=== PATIENT | female | born 1930 | race Caucasian/White ===

== ENCOUNTER 2017-03-11 11:30 | Emergency (ER) | payer MEDICARE ==
[2017-03-11] MEDS ORDERED: SODIUM CHLORIDE 0.9% 500 ML IV ONE (13:25)
--- NOTE | 2017-03-11 13:30 | ED ---
General Adult HPI - General Chief complaint: Fall Stated complaint: Fall Time Seen by Provider: 03/11/17 13:13 Source: patient, family, RN notes reviewed Mode of arrival: wheelchair Limitations: no limitations - History of Present Illness Initial comments: 86-year-old female presents with chief complaint of low back pain. Patient does have chronic low back pain, she fell on Saturday which was 2 days ago. She states she felt lightheaded, and sat down hard, she did have minor head trauma and is complaining of some minor paraspinal neck pain. No focal weakness. No headache. No chest pain or shortness of breath. Patient denies any preceding chest pain prior to the fall. She she has been ambulatory for the past 2 days after the fall, she is expressing worsening right-sided low back pain. No dysuria. No fever or chills. Patient believes she fell because she has not been eating secondary to an argument with her . - Related Data Home Medications Medication Instructions Recorded Confirmed Albuterol Nebulized [Ventolin 2.5 mg INHALATION RT-TID PRN 03/11/17 03/11/17 Nebulized] Albuterol Sulfate [Proair Hfa] 2 puff INHALATION RT-QID PRN 03/11/17 03/11/17 Aspirin EC [Ecotrin Low Dose] 81 mg PO DAILY 03/11/17 03/11/17 Atenolol [Tenormin] 50 mg PO DAILY 03/11/17 03/11/17 Famotidine [Pepcid] 20 mg PO BID 03/11/17 03/11/17 Fish Oil/Dha/Epa [Fish Oil 1,200 1 cap PO DAILY 03/11/17 03/11/17 mg Fish Oil] Gabapentin [Neurontin] 300 mg PO BID 03/11/17 03/11/17 Hydrochlorothiazide [Hydrodiuril] 25 mg PO DAILY 03/11/17 03/11/17 Ipratropium [place] [Atrovent Hfa] 2 puff INHALATION RT-QID PRN 03/11/17 Lovastatin [Mevacor] 40 mg PO DAILY 03/11/17 03/11/17 Montelukast [Singulair] 10 mg PO HS 03/11/17 03/11/17 Systane Balance 2 drops BOTH EYES DAILY PRN 03/11/17 03/11/17 Ubidecarenone [Co Q-10] 100 mg PO DAILY 03/11/17 03/11/17 Vitamin B Complex 1 cap PO DAILY 03/11/17 03/11/17 Zolpidem [Ambien] 10 mg PO HS 03/11/17 03/11/17 traZODone HCL 50 mg PO HS PRN 03/11/17 03/11/17 Previous Rx's Medication Instructions Recorded traMADol HCL [Ultram] 50 mg PO Q8HR PRN #20 tab 03/11/17 Allergies Allergy/AdvReac Type Severity Reaction Status Date / Time adhesive tape Allergy Rash/Hives Verified 03/11/17 14:05 ciprofloxacin [From Cipro] AdvReac Rapid Verified 03/11/17 14:05 Heart Rate Review of Systems ROS Statement: Those systems with pertinent positive or pertinent negative responses have been documented in the HPI. ROS Other: All systems not noted in ROS Statement are negative. Past Medical History Past Medical History: Hypertension Additional Past Medical History / Comment(s): back problems arrythemia History of Any Multi-Drug Resistant Organisms: None Reported Past Surgical History: No Surgical Hx Reported Past Psychological History: No Psychological Hx Reported Smoking Status: Former smoker Past Alcohol Use History: Rare Past Drug Use History: None Reported General Exam Limitations: no limitations General appearance: alert, in no apparent distress Head exam: Present: atraumatic, normocephalic Eye exam: Present: normal appearance, PERRL, EOMI ENT exam: Present: mucous membranes dry Neck exam: Present: normal inspection. Absent: tenderness, meningismus Respiratory exam: Present: normal lung sounds bilaterally. Absent: respiratory distress Cardiovascular Exam: Present: regular rate, normal rhythm GI/Abdominal exam: Present: soft. Absent: distended, tenderness Extremities exam: Present: normal inspection, normal capillary refill. Absent: pedal edema Back exam: Present: paraspinal tenderness (Right lumbar paraspinal tenderness) Neurological exam: Present: alert, oriented X3, CN II-XII intact, normal gait, reflexes normal. Absent: motor sensory deficit Psychiatric exam: Present: normal affect, normal mood Skin exam: Present: warm, dry, intact. Absent: cyanosis, diaphoretic Course Vital Signs 03/11/17 11:46 Temperature 97.9 F Pulse Rate 53 L Respiratory 18 Rate Blood Pressure 170/74 O2 Sat by Pulse 100 Oximetry EKG Findings - EKG Comments: EKG Findings:: EKG shows sinus rhythm with PAC, ventricular rate 61, ER 160, QRS duration 76, QTC 473 which is mildly prolonged. No ST segment elevation or depression, there is artifact in the lateral precordium, no ischemic changes. Medical Decision Making - Medical Decision Making 86-year-old female presenting status post fall which occurred 2 days prior to presentation. Chief complaint low back pain. She did have minor head injury. CT the head is obtained, negative for acute renal hemorrhage or mass effect. CT cervical spine negative for fracture subluxation. X-rays of the pelvis is negative for fracture or dislocation, x-ray of the lumbar spine negative for any acute bony abnormality. Laboratory studies are obtained as the patient states she has not been eating or drinking normally over the past several days this was secondary to an argument with her . White blood cell count normal 7.7, hemoglobin stable 15.4, creatinine 1.2 which is improved from previous baseline 1.4. Patient will be given a prescription for tramadol. She will follow-up with her primary care physician, she does have an appointment within the next week. - Lab Data Result diagrams: 03/11/17 13:55 03/11/17 13:55 Lab Results 03/11/17 03/11/17 Range/Units 13:55 13:55 WBC 7.7 (3.8-10.6) k/uL RBC 4.42 (3.80-5.40) m/uL Hgb 13.4 (11.4-16.0) gm/dL Hct 41.5 (34.0-46.0) % MCV 94.0 D (80.0-100.0) fL MCH 30.4 (25.0-35.0) pg MCHC 32.4 (31.0-37.0) g/dL RDW 15.4 (11.5-15.5) % Plt Count 140 L (150-450) k/uL Neutrophils % 75 % Lymphocytes % 15 % Monocytes % 6 % Eosinophils % 1 % Basophils % 0 % Neutrophils # 5.8 (1.3-7.7) k/uL Lymphocytes # 1.2 (1.0-4.8) k/uL Monocytes # 0.5 (0-1.0) k/uL Eosinophils # 0.1 (0-0.7) k/uL Basophils # 0.0 (0-0.2) k/uL Sodium 142 (137-145) mmol/L Potassium 3.9 (3.5-5.1) mmol/L Chloride 104 (98-107) mmol/L Carbon Dioxide 25 (22-30) mmol/L Anion Gap 13 mmol/L BUN 37 H (7-17) mg/dL Creatinine 1.22 H (0.52-1.04) mg/dL Est GFR (MDRD) Af Amer 51 (>60 ml/min/1.73 sqM) Est GFR (MDRD) Non-Af 42 (>60 ml/min/1.73 sqM) Glucose 86 (74-99) mg/dL Calcium 9.4 (8.4-10.2) mg/dL Total Bilirubin 0.5 (0.2-1.3) mg/dL AST 39 H (14-36) U/L ALT 35 (9-52) U/L Alkaline Phosphatase 62 (38-126) U/L Total Protein 7.7 (6.3-8.2) g/dL Albumin 4.2 (3.5-5.0) g/dL Disposition Clinical Impression: Lumbar contusion Disposition: HOME SELF-CARE Condition: Good Instructions: Contusion in Adults (ED) Prescriptions: traMADol HCL [Ultram] 50 mg PO Q8HR PRN #20 tab PRN Reason: Pain Referrals: Angel Natarajan DO [Primary Care Provider] - 1-2 days Time of Disposition: 15:08
[2017-03-11 14:18] LABS: Basophils % (A) 0 %; Eosinophils # (A) 0.1 k/uL (0-0.7); Eosinophils % (A) 1 %; HCT 41.5 % (34.0-46.0); HGB 13.4 gm/dL (11.4-16.0); Lymphocytes # (A) 1.2 k/uL (1.0-4.8); Lymphocytes % (A) 15 %; MCH 30.4 pg (25.0-35.0); MCHC 32.4 g/dL (31.0-37.0); Mean Platelet Volume 9.4; Monocytes # (A) 0.5 k/uL (0-1.0); Monocytes % (A) 6 %; Neutrophils # (A) 5.8 k/uL (1.3-7.7); Neutrophils % (A) 75 %; Platelet Count 140 k/uL (150-450); RBC 4.42 m/uL (3.80-5.40); RDW 15.4 % (11.5-15.5); WBC 7.7 k/uL (3.8-10.6)
[2017-03-11 14:27] LABS: Albumin 4.2 g/dL (3.5-5.0); Calcium 9.4 mg/dL (8.4-10.2); Potassium 3.9 mmol/L (3.5-5.1); Total Bilirubin 0.5 mg/dL (0.2-1.3); Total Protein 7.7 g/dL (6.3-8.2)
--- NOTE | 2017-03-11 14:40 | CT ---
EXAMINATION TYPE: CT brain oleg roman DATE OF EXAM: 03/11/2017 COMPARISON: NONE HISTORY: No prior in PACS. Patient fell Saturday, c/o dizziness, difficulty standing. CT DLP: 1517.8 mGycm Automated exposure control for dose reduction was used. TECHNIQUE: CT scan of the head and cervical spine are performed without contrast. FINDINGS: There is no acute intracranial hemorrhage, mass effect, or midline shift identified. The ventricles and sulci are within normal limits in size. The globes are intact and the visualized sin uses are clear. Cerebral vascular calcifications are present. Cervical spine is visualized in its entirety from C1 through upper thoracic levels and demonstrates s atisfactory alignment without evidence of acute fracture or dislocation. Prevertebral soft tissue ap pears within normal limits. There is multilevel spondylosis. Loss of disc height is greatest at C4-5, C5-6 and C6-7. The C1-C2 articulation is unremarkable. Apical pleural scarring is present, parasepta l emphysematous disease. There is multilevel foraminal encroachment. IMPRESSION: 1. There is no acute fracture or dislocation evident in the cervical spine. 2. No acute intracranial hemorrhage, mass effect, or midline shift is seen.
[2017-03-11] MEDS ORDERED: ACETAMINOPHEN TAB 500 MG TAB PO STA (14:50)
--- NOTE | 2017-03-11 14:53 | XR ---
EXAMINATION TYPE: XR lumbar spine 2 or 3V DATE OF EXAM: 03/11/2017 CLINICAL HISTORY: pain TECHNIQUE: Three views of the lumbar spine are submitted. COMPARISON: None. FINDINGS: There are 5 lumbar type vertebral bodies identified. The lumbar spine shows satisfactory alignment w ithout evidence of acute fracture or dislocation. Vertebral body heights are within normal limits. Moderate degenerative disc space narrowing and spondylosis. Facet joint arthropathy. The overlying s oft tissue appears unremarkable. IMPRESSION: No acute fracture or dislocation is seen in the lumbar spine. ICD 10 NO FRACTURE, INITIAL EVALUATION
--- NOTE | 2017-03-11 14:56 | XR ---
EXAMINATION TYPE: XR pelvis AP view DATE OF EXAM: 03/11/2017 CLINICAL HISTORY: pain TECHNIQUE: Single view the pelvis is submitted. FINDINGS: No evidence for fracture, dislocation or bony lesion. Joint spaces are well-preserved. S I joints appear symmetric. IMPRESSION: 1. No acute fracture or dislocation seen. ICD 10 NO FRACTURE, INITIAL EVALUATION
[2017-03-11 15:23] VITALS: BP 173/75; PULSE 52; RESP 20; TEMP 96.6
== END 2017-03-11 15:27 | disposition home or self-care (01) ==
LOC: EC 11:30
DX: S30.0XXA Contusion of lower back and pelvis, initial encounter (principal); R42 Dizziness and giddiness; M54.2 Cervicalgia; I10 Essential (primary) hypertension; Z87.891 Personal history of nicotine dependence; Z79.82 Long term (current) use of aspirin; Z79.899 Other long term (current) drug therapy; Z88.1 Allergy status to other antibiotic agents; Z91.048 Other nonmedicinal substance allergy status; W18.00XA Striking against unspecified object with subsequent fall, initial encounter
CPT/HCPCS: 36415; 70450; 72100; 72125; 72170; 80053; 85025; 93005; 99284

== ENCOUNTER 2019-01-20 14:16 | Inpatient (IN) | payer MEDICARE ==
[2019-01-20] MEDS ORDERED: SODIUM CHLORIDE 0.9% 500 ML 500 ML IV STA (14:46)
--- NOTE | 2019-01-20 14:46 | ED ---
Arrhythmia/Palpitations HPI - General Chief Complaint: Arrhythmia/Palpitations Stated Complaint: SOB, Dizzy, Weakness Time Seen by Provider: 01/20/19 14:20 Source: patient Mode of arrival: wheelchair Limitations: no limitations - History of Present Illness Initial Comments: The patient is an 88 year old female with past medical history of hypertension w tony presents to the emergency department with reported palpitations. She states that 2 weeks ago she had an episode of palpitations which lasted approximate 5 minutes and spontaneous resolved. She then had recurrence of the symptoms earlier today. She states that she was going up the stairs when she felt like her heart was racing and she was short of breath. She was brought into the emergency room and found to have a heart rate of 217. Denies a history of previous arrhythmias. No history of coronary artery disease. She does admit to recent cough and congestion. She did take an Z-Santino which was prescribed to her primary care doctor. States that she finished and she does feel somewhat i mproved however continues to have a cough. Admits to chills without fevers. Denies ripping or tearing sensation to her back. No abdominal pain. No changes in her bowel or bladder habits. No recent medication changes other than Z-Santino. No history of hemorrhagic strokes or contraindications to heparinization. There are no other alleviating, precipitating or modifying factors - Related Data Home Medications Medication Instructions Recorded Confirmed Albuterol Nebulized [Ventolin 2.5 mg INHALATION RT-TID PRN 03/11/17 01/20/19 Nebulized] Albuterol Sulfate [Proair Hfa] 2 puff INHALATION RT-QID PRN 03/11/17 01/20/19 Aspirin EC [Ecotrin Low Dose] 81 mg PO DAILY 03/11/17 01/20/19 Famotidine [Pepcid] 20 mg PO BID 03/11/17 01/20/19 Fish Oil/Dha/Epa [Fish Oil 1,200 1 cap PO DAILY 03/11/17 01/20/19 mg Fish Oil] Ipratropium [place] [Atrovent Hfa] 2 puff INHALATION RT-QID PRN 03/11/17 01/20/19 Lovastatin [Mevacor] 40 mg PO DAILY 03/11/17 01/20/19 Montelukast [Singulair] 10 mg PO HS 03/11/17 01/20/19 Systane Balance 2 drops BOTH EYES DAILY PRN 03/11/17 01/20/19 Vitamin B Complex 1 cap PO DAILY 03/11/17 01/20/19 Zolpidem [Ambien] 10 mg PO HS 03/11/17 01/20/19 traZODone HCL 50 mg PO HS PRN 03/11/17 01/20/19 Furosemide [Lasix] 20 mg PO DAILY 01/20/19 01/20/19 Previous Rx's Medication Instructions Recorded Apixaban [Eliquis] 5 mg PO BID 30 Days #60 tab 01/22/19 Gabapentin [Neurontin] 200 mg PO BID #12 cap 01/22/19 Metoprolol Tartrate [Lopressor] 75 mg PO BID 30 Days #180 tab 01/22/19 Allergies Allergy/AdvReac Type Severity Reaction Status Date / Time adhesive tape Allergy TEARS SKIN Verified 01/20/19 16:23 OFF ciprofloxacin [From Cipro] AdvReac Rapid Verified 01/20/19 16:23 Heart Rate Review of Systems ROS Statement: Those systems with pertinent positive or pertinent negative responses have been documented in the HPI. ROS Other: All systems not noted in ROS Statement are negative. Past Medical History Past Medical History: Hypertension Additional Past Medical History / Comment(s): back problems arrythemia History of Any Multi-Drug Resistant Organisms: None Reported Past Surgical History: No Surgical Hx Reported Past Psychological History: No Psychological Hx Reported Smoking Status: Former smoker Past Alcohol Use History: Rare Past Drug Use History: None Reported General Exam Limitations: no limitations General appearance: alert, in no apparent distress Head exam: Present: atraumatic, normocephalic, normal inspection Eye exam: Present: normal appearance, PERRL, EOMI. Absent: scleral icterus, conjunctival injection, periorbital swelling ENT exam: Present: normal exam, mucous membranes moist Neck exam: Present: normal inspection. Absent: tenderness, meningismus, lymphadenopathy Respiratory exam: Present: normal lung sounds bilaterally. Absent: respiratory distress, wheezes, rales, rhonchi, stridor Cardiovascular Exam: Present: tachycardia, irregular rhythm, normal heart sounds. Absent: systolic murmur, diastolic murmur, rubs, gallop, clicks GI/Abdominal exam: Present: soft, normal bowel sounds. Absent: distended, tenderness, guarding, rebound, rigid Extremities exam: Present: normal inspection, full ROM, normal capillary refill. Absent: tenderness, pedal edema, joint swelling, calf tenderness Back exam: Present: normal inspection Neurological exam: Present: alert, oriented X3, CN II-XII intact Psychiatric exam: Present: normal affect, normal mood Skin exam: Present: warm, dry, intact, normal color. Absent: rash Course Vital Signs 01/20/19 01/20/19 01/20/19 14:20 14:33 14:34 Temperature 97.9 F Pulse Rate 217 H 151 H 113 H Respiratory 30 H 16 Rate Blood Pressure 92/64 114/88 O2 Sat by Pulse 88 L 97 Oximetry 01/20/19 01/20/19 15:50 17:07 Temperature Pulse Rate 112 H 112 H Respiratory 16 16 Rate Blood Pressure 161/87 161/91 O2 Sat by Pulse 100 97 Oximetry EKG Findings - EKG Comments: EKG Findings:: EKG performed at 1430 demonstrates a flutter with a ventricular rate of 171. QRS 78. QTC of 452. There appears to be ST depression in leads V3 through V6 that is likely due to rate. No acute ST segment elevations. Repeat EKG is performed at 1433 without intervention for which demonstrates in a flutter with a 2 to one block. Rate of 114. QRS E4. QTC of 446. There is mild ST depression still in V3 through V6, 2, 3, aVF. Medical Decision Making - Medical Decision Making The patient is probably placed in trauma bay 1 and hooked up to continuous pulse ox and cardiac monitoring. Patient's heart rate is noted to be 217. We did perform a 12-lead EKG which demonstrates A. fib with a rapid ventricular rate of 170. A thorough history and physical exam is performed. Peripheral IV is established. During my exam the patient does convert to a flutter with a heart rate of 114. I did recommend completing laboratory studies and a chest x-ray. CBC is unremarkable. D-dimer is elevated at 1.65. Chemistries show a creatinine of 1.44. Glucose of 103. BNP elevated at 4590. Troponin 0.028. Urinalysis is negative. Chest x-ray does demonstrate chronic emphysematous and parenchymal fibrotic changes. Tiny bilateral pleural effusions. Difficult to exclude patchy bibasilar acute edema and/or infiltrate. The patient is placed on Cardizem drip and heparin drip. I we will cover her with antibiotics because of her clinical symptoms of pneumonia with infiltrate seen on chest x-ray. Patient does have an elevated d-dimer. Because of her chronic kidney disease I'm unable to send her for CT PE protocol. I did order a ventilation perfusion scan. A call discuss case with Dr. Tucker at that admission. I will consult cardiology. The patient remained in stable condition and is awaiting a bed on the floor - Lab Data Result diagrams: 01/22/19 06:45 01/22/19 06:45 Lab Results 01/20/19 01/20/19 01/20/19 Range/Units 14:33 14:33 14:33 WBC 8.4 (3.8-10.6) k/uL RBC 4.65 (3.80-5.40) m/uL Hgb 13.5 (11.4-16.0) gm/dL Hct 42.7 (34.0-46.0) % MCV 91.8 (80.0-100.0) fL MCH 29.0 (25.0-35.0) pg MCHC 31.5 (31.0-37.0) g/dL RDW 15.0 (11.5-15.5) % Plt Count 289 (150-450) k/uL Neutrophils % 81 % Lymphocytes % 9 % Monocytes % 6 % Eosinophils % 2 % Basophils % 1 % Neutrophils # 6.8 (1.3-7.7) k/uL Lymphocytes # 0.8 L (1.0-4.8) k/uL Monocytes # 0.5 (0-1.0) k/uL Eosinophils # 0.2 (0-0.7) k/uL Basophils # 0.1 (0-0.2) k/uL PT 10.4 (9.0-12.0) sec INR 1.0 (<1.2) APTT 23.0 (22.0-30.0) sec D-Dimer 1.65 H (<0.60) mg/L FEU Sodium 139 (137-145) mmol/L Potassium 4.1 (3.5-5.1) mmol/L Chloride 103 (98-107) mmol/L Carbon Dioxide 24 (22-30) mmol/L Anion Gap 12 mmol/L BUN 23 H (7-17) mg/dL Creatinine 1.44 H (0.52-1.04) mg/dL Est GFR (CKD-EPI)AfAm 38 (>60 ml/min/1.73 sqM) Est GFR (CKD-EPI)NonAf 33 (>60 ml/min/1.73 sqM) Glucose 103 H (74-99) mg/dL Calcium 9.0 (8.4-10.2) mg/dL Magnesium 1.8 (1.6-2.3) mg/dL Total Bilirubin 0.4 (0.2-1.3) mg/dL AST 35 (14-36) U/L ALT 26 (9-52) U/L Alkaline Phosphatase 88 (38-126) U/L Troponin I (0.000-0.034) ng/mL NT-Pro-B Natriuret Pep pg/mL Total Protein 7.7 (6.3-8.2) g/dL Albumin 3.7 (3.5-5.0) g/dL TSH 1.010 (0.465-4.680) mIU/L Urine Color Urine Appearance (Clear) Urine pH (5.0-8.0) Ur Specific Gladys (1.001-1.035) Urine Protein (Negative) Urine Glucose (UA) (Negative) Urine Ketones (Negative) Urine Blood (Negative) Urine Nitrite (Negative) Urine Bilirubin (Negative) Urine Urobilinogen (<2.0) mg/dL Ur Leukocyte Esterase (Negative) 01/20/19 01/20/19 01/20/19 Range/Units 14:33 14:33 14:45 WBC (3.8-10.6) k/uL RBC (3.80-5.40) m/uL Hgb (11.4-16.0) gm/dL Hct (34.0-46.0) % MCV (80.0-100.0) fL MCH (25.0-35.0) pg MCHC (31.0-37.0) g/dL RDW (11.5-15.5) % Plt Count (150-450) k/uL Neutrophils % % Lymphocytes % % Monocytes % % Eosinophils % % Basophils % % Neutrophils # (1.3-7.7) k/uL Lymphocytes # (1.0-4.8) k/uL Monocytes # (0-1.0) k/uL Eosinophils # (0-0.7) k/uL Basophils # (0-0.2) k/uL PT (9.0-12.0) sec INR (<1.2) APTT (22.0-30.0) sec D-Dimer (<0.60) mg/L FEU Sodium (137-145) mmol/L Potassium (3.5-5.1) mmol/L Chloride (98-107) mmol/L Carbon Dioxide (22-30) mmol/L Anion Gap mmol/L BUN (7-17) mg/dL Creatinine (0.52-1.04) mg/dL Est GFR (CKD-EPI)AfAm (>60 ml/min/1.73 sqM) Est GFR (CKD-EPI)NonAf (>60 ml/min/1.73 sqM) Glucose (74-99) mg/dL Calcium (8.4-10.2) mg/dL Magnesium (1.6-2.3) mg/dL Total Bilirubin (0.2-1.3) mg/dL AST (14-36) U/L ALT (9-52) U/L Alkaline Phosphatase (38-126) U/L Troponin I 0.028 (0.000-0.034) ng/mL NT-Pro-B Natriuret Pep 4590 pg/mL Total Protein (6.3-8.2) g/dL Albumin (3.5-5.0) g/dL TSH (0.465-4.680) mIU/L Urine Color Light Yellow Urine Appearance Clear (Clear) Urine pH 7.0 (5.0-8.0) Ur Specific Gladys 1.004 (1.001-1.035) Urine Protein Negative (Negative) Urine Glucose (UA) Negative (Negative) Urine Ketones Negative (Negative) Urine Blood Negative (Negative) Urine Nitrite Negative (Negative) Urine Bilirubin Negative (Negative) Urine Urobilinogen <2.0 (<2.0) mg/dL Ur Leukocyte Esterase Negative (Negative) Critical Care Time Critical Care Time: Yes Total Critical Care Time: 35 (mins) Disposition Clinical Impression: Atrial fibrillation, Pneumonia, Chronic kidney disease, Elevated d-dimer Disposition: ADMITTED IP TO THIS [facility] Condition: Stable Is patient prescribed a controlled substance at d/c from ED?: No Decision to Admit Reason: Admit from EC Decision Date: 01/20/19 Decision Time: 16:12
[2019-01-20 14:57] LABS: Basophils # (A) 0.1 k/uL (0-0.2); Basophils % (A) 1 %; Eosinophils # (A) 0.2 k/uL (0-0.7); Eosinophils % (A) 2 %; HCT 42.7 % (34.0-46.0); HGB 13.5 gm/dL (11.4-16.0); Lymphocytes # (A) 0.8 k/uL (1.0-4.8); Lymphocytes % (A) 9 %; MCHC 31.5 g/dL (31.0-37.0); MCV 91.8 fL (80.0-100.0); Monocytes # (A) 0.5 k/uL (0-1.0); Monocytes % (A) 6 %; Neutrophils # (A) 6.8 k/uL (1.3-7.7); Neutrophils % (A) 81 %; Platelet Count 289 k/uL (150-450); RBC 4.65 m/uL (3.80-5.40); WBC 8.4 k/uL (3.8-10.6)
[2019-01-20 14:58] LABS: Appearance,Urine Clear (Clear); Bilirubin,Urine Negative (Negative); Blood,Urine Negative (Negative); Color,Urine Light Yellow; Glucose,Urine (UA) Negative (Negative); Ketones,Urine Negative (Negative); Leukocyte Esterase,Urine Negative (Negative); Nitrite,Urine Negative (Negative); Protein,Urine Negative (Negative); Specific Gravity,Urine 1.004 (1.001-1.035); Urobilinogen,Urine <2.0 mg/dL (<2.0)
[2019-01-20 15:02] LABS: Albumin 3.7 g/dL (3.5-5.0); Magnesium 1.8 mg/dL (1.6-2.3); Potassium 4.1 mmol/L (3.5-5.1); Total Bilirubin 0.4 mg/dL (0.2-1.3); Total Protein 7.7 g/dL (6.3-8.2)
--- NOTE | 2019-01-20 15:13 | XR ---
EXAMINATION TYPE: XR chest 2V DATE OF EXAM: 01/20/2019 COMPARISON: Chest x-ray on June 03 2013 HISTORY: Dysrhythmia and shortness of breath. TECHNIQUE: Frontal and lateral views of the chest are obtained. FINDINGS: There is emphysematous and parenchymal fibrotic change with suspected tiny bilateral pleur al effusions as is blunting of posterior costophrenic angles. The cardiac silhouette size is upper l imits of normal with atherosclerotic aorta. Osseous structures are somewhat demineralized. IMPRESSION: Chronic emphysematous and parenchymal fibrotic changes felt advanced in the lung bases w ith progression from 2013. Tiny bilateral pleural effusions. Difficult to exclude patchy bibasilar ac [place] edema and/or infiltrate on background chronic parenchymal change.
[2019-01-20 15:14] LABS: Prothrombin Time 10.4 sec (9.0-12.0)
[2019-01-20 15:15] LABS: D-Dimer 1.65 mg/L FEU (<0.60)
[2019-01-20] MEDS ORDERED: HEPARIN SODIUM,PORCINE 5,000 UNIT/ML 1 ML VIAL IV PRN (15:54)
[2019-01-20] MEDS ORDERED: HEPARIN SODIUM,PORCINE 5,000 UNIT/ML 1 ML VIAL IV ONE (15:54)
[2019-01-20] MEDS ORDERED: HEPARIN SOD,PORK IN 0.45% NACL 25,000 UNIT in 0.45% NACL 1 250ML.BAG IV SCH (16:00)
[2019-01-20] MEDS ORDERED: AZITHROMYCIN 500 MG in SODIUM CHLORIDE 0.9% 250 ML IVPB STA (16:06)
[2019-01-20] MEDS ORDERED: cefTRIAXone IN SWFI 1,000 MG/10 ML SYRINGE IVP STA (16:06)
[2019-01-20] MEDS ORDERED: NALOXONE 0.4 MG/ML 1 ML VIAL IV PRN (16:12)
[2019-01-20] MEDS ORDERED: MAGNESIUM OXIDE 400 MG TAB PO STA (16:16)
[2019-01-20] MEDS ORDERED: ALBUTEROL NEBULIZED 2.5 MG/3 ML INHALATION PRN (16:44)
[2019-01-20] MEDS ORDERED: traZODone HCL 50 MG TAB PO PRN (16:44)
[2019-01-20] MEDS: DILTIAZEM 125 MG in SODIUM CHLORIDE 0.9% 100 ML IV SCH (16:55)
--- NOTE | 2019-01-20 18:53 | NM ---
EXAMINATION TYPE: NM pul vent and perfuse DATE OF EXAM: 01/20/2019 COMPARISON: NONE HISTORY: TECHNIQUE: Utilizing inhalation of 41.4 mCi Tc 99m DTPA aerosol and intravenous injection of 4.7 mCi of Tc 99m MAA, ventilation and perfusion images are acquired post injection in multiple projections. FINDINGS: There is patchy ventilation defects throughout both lungs. Perfusion images appear more normal than t he ventilation images. There is no ventilation/perfusion mismatch. There is pulmonary hyperinflation. IMPRESSION: There is evidence of diffuse airway disease. There is a low probability of pulmonary embolism.
[2019-01-20] MEDS: MONTELUKAST 10 MG TAB PO SCH (21:04)
[2019-01-20] MEDS: GABAPENTIN 100 MG CAP PO SCH (21:04)
[2019-01-20] MEDS: ZOLPIDEM 10 MG TAB PO PRN (21:04)
[2019-01-20] MEDS: FAMOTIDINE 20 MG TAB PO SCH (21:04)
[2019-01-21 07:02] LABS: Basophils % (A) 0 %; Eosinophils # (A) 0.2 k/uL (0-0.7); Eosinophils % (A) 3 %; HCT 34.1 % (34.0-46.0); HGB 11.3 gm/dL (11.4-16.0); Lymphocytes # (A) 0.6 k/uL (1.0-4.8); Lymphocytes % (A) 10 %; MCH 30.2 pg (25.0-35.0); MCHC 33.3 g/dL (31.0-37.0); MCV 90.8 fL (80.0-100.0); Mean Platelet Volume 6.1; Monocytes # (A) 0.4 k/uL (0-1.0); Monocytes % (A) 6 %; Neutrophils # (A) 4.9 k/uL (1.3-7.7); Neutrophils % (A) 78 %; Platelet Count 242 k/uL (150-450); RBC 3.75 m/uL (3.80-5.40); RDW 15.1 % (11.5-15.5); WBC 6.3 k/uL (3.8-10.6)
[2019-01-21 07:14] LABS: Calcium 8.3 mg/dL (8.4-10.2); Potassium 3.9 mmol/L (3.5-5.1)
[2019-01-21] MEDS: ATORVASTATIN 10 MG TAB PO SCH (08:13)
[2019-01-21] MEDS: FAMOTIDINE 20 MG TAB PO SCH ×2 (08:13→20:12)
[2019-01-21] MEDS: ASPIRIN 81 MG PO SCH (08:13)
[2019-01-21] MEDS: GABAPENTIN 100 MG CAP PO SCH ×2 (08:13→20:12)
[2019-01-21] MEDS ORDERED: METOPROLOL TARTRATE 25 MG TAB PO SCH (10:00)
--- NOTE | 2019-01-21 10:24 | P.CRDCN ---
History of Present Illness Consult date: 01/21/19 Requesting physician: Javed Tucker Consult reason: atrial fibrillation Chief complaint: Heart racing, dizziness and shortness of breath History of present illness: This is a pleasant 88-year-old female with known history of hypertension, hyperlipidemia, nondiabetic, quit smoking several years ago, follows regularly with Dr. Guthrie in the office. She presented to the hospital with symptoms of heart racing with associated dizziness and shortness of breath. According to the patient, she has noticed these rapid palpitations off and on for some time. She does get quite dizzy when they come on, but prior to this admission she was also short of breath. She does think that she has been told in the past that she may have had an episode of atrial fibrillation however she was not on anticoagulation. Her EKG on presentation here showed atrial flutter with a heart rate of 114. Subsequent EKG showed atrial flutter with a rapid ventricular response, heart rate in the 170 range. Chest x-ray showed chronic emphysema and parenchymal fibrotic changes which are felt to be advanced in the lung bases progressed from 2013. Tiny bilateral pleural effusions. A VQ scan was also performed which was low probability for pulmonary embolism. Blood pressure on arrival here 92/60, heart rate at that time was documented to be 217, 88% on room air. White blood cell count 8.4, hemoglobin 13.5 on admission, 11.3 this morning. Platelet count 242. D-dimer 1.6. Sodium 140, potassium 3.9, BUN 23 on admission with a creatinine of 1.4, 18 and 1.1 this morning. Magnesium level I.8. Troponin 0.028, 0.133, 0.051. BNP level 4590. TSH level I.0. At the time of my examination, patient is resting comfortably in bed, denies any shortness of breath or palpitations at present, no dizziness. Patient continues at this time to be in atrial flutter, heart rate 110. Past Medical History Past Medical History: Asthma, Cancer, COPD, Hypertension Additional Past Medical History / Comment(s): back problems, arrythemia hx of wearing heart monitor, skin CA with removal History of Any Multi-Drug Resistant Organisms: None Reported Past Surgical History: No Surgical Hx Reported Past Anesthesia/Blood Transfusion Reactions: No Reported Reaction Past Psychological History: No Psychological Hx Reported Smoking Status: Former smoker Past Alcohol Use History: Rare Past Drug Use History: None Reported Medications and Allergies Home Medications Medication Instructions Recorded Confirmed Type Albuterol Nebulized [Ventolin 2.5 mg INHALATION RT-TID PRN 03/11/17 01/20/19 History Nebulized] Albuterol Sulfate [Proair Hfa] 2 puff INHALATION RT-QID PRN 03/11/17 01/20/19 History Aspirin EC [Ecotrin Low Dose] 81 mg PO DAILY 03/11/17 01/20/19 History Atenolol [Tenormin] 50 mg PO DAILY 03/11/17 01/20/19 History Famotidine [Pepcid] 20 mg PO BID 03/11/17 01/20/19 History Fish Oil/Dha/Epa [Fish Oil 1,200 1 cap PO DAILY 03/11/17 01/20/19 History mg Fish Oil] Gabapentin [Neurontin] 300 mg PO BID 03/11/17 01/20/19 History Ipratropium [place] [Atrovent Hfa] 2 puff INHALATION RT-QID PRN 03/11/17 01/20/19 History Lovastatin [Mevacor] 40 mg PO DAILY 03/11/17 01/20/19 History Montelukast [Singulair] 10 mg PO HS 03/11/17 01/20/19 History Systane Balance 2 drops BOTH EYES DAILY PRN 03/11/17 01/20/19 History Vitamin B Complex 1 cap PO DAILY 03/11/17 01/20/19 History Zolpidem [Ambien] 10 mg PO HS 03/11/17 01/20/19 History traZODone HCL 50 mg PO HS PRN 03/11/17 01/20/19 History Furosemide [Lasix] 20 mg PO DAILY 01/20/19 01/20/19 History Allergies Allergy/AdvReac Type Severity Reaction Status Date / Time adhesive tape Allergy TEARS SKIN Verified 01/20/19 16:23 OFF ciprofloxacin [From Cipro] AdvReac Rapid Verified 01/20/19 16:23 Heart Rate Physical Exam Vitals: Vital Signs Temp Pulse Pulse Resp BP BP Pulse Ox 01/21/19 08:09 98.1 F 93 20 125/72 95 01/21/19 04:00 98.2 F 80 18 129/68 95 01/20/19 23:37 86 18 01/20/19 23:33 98.0 F 86 18 129/56 99 01/20/19 20:00 88 18 01/20/19 19:58 98.1 F 88 18 145/72 98 01/20/19 19:05 97.5 F L 107 H 18 154/89 95 01/20/19 17:07 112 H 16 161/91 97 01/20/19 15:50 112 H 16 161/87 100 01/20/19 14:34 113 H 01/20/19 14:33 151 H 16 114/88 97 01/20/19 14:20 97.9 F 217 H 30 H 92/64 88 L Intake and Output 01/20/19 01/21/19 01/21/19 22:59 06:59 14:59 Intake Total 59 120 Balance 59 120 Intake: Intake, IV Titration 59 Amount Diltiazem 125 mg In 29 Sodium Chloride 0.9% 100 ml @ 5 MG/HR 5 mls/hr IV .Q24H [facility] Rx#:[id number] Sodium Chloride 0.9% 500 30 ml 500 ml @ 999 mls/hr IV .Q31M [facility] Rx#:[id number] Oral 120 Other: Voiding Method Toilet Toilet # Voids 1 Weight 53.977 kg 48.2 kg Results 01/21/19 06:25 01/21/19 06:25 Cardiac Enzymes 01/20/19 01/20/19 01/20/19 Range/Units 14:33 14:33 21:30 AST 35 (14-36) U/L Troponin I 0.028 0.133 H* (0.000-0.034) ng/mL 01/21/19 Range/Units 06:25 AST (14-36) U/L Troponin I 0.051 H* (0.000-0.034) ng/mL Coagulation 01/20/19 01/20/19 01/21/19 Range/Units 14:33 21:30 06:25 PT 10.4 (9.0-12.0) sec APTT 23.0 64.4 H 45.4 H (22.0-30.0) sec CBC 01/20/19 01/21/19 Range/Units 14:33 06:25 WBC 8.4 6.3 (3.8-10.6) k/uL RBC 4.65 3.75 L (3.80-5.40) m/uL Hgb 13.5 11.3 L (11.4-16.0) gm/dL Hct 42.7 34.1 (34.0-46.0) % Plt Count 289 242 (150-450) k/uL Comprehensive Metabolic Panel 01/20/19 01/21/19 Range/Units 14:33 06:25 Sodium 139 140 (137-145) mmol/L Potassium 4.1 3.9 (3.5-5.1) mmol/L Chloride 103 109 H (98-107) mmol/L Carbon Dioxide 24 25 (22-30) mmol/L BUN 23 H 18 H (7-17) mg/dL Creatinine 1.44 H 1.19 H (0.52-1.04) mg/dL Glucose 103 H 81 (74-99) mg/dL Calcium 9.0 8.3 L (8.4-10.2) mg/dL AST 35 (14-36) U/L ALT 26 (9-52) U/L Alkaline Phosphatase 88 (38-126) U/L Total Protein 7.7 (6.3-8.2) g/dL Albumin 3.7 (3.5-5.0) g/dL Current Medications Generic Name Dose Route Start Last Admin Trade Name Freq PRN Reason Stop Dose Admin Albuterol Sulfate 2.5 mg 01/20/19 16:44 Ventolin Nebulized INHALATION RT-TID PRN Shortness Of Breath Aspirin 81 mg 01/21/19 09:00 01/21/19 08:13 Aspirin PO 81 mg DAILY [facility]I Administration Atorvastatin Calcium 10 mg 01/21/19 09:00 01/21/19 08:13 Lipitor PO 10 mg DAILY MACI Administration Famotidine 20 mg 01/20/19 21:00 01/21/19 08:13 Pepcid PO 20 mg BID MACI Administration Gabapentin 200 mg 01/20/19 21:00 01/21/19 08:13 Neurontin PO 200 mg BID MACI Administration Heparin Sodium (Porcine) 0 unit 01/20/19 15:54 Heparin IV PER PROTOCOL PRN Low PTT Protocol Heparin Sodium/Sodium Chloride 250 mls @ 6.477 mls/hr 01/20/19 16:00 01/20/19 16:34 25,000 unit/ Sodium Chloride IV 12 units/kg/hr .Q24H [facility] 6.477 mls/hr Administration Protocol 12 UNITS/KG/HR Diltiazem HCl 125 mg/ Sodium 125 mls @ 5 mls/hr 01/20/19 16:15 01/21/19 04:31 Chloride IV 0 mg/hr .Q24H [facility] 0 mls/hr Infusion 5 MG/HR Metoprolol Tartrate 25 mg 01/21/19 10:00 Lopressor PO BID [facility] Montelukast Sodium 10 mg 01/20/19 21:00 01/20/19 21:04 Singulair PO 10 mg HS [facility]I Administration Naloxone HCl 0.2 mg 01/20/19 16:12 Narcan IV Q2M PRN Opioid Reversal Trazodone HCl 50 mg 01/20/19 16:44 Desyrel PO HS PRN Insomnia Zolpidem Tartrate 10 mg 01/20/19 20:59 01/20/19 21:04 Ambien PO 5 mg HS PRN Administration Insomnia Intake and Output 01/20/19 01/21/19 01/21/19 22:59 06:59 14:59 Intake Total 59 120 Balance 59 120 Intake: Intake, IV Titration 59 Amount Diltiazem 125 mg In 29 Sodium Chloride 0.9% 100 ml @ 5 MG/HR 5 mls/hr IV .Q24H [facility] Rx#:[id number] Sodium Chloride 0.9% 500 30 ml 500 ml @ 999 mls/hr IV .Q31M [facility] Rx#:[id number] Oral 120 Other: Voiding Method Toilet Toilet # Voids 1 Weight 53.977 kg 48.2 kg 01/21/19 06:25 01/21/19 06:25
[2019-01-21] MEDS: FUROSEMIDE 10 MG/ML 4 ML VIAL IV SCH ×2 (11:02→20:12)
[2019-01-21] MEDS: METOPROLOL TARTRATE 50 MG TAB PO SCH ×2 (11:02→20:12)
[2019-01-21] MEDS: APIXABAN 5 MG TAB PO SCH ×2 (11:02→20:12)
--- NOTE | 2019-01-21 12:09 | P.HPIM ---
History of Present Illness patient is a very functional pleasant 88-year-old female came in with complaints of palpitations feeling dizzy short of breath with orthopnea and denied any proximal nocturnal dyspnea. Patient is found to be in atrial fibrillation p atient does have pulmonary edema on the x-ray with elevated BNP. Patient will heart rate was apparently very high and found to be in A. fib on admission patient was started on heparin. Echocardiogram is pending patient was started on metoprolol here patient does have elevated JVD does appear to have pulmonary edema probably related to atrial fibrillation but echocardiogram will be obtained to rule outcardiomyopathy. Patient did have elevated d-dimer because of which were ventilation perfusion scan was obtained which is low probability for pulmonary embolism and troponins are mildly elevated highest being 0.3 and troponin elevation can be from A. fib patient presently denied any chest pain EKG showing A. fib. Patient is presently rate controlled. Is being transitioned to Eliquis. Was in acute renal failure with creatinine of 1.4 her normal should be around 0.2-0.3 presently her creatinine is 1.19 Review of Systems REVIEW OF SYSTEMS: CONSTITUTIONAL: as mentioned in HPI HEENT: No recent visual problems or hearing problems. Denied any sore throat. CARDIOVASCULAR: as mentioned in HPI PULMONARY: no hemoptysis. GASTROINTESTINAL: No diarrhea, no nausea, no vomiting, no abdominal pain. NEUROLOGICAL: No headaches, no weakness, no numbness. HEMATOLOGICAL: Denies any bleeding or petechiae. GENITOURINARY: Denies any burning micturition, frequency, or urgency. MUSCULOSKELETAL/RHEUMATOLOGICAL: Denies any joint pain, swelling, or any muscle pain. ENDOCRINE: Denies any polyuria or polydipsia. The rest of the 14-point review of systems is negative. Past Medical History Past Medical History: Asthma, Cancer, COPD, Hypertension Additional Past Medical History / Comment(s): back problems, arrythemia hx of wearing heart monitor, skin CA with removal History of Any Multi-Drug Resistant Organisms: None Reported Past Surgical History: No Surgical Hx Reported Past Anesthesia/Blood Transfusion Reactions: No Reported Reaction Past Psychological History: No Psychological Hx Reported Smoking Status: Former smoker Past Alcohol Use History: Rare Past Drug Use History: None Reported Medications and Allergies Home Medications Medication Instructions Recorded Confirmed Type Albuterol Nebulized [Ventolin 2.5 mg INHALATION RT-TID PRN 03/11/17 01/20/19 History Nebulized] Albuterol Sulfate [Proair Hfa] 2 puff INHALATION RT-QID PRN 03/11/17 01/20/19 History Aspirin EC [Ecotrin Low Dose] 81 mg PO DAILY 03/11/17 01/20/19 History Atenolol [Tenormin] 50 mg PO DAILY 03/11/17 01/20/19 History Famotidine [Pepcid] 20 mg PO BID 03/11/17 01/20/19 History Fish Oil/Dha/Epa [Fish Oil 1,200 1 cap PO DAILY 03/11/17 01/20/19 History mg Fish Oil] Gabapentin [Neurontin] 300 mg PO BID 03/11/17 01/20/19 History Ipratropium [place] [Atrovent Hfa] 2 puff INHALATION RT-QID PRN 03/11/17 01/20/19 History Lovastatin [Mevacor] 40 mg PO DAILY 03/11/17 01/20/19 History Montelukast [Singulair] 10 mg PO HS 03/11/17 01/20/19 History Systane Balance 2 drops BOTH EYES DAILY PRN 03/11/17 01/20/19 History Vitamin B Complex 1 cap PO DAILY 03/11/17 01/20/19 History Zolpidem [Ambien] 10 mg PO HS 03/11/17 01/20/19 History traZODone HCL 50 mg PO HS PRN 03/11/17 01/20/19 History Furosemide [Lasix] 20 mg PO DAILY 01/20/19 01/20/19 History Allergies Allergy/AdvReac Type Severity Reaction Status Date / Time adhesive tape Allergy TEARS SKIN Verified 01/20/19 16:23 OFF ciprofloxacin [From Cipro] AdvReac Rapid Verified 01/20/19 16:23 Heart Rate Physical Exam Vitals: Vital Signs Temp Pulse Pulse Resp BP BP Pulse Ox 01/21/19 11:24 97.9 F 113 H 20 153/83 97 01/21/19 08:09 98.1 F 93 20 125/72 95 01/21/19 04:00 98.2 F 80 18 129/68 95 01/20/19 23:37 86 18 01/20/19 23:33 98.0 F 86 18 129/56 99 01/20/19 20:00 88 18 01/20/19 19:58 98.1 F 88 18 145/72 98 01/20/19 19:05 97.5 F L 107 H 18 154/89 95 01/20/19 17:07 112 H 16 161/91 97 01/20/19 15:50 112 H 16 161/87 100 01/20/19 14:34 113 H 01/20/19 14:33 151 H 16 114/88 97 01/20/19 14:20 97.9 F 217 H 30 H 92/64 88 L Intake and Output 01/20/19 01/21/19 01/21/19 22:59 06:59 14:59 Intake Total 59 120 Balance 59 120 Intake: Intake, IV Titration 59 Amount Diltiazem 125 mg In 29 Sodium Chloride 0.9% 100 ml @ 5 MG/HR 5 mls/hr IV .Q24H [facility] Rx#:[id number] Sodium Chloride 0.9% 500 30 ml 500 ml @ 999 mls/hr IV .Q31M [facility] Rx#:[id number] Oral 120 Other: Voiding Method Toilet Toilet # Voids 3 # Bowel Movements 1 Weight 53.977 kg 48.2 kg PHYSICAL EXAMINATION: GENERAL: The patient is alert and oriented x3, not in any acute distress. thin built elderly frail female HEENT: Pupils are round and equally reacting to light. EOMI. No scleral icterus. No conjunctival pallor. Normocephalic, atraumatic. No pharyngeal erythema. No thyromegaly. CARDIOVASCULAR: S1 and S2 present. No murmurs, rubs, or gallops.does have elevated JVD irregular rhythm PULMONARY: Chest is clear to auscultation, no wheezing or crackles. ABDOMEN: Soft, nontender, nondistended, normoactive bowel sounds. No palpable organomegaly. MUSCULOSKELETAL: No joint swelling or deformity. EXTREMITIES: No cyanosis, clubbing, or pedal edema. NEUROLOGICAL: Gross neurological examination did not reveal any focal deficits. SKIN: No rashes. Results CBC & Chem 7: 01/21/19 06:25 01/21/19 06:25 Labs: Abnormal Lab Results - Last 24 Hours (Table) 01/20/19 01/20/19 01/20/19 Range/Units 14:33 14:33 14:33 RBC (3.80-5.40) m/uL Hgb (11.4-16.0) gm/dL Lymphocytes # 0.8 L (1.0-4.8) k/uL APTT (22.0-30.0) sec D-Dimer 1.65 H (<0.60) mg/L FEU Chloride (98-107) mmol/L BUN 23 H (7-17) mg/dL Creatinine 1.44 H (0.52-1.04) mg/dL Glucose 103 H (74-99) mg/dL Calcium (8.4-10.2) mg/dL Troponin I (0.000-0.034) ng/mL 01/20/19 01/20/19 01/21/19 Range/Units 21:30 21:30 06:25 RBC 3.75 L (3.80-5.40) m/uL Hgb 11.3 L (11.4-16.0) gm/dL Lymphocytes # 0.6 L (1.0-4.8) k/uL APTT 64.4 H (22.0-30.0) sec D-Dimer (<0.60) mg/L FEU Chloride (98-107) mmol/L BUN (7-17) mg/dL Creatinine (0.52-1.04) mg/dL Glucose (74-99) mg/dL Calcium (8.4-10.2) mg/dL Troponin I 0.133 H* (0.000-0.034) ng/mL 01/21/19 01/21/19 01/21/19 Range/Units 06:25 06:25 06:25 RBC (3.80-5.40) m/uL Hgb (11.4-16.0) gm/dL Lymphocytes # (1.0-4.8) k/uL APTT 45.4 H (22.0-30.0) sec D-Dimer (<0.60) mg/L FEU Chloride 109 H (98-107) mmol/L BUN 18 H (7-17) mg/dL Creatinine 1.19 H (0.52-1.04) mg/dL Glucose (74-99) mg/dL Calcium 8.3 L (8.4-10.2) mg/dL Troponin I 0.051 H* (0.000-0.034) ng/mL Thrombosis Risk Factor Assmnt - Choose All That Apply Each Factor Represents 1 point: Abnormal pulmonary function (COPD) Other Risk Factors: Yes Each Risk Factor Represents 3 Points: Age 75 years or older Other congenital or acquired thrombophilia - If yes, enter type in comment: No Thrombosis Risk Factor Assessment Total Risk Factor Score: 4 Thrombosis Risk Factor Assessment Level: Moderate Risk Assessment and Plan Plan: -new onset atrial fibrillation: Patient will be continued on metoprolol will be switched Eliquis. Patient had flulike symptoms about a week ago on upper respiratory symptoms which may have precipitated her A. fib. -Elevated troponin secondary to atrial fibrillation cardiology evaluated the patient -Elevated d-dimer which is nonspecific test rule out PE with the ventilation/perfusion scan -Acute renal failure prerenal azotemia probably heart failure which is again related to atrial fibrillation -Pulmonary edema probably from heart failure secondary to atrial fibrillation and do not have any ejection fraction available cardiac exam is being obtained -asthma without any acute exacerbation -hypertension
--- NOTE | 2019-01-21 13:00 | ECHOF ---
Referral Reason:afib MEASUREMENTS -------- HEIGHT: 157.5 cm WEIGHT: 48.1 kg BP: RVIDd: 3.0 cm (< 3.3) IVSd: 0.8 cm (0.6 - 1.1) LVIDd: 3.2 cm (3.9 - 5.3) LVPWd: 1.1 cm (0.6 - 1.1) IVSs: 1.1 cm LVIDs: 2.6 cm LVPWs: 1.5 cm LA Diam: 2.8 cm (2.7 - 3.8) LAESV Index (A-L): 28.90 ml/m Ao Diam: 2.8 cm (2.0 - 3.7) AV Cusp: 2.0 cm (1.5 - 2.6) MV EXCURSION: 14.100 mm (> 18.000) MV EF SLOPE: 98 mm/s (70 - 150) EPSS: 0.4 cm AR PHT: 346 ms RAP: 5.00 mmHg RVSP: 46.81 mmHg FINDINGS -------- Atrial fibrillation. This was a technically adequate study. The left ventricular size is normal. Left ventricular wall thickness is normal. Overall left vent ricular systolic function is normal with, an EF between 60 - 65 %. The right ventricle is normal in size. LA is midly dilated 29-33ml/m2. The right atrium is normal in size. Interatrial and interventricular septum intact. There is mild aortic valve sclerosis. Mild mitral regurgitation is present. Moderate tricuspid regurgitation present. There is mild to moderate pulmonary hypertension. The r ight ventricular systolic pressure, as measured by Doppler, is 46.81mmHg. Cannot rule out vegetatio n. Trace/mild (physiologic) pulmonic regurgitation. The aortic root size is normal. Normal inferior vena cava with normal inspiratory collapse consistent with estimated right atrial pre ssure of 5 mmHg. There is a trivial pericardial effusion present. CONCLUSIONS -------- 1. Atrial fibrillation. 2. This was a technically adequate study. 3. The left ventricular size is normal. 4. Left ventricular wall thickness is normal. 5. Overall left ventricular systolic function is normal with, an EF between 60 - 65 %. 6. The right ventricle is normal in size. 7. LA is midly dilated 29-33ml/m2. 8. The right atrium is normal in size. 9. Interatrial and interventricular septum intact. 10. There is mild aortic valve sclerosis. 11. Mild mitral regurgitation is present. 12. Moderate tricuspid regurgitation present. 13. There is mild to moderate pulmonary hypertension. 14. The right ventricular systolic pressure, as measured by Doppler, is 46.81mmHg. 15. Cannot rule out vegetation. 16. Trace/mild (physiologic) pulmonic regurgitation. 17. The aortic root size is normal. 18. Normal inferior vena cava with normal inspiratory collapse consistent with estimated right atrial pressure of 5 mmHg. 19. There is a trivial pericardial effusion present. AFFILIATE MANAGER: Viola Augustine RDCS
[2019-01-21] MEDS ORDERED: METOPROLOL TARTRATE 50 MG TAB PO STA (15:29)
[2019-01-21] MEDS ORDERED: DILTIAZEM DRIP BOLUS FROM BAG 1 MG SOLN IV ONE (16:49)
[2019-01-21] MEDS ORDERED: DILTIAZEM 125 MG in SODIUM CHLORIDE 0.9% 100 ML IV SCH (17:00)
[2019-01-21] MEDS: DILTIAZEM 125 MG in SODIUM CHLORIDE 0.9% 100 ML IV SCH (17:27)
[2019-01-21] MEDS: MONTELUKAST 10 MG TAB PO SCH (20:12)
[2019-01-21 21:49] VITALS: RESP 18
[2019-01-21] MEDS: ZOLPIDEM 10 MG TAB PO PRN (22:13)
[2019-01-22 07:18] LABS: Basophils # (A) 0.1 k/uL (0-0.2); Basophils % (A) 1 %; Eosinophils # (A) 0.2 k/uL (0-0.7); Eosinophils % (A) 3 %; HCT 38.6 % (34.0-46.0); HGB 12.7 gm/dL (11.4-16.0); Lymphocytes # (A) 0.7 k/uL (1.0-4.8); Lymphocytes % (A) 8 %; MCH 29.7 pg (25.0-35.0); MCHC 32.9 g/dL (31.0-37.0); MCV 90.2 fL (80.0-100.0); Mean Platelet Volume 6.3; Monocytes # (A) 0.5 k/uL (0-1.0); Monocytes % (A) 6 %; Neutrophils # (A) 6.8 k/uL (1.3-7.7); Neutrophils % (A) 80 %; Platelet Count 290 k/uL (150-450); RBC 4.28 m/uL (3.80-5.40); RDW 15.1 % (11.5-15.5); WBC 8.5 k/uL (3.8-10.6)
[2019-01-22 07:29] LABS: Calcium 8.7 mg/dL (8.4-10.2); Potassium 3.7 mmol/L (3.5-5.1)
[2019-01-22] MEDS: FUROSEMIDE 10 MG/ML 4 ML VIAL IV SCH (09:08)
[2019-01-22] MEDS: APIXABAN 5 MG TAB PO SCH (09:09)
[2019-01-22] MEDS: GABAPENTIN 100 MG CAP PO SCH (09:09)
[2019-01-22] MEDS: METOPROLOL TARTRATE 50 MG TAB PO SCH (09:09)
[2019-01-22] MEDS: ASPIRIN 81 MG PO SCH (09:12)
[2019-01-22] MEDS: FAMOTIDINE 20 MG TAB PO SCH (09:12)
[2019-01-22] MEDS: ATORVASTATIN 10 MG TAB PO SCH (09:12)
[2019-01-22 12:23] VITALS: BP 117/58; PULSE 76; TEMP 98
--- NOTE | 2019-01-22 13:11 | P.PN ---
Subjective Progress Note Date: 01/22/19 History of present illness: This is a pleasant 88-year-old female with known history of hypertension, hyperlipidemia, nondiabetic, quit smoking several years ago, follows regularly with Dr. Guthrie in the office. She presented to the hospital with symptoms of heart racing with associated dizziness and shortness of breath. According to the patient, she has noticed these rapid palpitations off and on for some time. She does get quite dizzy when they come on, but prior to this admission she was also short of breath. She does think that she has been told in the past that she may have had an episode of atrial fibrillation however she was not on anticoagulation. Her EKG on presentation here showed atrial flutter with a heart rate of 114. Subsequent EKG showed atrial flutter with a rapid ventricular response, heart rate in the 170 range. Chest x-ray showed chronic emphysema and parenchymal fibrotic changes which are felt to be advanced in the lung bases progressed from 2013. Tiny bilateral pleural effusions. A VQ scan was also performed which was low probability for pulmonary embolism. Blood pressure on arrival here 92/60, heart rate at that time was documented to be 217, 88% on room air. White blood cell count 8.4, hemoglobin 13.5 on admission, 11.3 this morning. Platelet count 242. D-dimer 1.6. Sodium 140, potassium 3.9, BUN 23 on admission with a creatinine of 1.4, 18 and 1.1 this morning. Magnesium level I.8. Troponin 0.028, 0.133, 0.051. BNP level 4590. TSH level I.0. At the time of my examination, patient is resting comfortably in bed, denies any shortness of breath or palpitations at present, no dizziness. Patient continues at this time to be in atrial flutter, heart rate 110. 01/22/2019 The patient was seen and examined this morning, she continues to be in atrial flutter her heart rate is low 100s. Blood pressure 122/60 96% on room air. Overall she feels well, she states she did get up to the bathroom earlier and felt mildly weak returning from there, she felt that it was likely due to inactivity. Blood pressure 110/60 with a heart rate at present in the 70s, 97% on room air. White blood cell count 8.5, hemoglobin 12.7, platelet count 290. Sodium 140, potassium 3.7, BUN 22, creatinine 1.2. Echocardiogram with Doppler study was performed which revealed an ejection fraction of 60-65%, moderate tricuspid regurgitation. Objective - Vital Signs Vital signs: Vital Signs Temp 98 F 01/22/19 12:00 Pulse 76 01/22/19 12:00 Resp 18 01/22/19 12:00 BP 117/58 01/22/19 12:00 Pulse Ox 97 01/22/19 12:00 Intake & Output 01/21/19 01/22/19 01/22/19 18:59 06:59 18:59 Intake Total 360 240 Output Total 1 1100 500 Balance 359 -1100 -260 Weight 47 kg Intake: Intake, IV Titration 0 Amount Diltiazem 125 mg In 0 Sodium Chloride 0.9% 100 ml @ 5 MG/HR 5 mls/hr IV .Q24H [facility] Rx#:[id number] Oral 360 240 Output: Urine 1100 500 Stool 1 Other: Voiding Method Toilet # Voids 400 1 # Bowel Movements 1 - Exam PHYSICAL EXAMINATION: GENERAL: 68-year-old female in no acute distress at the time of my examination HEENT: Head is atraumatic, normocephalic. Pupils equal, round. Sclera a nicteric. Conjunctiva are clear. Mucous membranes of the mouth are moist. Neck is supple. There is no elevated jugular venous pressure. No carotid bruit is heard. HEART EXAMINATION: Heart S1 and S2 irregularly irregular CHEST EXAMINATION: Lungs are clear to auscultation and precussion. No chest wall tenderness is noted on palpation or with deep breathing. ABDOMEN: Soft, nontender. Bowel sounds are heard. No organomegaly noted. EXTREMITIES: 2+ peripheral pulses with no evidence of peripheral edema and no calf tenderness noted. NEUROLOGIC patient is awake, alert and oriented 3 . . - Labs CBC & Chem 7: 01/22/19 06:45 01/22/19 06:45 Labs: Abnormal Lab Results - Last 24 Hours (Table) 01/22/19 01/22/19 Range/Units 06:45 06:45 Lymphocytes # 0.7 L (1.0-4.8) k/uL BUN 22 H (7-17) mg/dL Creatinine 1.26 H (0.52-1.04) mg/dL Microbiology - Last 24 Hours (Table) 01/20/19 16:44 Blood Culture - Preliminary Blood No Growth after 24 hours Assessment and Plan Plan: Assessment and plan #1 atrial flutter with rapid ventricular response, typical #2 hypertension #3 hyperlipidemia #4 prior history of smoking #5 recent upper respiratory infection, treated with a Z-Santino as an outpatient #6 mild congestive heart failure, LV function unknown #7 abnormality in troponin, could be contrary to atrial flutter with a rapid ventricular response #8 abnormal renal function, improving #9 elevated d-dimer, VQ scan low probability for pulmonary embolism Plan We will have physical therapy to get the patient up ambulating, if she is asymptomatic at her heart rate remains under adequate control, from our perspective she may be able to be discharged home to follow-up with Dr. VC Guthrie in the office post discharge. Continue Eliquis 5 mg one tablet by mouth twice a day along with the increase in metoprolol to 75 mg by mouth twice a day DNP note has been reviewed, I agree with a documented findings and plan of care. Patient was seen and examined.
[2019-01-22 14:28] VITALS: BMI 18.9
--- NOTE | 2019-01-22 15:40 | P.DS ---
Providers Date of admission: 01/20/19 16:12 Expected date of discharge: 01/22/19 Attending physician: Javed Tucker Consults: 01/20/19 16:15 Consult Physician Urgent Consulting Provider: [facility] Consult Reason/Comments: new onset afib Do you want consulting provider notified?: Yes Primary care physician: [facility] Course: Final diagnosis -new onset atrial fibrillation -Elevated troponin secondary to atrial fibrillation -Elevated d-dimer -Acute renal failure prerenal azotemia probably heart failure which is again related to atrial fibrillation -Pulmonary edema probably from heart failure secondary to atrial fibrillation -asthma without any acute exacerbation -hypertension Discharge disposition Patient is being discharged in a stable condition with guarded prognosis to home and will follow-up with cardiology in the outpatient setting this week. Patient will also follow-up with her primary care provider upon discharge. Total time taken is 35 minutes. History of present illness patient is a very functional pleasant 88-year-old female came in with complaints of palpitations feeling dizzy short of breath with orthopnea and denied any proximal nocturnal dyspnea. Patient is found to be in atrial fibrillation patient does have pulmonary edema on the x-ray with elevated BNP. Patient will heart rate was apparently very high and found to be in A. fib on admission patient was started on heparin. Echocardiogram is pending patient was started on metoprolol here patient does have elevated JVD does appear to have pulmonary edema probably related to atrial fibrillation but echocardiogram will be obtained to rule outcardiomyopathy. Patient did have elevated d-dimer because of which were ventilation perfusion scan was obtained which is low probability for pulmonary embolism and troponins are mildly elevated highest being 0.3 and troponin elevation can be from A. fib patient presently denied any chest pain EKG showing A. fib. Patient is presently rate controlled. Is being transitioned to Eliquis. Was in acute renal failure with creatinine of 1.4 her normal should be around 0.2-0.3 presently her creatinine is 1.19 During hospitalization patient was on a Cardizem drip for a short period. Cardiology was following closely. Yesterday patient ambulated and became dizzy and went into A. fib with RVR and Cardizem was restarted. Patient has currently been off the Cardizem and metoprolol was increased to 75 mg twice daily and patient is on Eliquis will continue with this regimen in the outpatient setting. Patient will follow-up with cardiology in one week. She will need repeat labs in 2-3 days to monitor electrolytes as her creatinine was slightly elevated. Current creatinine today is 1.26. Currently patient denies any chest pain, shortness of breath, or palpitations. Patient has been afebrile. Patient denies any nausea or vomiting and is tolerating diet. Patient expressed wanting to go home multiple times today with family at the bedside. On exam vital signs are stable. Temp is 98F, pulse is 76, respirations are 18, blood pressure is 117/58, oxygen saturation is 97% on room air. Cardio S1, S2 present. Respiratory system shows clear to auscultation. Abdomen is soft, thin, nontender. Nervous system shows no focal deficits. Please refer to medication reconciliation sheet for a list of medications. Patient Condition at Discharge: Fair Plan - Discharge Summary Discharge Rx Participant: No New Discharge Prescriptions: New Apixaban [Eliquis] 5 mg PO BID 30 Days #60 tab Metoprolol Tartrate [Lopressor] 75 mg PO BID 30 Days #180 tab Gabapentin [Neurontin] 200 mg PO BID #12 cap Continue traZODone HCL 50 mg PO HS PRN PRN Reason: Insomnia Systane Balance 2 drops BOTH EYES DAILY PRN PRN Reason: Dry Eye(S) Ipratropium [place] [Atrovent Hfa] 2 puff INHALATION RT-QID PRN PRN Reason: Shortness Of Breath Fish Oil/Dha/Epa [Fish Oil 1,200 mg Fish Oil] 1 cap PO DAILY Albuterol Sulfate [Proair Hfa] 2 puff INHALATION RT-QID PRN PRN Reason: Shortness Of Breath Albuterol Nebulized [Ventolin Nebulized] 2.5 mg INHALATION RT-TID PRN PRN Reason: Shortness Of Breath Zolpidem [Ambien] 10 mg PO HS Vitamin B Complex 1 cap PO DAILY Montelukast [Singulair] 10 mg PO HS Atenolol [Tenormin] 50 mg PO DAILY Lovastatin [Mevacor] 40 mg PO DAILY Famotidine [Pepcid] 20 mg PO BID Aspirin EC [Ecotrin Low Dose] 81 mg PO DAILY Furosemide [Lasix] 20 mg PO DAILY Discontinued Gabapentin [Neurontin] 300 mg PO BID Discharge Medication List Albuterol Nebulized [Ventolin Nebulized] 2.5 mg INHALATION RT-TID PRN 03/11/17 [History] Albuterol Sulfate [Proair Hfa] 2 puff INHALATION RT-QID PRN 03/11/17 [History] Aspirin EC [Ecotrin Low Dose] 81 mg PO DAILY 03/11/17 [History] Atenolol [Tenormin] 50 mg PO DAILY 03/11/17 [History] Famotidine [Pepcid] 20 mg PO BID 03/11/17 [History] Fish Oil/Dha/Epa [Fish Oil 1,200 mg Fish Oil] 1 cap PO DAILY 03/11/17 [History] Ipratropium [place] [Atrovent Hfa] 2 puff INHALATION RT-QID PRN 03/11/17 [History] Lovastatin [Mevacor] 40 mg PO DAILY 03/11/17 [History] Montelukast [Singulair] 10 mg PO HS 03/11/17 [History] Systane Balance 2 drops BOTH EYES DAILY PRN 03/11/17 [History] Vitamin B Complex 1 cap PO DAILY 03/11/17 [History] Zolpidem [Ambien] 10 mg PO HS 03/11/17 [History] traZODone HCL 50 mg PO HS PRN 03/11/17 [History] Furosemide [Lasix] 20 mg PO DAILY 01/20/19 [History] Apixaban [Eliquis] 5 mg PO BID 30 Days #60 tab 01/22/19 [Rx] Gabapentin [Neurontin] 200 mg PO BID #12 cap 01/22/19 [Rx] Metoprolol Tartrate [Lopressor] 75 mg PO BID 30 Days #180 tab 01/22/19 [Rx] Follow up Appointment(s)/Referral(s): Angel Natarajan DO [Primary Care Provider] - 1-2 days Won Guthrie MD [STAFF PHYSICIAN] - 1 Week Ambulatory/Diagnostic Orders: Basic Metabolic Panel [LAB.AMB] Time Frame: 2 Days, Location: None Selected Patient Instructions/Handouts: A-fib (Atrial Fibrillation) (DC), Safe Use of Anticoagulants (DC) Activity/Diet/Wound Care/Special Instructions: Activity Limited until follow-up Follow up with primary care provider upon discharge Follow up with housekeeping room inspector in 1 week Repeat labs in 2-3 days Continue current diet pts has a 30 day script for Eliquis filled in [facility] Discharge Disposition: HOME SELF-CARE
[2019-01-22] MEDS ORDERED: METOPROLOL TARTRATE 25 MG TAB PO SCH (21:00)
--- NOTE | 2019-01-23 14:06 | CDI ---
Documentation Clarification Form Date: 01/22/2019 4:00:00 PM From: Amy Pool RN, CCDS Admit Date: 01/20/2019 4:12:00 PM Patient Name: Nellie Siu Visit Number: [id number] Discharge Date: 01/22/2019 5:35:00 PM ATTENTION: The Clinical Documentation Specialists (CDI) and [facility] Coding Staff appreciate your assistance in clarifying documentation. Please respond to the clarification below the line at the bottom and electronically sign. The CDI & [facility] Coding staff will review the response and follow-up if needed. Please note: Queries are made part of the Legal Health Record. If you have any questions, please contact the author of this message via ITS. Dr. Javed Tucker CHF is documented in the H&P and D/C Summary and requires further specificity. History/Risk Factors: Asthma, Cancer, COPD, HTN Clinical Indicators: VS/Pulse OX: Temp 97.9, hr 217, RR 30, B/P 92/64, spo2 88% ra improved to 97% on 2L nasal cannula BNP: 4590 01/21 Echocardiogram Results: EF: 60-65% Chest X Ray: tiny bilateral pleural effusions, difficult to exclude bibasilar acute edema and/or infiltrate on chronic parenchymal change Treatment: Lasix 40 mg IVP Q 12 hrs In your professional opinion, can you please clarify the acuity and type of CHF if known? Diastolic Heart Failure: Acute Chronic Acute on Chronic Systolic & Diastolic Heart Failure: Acute Chronic Acute on Chronic Heart Failure Unable to Determine Other, please specify (Last Revision: May 2017) Unknown in her situation, no systolic or diastolic dysfunction MTDD
== END 2019-01-22 17:35 | disposition home or self-care (01) | DRG 309 ==
LOC: EC 14:16 → 3SCARD 16:12
PROVIDERS: ADMIT Internal Medicine; ATTEND Internal Medicine
DX: I48.91 Unspecified atrial fibrillation (principal); N17.9 Acute kidney failure, unspecified; I13.0 Hypertensive heart and chronic kidney disease with heart failure and stage 1 through stage 4 chronic kidney disease, or unspecified chronic kidney disease; I48.92 Unspecified atrial flutter; I50.9 Heart failure, unspecified; J43.9 Emphysema, unspecified; N18.9 Chronic kidney disease, unspecified; E78.5 Hyperlipidemia, unspecified; I07.1 Rheumatic tricuspid insufficiency; Z79.82 Long term (current) use of aspirin; Z79.899 Other long term (current) drug therapy; Z87.891 Personal history of nicotine dependence; Z88.1 Allergy status to other antibiotic agents; R79.89 Other specified abnormal findings of blood chemistry; R79.1 Abnormal coagulation profile; J45.909 Unspecified asthma, uncomplicated
CPT/HCPCS: 36415; 71046; 78582; 80048; 80053; 81003; 83735; 83880; 84443; 84484; 85025; 85379; 85610; 85730; 87040; 93005; 93306; 96361; 96365; 96368; 96375; 96376; 99285

== ENCOUNTER 2019-02-25 11:05 | Inpatient (IN) | payer MEDICARE ==
[2019-02-25] MEDS ORDERED: METOPROLOL TARTRATE 25 MG TAB PO STA (11:20)
--- NOTE | 2019-02-25 11:24 | ED ---
General Adult HPI - General Chief complaint: Arrhythmia/Palpitations Stated complaint: Dizzy, high heart rate Time Seen by Provider: 02/25/19 11:10 Source: patient, RN notes reviewed, old records reviewed Mode of arrival: EMS Limitations: no limitations - History of Present Illness Initial comments: This is an 88-year-old female with past medical history significant for atrial fibrillation. Patient states at home she started having a fast heart rate felt her heart pounding very quickly and became very short of breath or touches a passout. Patient states his symptoms were quite severe and typical of her A. fib when she has a rapid rate. When EMS arrived her heart rate was over 200 beats a minute. Patient states it lasted for about 5 minutes and shortly after EMS arrived it started to slow down. Patient states she currently feels heart pounding hard but does not feel as though it is racing like it was earlier. Patient currently is not short of breath and she denies any lightheadedness. Patient denies any abdominal pain. Patient denies any recent nausea vomiting diarrhea. Patient denies any fever chills or cough. Patient denies any headache patient denies numbness or weakness. Patient is on eliquis. - Related Data Home Medications Medication Instructions Recorded Confirmed Albuterol Nebulized [Ventolin 2.5 mg INHALATION RT-TID PRN 03/11/17 02/25/19 Nebulized] Albuterol Sulfate [Proair Hfa] 2 puff INHALATION RT-QID PRN 03/11/17 02/25/19 Famotidine [Pepcid] 20 mg PO BID 03/11/17 02/25/19 Ipratropium [place] [Atrovent Hfa] 2 puff INHALATION RT-QID PRN 03/11/17 02/25/19 Lovastatin [Mevacor] 40 mg PO DAILY 03/11/17 02/25/19 Montelukast [Singulair] 10 mg PO HS 03/11/17 02/25/19 Systane Balance 2 drops BOTH EYES DAILY PRN 03/11/17 02/25/19 Vitamin B Complex 1 cap PO DAILY 03/11/17 02/25/19 Zolpidem [Ambien] 10 mg PO HS PRN 03/11/17 02/25/19 Furosemide [Lasix] 20 mg PO DAILY 01/20/19 02/25/19 Apixaban [Eliquis] 2.5 mg PO BID 02/25/19 02/25/19 Azithromycin [Zithromax Z-pack] See Taper PO DAILY 02/25/19 02/25/19 predniSONE See Taper PO DAILY 02/25/19 02/25/19 Previous Rx's Medication Instructions Recorded Gabapentin [Neurontin] 200 mg PO BID #12 cap 01/22/19 Metoprolol Tartrate [Lopressor] 75 mg PO BID 30 Days #180 tab 01/22/19 Allergies Allergy/AdvReac Type Severity Reaction Status Date / Time adhesive tape Allergy TEARS SKIN Verified 02/25/19 11:57 OFF ciprofloxacin [From Cipro] AdvReac Rapid Verified 02/25/19 11:57 Heart Rate Review of Systems ROS Statement: Those systems with pertinent positive or pertinent negative responses have been documented in the HPI. ROS Other: All systems not noted in ROS Statement are negative. Past Medical History Past Medical History: Asthma, Cancer, COPD, Hypertension Additional Past Medical History / Comment(s): back problems, arrythemia hx of wearing heart monitor, skin CA with removal History of Any Multi-Drug Resistant Organisms: None Reported Past Surgical History: No Surgical Hx Reported Past Anesthesia/Blood Transfusion Reactions: No Reported Reaction Past Psychological History: No Psychological Hx Reported Smoking Status: Former smoker Past Alcohol Use History: None Reported, Rare Past Drug Use History: None Reported General Exam - General Exam Comments Initial Comments: GENERAL: Patient is well-developed and well-nourished. Patient is nontoxic and well- hydrated and is in mild distress. ENT: Neck is soft and supple. No significant lymphadenopathy is noted. Oropharynx is clear. Moist mucous membranes. Neck has full range of motion without eliciting any pain. EYES: The sclera were anicteric and conjunctiva were pink and moist. Extraocular movements were intact and pupils were equal round and reactive to light. Eyelids were unremarkable. PULMONARY: Unlabored respirations. Good breath sounds bilaterally. No audible rales rhonchi or wheezing was noted. CARDIOVASCULAR: Patient has a regular rate and rhythm at about 110 beats a minute ABDOMEN: Soft and nontender with normal bowel sounds. No palpable organomegaly was noted. There is no palpable pulsatile mass. SKIN: Skin is clear with no lesions or rashes and otherwise unremarkable. NEUROLOGIC: Patient is alert and oriented x3. Cranial nerves II through XII are grossly intact. Motor and sensory are also intact. Normal speech, volume and content. Symmetrical smile. MUSCULOSKELETAL: Normal extremities with adequate strength and full range of motion. LYMPHATICS: No significant lymphadenopathy is noted PSYCHIATRIC: Normal psychiatric evaluation. Limitations: no limitations Course Vital Signs 02/25/19 02/25/19 02/25/19 11:12 11:25 12:18 Temperature 98.3 F Pulse Rate 113 H 116 H 89 Respiratory 18 18 Rate Blood Pressure 168/104 140/97 O2 Sat by Pulse 96 96 Oximetry Medical Decision Making - Medical Decision Making EKG shows atrial flutter with a 2-1 conduction 113/m QRS is 86 QT interval 360 QTC is 493. Patient's heart rate slows a repeat EKG was done and still showed atrial flutter with a variable AV block he was at 80 bpm QRS is 82 QT interval 36 QTC is 467. Patient had not yet received any metoprolol at this point. Chest x-ray shows some atelectasis. Patient's heart rate was in the 80s consistently shortly after her arrival. I spoke with because he agreed to admit the patient admitted the patient wrote admitting orders I consulted cardiology. - Lab Data Result diagrams: 02/25/19 11:22 02/25/19 11:22 Lab Results 02/25/19 02/25/19 02/25/19 Range/Units 11:22 11:22 11:22 WBC 13.6 H (3.8-10.6) k/uL RBC 4.29 (3.80-5.40) m/uL Hgb 12.8 (11.4-16.0) gm/dL Hct 39.8 (34.0-46.0) % MCV 92.8 (80.0-100.0) fL MCH 29.7 (25.0-35.0) pg MCHC 32.0 (31.0-37.0) g/dL RDW 15.7 H (11.5-15.5) % Plt Count 233 (150-450) k/uL Neutrophils % 87 % Lymphocytes % 6 % Monocytes % 6 % Eosinophils % 1 % Basophils % 1 % Neutrophils # 11.8 H (1.3-7.7) k/uL Lymphocytes # 0.8 L (1.0-4.8) k/uL Monocytes # 0.8 (0-1.0) k/uL Eosinophils # 0.1 (0-0.7) k/uL Basophils # 0.1 (0-0.2) k/uL PT 10.2 (9.0-12.0) sec INR 0.9 (<1.2) APTT 22.3 (22.0-30.0) sec Sodium 139 (137-145) mmol/L Potassium 3.9 (3.5-5.1) mmol/L Chloride 106 (98-107) mmol/L Carbon Dioxide 21 L (22-30) mmol/L Anion Gap 12 mmol/L BUN 24 H (7-17) mg/dL Creatinine 1.01 (0.52-1.04) mg/dL Est GFR (CKD-EPI)AfAm 58 (>60 ml/min/1.73 sqM) Est GFR (CKD-EPI)NonAf 51 (>60 ml/min/1.73 sqM) Glucose 102 H (74-99) mg/dL Calcium 8.8 (8.4-10.2) mg/dL Magnesium 1.8 (1.6-2.3) mg/dL Total Bilirubin 0.3 (0.2-1.3) mg/dL AST 36 (14-36) U/L ALT 19 (4-34) U/L Alkaline Phosphatase 78 (38-126) U/L Troponin I (0.000-0.034) ng/mL Total Protein 7.8 (6.3-8.2) g/dL Albumin 3.9 (3.5-5.0) g/dL 02/25/19 Range/Units 11:22 WBC (3.8-10.6) k/uL RBC (3.80-5.40) m/uL Hgb (11.4-16.0) gm/dL Hct (34.0-46.0) % MCV (80.0-100.0) fL MCH (25.0-35.0) pg MCHC (31.0-37.0) g/dL RDW (11.5-15.5) % Plt Count (150-450) k/uL Neutrophils % % Lymphocytes % % Monocytes % % Eosinophils % % Basophils % % Neutrophils # (1.3-7.7) k/uL Lymphocytes # (1.0-4.8) k/uL Monocytes # (0-1.0) k/uL Eosinophils # (0-0.7) k/uL Basophils # (0-0.2) k/uL PT (9.0-12.0) sec INR (<1.2) APTT (22.0-30.0) sec Sodium (137-145) mmol/L Potassium (3.5-5.1) mmol/L Chloride (98-107) mmol/L Carbon Dioxide (22-30) mmol/L Anion Gap mmol/L BUN (7-17) mg/dL Creatinine (0.52-1.04) mg/dL Est GFR (CKD-EPI)AfAm (>60 ml/min/1.73 sqM) Est GFR (CKD-EPI)NonAf (>60 ml/min/1.73 sqM) Glucose (74-99) mg/dL Calcium (8.4-10.2) mg/dL Magnesium (1.6-2.3) mg/dL Total Bilirubin (0.2-1.3) mg/dL AST (14-36) U/L ALT (4-34) U/L Alkaline Phosphatase (38-126) U/L Troponin I 0.022 (0.000-0.034) ng/mL Total Protein (6.3-8.2) g/dL Albumin (3.5-5.0) g/dL Disposition Clinical Impression: Near syncope, Atrial flutter with rapid ventricular response Disposition: ADMITTED IP TO THIS HOSP Referrals: Angel Natarajan DO [Primary Care Provider] - 1-2 days Time of Disposition: 13:34
[2019-02-25] MEDS ORDERED: METOPROLOL TARTRATE 5 MG/5 ML VIAL IVP ONE (11:30)
--- NOTE | 2019-02-25 12:40 | XR ---
EXAMINATION TYPE: XR chest 2V DATE OF EXAM: 02/25/2019 COMPARISON: 01/20/2019 INDICATION: Chest pain increased heart rate TECHNIQUE: Frontal and lateral views of the chest are obtained. FINDINGS: The heart size is mildly prominent. The pulmonary vasculature is upper limits of normal. There is diffuse increased lung markings at the bilateral lung bases. Bibasilar infiltrates from atel ectasis or pneumonia should be considered. IMPRESSION: 1. Bibasilar infiltrates. Correlate for atelectasis or pneumonia.
[2019-02-25 12:48] LABS: Basophils # (A) 0.1 k/uL (0-0.2); Basophils % (A) 1 %; Eosinophils # (A) 0.1 k/uL (0-0.7); Eosinophils % (A) 1 %; HCT 39.8 % (34.0-46.0); HGB 12.8 gm/dL (11.4-16.0); Lymphocytes # (A) 0.8 k/uL (1.0-4.8); Lymphocytes % (A) 6 %; MCH 29.7 pg (25.0-35.0); MCV 92.8 fL (80.0-100.0); Mean Platelet Volume 8.7; Monocytes # (A) 0.8 k/uL (0-1.0); Monocytes % (A) 6 %; Neutrophils # (A) 11.8 k/uL (1.3-7.7); Neutrophils % (A) 87 %; Platelet Count 233 k/uL (150-450); RBC 4.29 m/uL (3.80-5.40); RDW 15.7 % (11.5-15.5); WBC 13.6 k/uL (3.8-10.6)
[2019-02-25 12:55] LABS: INR 0.9 (<1.2); Partial Thromboplastin Time 22.3 sec (22.0-30.0); Prothrombin Time 10.2 sec (9.0-12.0)
[2019-02-25 12:56] LABS: Albumin 3.9 g/dL (3.5-5.0); Calcium 8.8 mg/dL (8.4-10.2); Magnesium 1.8 mg/dL (1.6-2.3); Potassium 3.9 mmol/L (3.5-5.1); Total Bilirubin 0.3 mg/dL (0.2-1.3); Total Protein 7.8 g/dL (6.3-8.2)
[2019-02-25] MEDS ORDERED: NITROGLYCERIN SL TABS 0.4 MG TAB SUBLINGUAL PRN (13:35)
[2019-02-25] MEDS ORDERED: IPRATROPIUM 0.5 MG/2.5 ML NEBU INHALATION PRN (16:25)
[2019-02-25] MEDS ORDERED: ALBUTEROL NEBULIZED 2.5 MG/3 ML INHALATION PRN ×2 (16:28→16:47)
[2019-02-25] MEDS ORDERED: NON FORMULARY DRUG (Ipratropium Bromide [Atrovent Hfa] 2 PUFF) INHALATION PRN (16:47)
[2019-02-25] MEDS ORDERED: ARTIFICIAL TEARS-HYPROMELLOSE DROPS 15 ML BTL BOTH EYES PRN (16:47)
[2019-02-25] MEDS ORDERED: ACETAMINOPHEN TAB 500 MG TAB PO PRN (16:49)
[2019-02-25] MEDS ORDERED: ALPRAZolam 0.25 MG TAB PO PRN (16:49)
[2019-02-25] MEDS: predniSONE 10 MG TAB PO SCH (18:12)
[2019-02-25] MEDS: METOPROLOL TARTRATE 25 MG TAB PO SCH (19:42)
[2019-02-25] MEDS: GABAPENTIN 100 MG CAP PO SCH (19:43)
[2019-02-25] MEDS: APIXABAN 2.5 MG TABLET PO SCH (19:43)
[2019-02-25] MEDS: FAMOTIDINE 20 MG TAB PO SCH (19:43)
[2019-02-25] MEDS: MONTELUKAST 10 MG TAB PO SCH (19:43)
--- NOTE | 2019-02-25 21:50 | HP ---
HISTORY AND PHYSICAL DATE OF SERVICE: 02/25/2019. CHIEF COMPLAINT: Palpitations and dizziness. HISTORY OF PRESENT ILLNESS: This 88-year-old woman with a past medical history of multiple medical problems including asthma, COPD, history of hypertension, history of back pain, DJD being followed Dr. Angel Natarajan in the outpatient setting was recently admitted to new onset atrial fibrillation and some elevated troponins. Patient treated medically. Patient improved significantly. Currently patient the patient is complaining of palpitations with fast heart rate, heart pounding and became very short of breath and almost passed out and patient dizzy also. Patient came to [facility] by EMS and admitted for further evaluation and treatment. The EMS saw the heart rate down to 100. Patient given Cardizem drip with improvement of symptoms. The patient is patient is found to have atrial flutter with rapid ventricular response, which is varying at this time. The initial EKG showed possible atrial flutter with 2:1 AV block. There is no history of fever, rigors or chills. No history of headache, loss of consciousness or seizures at this time. PAST MEDICAL HISTORY: History of asthma, COPD, history of hypertension and atrial ablation. MEDICATIONS: Prior to admission include home medications are: 1. Prednisone taper daily. 2. Zithromax daily. 3. Ambien 10 mg q.h.s. p.r.n. 4. Vitamin B1. 5. Systane balance. 6. Singulair 10 mg q.h.s. 7. Lopressor 75 mg p.o. b.i.d. 8. Mevacor 40 mg p.o. daily. 9. Atrovent 2 puffs q.i.d. p.r.n. 10.Neurontin 200 mg p.o. b.i.d. 11.Lasix 20 mg p.o. daily. 12.Pepcid 20 mg p.o. b.i.d. 13.Eliquis 2.5 mg b.i.d. 14.ProAir HFA 2 puffs q.i.d. p.r.n. 15.Ventolin 2.5 q.i.d. t.i.d. p.r.n. ALLERGIES: ADHESIVE TAPE AND CIPRO. FAMILY HISTORY: No history of heart disease or strokes in the family. SOCIAL HISTORY: Previous history of smoking. No history of alcohol intake. REVIEW OF SYSTEMS: ENT: No diminished vision. No diminished hearing. CARDIOVASCULAR as mentioned earlier. RESPIRATORY: As mentioned earlier. GI no nausea or vomiting. no dysuria. NERVOUS SYSTEM: No numbness or weakness. ALLERGIES/IMMUNOLOGY: No asthma or hayfever. MUSCULOSKELETAL as mentioned earlier. HEMATOLOGY/ONCOLOGY: No history of anemia. ENDOCRINE: No history of diabetes or hypothyroidism. CONSTITUTIONAL: As mentioned earlier. PSYCHIATRY as mentioned earlier. PHYSICAL EXAMINATION: The patient is alert and oriented times three, pulse 109, blood pressure 171/90, respiration 18, temperature 97.6, pulse ox 98% on room air. HEENT: Conjunctivae normal. Oral mucosa moist. NECK is no jugular venous distention. No carotid bruit. CARDIOVASCULAR: S1, S2. Tachycardic irregular. Ejection systolic murmur. Breath sounds diminished in the bases. Few rhonchi. No crackles. ABDOMEN: Soft, nontender. No mass palpable. LEGS: No edema. No swelling. NERVOUS SYSTEM: Higher functions as mentioned earlier. Moves all 4 limbs. No focal motor or sensory deficits. LYMPHATICS: No lymph nodes palpable in the neck, axillae or groin. SKIN: No ulcer, rashes or bleeding. JOINTS: No active deforming arthropathy. LABS: WBC 13.6, hemoglobin 12.2, sodium 139, potassium 3.9. Glucose 102. Troponin 0.046. ASSESSMENT: 1. Palpitation with atrial flutter with fast ventricular with varying block with 2:1 AV block. 2. Troponin 0.046 for evaluation. 3. Troponin 0.046 rule out acute tce-IM-[id number]-elevation myocardial infarction. 4. Increased WBC. 5. History of atrial fibrillation. 6. History of chronic obstructive pulmonary disease. 7. Asthma. 8. History of hypertension. 9. History of degenerative joint disease. 10.History of skin cancer removal. 11.Remote history of nicotine dependence. RECOMMENDATIONS AND DISCUSSION: In this 88-year-old woman who presented with multiple complex medical issues, we will monitor the patient closely, continue the current medications, management and symptomatic treatment. Continue with beta blockers. Continue with apixaban. Cardiology consultation. Resume the home medications. Guarded prognosis because of multiple complex medical issues. Further recommendations to follow. I would also recommend repeat checking of the TSH also. Continue to monitor. See orders for details. MMODL / IJN: [id number] /
[2019-02-26 06:56] LABS: Basophils % (A) 0 %; Eosinophils # (A) 0.1 k/uL (0-0.7); Eosinophils % (A) 1 %; HCT 36.7 % (34.0-46.0); HGB 12.1 gm/dL (11.4-16.0); Lymphocytes # (A) 0.9 k/uL (1.0-4.8); Lymphocytes % (A) 10 %; MCHC 32.9 g/dL (31.0-37.0); MCV 91.2 fL (80.0-100.0); Mean Platelet Volume 8.7; Monocytes # (A) 0.5 k/uL (0-1.0); Monocytes % (A) 5 %; Neutrophils # (A) 7.2 k/uL (1.3-7.7); Neutrophils % (A) 82 %; Platelet Count 232 k/uL (150-450); RBC 4.02 m/uL (3.80-5.40); RDW 15.5 % (11.5-15.5); WBC 8.9 k/uL (3.8-10.6)
[2019-02-26 07:19] LABS: Calcium 8.5 mg/dL (8.4-10.2)
[2019-02-26 07:52] LABS: Potassium 4.3 mmol/L (3.5-5.1)
[2019-02-26] MEDS ORDERED: NON FORMULARY DRUG (Lovastatin 40 MG) PO SCH (09:00)
[2019-02-26] MEDS ORDERED: NON FORMULARY DRUG (Vitamin B Complex [Vitamin B Complex] 1 CAP) PO SCH (09:00)
[2019-02-26] MEDS ORDERED: ASPIRIN 325 MG TAB PO SCH (09:00)
[2019-02-26] MEDS: GABAPENTIN 100 MG CAP PO SCH ×2 (10:23→19:53)
[2019-02-26] MEDS: APIXABAN 2.5 MG TABLET PO SCH (10:23)
[2019-02-26] MEDS: ATORVASTATIN 40 MG TAB PO SCH (10:23)
[2019-02-26] MEDS: METOPROLOL TARTRATE 25 MG TAB PO SCH ×2 (10:23→19:53)
[2019-02-26] MEDS: FAMOTIDINE 20 MG TAB PO SCH (10:23)
[2019-02-26] MEDS: predniSONE 10 MG TAB PO SCH (10:23)
[2019-02-26] MEDS: FUROSEMIDE 20 MG TAB PO SCH (10:23)
[2019-02-26] MEDS: IPRATROPIUM-ALBUTEROL 3 ML NEB INHALATION PRN (10:47)
--- NOTE | 2019-02-26 18:04 | P.HPCAR ---
History of Present Illness This is Roxie Hutchins PA-C dictating an electrophysiology consult on this patient The patient was interviewed and examined by me as well as by Dr. Schaefer Case discussed with Dr. Schaefer and he agrees with the plan of care IMPRESSION / ASSESSMENT: Symptomatic typical atrial flutter with RVR, currently in atrial flutter with variable AV block, anticoagulated with eliquis, failed medical treatment with metoprolol COPD Hypertension PLAN: Detailed discussion with the patient and her family regarding treatment options Would recommend proceeding with atrial flutter ablation Discussed the details of the procedure, success rate, risks and benefits, and complications including infection, stroke, NC, cardiac puncture, and heart block The patient and her family verbalized her understanding and agreed to proceed Continue anticoagulation with eliquis, would recommend the higher dose of eliquis, 5 mg BID, before the procedure and for one month after the procedure for stroke prevention, and then cut back down to 2.5 mg twice a day thereafter HPI Patient is a 88-year-old female with a past medical history significant for COPD, hypertension, and atrial flutter who presented with complaints of palpitations and dizziness. In early January she presented with complaints of palpitations and was found to be in atrial flutter. She was treated with metoprolol for rate control and started on eliquis and discharged home. She initially felt better. However, yesterday she was walking from her bathroom to the kitchen when she started to feel her heart racing again. She became dizzy and short of breath. She did not pass out. Denies any chest discomfort. Upon presentation to the emergency department her EKG showed typical atrial flutter with 2-1 AV block, ventricular rate 113. She was treated with IV metoprolol. She remains in atrial flutter with variable AV block. Patient seen and examined resting comfortably in bed. States she still feels her heart racing sometimes. She has been able to get up and use the bathroom without any dizziness. Denies any chest pain or shortness of breath. ROS: No fevers, chills or rigors, Positive cough no nausea, vomiting or diarrhea, no hematuria, dysuria, Positive for back pain, no strokes or seizures, no skin lesions. EXAMINATION: Patient is afebrile, pulse in the 100s, respirations 16, blood pressure 131/66, oxygen saturation 100% on room air Patient seen and examined resting comfortably in bed, in no acute distress Lungs clear to auscultation bilaterally Heart is irregular, no audible murmurs No elevated JVD No lower extremity edema Abdomen soft and nontender to palpation REVIEW OF LABS, ECG & MEDICAL DATA TSH 0.835 WBC 8.9, hemoglobin 12.1, platelets 232, potassium 4.3, BUN 25, creatinine 0.94 Previous echocardiogram showed EF 60-65% Physical Exam Vitals: Vital Signs Temp Pulse Pulse Resp BP Pulse Ox 02/26/19 12:00 86 131/66 100 02/26/19 10:55 110 H 16 02/26/19 10:47 113 H 16 02/26/19 08:00 70 117/57 98 02/26/19 04:00 97.8 F 76 18 125/75 98 02/25/19 23:27 98 F 79 18 127/78 97 02/25/19 20:50 96 Intake and Output 02/26/19 02/26/19 02/26/19 06:59 14:59 22:59 Intake Total 472 Balance 472 Intake: Oral 472 Other: Voiding Method Toilet # Voids 2 1 2 Weight 47.5 kg Past Medical History Past Medical History: Asthma, Cancer, COPD, Hypertension Additional Past Medical History / Comment(s): back problems, arrythemia hx of wearing heart monitor, skin CA with removal History of Any Multi-Drug Resistant Organisms: None Reported Past Surgical History: No Surgical Hx Reported Past Anesthesia/Blood Transfusion Reactions: No Reported Reaction Past Psychological History: No Psychological Hx Reported Smoking Status: Former smoker Past Alcohol Use History: None Reported, Rare Past Drug Use History: None Reported Physical Examination Vital Signs Temp Pulse Pulse Resp BP Pulse Ox 02/26/19 12:00 86 131/66 100 02/26/19 10:55 110 H 16 02/26/19 10:47 113 H 16 02/26/19 08:00 70 117/57 98 02/26/19 04:00 97.8 F 76 18 125/75 98 02/25/19 23:27 98 F 79 18 127/78 97 02/25/19 20:50 96 Intake and Output 02/26/19 02/26/19 02/26/19 06:59 14:59 22:59 Intake Total 472 Balance 472 Intake: Oral 472 Other: Voiding Method Toilet # Voids 2 1 2 Weight 47.5 kg Results 02/26/19 06:17 02/26/19 06:17 Cardiac Enzymes 02/25/19 Range/Units 22:22 Troponin I 0.030 (0.000-0.034) ng/mL Lipids 02/26/19 Range/Units 06:17 Triglycerides 100 (<150) mg/dL Cholesterol 186 (<200) mg/dL HDL Cholesterol 53 (40-60) mg/dL CBC 02/26/19 Range/Units 06:17 WBC 8.9 (3.8-10.6) k/uL RBC 4.02 (3.80-5.40) m/uL Hgb 12.1 (11.4-16.0) gm/dL Hct 36.7 (34.0-46.0) % Plt Count 232 (150-450) k/uL Comprehensive Metabolic Panel 02/26/19 Range/Units 06:17 Sodium 139 (137-145) mmol/L Potassium 4.3 (3.5-5.1) mmol/L Chloride 107 (98-107) mmol/L Carbon Dioxide 25 (22-30) mmol/L BUN 25 H (7-17) mg/dL Creatinine 0.94 (0.52-1.04) mg/dL Glucose 88 (74-99) mg/dL Calcium 8.5 (8.4-10.2) mg/dL Current Medications Generic Name Dose Route Start Last Admin Trade Name Freq PRN Reason Stop Dose Admin Acetaminophen 500 mg 02/25/19 16:49 Tylenol Tab PO Q6HR PRN Fever and/ or Pain Albuterol/Ipratropium 3 ml 02/25/19 16:47 02/26/19 10:47 Duoneb 0.5 Mg-3 Mg/3 Ml Soln INHALATION 3 ml RT-QID PRN Administration Shortness Of Breath Alprazolam 0.25 mg 02/25/19 16:49 Xanax PO TID PRN Anxiety Apixaban 5 mg 02/26/19 21:00 Eliquis PO 03/05/19 09:01 BID MACI Apixaban 2.5 mg 03/05/19 21:00 Eliquis PO BID MACI Artificial Tears 2 drops 02/25/19 16:47 Artificial Tear Drops BOTH EYES DAILY PRN Dry Eye(s) Atorvastatin Calcium 40 mg 02/26/19 09:00 02/26/19 10:23 Lipitor PO 40 mg DAILY MACI Administration Famotidine 20 mg 02/27/19 09:00 Pepcid PO DAILY MACI Furosemide 20 mg 02/26/19 09:00 02/26/19 10:23 Lasix PO 20 mg DAILY MACI Administration Gabapentin 200 mg 02/25/19 21:00 02/26/19 10:23 Neurontin PO 200 mg BID MACI Administration Sodium Chloride 1,000 mls @ 20 mls/hr 02/26/19 17:15 Saline 0.9% IV .Q24H MACI Metoprolol Tartrate 75 mg 02/25/19 21:00 02/26/19 10:23 Lopressor PO 75 mg BID MACI Administration Montelukast Sodium 10 mg 02/25/19 21:00 02/25/19 19:43 Singulair PO 10 mg HS MACI Administration Nitroglycerin 0.4 mg 02/25/19 13:35 Nitrostat SUBLINGUAL Q5M PRN Chest Pain Prednisone 10 mg 02/25/19 17:00 02/26/19 10:23 PO 10 mg DAILY MACI Administration Verapamil HCl 40 mg 02/26/19 21:00 Isoptin PO BID MACI Zolpidem Tartrate 10 mg 02/25/19 16:22 Ambien PO HS PRN Insomnia Intake and Output 02/26/19 02/26/19 02/26/19 06:59 14:59 22:59 Intake Total 472 Balance 472 Intake: Oral 472 Other: Voiding Method Toilet # Voids 2 1 2 Weight 47.5 kg 02/26/19 06:17 02/26/19 06:17
--- NOTE | 2019-02-26 18:35 | PN ---
PROGRESS NOTE DATE OF SERVICE: 02/26/2019 This 88-year-old woman was admitted with palpitations, dizziness; had palpitation with atrial flutter with 2:1 AV block. Cardiology evaluation in progress. No chest pain. No palpitations. No fever. PHYSICAL EXAMINATION: Alert and oriented x3. Pulse is 113, blood pressure is 170/56, temperature normal, pulse ox 98% on room air. HEENT: Conjunctivae normal. Oral mucosa moist. NECK: No jugular venous distention. No lymph node enlargement. CARDIOVASCULAR: S1, S2. RESPIRATORY: Diminished breath sounds at the bases. Scattered rhonchi and crackles. ABDOMEN: Soft, nontender. LEGS: No edema, no swelling. NERVOUS SYSTEM: No focal deficits. LABS: CBC within normal limits and INR 0.9, sodium 130, potassium 4.3 and BUN is 25. Troponin is noted. LDL is 113. ASSESSMENT: 1. Palpitation with atrial flutter with a fast ventricular rate with varying block 2:1 AV block. 2. Troponin 0.046, for evaluation. 3. High LDL with hypercholesteremia. 4. Rule out acute [id number]-elevation myocardial infarction. 5. Increased WBC. 6. History atrial fibrillation. 7. History of chronic obstructive pulmonary disease. 8. Asthma. 9. History of hypertension. 10.History of degenerative joint disease. 11.History of skin cancer. 12.Remote history of nicotine dependence. 13.Mild to moderate protein calorie malnutrition. RECOMMENDATIONS AND DISCUSSION: In this 88-year-old woman who presented with multiple complex medical issues, we will monitor the patient closely, continue the current medication, continue symptomatic treatment, continue with Eliquis, continue with beta blockers. The patient is on metoprolol 75 b.i.d. Otherwise, closely follow with Cardiology. Guarded prognosis because of multiple complex medical issues. Discussed with the patient and the family who understands. Further recommendations to follow. MMODL / IJN: [id number] /
[2019-02-26] MEDS: SODIUM CHLORIDE 0.9% 1,000 ML IV SCH (19:44)
[2019-02-26] MEDS: MONTELUKAST 10 MG TAB PO SCH (19:53)
[2019-02-26] MEDS: APIXABAN 5 MG TAB PO SCH (19:53)
[2019-02-26] MEDS: VERAPAMIL 40 MG TAB PO SCH (19:53)
[2019-02-27] MEDS: IPRATROPIUM-ALBUTEROL 3 ML NEB INHALATION PRN (07:35)
[2019-02-27 08:02] LABS: Basophils # (A) 0.1 k/uL (0-0.2); Basophils % (A) 1 %; Eosinophils # (A) 0.1 k/uL (0-0.7); Eosinophils % (A) 1 %; HCT 39.3 % (34.0-46.0); Lymphocytes # (A) 1.4 k/uL (1.0-4.8); Lymphocytes % (A) 16 %; MCH 30.3 pg (25.0-35.0); MCHC 33.2 g/dL (31.0-37.0); MCV 91.3 fL (80.0-100.0); Mean Platelet Volume 8.8; Monocytes # (A) 0.7 k/uL (0-1.0); Monocytes % (A) 8 %; Neutrophils # (A) 6.4 k/uL (1.3-7.7); Neutrophils % (A) 72 %; Platelet Count 231 k/uL (150-450); RBC 4.31 m/uL (3.80-5.40); RDW 15.3 % (11.5-15.5); WBC 8.9 k/uL (3.8-10.6)
[2019-02-27 08:10] LABS: Calcium 8.6 mg/dL (8.4-10.2); Potassium 4.2 mmol/L (3.5-5.1)
[2019-02-27] MEDS ORDERED: METOPROLOL TARTRATE 5 MG/5 ML VIAL IVP ONE ×2 (08:30→08:45)
[2019-02-27] MEDS: FAMOTIDINE 20 MG TAB PO SCH (08:44)
[2019-02-27] MEDS: ATORVASTATIN 40 MG TAB PO SCH (08:44)
[2019-02-27] MEDS: predniSONE 10 MG TAB PO SCH (08:44)
[2019-02-27] MEDS: METOPROLOL TARTRATE 25 MG TAB PO SCH ×2 (08:44→20:36)
[2019-02-27] MEDS: APIXABAN 5 MG TAB PO SCH ×2 (08:44→20:34)
[2019-02-27] MEDS: FUROSEMIDE 20 MG TAB PO SCH (08:44)
[2019-02-27] MEDS: VERAPAMIL 40 MG TAB PO SCH (08:44)
[2019-02-27] MEDS: GABAPENTIN 100 MG CAP PO SCH ×2 (08:44→20:36)
--- NOTE | 2019-02-27 11:48 | PN ---
PROGRESS NOTE Mrs. Siu has atrial flutter which is with a rapid rate which is very symptomatic. This morning she had a rate of about 220 per minute. I did a carotid sinus massage, gave her some 5 mg of Lopressor. Her rate came down and she feels better. However, I spoke to Dr. Schaefer who plans to do flutter ablation on Saturday. He wants her to be on a Cardizem drip and beta wilmar as opposed to verapamil. I will therefore discontinue verapamil, place her on a Cardizem drip and continue Lopressor. When following the episode of rapid tachycardia, she is doing well, has no symptoms. S1-S2 heard normally. Rate is better controlled. Short systolic murmur noted. Lungs revealed decent air entry. Abdomen and lower extremity exam is unchanged. MMODL / IJN: [id number] /
[2019-02-27] MEDS: DILTIAZEM 125 MG in SODIUM CHLORIDE 0.9% 100 ML IV SCH (15:30)
--- NOTE | 2019-02-27 17:23 | P.PN ---
Subjective Progress Note Date: 02/27/19 88-year-old female with a past medical history significant for COPD, hypertension, and atrial flutter who presented with complaints of palpitations and dizziness. In early January she presented with complaints of palpitations and was found to be in atrial flutter. She was treated with metoprolol for rate control and started on eliquis and discharged home. She initially felt better. However, yesterday she was walking from her bathroom to the kitchen when she started to feel her heart racing again. She became dizzy and short of breath. She did not pass out. Denies any chest discomfort. Upon presentation to the emergency department her EKG showed typical atrial flutter with 2-1 AV block, ventricular rate 113. She was treated with IV metoprolol. She remains in atrial flutter with variable AV block. Patient seen and examined resting comfortably in bed. States she still feels her heart racing sometimes. She has been able to get up and use the bathroom without any dizziness. 02/27/2019 Patient is seen and evaluated in room at bedside; patient did have an episode of atrial flutter with rapid rate of about to 20; patient underwent carotid sinus massage along with 5 mg of IV Lopressor which brought her heart rate down; cardiology is following and planning to do ablation on Saturday; patient remains on IV Cardizem infusion and beta wilmar therapy; verapamil is discontinued Objective - Vital Signs Vital signs: Vital Signs Temp 98.2 F 02/27/19 03:32 Pulse 92 02/27/19 07:45 Resp 18 02/27/19 03:32 BP 123/65 02/27/19 03:32 Pulse Ox 98 02/27/19 07:37 Intake & Output 02/26/19 02/27/19 02/27/19 18:59 06:59 18:59 Intake Total 708 240 Balance 708 240 Weight 46.9 kg Intake: Oral 708 240 Other: Voiding Method Toilet # Voids 2 1 - Exam PHYSICAL EXAMINATION: GENERAL: The patient is alert and oriented x3, not in any acute distress. Well developed, well nourished. HEENT: Pupils are round and equally reacting to light. EOMI. No scleral icterus. No conjunctival pallor. Normocephalic, atraumatic. No pharyngeal erythema. No thyromegaly. CARDIOVASCULAR: S1 and S2 present. No murmurs, rubs, or gallops. PULMONARY: Chest is clear to auscultation, no wheezing or crackles. ABDOMEN: Soft, nontender, nondistended, normoactive bowel sounds. No palpable organomegaly. MUSCULOSKELETAL: No joint swelling or deformity. EXTREMITIES: No cyanosis, clubbing, or pedal edema. NEUROLOGICAL: Gross neurological examination did not reveal any focal deficits. SKIN: No rashes. - Labs CBC & Chem 7: 02/27/19 06:12 02/27/19 06:12 Labs: Abnormal Lab Results - Last 24 Hours (Table) 02/27/19 Range/Units 06:12 BUN 31 H (7-17) mg/dL Glucose 68 L (74-99) mg/dL Assessment and Plan Assessment: 1. Symptomatic typical atrial flutter with RVR, currently in atrial flutter with variable AV block, anticoagulated with eliquis, failed medical treatment with metoprolol 2. COPD; not in exacerbation 3. Hypertension DVT prophylaxis; systemic anticoagulation CODE STATUS; full code PLAN: Cardiology is following and had detailed discussion with the patient and her family regarding treatment options; atrial flutter ablation as recommended and patient and family are agreeable The patient and her family verbalized her understanding and agreed to proceed Continue anticoagulation with eliquis, would recommend the higher dose of eliquis, 5 mg BID, before the procedure and for one month after the procedure for stroke prevention, and then cut back down to 2.5 mg twice a day thereafter
[2019-02-27] MEDS: SODIUM CHLORIDE 0.9% 1,000 ML IV SCH (17:41)
[2019-02-27] MEDS: MONTELUKAST 10 MG TAB PO SCH (20:34)
[2019-02-28] MEDS: ZOLPIDEM 10 MG TAB PO PRN (00:01)
[2019-02-28 06:21] LABS: Basophils # (A) 0.1 k/uL (0-0.2); Basophils % (A) 1 %; Eosinophils # (A) 0.1 k/uL (0-0.7); Eosinophils % (A) 1 %; HCT 38.7 % (34.0-46.0); HGB 12.2 gm/dL (11.4-16.0); Hypochromasia Slight; Lymphocytes # (A) 1.5 k/uL (1.0-4.8); Lymphocytes % (A) 14 %; MCH 29.8 pg (25.0-35.0); MCHC 31.5 g/dL (31.0-37.0); MCV 94.6 fL (80.0-100.0); Mean Platelet Volume 7.9; Monocytes # (A) 0.9 k/uL (0-1.0); Monocytes % (A) 9 %; Neutrophils # (A) 7.4 k/uL (1.3-7.7); Neutrophils % (A) 73 %; Platelet Count 200 k/uL (150-450); RBC 4.09 m/uL (3.80-5.40); RDW 15.3 % (11.5-15.5); WBC 10.2 k/uL (3.8-10.6)
[2019-02-28 06:45] LABS: Calcium 8.4 mg/dL (8.4-10.2)
[2019-02-28] MEDS: METOPROLOL TARTRATE 25 MG TAB PO SCH ×2 (08:46→21:40)
[2019-02-28] MEDS: FAMOTIDINE 20 MG TAB PO SCH (08:46)
[2019-02-28] MEDS: FUROSEMIDE 20 MG TAB PO SCH (08:46)
[2019-02-28] MEDS: ATORVASTATIN 40 MG TAB PO SCH (08:46)
[2019-02-28] MEDS: APIXABAN 5 MG TAB PO SCH ×2 (08:47→21:41)
[2019-02-28] MEDS: GABAPENTIN 100 MG CAP PO SCH ×2 (08:47→21:41)
[2019-02-28] MEDS: predniSONE 10 MG TAB PO SCH (08:47)
--- NOTE | 2019-02-28 13:06 | PN ---
PROGRESS NOTE Mrs. Siu is in sinus rhythm today with paroxysmal atrial flutter, maintaining sinus rhythm on a small dose of Cardizem IV. Vitals are stable. JVD 1 cm. S1, S2 heard normally. Short systolic murmur noted. Lungs are clearer. Abdomen and lower extremity exam unchanged. MMODL / IJN: [id number] /
[2019-02-28] MEDS: SODIUM CHLORIDE 0.9% 1,000 ML IV SCH (14:00)
[2019-02-28] MEDS: DILTIAZEM 125 MG in SODIUM CHLORIDE 0.9% 100 ML IV SCH (14:00)
--- NOTE | 2019-02-28 16:08 | P.PN ---
Subjective Progress Note Date: 02/28/19 Principal diagnosis: Paroxysmal atrial flutter 88-year-old female with a past medical history significant for COPD, hypertension, and atrial flutter who presented with complaints of palpitations and dizziness. In early January she presented with complaints of palpitations and was found to be in atrial flutter. She was treated with metoprolol for rate control and started on eliquis and discharged home. She initially felt better. However, yesterday she was walking from her bathroom to the kitchen when she started to feel her heart racing again. She became dizzy and short of breath. She did not pass out. Denies any chest discomfort. Upon presentation to the emergency department her EKG showed typical atrial flutter with 2-1 AV block, ventricular rate 113. She was treated with IV metoprolol. She remains in atrial flutter with variable AV block. Patient seen and examined resting comfortably in bed. States she still feels her heart racing sometimes. She has been able to get up and use the bathroom without any dizziness. 02/27/2019 Patient is seen and evaluated in room at bedside; patient did have an episode of atrial flutter with rapid rate of about to 20; patient underwent carotid sinus massage along with 5 mg of IV Lopressor which brought her heart rate down; cardiology is following and planning to do ablation on Saturday; patient remains on IV Cardizem infusion and beta wilmar therapy; verapamil is discontinued 02/28/2019 Patient is seen and evaluated in room at bedside; Mansi is no new complaints; patient is in sinus rhythm with paroxysmal atrial flutter; remains on small dose of IV Cardizem Vital signs remained stable; labs are reviewed and show a sodium of 133 and a creatinine which has worsened since yesterday from 1.0 after 1.31 this morning; we will start patient on IV fluid hydration with normal saline at a rate of 100 mL an hour; monitor strict MICHELLE's and daily weights; monitor renal function and electrolytes; consult nephrology if renal function continues to worsen Patient is scheduled for ablation on Saturday Objective - Vital Signs Vital signs: Vital Signs Temp 96.7 F L 02/28/19 08:00 Pulse 67 02/28/19 08:00 Resp 18 02/28/19 08:00 BP 111/86 02/28/19 08:00 Pulse Ox 93 L 02/28/19 08:00 Intake & Output 02/27/19 02/28/19 02/28/19 18:59 06:59 18:59 Intake Total 680 552 240 Balance 680 552 240 Weight 47.8 kg Intake: Intake, IV Titration 20 72 0 Amount Diltiazem 125 mg In 72 0 Sodium Chloride 0.9% 100 ml @ 5 MG/HR 5 mls/hr IV .Q24H MACI Rx#:[id number] Sodium Chloride 0.9% 1, 20 000 ml @ 20 mls/hr IV . Q24H MACI Rx#:[id number] Oral 660 480 240 Other: # Voids 1 2 1 - Exam PHYSICAL EXAMINATION: GENERAL: The patient is alert and oriented x3, not in any acute distress. Well developed, well nourished. HEENT: Pupils are round and equally reacting to light. EOMI. No scleral icterus. No conjunctival pallor. Normocephalic, atraumatic. No pharyngeal erythema. No thyromegaly. CARDIOVASCULAR: S1 and S2 present. No murmurs, rubs, or gallops. PULMONARY: Chest is clear to auscultation, no wheezing or crackles. ABDOMEN: Soft, nontender, nondistended, normoactive bowel sounds. No palpable organomegaly. MUSCULOSKELETAL: No joint swelling or deformity. EXTREMITIES: No cyanosis, clubbing, or pedal edema. NEUROLOGICAL: Gross neurological examination did not reveal any focal deficits. SKIN: No rashes. - Labs CBC & Chem 7: 02/28/19 05:39 02/28/19 05:39 Labs: Abnormal Lab Results - Last 24 Hours (Table) 02/28/19 Range/Units 05:39 Sodium 133 L (137-145) mmol/L Carbon Dioxide 21 L (22-30) mmol/L BUN 43 H (7-17) mg/dL Creatinine 1.31 H (0.52-1.04) mg/dL Assessment and Plan Assessment: 1. Symptomatic typical atrial flutter with RVR, currently in atrial flutter with variable AV block, anticoagulated with eliquis, failed medical treatment with metoprolol 2. COPD; not in exacerbation 3. Hypertension DVT prophylaxis; systemic anticoagulation CODE STATUS; full code PLAN: Cardiology is following and had detailed discussion with the patient and her family regarding treatment options; atrial flutter ablation as recommended and patient and family are agreeable The patient and her family verbalized her understanding and agreed to proceed Continue anticoagulation with eliquis, would recommend the higher dose of eliquis, 5 mg BID, before the procedure and for one month after the procedure for stroke prevention, and then cut back down to 2.5 mg twice a day thereafter
[2019-02-28] MEDS: MONTELUKAST 10 MG TAB PO SCH (21:41)
[2019-03-01] MEDS: SODIUM CHLORIDE 0.9% 1,000 ML IV SCH ×2 (00:03→10:28)
[2019-03-01] MEDS: ZOLPIDEM 10 MG TAB PO PRN ×2 (00:03→23:18)
[2019-03-01 06:21] LABS: Basophils % (A) 0 %; Eosinophils # (A) 0.1 k/uL (0-0.7); Eosinophils % (A) 2 %; HCT 37.4 % (34.0-46.0); HGB 11.5 gm/dL (11.4-16.0); Lymphocytes % (A) 12 %; MCH 28.4 pg (25.0-35.0); MCHC 30.9 g/dL (31.0-37.0); MCV 91.9 fL (80.0-100.0); Mean Platelet Volume 8.1; Monocytes # (A) 0.7 k/uL (0-1.0); Monocytes % (A) 8 %; Neutrophils # (A) 6.2 k/uL (1.3-7.7); Neutrophils % (A) 76 %; Platelet Count 194 k/uL (150-450); RBC 4.07 m/uL (3.80-5.40); RDW 15.4 % (11.5-15.5); WBC 8.1 k/uL (3.8-10.6)
[2019-03-01] MEDS: FAMOTIDINE 20 MG TAB PO SCH (08:02)
[2019-03-01] MEDS: FUROSEMIDE 20 MG TAB PO SCH (08:02)
[2019-03-01] MEDS: ATORVASTATIN 40 MG TAB PO SCH (08:02)
[2019-03-01] MEDS: predniSONE 10 MG TAB PO SCH (08:02)
[2019-03-01] MEDS: APIXABAN 5 MG TAB PO SCH ×2 (08:02→21:38)
[2019-03-01] MEDS: GABAPENTIN 100 MG CAP PO SCH ×2 (08:02→21:38)
[2019-03-01] MEDS: IPRATROPIUM-ALBUTEROL 3 ML NEB INHALATION PRN ×2 (08:02→11:39)
[2019-03-01] MEDS: METOPROLOL TARTRATE 25 MG TAB PO SCH ×2 (08:03→21:37)
[2019-03-01] MEDS ORDERED: DILTIAZEM DRIP BOLUS FROM BAG 1 MG SOLN IV ONE (12:19)
[2019-03-01] MEDS: DILTIAZEM 125 MG in SODIUM CHLORIDE 0.9% 100 ML IV SCH (12:23)
--- NOTE | 2019-03-01 14:51 | P.PN ---
Subjective Progress Note Date: 03/01/19 Principal diagnosis: Paroxysmal atrial flutter 88-year-old female with a past medical history significant for COPD, hypertension, and atrial flutter who presented with complaints of palpitations and dizziness. In early January she presented with complaints of palpitations and was found to be in atrial flutter. She was treated with metoprolol for rate control and started on eliquis and discharged home. She initially felt better. However, yesterday she was walking from her bathroom to the kitchen when she started to feel her heart racing again. She became dizzy and short of breath. She did not pass out. Denies any chest discomfort. Upon presentation to the emergency department her EKG showed typical atrial flutter with 2-1 AV block, ventricular rate 113. She was treated with IV metoprolol. She remains in atrial flutter with variable AV block. Patient seen and examined resting comfortably in bed. States she still feels her heart racing sometimes. She has been able to get up and use the bathroom without any dizziness. 02/27/2019 Patient is seen and evaluated in room at bedside; patient did have an episode of atrial flutter with rapid rate of about to 20; patient underwent carotid sinus massage along with 5 mg of IV Lopressor which brought her heart rate down; cardiology is following and planning to do ablation on Saturday; patient remains on IV Cardizem infusion and beta wilmar therapy; verapamil is discontinued 02/28/2019 Patient is seen and evaluated in room at bedside; Mansi is no new complaints; patient is in sinus rhythm with paroxysmal atrial flutter; remains on small dose of IV Cardizem Vital signs remained stable; labs are reviewed and show a sodium of 133 and a creatinine which has worsened since yesterday from 1.0 after 1.31 this morning; we will start patient on IV fluid hydration with normal saline at a rate of 100 mL an hour; monitor strict MICHELLE's and daily weights; monitor renal function and electrolytes; consult nephrology if renal function continues to worsen Patient is scheduled for ablation on Saturday03/01/2019 Patient is seen and evaluated in follow-up; denies any specific complaints; patient remains in sinus rhythm; currently and small dose of IV Cardizem; labs are reviewed which show improvement in sodium level up to 139 this morning; B UN/creatinine has improved from 43/1.31 yesterday down to 36/1.02; we will continue with current treatment of IV fluids and monitor electrolytes and renal functionclosely for any further adjustments; patient is being followed by cardiology and is scheduled for possible ablation on Saturday Objective - Vital Signs Vital signs: Vital Signs Temp 98.1 F 03/01/19 11:19 Pulse 98 03/01/19 11:19 Resp 18 03/01/19 11:19 BP 115/54 03/01/19 11:19 Pulse Ox 96 03/01/19 11:19 Intake & Output 02/28/19 03/01/19 03/01/19 18:59 06:59 18:59 Intake Total 9891 250 6166 Balance 1662 748 0344 Weight 49 kg Intake: Intake, IV Titration 200 700 Amount Diltiazem 125 mg In 0 Sodium Chloride 0.9% 100 ml @ 5 MG/HR 5 mls/hr IV .Q24H MACI Rx#:[id number] Sodium Chloride 0.9% 1, 200 700 000 ml @ 100 mls/hr IV . Q10H MACI Rx#:[id number] Oral 840 540 360 Other: # Voids 4 1 3 - Exam PHYSICAL EXAMINATION: GENERAL: The patient is alert and oriented x3, not in any acute distress. Well developed, well nourished. HEENT: Pupils are round and equally reacting to light. EOMI. No scleral icterus. No conjunctival pallor. Normocephalic, atraumatic. No pharyngeal erythema. No thyromegaly. CARDIOVASCULAR: S1 and S2 present. No murmurs, rubs, or gallops. PULMONARY: Chest is clear to auscultation, no wheezing or crackles. ABDOMEN: Soft, nontender, nondistended, normoactive bowel sounds. No palpable organomegaly. MUSCULOSKELETAL: No joint swelling or deformity. EXTREMITIES: No cyanosis, clubbing, or pedal edema. NEUROLOGICAL: Gross neurological examination did not reveal any focal deficits. SKIN: No rashes. - Labs CBC & Chem 7: 03/01/19 05:38 03/01/19 05:38 Labs: Abnormal Lab Results - Last 24 Hours (Table) 03/01/19 03/01/19 Range/Units 05:38 05:38 MCHC 30.9 L (31.0-37.0) g/dL Chloride 110 H (98-107) mmol/L BUN 36 H (7-17) mg/dL Glucose 72 L (74-99) mg/dL Calcium 8.0 L (8.4-10.2) mg/dL Assessment and Plan Assessment: 1. Symptomatic typical atrial flutter with RVR, currently in atrial flutter w ith variable AV block, anticoagulated with eliquis, failed medical treatment with metoprolol 2. COPD; not in exacerbation 3. Hypertension DVT prophylaxis; systemic anticoagulation CODE STATUS; full code PLAN: Cardiology is following and had detailed discussion with the patient and her family regarding treatment options; atrial flutter ablation as recommended and patient and family are agreeable The patient and her family verbalized her understanding and agreed to proceed Continue anticoagulation with eliquis, would recommend the higher dose of eliquis, 5 mg BID, before the procedure and for one month after the procedure for stroke prevention, and then cut back down to 2.5 mg twice a day thereafter
--- NOTE | 2019-03-01 15:10 | P.PN ---
Subjective Progress Note Date: 03/01/19 Principal diagnosis: Aflutter with RVR PROGRESS NOTE: Patient continues doing well with no current complaints of chest pain, chest pressure, shortness of breath or palpitations. BP 115/54, heart rate 98. Afebrile. 96% on room air. Patient continues atrial flutter and is planning for ablation on Saturday with Dr. Schaefer. IV fluids continue at 0.9 @ 100ml/hr. Pt able to ambulate in room and hallways with assistance without shortness of breath. PHYSICAL EXAMINATION: HEENT: Head is atraumatic, normocephalic. Pupils are equal, round. Sclerae anicteric. Conjunctivae are clear. Mucous membranes of the mouth are moist. Neck is supple. There is no jugular venous distention. No carotid bruit is heard. No thyromegaly. LUNGS: Clear to auscultation no wheezes, rales or rhonchi. No chest wall tenderness is noted on palpation or with deep breathing. HEART: Regular rate and irregular rhythm without murmurs, rubs or gallops. S1 and S2 heard. ABDOMEN: Abdominal exam revealed normal bowel sounds. The abdomen was soft, non- tender, and without masses, organomegaly, or appreciable enlargement of the abdominal aorta. EXTREMITIES: Examination of the extremities revealed easily palpable radial, femoral and pedal pulses. There was no cyanosis, clubbing or edema. No calf tenderness noted. VASCULAR: Radial and dorsalis pedis pulses palpated, no evidence of clubbing. NEUROLOGIC: Patient is awake, alert and oriented x3. There were no obvious focal neurologic abnormalities. LAB DATA: WNL. FINAL IMPRESSION: 1. Atrial Flutter at controlled rate 2. COPD 3. Hypertension 4. Hyperlipidemia 5. GERD PLAN: Continue same medical/medication regime. Heart healthy diet. Planning for Saturday aflutter ablation with Dr. Schaefer. Decrease IV fluids to 50 ml per hr. Cautious fluid and BP control. Objective - Vital Signs Vital signs: Vital Signs Temp 98.1 F 03/01/19 11:19 Pulse 82 03/01/19 11:49 Resp 18 03/01/19 11:19 BP 115/54 03/01/19 11:19 Pulse Ox 96 03/01/19 11:19 Intake & Output 01/11/20 01/12/20 01/12/20 18:59 06:59 18:59 Intake Total 9983 379 4145 Balance 9998 288 9485 Weight 49 kg Intake: Intake, IV Titration 200 700 Amount Diltiazem 125 mg In 0 0 Sodium Chloride 0.9% 100 ml @ 5 MG/HR 5 mls/hr IV .Q24H [facility] Rx#:[id number] Sodium Chloride 0.9% 1, 200 700 000 ml @ 100 mls/hr IV . Q10H [facility] Rx#:[id number] Oral 840 540 360 Other: # Voids 4 1 3 - Labs CBC & Chem 7: 03/01/19 05:38 03/01/19 05:38 Labs: Abnormal Lab Results - Last 24 Hours (Table) 03/01/19 03/01/19 Range/Units 05:38 05:38 MCHC 30.9 L (31.0-37.0) g/dL Chloride 110 H (98-107) mmol/L BUN 36 H (7-17) mg/dL Glucose 72 L (74-99) mg/dL Calcium 8.0 L (8.4-10.2) mg/dL
[2019-03-01] MEDS: MONTELUKAST 10 MG TAB PO SCH (21:38)
[2019-03-02 06:39] LABS: Basophils % (A) 0 %; Eosinophils # (A) 0.3 k/uL (0-0.7); Eosinophils % (A) 4 %; HCT 37.8 % (34.0-46.0); HGB 11.6 gm/dL (11.4-16.0); Hypochromasia Slight; Lymphocytes # (A) 0.9 k/uL (1.0-4.8); Lymphocytes % (A) 10 %; MCH 28.8 pg (25.0-35.0); MCHC 30.8 g/dL (31.0-37.0); MCV 93.7 fL (80.0-100.0); Monocytes # (A) 0.6 k/uL (0-1.0); Monocytes % (A) 7 %; Neutrophils # (A) 6.7 k/uL (1.3-7.7); Neutrophils % (A) 77 %; Platelet Count 197 k/uL (150-450); RBC 4.03 m/uL (3.80-5.40); RDW 15.5 % (11.5-15.5); WBC 8.8 k/uL (3.8-10.6)
[2019-03-02 06:58] LABS: Calcium 8.2 mg/dL (8.4-10.2); Potassium 3.9 mmol/L (3.5-5.1)
--- NOTE | 2019-03-02 08:24 | P.PN ---
Subjective This is a pleasant 88 years old female with past medical history of asthma, COPD, hypertension, history of cardiac arrhythmia on heart monitor. Presents with an episode of acute dyspnea that lasted for 5 minutes, mostly related to her cardiac arrhythmia. Patient found to have A. fib with RVR which mostly attributed to her presyncope. Invoice Control Clerk evaluated the patient and she is currently on Cardizem drip and Eliquis, she is also on metoprolol. Patient is planned to go to atrial flutter ablation on Saturday/tomorrow with cardiology team. Patient denies respiratory symptoms however and her chest x-ray shows bilateral infiltrates. Objective - Vital Signs Vital signs: Vital Signs Temp 98.5 F 03/02/19 04:00 Pulse 79 03/02/19 04:00 Resp 16 03/02/19 04:00 BP 113/67 03/02/19 04:00 Pulse Ox 97 03/02/19 04:00 Intake & Output 03/01/19 03/02/19 03/02/19 18:59 06:59 18:59 Intake Total 1843.667 Output Total 260 Balance 1843.667 -260 Weight 49.1 kg Intake: Intake, IV Titration 763.667 Amount Diltiazem 125 mg In 63.667 Sodium Chloride 0.9% 100 ml @ 10 MG/HR 10 mls/hr IV .[id number] [facility] Rx#: [id number] Sodium Chloride 0.9% 1, 700 000 ml @ 100 mls/hr IV . Q10H [facility] Rx#:[id number] Oral 1080 Output: Urine 260 Other: Voiding Method Toilet # Voids 5 2 - Exam GENERAL: The patient is alert and oriented x3, not in any acute distress. Well developed, well nourished. HEENT: Pupils are round and equally reacting to light. EOMI. No scleral icterus. No conjunctival pallor. Normocephalic, atraumatic. No pharyngeal erythema. No thyromegaly. CARDIOVASCULAR: S1 and S2 present. No murmurs, rubs, or gallops. PULMONARY: Chest is clear to auscultation, no wheezing or crackles. ABDOMEN: Soft, nontender, nondistended, normoactive bowel sounds. No palpable organomegaly. MUSCULOSKELETAL: No joint swelling or deformity. EXTREMITIES: No cyanosis, clubbing, or pedal edema. NEUROLOGICAL: Gross neurological examination did not reveal any focal deficits. SKIN: No rashes. no petechiae. - Labs CBC & Chem 7: 03/02/19 05:58 03/02/19 05:58 Labs: Abnormal Lab Results - Last 24 Hours (Table) 03/02/19 03/02/19 Range/Units 05:58 05:58 MCHC 30.8 L (31.0-37.0) g/dL Lymphocytes # 0.9 L (1.0-4.8) k/uL Chloride 108 H (98-107) mmol/L BUN 31 H (7-17) mg/dL Calcium 8.2 L (8.4-10.2) mg/dL Assessment and Plan Assessment: A. fib with RVR Presyncope related to above Bilateral bibasilar infiltrates Essential hypertension Asthma, not an active issue COPD, not an active issue Plan: This is a pleasant 88 years old female who presents with presyncope and A. fib. Patient is going for cardiac ablation procedure on Saturday. Cartilage team following the case closely. Continue with the Eliquis and beta blockers Labs and medication were reviewed.. Continue same treatment. Continue with symptomatic treatment. Resume home medication. Monitor lytes and vitals. DVT and GI prophylaxis. Further recommendations of the clinical course of the patient DVT prophylaxis: Eliquis GI Prophylaxis: Pepcid PT/OT: Pending Prognosis is guarded
[2019-03-02] MEDS: APIXABAN 5 MG TAB PO SCH ×2 (08:44→20:52)
[2019-03-02] MEDS: ATORVASTATIN 40 MG TAB PO SCH (08:44)
[2019-03-02] MEDS: FAMOTIDINE 20 MG TAB PO SCH (08:44)
[2019-03-02] MEDS: predniSONE 10 MG TAB PO SCH (08:44)
[2019-03-02] MEDS: GABAPENTIN 100 MG CAP PO SCH ×2 (08:44→20:52)
[2019-03-02] MEDS: FUROSEMIDE 20 MG TAB PO SCH (08:44)
[2019-03-02] MEDS: METOPROLOL TARTRATE 25 MG TAB PO SCH ×2 (08:44→20:52)
[2019-03-02] MEDS: IPRATROPIUM-ALBUTEROL 3 ML NEB INHALATION PRN (11:17)
--- NOTE | 2019-03-02 19:50 | PN ---
PROGRESS NOTE Mrs. Chan is in atrial flutter. Rate is better controlled. She is more stable. Denies chest pain. She has no further rapid heartbeats, but she is scheduled for ablation by Dr. Schaefer tomorrow. Vitals are stable. JVD 1 cm. No carotid bruit. Short systolic murmur is audible. Lungs reveal improved air entry. Abdomen and lower extremity exam unchanged. Plan is to continue current medications with atrial flutter ablation tomorrow. MMODL / IJN: [id number] /
[2019-03-02] MEDS: DILTIAZEM 125 MG in SODIUM CHLORIDE 0.9% 100 ML IV SCH (19:52)
[2019-03-02] MEDS: SODIUM CHLORIDE 0.9% 1,000 ML IV SCH (19:52)
[2019-03-02] MEDS: MONTELUKAST 10 MG TAB PO SCH (20:53)
[2019-03-02] MEDS: ZOLPIDEM 10 MG TAB PO PRN (23:42)
[2019-03-03] MEDS: SODIUM CHLORIDE 0.9% 1,000 ML IV SCH ×3 (01:46→23:23)
[2019-03-03] MEDS: METOPROLOL TARTRATE 25 MG TAB PO SCH (06:48)
[2019-03-03] MEDS: FAMOTIDINE 20 MG TAB PO SCH (06:49)
[2019-03-03] MEDS: predniSONE 10 MG TAB PO SCH (06:49)
[2019-03-03] MEDS: GABAPENTIN 100 MG CAP PO SCH ×2 (06:49→23:24)
[2019-03-03] MEDS: APIXABAN 5 MG TAB PO SCH ×2 (06:49→23:25)
[2019-03-03] MEDS: ATORVASTATIN 40 MG TAB PO SCH (06:49)
--- NOTE | 2019-03-03 08:42 | P.PN ---
Subjective This is a pleasant 88 years old female with past medical history of asthma, COPD, hypertension, history of cardiac arrhythmia on heart monitor. Presents with an episode of acute dyspnea that lasted for 5 minutes, mostly related to her cardiac arrhythmia. Patient found to have A. fib with RVR which mostly attributed to her presyncope. Chartered Accountant evaluated the patient and she is currently on Cardizem drip and Eliquis, she is also on metoprolol. Patient is planned to go to atrial flutter ablation on Saturday/tomorrow with cardiology team. Patient denies respiratory symptoms however and her chest x-ray shows bilateral infiltrates. 03/03/2019 Patient awake and oriented, no more attacks of shortness of breath. She is planned to go for A. fib ablation procedure by cardiology team today. Patient was feeling cold and she was concerned that might affect her Raynaud's phenomena however the color in both upper extremities are similar and she is pleasant both extremities equally. Vitals are stable. Objective - Vital Signs Vital signs: Vital Signs Temp 97.9 F 03/03/19 03:53 Pulse 78 03/03/19 03:53 Resp 18 03/03/19 03:53 BP 145/74 03/03/19 03:53 Pulse Ox 99 03/03/19 03:53 Intake & Output 03/02/19 03/03/19 03/03/19 18:59 06:59 18:59 Intake Total 471.333 180 Output Total 400 Balance 471.333 -220 Weight 48.2 kg Intake: Intake, IV Titration 61.333 Amount Diltiazem 125 mg In 61.333 Sodium Chloride 0.9% 100 ml @ 10 MG/HR 10 mls/hr IV .[id number] [facility] Rx#: [id number] Oral 410 180 Output: Urine 400 Other: Voiding Method Toilet # Voids 1 3 - Exam GENERAL: The patient is alert and oriented x3, not in any acute distress. Well developed, well nourished. HEENT: Pupils are round and equally reacting to light. EOMI. No scleral icterus. No conjunctival pallor. Normocephalic, atraumatic. No pharyngeal erythema. No thyromegaly. CARDIOVASCULAR: S1 and S2 present. No murmurs, rubs, or gallops. PULMONARY: Chest is clear to auscultation, no wheezing or crackles. ABDOMEN: Soft, nontender, nondistended, normoactive bowel sounds. No palpable organomegaly. MUSCULOSKELETAL: No joint swelling or deformity. EXTREMITIES: No cyanosis, clubbing, or pedal edema. NEUROLOGICAL: Gross neurological examination did not reveal any focal deficits. SKIN: No rashes. no petechiae. - Labs CBC & Chem 7: 03/02/19 05:58 03/02/19 05:58 Assessment and Plan Assessment: A. fib with RVR Presyncope related to above Bilateral bibasilar infiltrates Essential hypertension Asthma, not an active issue COPD, not an active issue Plan: This is a pleasant 88 years old female who presents with presyncope and A. fib. Patient is going for cardiac ablation procedure on Saturday. Cartilage team following the case closely. Continue with the Eliquis and beta blockers Labs and medication were reviewed.. Continue same treatment. Continue with symptomatic treatment. Resume home medication. Monitor lytes and vitals. DVT and GI prophylaxis. Further recommendations of the clinical course of the patient DVT prophylaxis: Eliquis GI Prophylaxis: Pepcid PT/OT: Pending Prognosis is guarded
[2019-03-03] MEDS ORDERED: HEPARIN SODIUM 1,000 UN/ML (10ML VL) ONE (11:45)
[2019-03-03] MEDS ORDERED: LIDOCAINE 1% INJ 10MG/ML (20 ML MDV) ONE ×2 (11:45→11:50)
[2019-03-03] MEDS ORDERED: fentaNYL (PF) 50 MCG/ML 2 ML AMP ONE (11:50)
[2019-03-03] MEDS ORDERED: ePHEDrine SULFATE/0.9% NACL/PF 50 MG/5 ML SYRINGE IV ONE (11:50)
[2019-03-03] MEDS ORDERED: PROPOFOL 10 MG/ML 20 ML VIAL IV ONE (11:50)
[2019-03-03] MEDS ORDERED: SUCCINYLCHOLINE CHLORIDE 100 MG/5 ML SYR IV ONE (11:50)
[2019-03-03] MEDS ORDERED: PHENYLEPHRINE-0.9% NACL SYG 1 MG/10 ML SYRINGE ONE (11:50)
[2019-03-03] MEDS ORDERED: ROCURONIUM BROMIDE 10 MG/ML 10 ML VIAL IV ONE (11:50)
[2019-03-03] MEDS ORDERED: MIDAZOLAM 2 MG/2 ML VIAL ONE (11:50)
[2019-03-03] MEDS ORDERED: SODIUM CHLORIDE 0.9% 1,000 ML IV ONE (12:10)
[2019-03-03] MEDS ORDERED: LIDOCAINE 1% INJ 10MG/ML (20 ML MDV) SQ ONE (12:46)
[2019-03-03] MEDS ORDERED: AMIODARONE 50 MG/ML 3 ML VIAL IV ONE ×2 (13:48→14:23)
[2019-03-03] MEDS ORDERED: ACETAMINOPHEN TAB 325 MG TAB PO PRN (14:29)
--- NOTE | 2019-03-03 14:30 | P.PN ---
Subjective Progress Note Date: 03/03/19 this is an 88-year-old female with past medical history significant for COPD, hypertension, atrial flutter, who presented to the hospital with symptoms of palpitations and dizziness and was found again to be in atrial flutter. She was seen in consultation by Dr. Schaefer and is scheduled today to undergo an atrial flutter ablation. Overall the patient feels well, slept well through the night last night. No complaints this morning. Objective - Vital Signs Vital signs: Vital Signs Temp 97.9 F 03/03/19 03:53 Pulse 90 03/03/19 08:00 Resp 16 03/03/19 08:00 BP 105/57 03/03/19 08:00 Pulse Ox 99 03/03/19 08:00 Intake & Output 03/02/19 03/03/19 03/03/19 18:59 06:59 18:59 Intake Total 471.333 180 20 Output Total 400 Balance 471.333 -220 20 Weight 48.2 kg Intake: Intake, IV Titration 61.333 20 Amount Diltiazem 125 mg In 61.333 Sodium Chloride 0.9% 100 ml @ 10 MG/HR 10 mls/hr IV .[id number] [facility] Rx#: [id number] Sodium Chloride 0.9% 1, 20 000 ml @ 20 mls/hr IV . Q24H [facility] Rx#:[id number] Oral 410 180 Output: Urine 400 Other: Voiding Method Toilet # Voids 1 3 3 - Exam PHYSICAL EXAMINATION: GENERAL:88 year old female in no acute distress at the time of my examination HEENT: Head is atraumatic, normocephalic. Pupils equal, round. Sclera anicteric. Conjunctiva are clear. Mucous membranes of the mouth are moist. Neck is supple. There is no elevated jugular venous pressure.no carotid bruit is heard. HEART EXAMINATION: [Heart S1, S2 normal. No murmur or gallop heard.] CHEST EXAMINATION:[ Lungs are clear to auscultation and precussion. No chest wall tenderness is noted on palpation or with deep breathing.] ABDOMEN: [ Soft, nontender. Bowel sounds are heard. No organomegaly noted]. EXTREMITIES:[ 2+ peripheral pulses with no evidence of peripheral edema and no calf tenderness noted]. NEUROLOGIC [patient is awake, alert and oriented 3.] . - Labs CBC & Chem 7: 03/02/19 05:58 03/02/19 05:58 Assessment and Plan Plan: assessment and plan #1 symptomatic typical atrial flutter with rapid ventricular response #2 COPD #3 hypertension Plan Patient is scheduled today to undergo an atrial flutter ablation, we will continue to follow. DNP note has been reviewed, I agree with a documented findings and plan of care. Patient was seen and examined.
[2019-03-03] MEDS ORDERED: SODIUM CHLORIDE 0.9% 500 ML 500 ML IV ONE (14:32)
[2019-03-03] MEDS ORDERED: HEPARIN SODIUM (1,000 UNIT/ML) 1,000 UNIT in SODIUM CHLORIDE 0.9% 1,000 ML IRRIGATION ONE (14:43)
--- NOTE | 2019-03-03 14:58 | P.PCN ---
Preoperative Diagnosis: Diagnosis: Typical atrial flutter with RVR, symptomatic, refractory to drug therapy with metoprolol and Cardizem Atrial fibrillation with RVR Appropriately anticoagulated on eliquis for over a month Procedure Patient was brought to the EP lab in a fasting state, written informed consent was obtained prior to the procedure. The patient was prepped and draped as per protocol. The procedure was performed under general anesthesia. The right femoral vein was accessed at 3 points, via appropriately sized introducer sheaths, a CS catheter, intracardiac echo, and ablation catheter were placed. The CS catheter was later moved to the high right atrium, His bundle area and RV. The patient was in atrial fibrillation at the start of the study. 3-D electro anatomic Of the right atrium was performed. The right atrial isthmus was mapped. The tricuspid annulus and the eustachian ridge were tagged. The isthmus was concave shaped. RF ablation was performed from the tricuspid annulus to the eustachian ridge. Complete anatomic line was made using radiofrequency ablation Following completion of the line electrical cardioversion was performed with a 360 J biphasic shock. she was successfully converted to sinus rhythm with PACs The RF line was interrogated with pacing maneuvers and bidirectional block was confirmed with differential pacing. Thereafter EP study was performed. Baseline measurements: Sinus cycle length was 1146, AL 153 ms, QRS 84 ms, QT interval 390 ms, AH 54 ms, HV 50 ms Sinus node recovery times at 600, 500 400 were 1014, 1689, 1933 ms respectively AVNWB at 440 ms VA Wenckebach block greater than 490 ms At baseline and after the procedure, intracardiac echo showed a very small pericardial effusion that was unchanged after the procedure Patient tolerated the procedure well without any acute applications Impression Successful radiofrequency ablation for atrial flutter since Successful electrical cardioversion from atrial fibrillation to sinus rhythm Plan 300 mg of IV amiodarone given post-ablation Stop metoprolol and Cardizem Continue eliquis 5 mg twice a day for one week and then reduce the dose to 2.5 mg twice a day thereafter If the patient is not significantly bradycardic would recommend low-dose amiodarone 200 mg by mouth daily after 24 hours
[2019-03-03] MEDS ORDERED: ACETAMINOPHEN IV (For NPO) 1,000 MG in EMPTY BAG 1 BAG IVPB ONE (15:00)
[2019-03-03] MEDS: DILTIAZEM 125 MG in SODIUM CHLORIDE 0.9% 100 ML IV SCH (19:41)
[2019-03-03] MEDS: MONTELUKAST 10 MG TAB PO SCH (23:24)
[2019-03-03] MEDS: ZOLPIDEM 10 MG TAB PO PRN (23:24)
[2019-03-04] MEDS: FUROSEMIDE 20 MG TAB PO SCH (01:45)
[2019-03-04] MEDS: FAMOTIDINE 20 MG TAB PO SCH (08:03)
[2019-03-04] MEDS: ATORVASTATIN 40 MG TAB PO SCH (08:03)
[2019-03-04] MEDS: predniSONE 10 MG TAB PO SCH (08:03)
[2019-03-04] MEDS: GABAPENTIN 100 MG CAP PO SCH (08:03)
[2019-03-04] MEDS: APIXABAN 5 MG TAB PO SCH (08:03)
[2019-03-04] MEDS: SODIUM CHLORIDE 0.9% 1,000 ML IV SCH (08:51)
[2019-03-04 09:05] VITALS: RESP 18
--- NOTE | 2019-03-04 11:25 | CDI ---
Documentation Clarification Form Date: 03/04/2019 11:16:48 AM From: Nellie VincentROE, CCDS Admit Date: 02/27/2019 09:56:00 AM Patient Name: Nellie Siu Visit Number: [id number] Discharge Date: ATTENTION: The Clinical Documentation Specialists (CDI) and [facility] Coding Staff appreciate your assistance in clarifying documentation. Please respond to the clarification below the line at the bottom and electronically sign. The CDI & [facility] Coding staff will review the response and follow-up if needed. Please note: Queries are made part of the Legal Health Record. If you have any questions, please contact the author of this message via ITS. Dr. Eitan Tony: Atrial Fibrillation is documented in the ED note, the History & Physical, subsequent progress notes and also in the procedure note on 03/03: " .....patient was in atrial fibrillation at the start of the study." History/Risk Factors: Atrial fibrillation, recently diagnosed. Asthma, COPD, Hypertension, Back pain, DJD, non smoker. Clinical Indicators: Presented to the ED with palpitations & dizziness, recent admit with new onset atrial fibrillation & elevated troponins, treated medically. Complained of being very SOB. EKG 02/25: R 113 Atrial flutter w/2:1 AV conduction. EKG 02/25: R 88 Atrial flutter with variable AV block. EK/9: R 79 Atrial flutter. Treatment: po Lopressor, INH Albuterol, po Eliquis, IV Cardizem drip, IV Cordarone. 03/03 EP Ablation for typical atrial flutter w/RVR, symptomatic, refractory to drug therapy (Metoprolol & Cardizem) and electrical cardioversion with conversion to sinus rhythm. In your professional opinion, can you please clarify the type of Atrial Fibrillation, if known? Chronic/Permanent Paroxysmal Persistent Other, please specify Unable to determine (Last Revision: May 2017) Paroxysmal CRISD
[2019-03-04 11:52] VITALS: BP 129/59; PULSE 84; TEMP 99
--- NOTE | 2019-03-04 15:01 | PN ---
PROGRESS NOTE Mrs Siu is in sinus rhythm with PACs doing well. She had ablation yesterday, doing well. Vitals are stable, no JVD. S1, S2 heard normally. Short systolic murmur noted. Lungs revealed decent air entry. Abdomen and lower extremity exam unchanged. Patient will be discharged on metoprolol tartrate 12.5 mg daily, amiodarone 200 mg daily, and she will see Dr. Micaela Guthrie in one week. MMODL / IJN: [id number] /
--- NOTE | 2019-03-04 21:58 | P.DS ---
Providers Date of admission: 02/27/19 09:56 Attending physician: Javed Tucker Consults: 02/25/19 13:35 Consult Physician Urgent Consulting Provider: [facility] Reason/Comments: Atrial flutter with rapid ventricular response Do you want consulting provider notified?: Yes 02/26/19 09:06 Consult Physician Routine Consulting Provider: Cyrus Schaefer Reason/Comments: atrial flutter Do you want consulting provider notified?: Already Contacted Primary care physician: [facility] Course: Diagnoses: refractory A. fib with RVR, status post atrial flutter ablation by supervisor lead burning on 03/03/2019 Presyncope related to above. Resolved Bilateral bibasilar infiltrates, no respiratory symptoms Essential hypertension Asthma, not an active issue COPD, not an active issue Hospital course: This is a pleasant 88 years old female with past medical history of asthma, COPD, hypertension, history of cardiac arrhythmia on heart monitor. Presents with an episode of acute dyspnea that lasted for 5 minutes, mostly related to her cardiac arrhythmia. Patient found to have A. fib with RVR which mostly attributed to her presyncope. Patient has been evaluated by supervisor lead burning and she underwent ablation procedure yesterday. Postprocedure she is doing well, no chest pain or dyspnea. No dizziness or presyncope. Syncope. The wound of the right groin site is healing and intact. No other complaints, no abdominal complaints or nausea vomiting. No change in urine or bowel habits. Gait is at baseline. Machine Feller recommended to stop the Cardizem and start amiodarone and follow-up as an outpatient and patient was been informed about this recommendation and she agrees. Patient was cleared by cardiology team for discharge and patient feels she can go home today Problems and management plan were discussed with the patient and he verbalized understanding and acceptance Patient was found stable and can be discharged home however he needs follow-up as an outpatient. Patient was instructed to follow up with PCP within one week and patient agrees. Also patient was instructed to follow up with her supervisor lead burning in 1-2 weeks and she agrees, pt and daughter at bed side agree with appointment with pcp and cardiology and state will follow up , amiodarone and B- wilmar scripts are provided by supervisor lead burning Gen: patient is a AAOx3, no distress CVS: S1-S2, RRR, no murmur Lungs: B/L CTA, no wheezing Abdomen: soft, no distention, no tenderness, positive bowel sounds Extremity: no leg edema or induration Time spent more than 35 minutes Plan - Discharge Summary New Discharge Prescriptions: New Apixaban [Eliquis] 5 mg PO BID #3 tab Apixaban [Eliquis] 2.5 mg PO BID #60 tablet Amiodarone [Cordarone] 200 mg PO DAILY #60 tab Metoprolol Tartrate [Lopressor] 12.5 mg PO BID #60 dose Continue Systane Balance 2 drops BOTH EYES DAILY PRN PRN Reason: Dry Eye(S) Ipratropium [place] [Atrovent Hfa] 2 puff INHALATION RT-QID PRN PRN Reason: Shortness Of Breath Albuterol Sulfate [Proair Hfa] 2 puff INHALATION RT-QID PRN PRN Reason: Shortness Of Breath Albuterol Nebulized [Ventolin Nebulized] 2.5 mg INHALATION RT-TID PRN PRN Reason: Shortness Of Breath Zolpidem [Ambien] 10 mg PO HS PRN PRN Reason: Insomnia Vitamin B Complex 1 cap PO DAILY Montelukast [Singulair] 10 mg PO HS Famotidine [Pepcid] 20 mg PO BID Furosemide [Lasix] 20 mg PO DAILY Gabapentin [Neurontin] 200 mg PO BID #12 cap Apixaban [Eliquis] 2.5 mg PO BID predniSONE See Taper PO DAILY Discontinued Lovastatin [Mevacor] 40 mg PO DAILY Metoprolol Tartrate [Lopressor] 75 mg PO BID 30 Days #180 tab Azithromycin [Zithromax Z-pack] See Taper PO DAILY Discharge Medication List Albuterol Nebulized [Ventolin Nebulized] 2.5 mg INHALATION RT-TID PRN 03/11/17 [History] Albuterol Sulfate [Proair Hfa] 2 puff INHALATION RT-QID PRN 03/11/17 [History] Famotidine [Pepcid] 20 mg PO BID 03/11/17 [History] Ipratropium [place] [Atrovent Hfa] 2 puff INHALATION RT-QID PRN 03/11/17 [History] Montelukast [Singulair] 10 mg PO HS 03/11/17 [History] Systane Balance 2 drops BOTH EYES DAILY PRN 03/11/17 [History] Vitamin B Complex 1 cap PO DAILY 03/11/17 [History] Zolpidem [Ambien] 10 mg PO HS PRN 03/11/17 [History] Furosemide [Lasix] 20 mg PO DAILY 01/20/19 [History] Gabapentin [Neurontin] 200 mg PO BID #12 cap 01/22/19 [Rx] Apixaban [Eliquis] 2.5 mg PO BID 02/25/19 [History] predniSONE See Taper PO DAILY 02/25/19 [History] Amiodarone [Cordarone] 200 mg PO DAILY #60 tab 03/04/19 [Rx] Apixaban [Eliquis] 2.5 mg PO BID #60 tablet 03/04/19 [Rx] Apixaban [Eliquis] 5 mg PO BID #3 tab 03/04/19 [Rx] Metoprolol Tartrate [Lopressor] 12.5 mg PO BID #60 dose 03/04/19 [Rx] Follow up Appointment(s)/Referral(s): [facility], [NON-STAFF] - 1-2 Days Angel Natarajan DO [Primary Care Provider] - 03/06/19 10:00 am (With Betsey ROSENBERG ) Won Guthrie MD [STAFF PHYSICIAN] - 03/16/19 10:00 am () Patient Instructions/Handouts: Atrial Flutter (DC), Heart Healthy Diet (DC), Cardiac Ablation (DC) Discharge Disposition: HOME SELF-CARE
[2019-03-05] MEDS ORDERED: APIXABAN 2.5 MG TABLET PO SCH (21:00)
--- NOTE | 2019-03-10 15:52 | P.CRDCN ---
History of Present Illness Consult date: 02/25/19 Consult reason: atrial flutter Chief complaint: Palpitations History of present illness: This is an 88-year-old female with past medical history significant for COPD, hypertension, nondiabetic, quit smoking several years ago, follows regularly with Dr. VC Guthrie in the office. atrial flutter, who presented to the hospital with symptoms of palpitations and dizziness area in January patient was found to be in atrial flutter, treated with metoprolol for rate control, initiated on Eliquis and discharged home. Apparently at that time she felt quite a bit better overall. On presentation here to the emergency room she was found to be in atrial flutter with rapid ventricular response, given IV metoprolol. At the time of my examination the patient continues to be in atrial flutter, she is otherwise comfortable. I pressure on arrival here 168/104, heart rate in the 1 teens to 120 range, 96% on room air. White blood cell count 13.6, hemoglobin 12.8, platelet count 233. Sodium 139, potassium 3.9, BUN 24, creatinine 1.0. Troponin 0.0-2, 0.046, 0.030, TSH 0.83. Chest x-ray showed bibasilar infiltrates. Past Medical History Past Medical History: Asthma, Cancer, COPD, Hypertension Additional Past Medical History / Comment(s): back problems, arrythemia hx of wearing heart monitor, skin CA with removal History of Any Multi-Drug Resistant Organisms: None Reported Past Surgical History: No Surgical Hx Reported Past Anesthesia/Blood Transfusion Reactions: No Reported Reaction Past Psychological History: No Psychological Hx Reported Smoking Status: Former smoker Past Alcohol Use History: None Reported, Rare Past Drug Use History: None Reported Medications and Allergies Home Medications Medication Instructions Recorded Confirmed Type Albuterol Nebulized [Ventolin 2.5 mg INHALATION RT-TID PRN 03/11/17 02/25/19 History Nebulized] Albuterol Sulfate [Proair Hfa] 2 puff INHALATION RT-QID PRN 03/11/17 02/25/19 History Famotidine [Pepcid] 20 mg PO BID 03/11/17 02/25/19 History Ipratropium [place] [Atrovent Hfa] 2 puff INHALATION RT-QID PRN 03/11/17 02/25/19 History Montelukast [Singulair] 10 mg PO HS 03/11/17 02/25/19 History Systane Balance 2 drops BOTH EYES DAILY PRN 03/11/17 02/25/19 History Vitamin B Complex 1 cap PO DAILY 03/11/17 02/25/19 History Zolpidem [Ambien] 10 mg PO HS PRN 03/11/17 02/25/19 History Furosemide [Lasix] 20 mg PO DAILY 01/20/19 02/25/19 History Gabapentin [Neurontin] 200 mg PO BID #12 cap 01/22/19 02/25/19 Rx Apixaban [Eliquis] 2.5 mg PO BID 02/25/19 02/25/19 History predniSONE See Taper PO DAILY 02/25/19 02/25/19 History Amiodarone [Cordarone] 200 mg PO DAILY #60 tab 03/04/19 Rx Apixaban [Eliquis] 2.5 mg PO BID #60 tablet 03/04/19 Rx Apixaban [Eliquis] 5 mg PO BID #3 tab 03/04/19 Rx Metoprolol Tartrate [Lopressor] 12.5 mg PO BID #60 dose 03/04/19 Rx Allergies Allergy/AdvReac Type Severity Reaction Status Date / Time adhesive tape Allergy TEARS SKIN Verified 02/25/19 11:57 OFF ciprofloxacin [From Cipro] AdvReac Rapid Verified 02/25/19 11:57 Heart Rate Physical Exam PHYSICAL EXAMINATION: GENERAL: 68-year-old female in no acute distress at the time of my examination HEENT: Head is atraumatic, normocephalic. Pupils equal, round. Sclera anicteric. Conjunctiva are clear. Mucous membranes of the mouth are moist. Neck is supple. There is no elevated jugular venous pressure. No carotid bruit is heard. HEART EXAMINATION: Heart S1 and S2 irregularly irregular CHEST EXAMINATION: Lungs are clear to auscultation and precussion. No chest wall tenderness is noted on palpation or with deep breathing. ABDOMEN: Soft, nontender. Bowel sounds are heard. No organomegaly noted. EXTREMITIES: 2+ peripheral pulses with no evidence of peripheral edema and no calf tenderness noted. NEUROLOGIC patient is awake, alert and oriented 3 . . Results 03/02/19 05:58 03/02/19 05:58 03/02/19 05:58 03/02/19 05:58 EKG Interpretations (text) EKG shows atrial flutter with rapid ventricular Assessment and Plan Plan: Assessment and plan #1 atrial flutter with rapid ventricular response, typical #2 hypertension #3 hyperlipidemia #4 prior history of smoking Plan We have requested a consultation with Dr. Schaefer for possible ablation, we will continue anticoagulation with Eliquis. Further recommendations to follow. DNP note has been reviewed, I agree with a documented findings and plan of care. Patient was seen and examined.
== END 2019-03-04 14:57 | disposition home or self-care (01) | DRG 274 ==
LOC: EC 11:05 → 3SCARD 13:47 → OBSVTOIN 02-27 09:56
PROVIDERS: ADMIT Internal Medicine; ATTEND Internal Medicine
PROC: 02K83ZZ Map Conduction Mechanism, Percutaneous Approach (ICD-10-PCS; 2019-03-03)
PROC: 5A2204Z Restoration of Cardiac Rhythm, Single (ICD-10-PCS; 2019-03-03)
PROC: 4A023FZ Measurement of Cardiac Rhythm, Percutaneous Approach (ICD-10-PCS; principal; 2019-03-03 11:00)
PROC: 02583ZZ Destruction of Conduction Mechanism, Percutaneous Approach (ICD-10-PCS; 2019-03-03 11:00)
PROC: 4A0234Z Measurement of Cardiac Electrical Activity, Percutaneous Approach (ICD-10-PCS; 2019-03-03 11:00)
DX: I48.3 Typical atrial flutter (principal); E44.0 Moderate protein-calorie malnutrition; I31.3 Pericardial effusion (noninflammatory); J98.11 Atelectasis; E78.00 Pure hypercholesterolemia, unspecified; I48.0 Paroxysmal atrial fibrillation; F41.9 Anxiety disorder, unspecified; G47.00 Insomnia, unspecified; I10 Essential (primary) hypertension; I44.1 Atrioventricular block, second degree; I73.00 Raynaud's syndrome without gangrene; J44.9 Chronic obstructive pulmonary disease, unspecified; Z79.01 Long term (current) use of anticoagulants; Z85.828 Personal history of other malignant neoplasm of skin; Z87.891 Personal history of nicotine dependence; R79.89 Other specified abnormal findings of blood chemistry; Z88.1 Allergy status to other antibiotic agents; Z79.899 Other long term (current) drug therapy; I49.1 Atrial premature depolarization
CPT/HCPCS: 36415; 71046; 80048; 80053; 80061; 83735; 84443; 84484; 85025; 85610; 85730; 93005; 93613; 93655; 93662; 94640; 94760; 99285

== ENCOUNTER → 2019-03-23 | Outpatient (CLI) | payer MEDICARE ==
--- NOTE | 2019-03-23 11:23 | XR ---
EXAMINATION TYPE: XR chest 2V DATE OF EXAM: 03/23/2019 COMPARISON: 02/25/2019 HISTORY: Cough and shortness of breath TECHNIQUE: Frontal and lateral views of the chest are obtained. FINDINGS: There is a smooth small left pleural effusion and left basilar airspace disease appearing worsened. Right basilar airspace disease has improved. Pulmonary hyperinflation of underlying COPD wi th biapical calcified pleural parenchymal plaques. Mild degenerative change of the spine with diffuse osseous demineralization. Stable enlarged cardiomediastinal silhouette. IMPRESSION: Worsening left basilar opacity and new left small pleural effusion, possibly pneumonia w ith parapneumonic effusion. Improved right basilar airspace disease, likely atelectasis.
== END | disposition home or self-care (01) ==
LOC: RADXRYALE 10:33
PROVIDERS: ATTEND Family Medicine
DX: J90 Pleural effusion, not elsewhere classified (principal)
CPT/HCPCS: 71046

== ENCOUNTER → 2019-04-09 | Outpatient (CLI) | payer MEDICARE ==
--- NOTE | 2019-04-09 16:07 | XR ---
EXAMINATION TYPE: XR chest 2V DATE OF EXAM: 04/09/2019 COMPARISON: 03/23/2019 HISTORY: 88-year-old female with cough TECHNIQUE: Frontal and lateral views FINDINGS: Heart mildly enlarged. Hyperinflation with flattening of the hemidiaphragms. Patchy bibasilar opaciti es are present. No sizable effusion. Previous left pleural effusion has improved. Biapical pleural-pa renchymal scarring. IMPRESSION: 1. Mild cardiomegaly and COPD. 2. Patchy bibasilar opacities remain, possible infectious or aspiration pneumonitis. Clinically corre late. 3. Improvement in previous left effusion.
== END | disposition home or self-care (01) ==
LOC: RADXRYALE 14:33
PROVIDERS: ATTEND Family Medicine
DX: I51.7 Cardiomegaly (principal); J44.9 Chronic obstructive pulmonary disease, unspecified
CPT/HCPCS: 71046

== ENCOUNTER 2019-07-29 11:09 | Inpatient (IN) | payer MEDICARE ==
--- NOTE | 2019-07-29 11:52 | ED ---
General Adult HPI - General Chief complaint: Shortness of Breath Stated complaint: SOB Time Seen by Provider: 07/29/19 11:36 Source: patient, RN notes reviewed Mode of arrival: wheelchair Limitations: physical limitation - History of Present Illness Initial comments: 88-year-old female with a past medical history of asthma, COPD, skin cancer, hypertension, lesion presents to the emergency department for a complete shortness of breath. Patient has had shortness of breath for the past month. Daughter states it is worsening. Patient went to go get back injections by Dr. Dr. Verdugo and she was satting in the low 80's with ambulation so they sent her to the emergency department. Patient states that she walks she gets significantly short of breath. She states when she talks she is read breath. States she has been getting worse and worse at home to the point where she has been using her 's oxygen. She reports she did see the slab lifting supervisor on Saturday and had negative covert testing. They wanted to have an outpatient x-ray performed and have patient see a utility gelatin maker. Patient states she was told by Dr. Verdugo she should be admitted so this problem can be addressed.Patient has no other complaints at this time including chest pain, abdominal pain, nausea or vomiting, headache, or visual changes. - Related Data Home Medications Medication Instructions Recorded Confirmed Albuterol Nebulized [Ventolin 2.5 mg INHALATION RT-TID PRN 03/11/17 07/29/19 Nebulized] Albuterol Sulfate [Proair Hfa] 2 puff INHALATION RT-QID PRN 03/11/17 07/29/19 Famotidine [Pepcid] 20 mg PO BID 03/11/17 07/29/19 Ipratropium [place] [Atrovent Hfa] 2 puff INHALATION RT-QID PRN 03/11/17 07/29/19 Montelukast [Singulair] 10 mg PO HS 03/11/17 07/29/19 Systane Balance 2 drops BOTH EYES DAILY PRN 03/11/17 07/29/19 Vitamin B Complex 1 cap PO DAILY 03/11/17 07/29/19 Zolpidem [Ambien] 10 mg PO HS PRN 03/11/17 07/29/19 Furosemide [Lasix] 20 mg PO DAILY 01/20/19 07/29/19 Apixaban [Eliquis] 2.5 mg PO BID 02/25/19 07/29/19 Previous Rx's Medication Instructions Recorded Gabapentin [Neurontin] 200 mg PO BID #12 cap 01/22/19 Amiodarone [Cordarone] 200 mg PO DAILY #60 tab 03/04/19 Metoprolol Tartrate [Lopressor] 12.5 mg PO BID #60 dose 03/04/19 Allergies Allergy/AdvReac Type Severity Reaction Status Date / Time adhesive tape AdvReac TEARS SKIN Verified 07/29/19 13:38 OFF ciprofloxacin [From Cipro] AdvReac Rapid Verified 07/29/19 13:38 Heart Rate Review of Systems ROS Statement: Those systems with pertinent positive or pertinent negative responses have been documented in the HPI. ROS Other: All systems not noted in ROS Statement are negative. Past Medical History Past Medical History: Asthma, Cancer, COPD, Hypertension Additional Past Medical History / Comment(s): back problems, arrythemia hx of wearing heart monitor, skin CA with removal History of Any Multi-Drug Resistant Organisms: None Reported Past Surgical History: Ablation, Tonsillectomy Additional Past Surgical History / Comment(s): aflutter - ablation Past Anesthesia/Blood Transfusion Reactions: No Reported Reaction Past Psychological History: No Psychological Hx Reported Smoking Status: Former smoker Past Alcohol Use History: None Reported, Rare Past Drug Use History: None Reported - Past Family History Son(s) Family Medical History: Myocardial Infarction ([place]) General Exam Limitations: physical limitation General appearance: alert, in no apparent distress Head exam: Present: atraumatic, normocephalic, normal inspection Eye exam: Present: normal appearance, PERRL, EOMI. Absent: scleral icterus, conjunctival injection, periorbital swelling ENT exam: Present: normal exam, mucous membranes moist Neck exam: Present: normal inspection, full ROM. Absent: tenderness, me ningismus, lymphadenopathy Respiratory exam: Present: normal lung sounds bilaterally. Absent: respiratory distress, wheezes, rales, rhonchi, stridor Cardiovascular Exam: Present: regular rate, normal rhythm, normal heart sounds. Absent: systolic murmur, diastolic murmur, rubs, gallop, clicks GI/Abdominal exam: Present: soft, normal bowel sounds. Absent: distended, tenderness, guarding, rebound, rigid Neurological exam: Present: alert Course Vital Signs 07/29/19 07/29/19 07/29/19 11:17 12:15 12:25 Temperature 98.7 F Pulse Rate 54 L 54 L Respiratory 20 18 20 Rate Blood Pressure 179/77 173/69 O2 Sat by Pulse 96 99 Oximetry 07/29/19 07/29/19 07/29/19 13:00 14:00 15:00 Temperature Pulse Rate 52 L 50 L 50 L Respiratory 20 20 20 Rate Blood Pressure 170/66 141/59 135/61 O2 Sat by Pulse 98 98 98 Oximetry 07/29/19 16:15 Temperature 98.1 F Pulse Rate 50 L Respiratory 20 Rate Blood Pressure 138/56 O2 Sat by Pulse 97 Oximetry EKG Findings - EKG Comments: EKG Findings:: Ventricular rate 54, MT interval 146, QTC 491, sinus bradycardia Medical Decision Making - Medical Decision Making HPI physical exam is documented. Patient has run 95% room air at rest however does desat to 85% on room air with ambulation. Patient does not use home oxygen but is requiring oxygen here. Patient is currently on Eliquis. She does not have a history of heart failure but does take diuretic. CBC unremarkable. CMP does show some evidence of dehydration. Troponin is within normal limits although there is a small leak noted. BNP for the 450 which is consistent with patient's previous BNP. Chest x-ray shows COPD with bibasilar infiltrates on fusion correlate for mild superimposed pneumonitis or venous congestion. She denies any new cough. Denies any fevers. At this time patient will be admitted for hypoxic respiratory failure. - Lab Data Result diagrams: 07/29/19 12:15 07/29/19 12:15 Lab Results 07/29/19 07/29/19 07/29/19 Range/Units 12:15 12:15 12:15 WBC 7.8 (3.8-10.6) k/uL RBC 3.94 (3.80-5.40) m/uL Hgb 11.6 (11.4-16.0) gm/dL Hct 35.3 (34.0-46.0) % MCV 89.5 (80.0-100.0) fL MCH 29.5 (25.0-35.0) pg MCHC 33.0 (31.0-37.0) g/dL RDW 16.3 H (11.5-15.5) % Plt Count 229 (150-450) k/uL Neutrophils % 81 % Lymphocytes % 7 % Monocytes % 7 % Eosinophils % 1 % Basophils % 1 % Neutrophils # 6.4 (1.3-7.7) k/uL Lymphocytes # 0.6 L (1.0-4.8) k/uL Monocytes # 0.5 (0-1.0) k/uL Eosinophils # 0.1 (0-0.7) k/uL Basophils # 0.1 (0-0.2) k/uL Hypochromasia Slight Anisocytosis Slight PT 11.0 (9.0-12.0) sec INR 1.1 (<1.2) APTT 24.2 (22.0-30.0) sec Sodium 135 L (137-145) mmol/L Potassium 4.8 (3.5-5.1) mmol/L Chloride 107 (98-107) mmol/L Carbon Dioxide 20 L (22-30) mmol/L Anion Gap 8 mmol/L BUN 28 H (7-17) mg/dL Creatinine 1.40 H (0.52-1.04) mg/dL Est GFR (CKD-EPI)AfAm 39 (>60 ml/min/1.73 sqM) Est GFR (CKD-EPI)NonAf 34 (>60 ml/min/1.73 sqM) Glucose 85 (74-99) mg/dL Calcium 8.3 L (8.4-10.2) mg/dL Magnesium 1.8 (1.6-2.3) mg/dL Total Bilirubin 0.6 (0.2-1.3) mg/dL AST 38 H (14-36) U/L ALT 21 (4-34) U/L Alkaline Phosphatase 71 (38-126) U/L Troponin I (0.000-0.034) ng/mL NT-Pro-B Natriuret Pep pg/mL Total Protein 7.1 (6.3-8.2) g/dL Albumin 3.1 L (3.5-5.0) g/dL Urine Color Urine Appearance (Clear) Urine pH (5.0-8.0) Ur Specific [place] (1.001-1.035) Urine Protein (Negative) Urine Glucose (UA) (Negative) Urine Ketones (Negative) Urine Blood (Negative) Urine Nitrite (Negative) Urine Bilirubin (Negative) Urine Urobilinogen (<2.0) mg/dL Ur Leukocyte Esterase (Negative) 07/29/19 07/29/19 07/29/19 Range/Units 12:15 12:15 12:55 WBC (3.8-10.6) k/uL RBC (3.80-5.40) m/uL Hgb (11.4-16.0) gm/dL Hct (34.0-46.0) % MCV (80.0-100.0) fL MCH (25.0-35.0) pg MCHC (31.0-37.0) g/dL RDW (11.5-15.5) % Plt Count (150-450) k/uL Neutrophils % % Lymphocytes % % Monocytes % % Eosinophils % % Basophils % % Neutrophils # (1.3-7.7) k/uL Lymphocytes # (1.0-4.8) k/uL Monocytes # (0-1.0) k/uL Eosinophils # (0-0.7) k/uL Basophils # (0-0.2) k/uL Hypochromasia Anisocytosis PT (9.0-12.0) sec INR (<1.2) APTT (22.0-30.0) sec Sodium (137-145) mmol/L Potassium (3.5-5.1) mmol/L Chloride (98-107) mmol/L Carbon Dioxide (22-30) mmol/L Anion Gap mmol/L BUN (7-17) mg/dL Creatinine (0.52-1.04) mg/dL Est GFR (CKD-EPI)AfAm (>60 ml/min/1.73 sqM) Est GFR (CKD-EPI)NonAf (>60 ml/min/1.73 sqM) Glucose (74-99) mg/dL Calcium (8.4-10.2) mg/dL Magnesium (1.6-2.3) mg/dL Total Bilirubin (0.2-1.3) mg/dL AST (14-36) U/L ALT (4-34) U/L Alkaline Phosphatase (38-126) U/L Troponin I 0.034 (0.000-0.034) ng/mL NT-Pro-B Natriuret Pep 4450 pg/mL Total Protein (6.3-8.2) g/dL Albumin (3.5-5.0) g/dL Urine Color Light Yellow Urine Appearance Clear (Clear) Urine pH 6.5 (5.0-8.0) Ur Specific [place] 1.007 (1.001-1.035) Urine Protein Negative (Negative) Urine Glucose (UA) Negative (Negative) Urine Ketones Negative (Negative) Urine Blood Negative (Negative) Urine Nitrite Negative (Negative) Urine Bilirubin Negative (Negative) Urine Urobilinogen <2.0 (<2.0) mg/dL Ur Leukocyte Esterase Negative (Negative) Disposition Clinical Impression: Shortness of breath Disposition: ADMITTED IP TO THIS HOSP Condition: Fair Is patient prescribed a controlled substance at d/c from ED?: No Time of Disposition: 15:21
--- NOTE | 2019-07-29 12:41 | XR ---
EXAMINATION TYPE: XR chest 2V DATE OF EXAM: 07/29/2019 COMPARISON: 04/09/2019 TECHNIQUE: PA and lateral views submitted. HISTORY: Difficulty breathing FINDINGS: Diffuse changes of COPD with cardiomegaly and small bilateral effusions and basilar infiltrate. Coars ened interstitium. Biapical pleural thickening. Diffuse osteopenia and arthropathy of the shoulders w ith probable calcific tendinosis on the left. Apical technique and calcification noted. Vague density right upper lobe stable. Degenerative change of the spine. IMPRESSION: 1. COPD with by basilar infiltrate and small effusion correlate for mild superimposed pneumonitis or venous congestion.
[2019-07-29 12:49] LABS: Anisocytosis Slight; Basophils # (A) 0.1 k/uL (0-0.2); Basophils % (A) 1 %; Eosinophils # (A) 0.1 k/uL (0-0.7); Eosinophils % (A) 1 %; HCT 35.3 % (34.0-46.0); HGB 11.6 gm/dL (11.4-16.0); Hypochromasia Slight; Lymphocytes # (A) 0.6 k/uL (1.0-4.8); Lymphocytes % (A) 7 %; MCH 29.5 pg (25.0-35.0); MCV 89.5 fL (80.0-100.0); Mean Platelet Volume 8.4; Monocytes # (A) 0.5 k/uL (0-1.0); Monocytes % (A) 7 %; Neutrophils # (A) 6.4 k/uL (1.3-7.7); Neutrophils % (A) 81 %; Platelet Count 229 k/uL (150-450); RBC 3.94 m/uL (3.80-5.40); RDW 16.3 % (11.5-15.5); WBC 7.8 k/uL (3.8-10.6)
[2019-07-29 12:56] LABS: INR 1.1 (<1.2); Partial Thromboplastin Time 24.2 sec (22.0-30.0)
[2019-07-29 12:58] LABS: Albumin 3.1 g/dL (3.5-5.0); Calcium 8.3 mg/dL (8.4-10.2); Magnesium 1.8 mg/dL (1.6-2.3); Potassium 4.8 mmol/L (3.5-5.1); Total Bilirubin 0.6 mg/dL (0.2-1.3); Total Protein 7.1 g/dL (6.3-8.2)
[2019-07-29 13:23] LABS: Appearance,Urine Clear (Clear); Bilirubin,Urine Negative (Negative); Blood,Urine Negative (Negative); Color,Urine Light Yellow; Glucose,Urine (UA) Negative (Negative); Ketones,Urine Negative (Negative); Leukocyte Esterase,Urine Negative (Negative); Nitrite,Urine Negative (Negative); PH, Urine 6.5 (5.0-8.0); Protein,Urine Negative (Negative); Specific Gravity,Urine 1.007 (1.001-1.035); Urobilinogen,Urine <2.0 mg/dL (<2.0)
[2019-07-29] MEDS ORDERED: HEPARIN SODIUM,PORCINE 5,000 UNIT/ML 1 ML VIAL IV ONE (15:14)
[2019-07-29] MEDS ORDERED: HEPARIN SOD,PORK IN 0.45% NACL 25,000 UNIT in 0.45% NACL 1 250ML.BAG IV SCH (15:15)
[2019-07-29] MEDS ORDERED: NALOXONE 0.4 MG/ML 1 ML VIAL IV PRN (15:21)
[2019-07-29] MEDS ORDERED: ZOLPIDEM 10 MG TAB PO PRN (17:26)
--- NOTE | 2019-07-29 17:36 | P.HPIM ---
History of Present Illness Patient is a pleasant 88-year-old the female came in with complaints of shortness of breath patient does have history of COPD doesn't use any oxygen at home she sometimes uses solids and patient saturations and found to be 8 0% when she went to get a back injection. Patient was apparently seen condition of breath on arrival but when I valid the patient patient is doing much better on 2 L of oxygen. Patient was seen in cardiology's office on Saturdaywhere covid 19 testing was done which was negative. Patient denied any fever chills for chest x-ray showing mild pleural effusions with the mild pulmonary edema. This was complaining of minimal cough without any sputum production and shortness of breath has been going on for about a month Review of Systems REVIEW OF SYSTEMS: CONSTITUTIONAL: No fever, no malaise, no fatigue. HEENT: No recent visual problems or hearing problems. Denied any sore throat. CARDIOVASCULAR: No orthopnea, PND, no palpitations, no syncope. PULMONARY: no hemoptysis. GASTROINTESTINAL: No diarrhea, no nausea, no vomiting, no abdominal pain. NEUROLOGICAL: No headaches, no weakness, no numbness. HEMATOLOGICAL: Denies any bleeding or petechiae. GENITOURINARY: Denies any burning micturition, frequency, or urgency. MUSCULOSKELETAL/RHEUMATOLOGICAL: Denies any joint pain, swelling, or any muscle pain. ENDOCRINE: Denies any polyuria or polydipsia. The rest of the 14-point review of systems is negative. Past Medical History Past Medical History: Asthma, Cancer, COPD, Hypertension, Osteoarthritis (OA) Additional Past Medical History / Comment(s): back problems, arrythemia hx of wearing heart monitor, skin CA with removal Raynaud's disease History of Any Multi-Drug Resistant Organisms: None Reported Past Surgical History: Ablation, Tonsillectomy Additional Past Surgical History / Comment(s): aflutter - ablation Past Anesthesia/Blood Transfusion Reactions: No Reported Reaction Past Psychological History: No Psychological Hx Reported Smoking Status: Former smoker Past Alcohol Use History: None Reported, Rare Past Drug Use History: None Reported - Past Family History Son(s) Family Medical History: Myocardial Infarction ([place]) Medications and Allergies Home Medications Medication Instructions Recorded Confirmed Type Albuterol Nebulized [Ventolin 2.5 mg INHALATION RT-TID PRN 03/11/17 07/29/19 History Nebulized] Albuterol Sulfate [Proair Hfa] 2 puff INHALATION RT-QID PRN 03/11/17 07/29/19 History Famotidine [Pepcid] 20 mg PO BID 03/11/17 07/29/19 History Ipratropium [place] [Atrovent Hfa] 2 puff INHALATION RT-QID PRN 03/11/17 07/29/19 History Montelukast [Singulair] 10 mg PO HS 03/11/17 07/29/19 History Systane Balance 2 drops BOTH EYES DAILY PRN 03/11/17 07/29/19 History Vitamin B Complex 1 cap PO DAILY 03/11/17 07/29/19 History Zolpidem [Ambien] 10 mg PO HS PRN 03/11/17 07/29/19 History Furosemide [Lasix] 20 mg PO DAILY 01/20/19 07/29/19 History Gabapentin [Neurontin] 200 mg PO BID #12 cap 01/22/19 07/29/19 Rx Apixaban [Eliquis] 2.5 mg PO BID 02/25/19 07/29/19 History Amiodarone [Cordarone] 200 mg PO DAILY #60 tab 03/04/19 07/29/19 Rx Metoprolol Tartrate [Lopressor] 12.5 mg PO BID #60 dose 03/04/19 07/29/19 Rx Allergies Allergy/AdvReac Type Severity Reaction Status Date / Time adhesive tape AdvReac TEARS SKIN Verified 07/29/19 13:38 OFF ciprofloxacin [From Cipro] AdvReac Rapid Verified 07/29/19 13:38 Heart Rate Physical Exam Vitals: Vital Signs Temp Pulse Pulse Resp BP BP Pulse Ox 07/29/19 16:49 98.6 F 56 L 20 164/82 98 07/29/19 16:15 98.1 F 50 L 20 138/56 97 07/29/19 15:00 50 L 20 135/61 98 07/29/19 14:00 50 L 20 141/59 98 07/29/19 13:00 52 L 20 170/66 98 07/29/19 12:25 20 07/29/19 12:15 54 L 18 173/69 99 07/29/19 11:17 98.7 F 54 L 20 179/77 96 Intake and Output 06/12/0707/29/19 07/29/19 06:59 14:59 22:59 Other: Weight 47.627 kg 47 kg PHYSICAL EXAMINATION: GENERAL: The patient is alert and oriented x3, not in any acute distress. Thin built female HEENT: Pupils are round and equally reacting to light. EOMI. No scleral icterus. No conjunctival pallor. Normocephalic, atraumatic. No pharyngeal erythema. No thyromegaly. CARDIOVASCULAR: S1 and S2 present. No murmurs, rubs, or gallops. PULMONARY: Minimal bibasilar crackles, mild decreased air entry into bilateral lung pollard no significant wheezing was appreciated ABDOMEN: Soft, nontender, nondistended, normoactive bowel sounds. No palpable organomegaly. MUSCULOSKELETAL: No joint swelling or deformity. EXTREMITIES: No cyanosis, clubbing, or pedal edema. NEUROLOGICAL: Gross neurological examination did not reveal any focal deficits. SKIN: No rashes. Results CBC & Chem 7: 07/29/19 12:15 07/29/19 12:15 Labs: Abnormal Lab Results - Last 24 Hours (Table) 07/29/19 07/29/19 Range/Units 12:15 12:15 RDW 16.3 H (11.5-15.5) % Lymphocytes # 0.6 L (1.0-4.8) k/uL Sodium 135 L (137-145) mmol/L Carbon Dioxide 20 L (22-30) mmol/L BUN 28 H (7-17) mg/dL Creatinine 1.40 H (0.52-1.04) mg/dL Calcium 8.3 L (8.4-10.2) mg/dL AST 38 H (14-36) U/L Albumin 3.1 L (3.5-5.0) g/dL Thrombosis Risk Factor Assmnt - Choose All That Apply Each Factor Represents 1 point: Abnormal pulmonary function (COPD), Medical pt on bed rest Other Risk Factors: Yes Each Risk Factor Represents 2 Points: Patient confined to bed Each Risk Factor Represents 3 Points: Age 75 years or older Other congenital or acquired thrombophilia - If yes, enter type in comment: No Thrombosis Risk Factor Assessment Total Risk Factor Score: 7 Thrombosis Risk Factor Assessment Level: High Risk Assessment and Plan Plan: -Shortness of breath mostly secondary to COPD exacerbation that may be a mild competent of 5 chronic diastolic dysfunction heart failure patient will be started on 20 mg of IV Lasix along with systemic steroids significant treatments patient is not having any significant cough patient cannot benefit from any antibiotics. -COPD with acute exacerbation, patient is a former smoker doesn't smoke anymore. -Possible mild chronic diastolic dysfunction with acute exacerbation patient had normal ejection fraction the past patient will be switched to IV Lasix 20 twice a day. We'll reassess the kidney function and electrolytes tomorrow -Acute renal failure probably prerenal azotemia from volume overload expected to improve with IV Lasix will recheck the BMP tomorrow -History of atrial fibrillation presently rate controlled presently mildly bradycardic patient will continued on amiodarone, and was hold off on low-dose of metoprolol -Hypertension -Osteoarthritis
[2019-07-29] MEDS: FUROSEMIDE 10 MG/ML 2 ML VIAL IV SCH (18:32)
[2019-07-29] MEDS: FAMOTIDINE 20 MG TAB PO SCH (20:28)
[2019-07-29] MEDS: APIXABAN 2.5 MG TABLET PO SCH (20:28)
[2019-07-29] MEDS: MONTELUKAST 10 MG TAB PO SCH (20:28)
[2019-07-29] MEDS: GABAPENTIN 100 MG CAP PO SCH (20:28)
[2019-07-29] MEDS: IPRATROPIUM-ALBUTEROL 3 ML NEB INHALATION SCH (20:42)
[2019-07-29] MEDS ORDERED: FAMOTIDINE 20 MG TAB PO SCH (21:00)
[2019-07-29] MEDS ORDERED: ZOLPIDEM 5 MG TAB ONE (23:26)
[2019-07-29] MEDS ORDERED: ZOLPIDEM 10 MG TAB ONE (23:27)
[2019-07-30 06:52] LABS: Calcium 8.1 mg/dL (8.4-10.2); Potassium 4.3 mmol/L (3.5-5.1)
[2019-07-30] MEDS: IPRATROPIUM-ALBUTEROL 3 ML NEB INHALATION SCH ×4 (08:08→18:56)
[2019-07-30] MEDS ORDERED: predniSONE 20 MG TAB PO SCH (09:00)
[2019-07-30] MEDS: FUROSEMIDE 10 MG/ML 2 ML VIAL IV SCH ×2 (09:10→21:24)
[2019-07-30] MEDS: GABAPENTIN 100 MG CAP PO SCH ×2 (09:10→21:24)
[2019-07-30] MEDS: AMIODARONE 200 MG TAB PO SCH (09:10)
[2019-07-30] MEDS: APIXABAN 2.5 MG TABLET PO SCH ×2 (09:10→21:24)
[2019-07-30] MEDS: methylPREDNISolone SOD SUCCI 40 MG/ML 1 ML VIAL IV SCH ×3 (10:00→23:52)
[2019-07-30 10:55] VITALS: BMI 18.9
--- NOTE | 2019-07-30 11:49 | CT ---
EXAMINATION TYPE: CT chest wo con DATE OF EXAM: 07/30/2019 COMPARISON: Soreness of breath HISTORY: Hypoxic respiratory failure, component of CHF CT DLP: 326.1 mGycm. Automated Exposure Control for Dose Reduction was Utilized. TECHNIQUE: CT scan of the thorax is performed without IV contrast. FINDINGS: LUNGS: There is interlobular septal thickening most marked involving the mid and lower lung zones. Th ere is central and basilar bronchiectasis. Changes of COPD with the bleb are noted and paraseptal emp hysema. Pleural-based thickening and apical pleural thickening are noted. Areas of subsegmental conso lidation involving the lungs are most typical of atelectasis. Pleural-based calcifications noted william elate for is best as related disease. Subpleural nodularity in the right upper lobe likely is related to pleural plaques. No sizable pleural effusion or pneumothorax. MEDIASTINUM: Lack of IV contrast is noted to limit evaluation for mediastinal and especially hilar ad enopathy. There are no definitive greater than 1 cm hilar or mediastinal lymph nodes atherosclerotic change of the aorta. The heart is markedly enlarged and there is coronary artery calcification. OTHER: Hypertrophic and degenerative changes of the spine.. IMPRESSION: 1. Pleural thickening and calcification correlate for is best as related disease. Fairly significant interlobular septal thickening involving the mid and lower lung zones compatible with chronic interst itial lung disease. 2. COPD 3. Marked cardiac enlargement with coronary artery atherosclerotic changes correlate clinically.
--- NOTE | 2019-07-30 12:45 | P.CRDCN ---
History of Present Illness History of present illness: HISTORY OF PRESENTING ILLNESS This is a pleasant 88-year-old female past medical history significant for typical atrial flutter status post ablation February 2019, paroxysmal A. fib status post electrical cardioversion in February 2019, COPD, hypertension, pulmonary hypertension and chronic back pain. She follows in the office with Dr. Schaefer. We have been asked to see in consultation for exertional shortness of breath. She was sent to the ER yesterday after presenting to the office for back injections. Per the patient she went to use the restroom at the office and was quite dyspneic. Her pulse ox level was 76%. On arrival to ER pulse ox was 96% on room air. She saw Dr. Schaefer in the office earlier this month with symptoms of exertional shortness of breath. She states this has been going on intermittently for the previous 1-month. She denies dyspnea at rest but with any minimal activity she becomes short fo breath. No chest pain or dizziness. She does feel palpitations at times but not associated with her dyspnea. She recently wore a monitor through the office. We will look up the results. On admission she was initiated on Lasix IV. Lopressor has been held secondary to bradycardia. She has been seen in evaluation by pulmonary care team and high- resolution CT was ordered. DIAGNOSTICS EKG reveals sinus bradycardia with biphasic p-wave and flattened T-waves inferiorly. Chest xray COPD with basilar infiltrate and small effusions. Laboratory reviewed, WBC 7.8, hemoglobin 11.6, platelets 229, d-dimer 0.9, sodium 137, potassium 4.3, creatinine 1.31, magnesium 1.8, NT proBNP 4450, troponin 0.034, 0.031, 0.040 0.039. Current cardiac medications include Lopressor 12.5 mg twice a day, amiodarone 200 mg daily, Eliquis 2.5 mg twice a day and Lasix 20 mg daily. REVIEW OF SYSTEMS At the time of my exam: CONSTITUTIONAL: Denies fever or chills. CARDIOVASCULAR: Denies chest pain, shortness of breath, orthopnea, PND or palpitations. RESPIRATORY: Denies cough. GASTROINTESTINAL: Denies abdominal pain, diarrhea, constipation, nausea or vomiting. MUSCULOSKELETAL: Denies myalgias. NEUROLOGIC: Denies numbness, tingling or weakness. ENDOCRINE: Denies fatigue, weight change, polydipsia or polyurina. GENITOURINARY: Denies burning, hematuria or urgency with micturation. HEMATOLOGIC: Denies history of anemia or bleeding. PHYSICAL EXAMINATION Blood pressure 136/49 heart rate 77 afebrile and maintaining oxygen saturation on room air. CONSTITUTIONAL: No apparent distress. Frail. HEENT: Head is normocephalic. Pupils are equal, round. Sclerae anicteric. Mucous membranes of the mouth are moist. No JVD. No carotid bruit. CHEST EXAMINATION: Lungs are clear to auscultation. No chest wall tenderness is noted on palpation or with deep breathing. Diminished bilaterally. HEART EXAMINATION: Regular rate and rhythm. S1, S2 heard. No murmurs, gallops or rub. ABDOMEN: Soft, nontender. Positive bowel sounds. EXTREMITIES: 2+ peripheral pulses, no lower extremity edema and no calf tenderness. NEUROLOGIC EXAMINATION: Patient is awake, alert and oriented x3. ASSESSMENT Hypoxia Troponin leak secondary to oxygen supply demand mismatch, type II myocardial injury COPD Paroxysmal atrial fibrillation status post electrical cardioversion History of typical atrial flutter status post ablation Hypertension Pulmonary hypertension Dyslipidemia PLAN CT obtained, may consider discontinuation of amiodarone. Obtain 2D echocardiogram and doppler study to assess cardiac structure and function. We will call the company and request data from recent outpatient Holter monitor. Further recommendations to follow based on clinical course. Thank you kindly for this consultation. Nurse Practitioner note has been reviewed, I agree with a documented findings and plan of care. Patient was seen and examined. Past Medical History Past Medical History: Asthma, Cancer, COPD, Hypertension Additional Past Medical History / Comment(s): back problems, arrythemia hx of wearing heart monitor, skin CA with removal History of Any Multi-Drug Resistant Organisms: None Reported Past Surgical History: Ablation, Tonsillectomy Additional Past Surgical History / Comment(s): aflutter - ablation Past Anesthesia/Blood Transfusion Reactions: No Reported Reaction Past Psychological History: No Psychological Hx Reported Smoking Status: Former smoker Past Alcohol Use History: None Reported, Rare Past Drug Use History: None Reported - Past Family History Son(s) Family Medical History: Myocardial Infarction ([place]) Medications and Allergies Home Medications Medication Instructions Recorded Confirmed Type Albuterol Nebulized [Ventolin 2.5 mg INHALATION RT-TID PRN 03/11/17 07/29/19 History Nebulized] Albuterol Sulfate [Proair Hfa] 2 puff INHALATION RT-QID PRN 03/11/17 07/29/19 History Famotidine [Pepcid] 20 mg PO BID 03/11/17 07/29/19 History Ipratropium [place] [Atrovent Hfa] 2 puff INHALATION RT-QID PRN 03/11/17 07/29/19 History Montelukast [Singulair] 10 mg PO HS 03/11/17 07/29/19 History Systane Balance 2 drops BOTH EYES DAILY PRN 03/11/17 07/29/19 History Vitamin B Complex 1 cap PO DAILY 03/11/17 07/29/19 History Zolpidem [Ambien] 10 mg PO HS PRN 03/11/17 07/29/19 History Furosemide [Lasix] 20 mg PO DAILY 01/20/19 07/29/19 History Gabapentin [Neurontin] 200 mg PO BID #12 cap 01/22/19 07/29/19 Rx Apixaban [Eliquis] 2.5 mg PO BID 02/25/19 07/29/19 History Amiodarone [Cordarone] 200 mg PO DAILY #60 tab 03/04/19 07/29/19 Rx Metoprolol Tartrate [Lopressor] 12.5 mg PO BID #60 dose 03/04/19 07/29/19 Rx Allergies Allergy/AdvReac Type Severity Reaction Status Date / Time adhesive tape AdvReac TEARS SKIN Verified 07/29/19 13:38 OFF ciprofloxacin [From Cipro] AdvReac Rapid Verified 07/29/19 13:38 Heart Rate Physical Exam Vitals: Vital Signs Temp Pulse Pulse Resp BP BP Pulse Ox 07/30/19 11:14 58 L 07/30/19 08:22 56 L 07/30/19 08:09 55 L 97 07/30/19 07:49 97.9 F 53 L 18 134/65 97 07/30/19 04:00 97.7 F 60 17 145/67 97 07/29/19 22:32 97.7 F 57 L 17 148/64 96 07/29/19 21:00 56 L 07/29/19 20:42 56 L 07/29/19 20:00 97.6 F 56 L 18 150/65 97 07/29/19 17:55 56 L 20 07/29/19 16:49 98.6 F 56 L 20 164/82 98 07/29/19 16:15 98.1 F 50 L 20 138/56 97 07/29/19 15:00 50 L 20 135/61 98 07/29/19 14:00 50 L 20 141/59 98 07/29/19 13:00 52 L 20 170/66 98 07/29/19 12:25 20 07/29/19 12:15 54 L 18 173/69 99 Intake and Output 07/29/19 07/30/19 07/30/19 22:59 06:59 14:59 Intake Total 120 Balance 120 Intake: Oral 120 Other: Voiding Method Toilet Toilet Toilet # Voids 2 1 Weight 47 kg 47 kg 47 kg Results 07/29/19 12:15 07/30/19 05:56 Cardiac Enzymes 07/29/19 07/29/19 07/29/19 Range/Units 12:15 12:15 18:53 AST 38 H (14-36) U/L Troponin I 0.034 0.031 (0.000-0.034) ng/mL 07/30/19 07/30/19 Range/Units 00:20 05:56 AST (14-36) U/L Troponin I 0.040 H* 0.039 H* (0.000-0.034) ng/mL Coagulation 07/29/19 Range/Units 12:15 PT 11.0 (9.0-12.0) sec APTT 24.2 (22.0-30.0) sec CBC 07/29/19 Range/Units 12:15 WBC 7.8 (3.8-10.6) k/uL RBC 3.94 (3.80-5.40) m/uL Hgb 11.6 (11.4-16.0) gm/dL Hct 35.3 (34.0-46.0) % Plt Count 229 (150-450) k/uL Comprehensive Metabolic Panel 07/29/19 07/30/19 Range/Units 12:15 05:56 Sodium 135 L 137 (137-145) mmol/L Potassium 4.8 4.3 (3.5-5.1) mmol/L Chloride 107 105 (98-107) mmol/L Carbon Dioxide 20 L 26 (22-30) mmol/L BUN 28 H 27 H (7-17) mg/dL Creatinine 1.40 H 1.31 H (0.52-1.04) mg/dL Glucose 85 93 (74-99) mg/dL Calcium 8.3 L 8.1 L (8.4-10.2) mg/dL AST 38 H (14-36) U/L ALT 21 (4-34) U/L Alkaline Phosphatase 71 (38-126) U/L Total Protein 7.1 (6.3-8.2) g/dL Albumin 3.1 L (3.5-5.0) g/dL Current Medications Generic Name Dose Route Start Last Admin Trade Name Freq PRN Reason Stop Dose Admin Albuterol/Ipratropium 3 ml 07/29/19 20:00 07/30/19 11:13 Duoneb 0.5 Mg-3 Mg/3 Ml Soln INHALATION 3 ml RT-QID MACI Administration Amiodarone HCl 200 mg 07/30/19 09:00 07/30/19 09:10 Cordarone PO 200 mg DAILY MACI Administration Apixaban 2.5 mg 07/29/19 21:00 07/30/19 09:10 Eliquis PO 2.5 mg BID MACI Administration Budesonide 0.5 mg 07/30/19 20:00 Pulmicort INHALATION RT-BID MACI Famotidine 20 mg 07/29/19 21:00 07/29/19 20:28 Pepcid PO 20 mg HS MACI Administration Furosemide 20 mg 07/29/19 21:00 07/30/19 09:10 Lasix IV 20 mg Q12HR MACI Administration Gabapentin 200 mg 07/29/19 21:00 07/30/19 09:10 Neurontin PO 200 mg BID MACI Administration Methylprednisolone Sodium Succinate 40 mg 07/30/19 10:00 07/30/19 10:00 Solu-Medrol IV 40 mg Q8HR MACI Administration Montelukast Sodium 10 mg 07/29/19 21:00 07/29/19 20:28 Singulair PO 10 mg HS MACI Administration Naloxone HCl 0.2 mg 07/29/19 15:21 Narcan IV Q2M PRN Opioid Reversal Zolpidem Tartrate 10 mg 07/29/19 22:53 Ambien PO HS PRN Insomnia Intake and Output 07/29/19 07/30/19 07/30/19 22:59 06:59 14:59 Intake Total 120 Balance 120 Intake: Oral 120 Other: Voiding Method Toilet Toilet Toilet # Voids 2 1 Weight 47 kg 47 kg 47 kg Patient Weight 07/31/19 06:59 Weight 47 kg 07/29/19 12:15 07/30/19 05:56
--- NOTE | 2019-07-30 12:55 | P.CNPUL ---
History of Present Illness Consult date: 07/30/19 Requesting physician: Javed Tucker Reason for consult: dyspnea, hypoxemia Chief complaint: Dyspnea, hypoxia History of present illness: 88-year-old white female patient of Dr. Angel Rocha with history of chronic bronchial asthma/possible COPD, hypertension, ex-smoker, quit smoking 30 years ago, history of atrial flutter status post ablation, skin cancer, who presented to the hospital on 07/29/2019 for evaluation of worsening shortness of breath for the past month. Patient went to see Dr. Verdugo for her epidural shots, and was noted to have a pulse ox in the low 80s with ambulating and was sent to the emergency department. Patient states she gets significantly short of breath with walking. She is also noted to be desaturating with talking. During the interview patient desaturated from low 90s to 71 just with talking. No complaints of chest pain, she has slightly congested, coarse breath sounds at bilateral bases, patient has slightly congested cough, bringing up clear phlegm. No fever or chills. No lower extremity swelling. Patient is on nebulized albuterol at home on as-needed basis and she states she has been wearing her 's oxygen at home. Admission chest x-ray showed diffuse changes of COPD with cardiomegaly and small bilateral effusions and basilar infiltrates coarsened interstitium, EKG showed undetermined rhythm with possibility of a junctional rhythm with a rate of 54, and nonspecific T-wave abnormality. Lab work showed white blood cell count of 7.8, hemoglobin of 11.6, d-dimer was only mildly elevated to 0.90, sodium is 135, potassium is 4.8, chloride is 107, CO2 is 20, BUN is 28 creatinine is 1.40. Troponins were 0.034, 0.031, 0.040, and 0.039, proBNP was 4450, urinalysis was negative. No fever or chills, blood pressure is 138/56, patient is currently on 2 L of oxygen with a pulse ox of 96- 97%. Review of Systems All systems: negative Constitutional: Denies chills, Denies fever Eyes: denies blurred vision, denies pain Ears, nose, mouth and throat: Denies headache, Denies sore throat Cardiovascular: Denies chest pain, Denies shortness of breath Respiratory: Reports cough, Reports dyspnea, Reports home oxygen Gastrointestinal: Denies abdominal pain, Denies diarrhea, Denies nausea, Denies vomiting Genitourinary: Denies dysuria, Denies hematuria Musculoskeletal: Denies myalgias Integumentary: Denies pruritus, Denies rash Neurological: Denies numbness, Denies weakness Psychiatric: Denies anxiety, Denies depression Endocrine: Denies fatigue, Denies weight change Past Medical History Past Medical History: Asthma, Cancer, COPD, Hypertension Additional Past Medical History / Comment(s): back problems, arrythemia hx of wearing heart monitor, skin CA with removal History of Any Multi-Drug Resistant Organisms: None Reported Past Surgical History: Ablation, Tonsillectomy Additional Past Surgical History / Comment(s): aflutter - ablation Past Anesthesia/Blood Transfusion Reactions: No Reported Reaction Past Psychological History: No Psychological Hx Reported Smoking Status: Former smoker Past Alcohol Use History: None Reported, Rare Past Drug Use History: None Reported - Past Family History Son(s) Family Medical History: Myocardial Infarction ([place]) Medications and Allergies Home Medications Medication Instructions Recorded Confirmed Type Albuterol Nebulized [Ventolin 2.5 mg INHALATION RT-TID PRN 03/11/17 07/29/19 History Nebulized] Albuterol Sulfate [Proair Hfa] 2 puff INHALATION RT-QID PRN 03/11/17 07/29/19 History Famotidine [Pepcid] 20 mg PO BID 03/11/17 07/29/19 History Ipratropium [place] [Atrovent Hfa] 2 puff INHALATION RT-QID PRN 03/11/17 07/29/19 History Montelukast [Singulair] 10 mg PO HS 03/11/17 07/29/19 History Systane Balance 2 drops BOTH EYES DAILY PRN 03/11/17 07/29/19 History Vitamin B Complex 1 cap PO DAILY 03/11/17 07/29/19 History Zolpidem [Ambien] 10 mg PO HS PRN 03/11/17 07/29/19 History Furosemide [Lasix] 20 mg PO DAILY 01/20/19 07/29/19 History Gabapentin [Neurontin] 200 mg PO BID #12 cap 01/22/19 07/29/19 Rx Apixaban [Eliquis] 2.5 mg PO BID 02/25/19 07/29/19 History Amiodarone [Cordarone] 200 mg PO DAILY #60 tab 03/04/19 07/29/19 Rx Metoprolol Tartrate [Lopressor] 12.5 mg PO BID #60 dose 03/04/19 07/29/19 Rx Allergies Allergy/AdvReac Type Severity Reaction Status Date / Time adhesive tape AdvReac TEARS SKIN Verified 07/29/19 13:38 OFF ciprofloxacin [From Cipro] AdvReac Rapid Verified 07/29/19 13:38 Heart Rate Physical Exam Vitals: Vital Signs Temp Pulse Pulse Resp BP BP Pulse Ox 07/30/19 11:38 97.9 F 77 16 136/49 94 L 07/30/19 11:24 58 L 07/30/19 11:14 58 L 07/30/19 08:22 56 L 07/30/19 08:09 55 L 97 07/30/19 07:49 97.9 F 53 L 18 134/65 97 07/30/19 04:00 97.7 F 60 17 145/67 97 07/29/19 22:32 97.7 F 57 L 17 148/64 96 07/29/19 21:00 56 L 07/29/19 20:42 56 L 07/29/19 20:00 97.6 F 56 L 18 150/65 97 07/29/19 17:55 56 L 20 07/29/19 16:49 98.6 F 56 L 20 164/82 98 07/29/19 16:15 98.1 F 50 L 20 138/56 97 07/29/19 15:00 50 L 20 135/61 98 07/29/19 14:00 50 L 20 141/59 98 07/29/19 13:00 52 L 20 170/66 98 Intake and Output 07/29/19 07/30/19 07/30/19 22:59 06:59 14:59 Intake Total 120 Balance 120 Intake: Oral 120 Other: Voiding Method Toilet Toilet Toilet # Voids 2 1 Weight 47 kg 47 kg 47 kg GENERAL EXAM: Alert, active, comfortable in no apparent distress. HEAD: Normocephalic/atraumatic. EYES: Normal reaction of pupils, equal size. Conjunctiva pink, sclera white. NOSE: Clear with pink turbinates. THROAT: No erythema or exudates. NECK: No masses, no JVD, no thyroid enlargement, no adenopathy. CHEST: No chest wall deformity. Symmetrical expansion. LUNGS: Equal air entry with coarse breath sounds bilaterally CVS: Regular rate and rhythm, normal S1 and S2, no gallops, no murmurs, no rubs ABDOMEN: Soft, nontender. No hepatosplenomegaly, normal bowel sounds, no guarding or rigidity. EXTREMITIES: No clubbing, no edema, no cyanosis, 2+ pulses and upper and lower extremities. MUSCULOSKELETAL: Muscle strength and tone normal. SPINE: No scoliosis or deformity SKIN: No rashes CENTRAL NERVOUS SYSTEM: Alert and oriented -3. No focal deficits, tone is normal in all 4 extremities. PSYCHIATRIC: Alert and oriented -3. Appropriate affect. Intact judgment and insight. Results - Laboratory Findings CBC and BMP: 07/29/19 12:15 07/30/19 05:56 PT/INR, D-dimer PT 11.0 sec (9.0-12.0) 07/29/19 12:15 INR 1.1 (<1.2) 07/29/19 12:15 D-Dimer 0.90 mg/L FEU (<0.60) H 07/30/19 05:56 Abnormal lab findings: Abnormal Labs 07/29/19 07/29/19 07/30/19 12:15 12:15 00:20 RDW 16.3 H Lymphocytes # 0.6 L D-Dimer Sodium 135 L Carbon Dioxide 20 L BUN 28 H Creatinine 1.40 H Calcium 8.3 L AST 38 H Troponin I 0.040 H* Albumin 3.1 L 07/30/19 07/30/19 07/30/19 05:56 05:56 05:56 RDW Lymphocytes # D-Dimer 0.90 H Sodium Carbon Dioxide BUN 27 H Creatinine 1.31 H Calcium 8.1 L AST Troponin I 0.039 H* Albumin - Diagnostic Findings Chest x-ray: report reviewed, image reviewed CT scan - chest: report reviewed, image reviewed Additional studies: EKG reviewed Assessment and Plan Plan: Assessment: #1. Acute hypoxic respiratory failure, and shortness of breath possibly related to possibility of chronic interstitial lung disease, COPD, and a component of mild CHF with diastolic dysfunction #2. History of atrial flutter, with previous history of ablation, patient is on chronic Eliquis for anticoagulation #3. Acute kidney injury #4. Hypertension #5. Possible chronic bronchial asthma/COPD, severity of which is not known #6. Former smoker, quit smoking 30 years ago, smoked for a total of 22 years less than a pack a day Plan: We will add IV steroids, continue oral anticoagulation, will obtain high resolution computed tomography scan, the film has been completed and reviewed showing possibility of chronic interstitial lung disease and COPD. Will add nebulized bronchodilators. Continue with IV Lasix, continue Singulair. Follow- up chest x-ray in the morning, continue to follow I performed a history & physical examination of the patient and discussed their management with my nurse practitioner, Isabel Henson. I reviewed the nurse practitioner's note and agree with the documented findings and plan of care. Lung sounds are positive for bibasilar rhonchi. The findings and the impression was discussed with the patient. I attest to the documentation by the nurse practitioner. Time with Patient: Greater than 30
--- NOTE | 2019-07-30 14:26 | P.PN ---
Subjective 8-year-old the female came in with complaints of shortness of breath patient does have history of COPD doesn't use any oxygen at home she sometimes uses solids and patient saturations and found to be 80% when she went to get a back injection. Patient was apparently seen condition of breath on arrival but when I valid the patient patient is doing much better on 2 L of oxygen. Patient was seen in cardiology's office on Saturdaywhere covid 19 testing was done which was negative. Patient denied any fever chills for chest x-ray showing mil d pleural effusions with the mild pulmonary edema. 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 Patient is also undergoing echocardiogram patient has an ablation procedure recently. Patient's shortness of breath is much better feeling his patient is feeling better Constitutional: Denied any fatigue denied any fever. Cardio vascular: denied any chest pain, palpitations Gastrointestinal denied any nausea vomiting Pulmonary: Denied any shortness of breath cough Neurologic denied any new focal deficits All inpatient medications were reviewed and appropriate changes in these medications as dictated in the interval history and assessment and plan. Objective - Vital Signs Vital signs: Vital Signs Temp 97.9 F 07/30/19 11:38 Pulse 77 07/30/19 11:38 Resp 16 07/30/19 11:38 BP 136/49 07/30/19 11:38 Pulse Ox 94 L 07/30/19 11:38 Intake & Output 07/29/19 07/30/19 07/30/19 18:59 06:59 18:59 Intake Total 120 Balance 120 Weight 47 kg 47 kg 47 kg Intake: Oral 120 Other: Voiding Method Toilet Toilet # Voids 2 1 - Exam PHYSICAL EXAMINATION: GENERAL: The patient is alert and oriented x3, not in any acute distress. Thin built female HEENT: Pupils are round and equally reacting to light. EOMI. No scleral icterus. No conjunctival pallor. Normocephalic, atraumatic. No pharyngeal erythema. No thyromegaly. CARDIOVASCULAR: S1 and S2 present. No murmurs, rubs, or gallops. PULMONARY: Minimal bibasilar crackles, mild decreased air entry into bilateral lung pollard no significant wheezing was appreciated ABDOMEN: Soft, nontender, nondistended, normoactive bowel sounds. No palpable organomegaly. MUSCULOSKELETAL: No joint swelling or deformity. EXTREMITIES: No cyanosis, clubbing, or pedal edema. NEUROLOGICAL: Gross neurological examination did not reveal any focal deficits. SKIN: No rashes. - Labs CBC & Chem 7: 07/29/19 12:15 07/30/19 05:56 Labs: Abnormal Lab Results - Last 24 Hours (Table) 07/30/19 07/30/19 07/30/19 Range/Units 00:20 05:56 05:56 D-Dimer (<0.60) mg/L FEU BUN 27 H (7-17) mg/dL Creatinine 1.31 H (0.52-1.04) mg/dL Calcium 8.1 L (8.4-10.2) mg/dL Troponin I 0.040 H* 0.039 H* (0.000-0.034) ng/mL 07/30/19 Range/Units 05:56 D-Dimer 0.90 H (<0.60) mg/L FEU BUN (7-17) mg/dL Creatinine (0.52-1.04) mg/dL Calcium (8.4-10.2) mg/dL Troponin I (0.000-0.034) ng/mL Assessment and Plan Plan: -Shortness of breath mostly secondary to COPD exacerbation patient appears to have pulmonary fibrosis that may be a competent of CHF which is not clear at this time cardiology will be consulted there mildly elevated troponinscousin of pulmonary fibrotic changesamiodarone risk and urine by cardiology. Patient will be back on metoprolol -Mild elevated troponin secondary to hypoxemia -COPD with acute exacerbation, patient is a former smoker doesn't smoke anymore. -Possible mild chronic diastolic dysfunction with acute exacerbation patient had normal ejection fraction the past patient will be switched to IV Lasix 20 twice a day. We'll reassess the kidney function and electrolytes tomorrow -Acute renal failure probably prerenal azotemia from volume overload expected to improve with IV Lasix will recheck the BMP tomorrow -History of atrial fibrillation presently rate controlled presently mildly bradycardic patient will continued on amiodarone, and was hold off on low-dose of metoprolol -Hypertension -Osteoarthritis
[2019-07-30] MEDS: BUDESONIDE 0.5 MG/2 ML NEBU INHALATION SCH (18:56)
[2019-07-30] MEDS: FAMOTIDINE 20 MG TAB PO SCH (21:24)
[2019-07-30] MEDS: MONTELUKAST 10 MG TAB PO SCH (21:25)
[2019-07-30] MEDS: ZOLPIDEM 5 MG TAB PO PRN (21:25)
[2019-07-31] MEDS: ZOLPIDEM 5 MG TAB PO PRN (01:55)
[2019-07-31] MEDS: IPRATROPIUM-ALBUTEROL 3 ML NEB INHALATION SCH ×3 (07:22→15:21)
[2019-07-31] MEDS: BUDESONIDE 0.5 MG/2 ML NEBU INHALATION SCH (07:23)
--- NOTE | 2019-07-31 07:30 | XR ---
EXAMINATION TYPE: XR chest 1V portable DATE OF EXAM: 07/31/2019 Comparison: 07/29/[address] 07/30/2019 Clinical History: 88-year-old female shortness of breath Findings: Heart mildly enlarged. Hyperinflation with diffuse interstitial density. Biapical pleural-parenchymal scarring. Patchy posterior basilar opacity particularly on the lateral view. 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
--- NOTE | 2019-07-31 08:00 | ECHOF ---
Referral Reason:sob, elevated troponin MEASUREMENTS -------- HEIGHT: 157.5 cm WEIGHT: 46.7 kg BP: 136/49 RVIDd: 3.2 cm (< 3.3) IVSd: 1.2 cm (0.6 - 1.1) LVIDd: 2.2 cm (3.9 - 5.3) LVPWd: 1.1 cm (0.6 - 1.1) IVSs: 1.4 cm LVIDs: 1.2 cm LVPWs: 1.2 cm LAESV Index (A-L): 29.51 ml/m Ao Diam: 2.7 cm (2.0 - 3.7) AV Cusp: 1.6 cm (1.5 - 2.6) LA Diam: 2.8 cm (2.7 - 3.8) MV EXCURSION: 9.371 mm (> 18.000) MV EF SLOPE: 72 mm/s (70 - 150) EPSS: 0.3 cm MV E Jj: 0.77 m/s MV DecT: 319 ms MV A Jj: 0.65 m/s MV E/A Ratio: 1.18 AR PHT: 316 ms RAP: 5.00 mmHg RVSP: 48.40 mmHg FINDINGS -------- Undetermined rhythm. This was a technically good study. The left ventricular size is normal. There is mild concentric left ventricular hypertrophy. Overa ll left ventricular systolic function is normal with, an EF between 55 - 60 %. Right side appears enlarged. LA is midly dilated 29-33ml/m2. RA appears enlarged. The aortic valve is trileaflet and appears structurally normal. Trace amount of aortic regurgitatio n. The mitral valve is normal. The mitral valve leaflets are mildly thickened. Mild mitral regurgita tion is present. The tricuspid valve appears structurally normal. Moderate tricuspid regurgitation present. There is mild to moderate pulmonary hypertension. The right ventricular systolic pressure, as measured by Doppler, is 48.40mmHg. There is no pulmonic regurgitation present. The aortic root size is normal. Normal inferior vena cava with normal inspiratory collapse consistent with estimated right atrial pre ssure of 5 mmHg. There is no pericardial effusion. CONCLUSIONS -------- 1. Undetermined rhythm. 2. This was a technically good study. 3. The left ventricular size is normal. 4. There is mild concentric left ventricular hypertrophy. 5. Overall left ventricular systolic function is normal with, an EF between 55 - 60 %. 6. Right side appears enlarged. 7. LA is midly dilated 29-33ml/m2. 8. RA appears enlarged. 9. The aortic valve is trileaflet and appears structurally normal. 10. Trace amount of aortic regurgitation. 11. The mitral valve is normal. 12. The mitral valve leaflets are mildly thickened. 13. Mild mitral regurgitation is present. 14. The tricuspid valve appears structurally normal. 15. Moderate tricuspid regurgitation present. 16. There is mild to moderate pulmonary hypertension. 17. The right ventricular systolic pressure, as measured by Doppler, is 48.40mmHg. 18. There is no pulmonic regurgitation present. 19. The aortic root size is normal. 20. Normal inferior vena cava with normal inspiratory collapse consistent with estimated right atrial pressure of 5 mmHg. 21. There is no pericardial effusion. MATH TEACHER: Kelsey Hull RDCS
[2019-07-31 08:02] VITALS: TEMP 96.5
[2019-07-31] MEDS: GABAPENTIN 100 MG CAP PO SCH (08:07)
[2019-07-31] MEDS: FUROSEMIDE 10 MG/ML 2 ML VIAL IV SCH (08:09)
[2019-07-31] MEDS: APIXABAN 2.5 MG TABLET PO SCH (08:09)
[2019-07-31] MEDS: AMIODARONE 200 MG TAB PO SCH (08:09)
[2019-07-31] MEDS: methylPREDNISolone SOD SUCCI 40 MG/ML 1 ML VIAL IV SCH (08:09)
[2019-07-31 08:37] LABS: Calcium 8.8 mg/dL (8.4-10.2); Potassium 4.2 mmol/L (3.5-5.1)
--- NOTE | 2019-07-31 10:00 | P.PN ---
Subjective This is a pleasant 88-year-old female past medical history significant for typical atrial flutter status post ablation February 2019, paroxysmal A. fib status post electrical cardioversion in February 2019, COPD, hypertension, pulmonary hypertension and chronic back pain. She follows in the office with Dr. Schaefer. She is seen and examined sitting up in bed in no acute distress. She is receiving a nebulizer treatment. Overall she feels well. She denies worsening shortness of breath. No chest pain, dizziness or palpitations. Blood pressure 152/67 heart rate 96 afebrile and maintaining oxygen saturation on nasal cannula. The nurse is planing to do an exertional oxygen tolerance test today. Laboratory data reviewed, sodium 135, potassium 4.2, creatinine 1.41. Repeat limited echo was obtained to assess for wall motion abnormalities given the troponin abnormality. Overall LV systolic function normal with ejection fraction 55-60% with no wall motion abnormalities noted, moderate tricuspid regurgitation and mild to moderate pulmonary hypertension with an RVSP of 48 mmHg. High-resolution CT reveals pleural thickening and calcifications, interlobular septal thickening involving the mid and lower lung zones compatible with chronic interstitial lung disease and COPD. Repeat chest x-ray this morning reveals mildly enlarged heart, hyperinflation with diffuse interstitial densities and biapical pleural parenchymal scarring. PHYSICAL EXAMINATION CONSTITUTIONAL: No apparent distress. Frail. HEENT: Head is normocephalic. Pupils are equal, round. Sclerae anicteric. Mucous membranes of the mouth are moist. No JVD. No carotid bruit. CHEST EXAMINATION: Lungs are clear to auscultation. No chest wall tenderness is noted on palpation or with deep breathing. Diminished bilaterally. HEART EXAMINATION: Regular rate and rhythm. S1, S2 heard. No murmurs, gallops or rub. EXTREMITIES: 2+ peripheral pulses, no lower extremity edema and no calf tenderness. ASSESSMENT Hypoxia Troponin leak secondary to oxygen supply demand mismatch, type II myocardial injury COPD Paroxysmal atrial fibrillation status post electrical cardioversion History of typical atrial flutter status post ablation Hypertension Pulmonary hypertension Dyslipidemia PLAN Transition to oral diuretics Lasix 20 mg by mouth twice a day. When stable from a pulmonary perspective the patient can be discharged to follow-up with Dr. Schaefer in the office. Nurse Practitioner note has been reviewed, I agree with a documented findings and plan of care. Patient was seen and examined. Objective - Vital Signs Vital signs: Vital Signs Temp 96.5 F L 06/12/20 08:00 Pulse 96 07/31/19 08:00 Resp 18 07/31/19 08:00 BP 152/67 07/31/19 08:00 Pulse Ox 99 07/31/19 08:00 Intake & Output 07/30/19 07/31/19 07/31/19 18:59 06:59 18:59 Intake Total 240 240 Balance 240 240 Weight 47 kg 45.994 kg Intake: Oral 240 240 Other: Voiding Method Toilet # Voids 3 1 # Bowel Movements 1 - Labs CBC & Chem 7: 07/29/19 12:15 07/31/19 07:55 Labs: Abnormal Lab Results - Last 24 Hours (Table) 07/30/19 07/31/19 Range/Units 05:56 07:55 D-Dimer 0.90 H (<0.60) mg/L FEU Sodium 135 L (137-145) mmol/L BUN 38 H (7-17) mg/dL Creatinine 1.41 H (0.52-1.04) mg/dL Glucose 150 H (74-99) mg/dL
--- NOTE | 2019-07-31 11:35 | P.PN ---
Subjective Progress Note Date: 07/31/19 Principal diagnosis: Dyspnea, hypoxia 88-year-old white female patient of Dr. Angel Rocha with history of chronic bronchial asthma/possible COPD, hypertension, ex-smoker, quit smoking 30 years ago, history of atrial flutter status post ablation, skin cancer, who presented to the hospital on 07/29/2019 for evaluation of worsening shortness of breath for the past month. Patient went to see Dr. Verdugo for her epidural shots, and was noted to have a pulse ox in the low 80s with ambulating and was sent to the emergency department. Patient states she gets significantly short of breath with walking. She is also noted to be desaturating with talking. During the interview patient desaturated from low 90s to 71 just with talking. No complaints of chest pain, she has slightly congested, coarse breath sounds at bilateral bases, patient has slightly congested cough, bringing up clear phlegm. No fever or chills. No lower extremity swelling. Patient is on nebulized albuterol at home on as-needed basis and she states she has been wearing her 's oxygen at home. Admission chest x-ray showed diffuse changes of COPD with cardiomegaly and small bilateral effusions and basilar infiltrates coarsened interstitium, EKG showed undetermined rhythm with possibility of a junctional rhythm with a rate of 54, and nonspecific T-wave abnormality. Lab work showed white blood cell count of 7.8, hemoglobin of 11.6, d-dimer was only mildly elevated to 0.90, sodium is 135, potassium is 4.8, chloride is 107, CO2 is 20, BUN is 28 creatinine is 1.40. Troponins were 0.034, 0.031, 0.040, and 0.039, proBNP was 4450, urinalysis was negative. No fever or chills, blood pr essure is 138/56, patient is currently on 2 L of oxygen with a pulse ox of 96- 97%. On 07/31/2019 patient seen in follow-up in the observation unit. She is awake and alert, in no acute distress, currently on 2 L of oxygen a pulse ox of 98%, she states her breathing is improving, monocytes are stable, no fever or chills. Follow-up chest x-ray showed stable cardiomegaly, COPD and biapical scarring related to interstitial lung disease. Echocardiogram showed preserved LV function with EF of 55-60%, moderate tricuspid regurg, mild mitral regurg, [id number] pulmonary hypertension with right-sided pressures of 48.4 mmHg. Patient is on oral Lasix, IV steroids, and nebulized bronchodilators, she continues on oral anticoagulation in the form of Eliquis. Cardiology discussed the possibility of adding amiodarone, however in view of presence of interstitial lung disease it would be preferred from pulmonary perspective to avoid it. Objective - Vital Signs Vital signs: Vital Signs Temp 96.5 F L 07/31/19 08:00 Pulse 60 07/31/19 11:19 Resp 20 07/31/19 08:00 BP 152/67 07/31/19 08:00 Pulse Ox 93 L 07/31/19 10:05 Intake & Output 07/30/19 07/31/19 07/31/19 18:59 06:59 18:59 Intake Total 240 240 Balance 240 240 Weight 47 kg 45.994 kg Intake: Oral 240 240 Other: Voiding Method Toilet # Voids 3 1 1 # Bowel Movements 1 1 - Exam GENERAL EXAM: Alert, active, comfortable in no apparent distress. HEAD: Normocephalic/atraumatic. EYES: Normal reaction of pupils, equal size. Conjunctiva pink, sclera white. NOSE: Clear with pink turbinates. THROAT: No erythema or exudates. NECK: No masses, no JVD, no thyroid enlargement, no adenopathy. CHEST: No chest wall deformity. Symmetrical expansion. LUNGS: Equal air entry with coarse breath sounds bilaterally CVS: Regular rate and rhythm, normal S1 and S2, no gallops, no murmurs, no rubs ABDOMEN: Soft, nontender. No hepatosplenomegaly, normal bowel sounds, no guarding or rigidity. EXTREMITIES: No clubbing, no edema, no cyanosis, 2+ pulses and upper and lower extremities. MUSCULOSKELETAL: Muscle strength and tone normal. SPINE: No scoliosis or deformity SKIN: No rashes CENTRAL NERVOUS SYSTEM: Alert and oriented -3. No focal deficits, tone is normal in all 4 extremities. PSYCHIATRIC: Alert and oriented -3. Appropriate affect. Intact judgment and insight. - Labs CBC & Chem 7: 07/29/19 12:15 07/31/19 07:55 Labs: Abnormal Lab Results - Last 24 Hours (Table) 07/31/19 Range/Units 07:55 Sodium 135 L (137-145) mmol/L BUN 38 H (7-17) mg/dL Creatinine 1.41 H (0.52-1.04) mg/dL Glucose 150 H (74-99) mg/dL Assessment and Plan Plan: Assessment: #1. Acute hypoxic respiratory failure, and shortness of breath possibly related to possibility of chronic interstitial lung disease, COPD, and a component of mild CHF with diastolic dysfunction #2. History of atrial flutter, with previous history of ablation, patient is on chronic Eliquis for anticoagulation #3. Acute kidney injury #4. Hypertension #5. Possible chronic bronchial asthma/COPD, severity of which is not known #6. Former smoker, quit smoking 30 years ago, smoked for a total of 22 years less than a pack a day Plan: Patient is doing well, breathing easier, obtain home oxygen assessment to determine if patient qualifies for home oxygen, chest x-ray today shows stable findings of cardiomegaly, COPD and probable UIP interstitial lung disease. From pulmonary perspective patient is stable for discharge home when cleared by cardiology, she will need outpatient follow-up with Dr. Guzman in the office in one to 2 weeks. I performed a history & physical examination of the patient and discussed their management with my nurse practitioner, Isabel Henson. I reviewed the nurse practitioner's note and agree with the documented findings and plan of care. Lung sounds are positive for bibasilar rhonchi. The findings and the impression was discussed with the patient. I attest to the documentation by the nurse practitioner. Time with Patient: Less than 30
[2019-07-31 12:20] VITALS: BP 156/77; RESP 18
[2019-07-31] MEDS ORDERED: predniSONE 20 MG TAB PO STA (12:35)
[2019-07-31 15:32] VITALS: PULSE 80
[2019-07-31] MEDS ORDERED: FUROSEMIDE 20 MG TAB PO SCH (16:00)
--- NOTE | 2019-08-11 02:23 | P.DS ---
Providers Date of admission: 07/30/19 10:37 Expected date of discharge: 07/31/19 Attending physician: Javed Tucker Consults: 07/30/19 09:05 Consult Physician Routine Consulting Provider: Maddie Koo Consult Reason/Comments: sob, oxygen needs Do you want consulting provider notified?: Yes 07/30/19 10:36 Consult Physician Routine Consulting Provider: John Paredes Consult Reason/Comments: sob positive trops Do you want consulting provider notified?: Yes Primary care physician: [facility] Course: Discharge diagnosis #1. Acute hypoxic respiratory failure, and shortness of breath possibly related to possibility of chronic interstitial lung disease, COPD, and a component of mild CHF with diastolic dysfunction #2. History of atrial flutter, with previous history of ablation, patient is on chronic Eliquis for anticoagulation #3. Acute kidney injury #4. Hypertension #5. Possible chronic bronchial asthma/COPD, severity of which is not known #6. Former smoker, quit smoking 30 years ago, smoked for a total of 22 years less than a pack a day Pt. does require home o2 Hospital course 8-year-old the female came in with complaints of shortness of breath patient does have history of COPD doesn't use any oxygen at home she sometimes uses solids and patient saturations and found to be 80% when she went to get a back injection. Patient was apparently seen condition of breath on arrival but when I valid the patient patient is doing much better on 2 L of oxygen. Patient was seen in cardiology's office on Saturdaywhere covid 19 testing was done which was negative. Patient denied any fever chills for chest x-ray showing mild pleural effusions with the mild pulmonary edema. 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 Patient is also undergoing echocardiogram patient has an ablation procedure recently. Patient's shortness of breath is much better feeling his patient is feeling better 07/31/2019 Patient is currently awake alert and oriented x3. Currently on 2 L oxygen via nasal cannula and saturating at 98%. Breathing is much improved. Patient will require home oxygen. No other acute overnight issues. No fever no chills. Chest x-ray showed stable cardiomegaly, COPD and biapical scarring leading to interstitial lung disease. Echocardiogram showed ejection fraction 55 to 60% with moderate tricuspid regurgitation and mild mitral regurgitation and moderate to pulmonary hypertension with right-sided pressures of 48.4 mmHg. Patient will be continued on Lasix 20 mg twice daily. Continue with steroid tapering course. Continued on oral anticoagulation of Eliquis. Amiodarone has been discontinued after discussion with cardiology and pulmonary. Patient is being discharged home today. Home oxygen will be arranged. PHYSICAL EXAMINATION: GENERAL: The patient is alert and oriented x3, not in any acute distress. Thin built female HEENT: Pupils are round and equally reacting to light. EOMI. No scleral icterus. No conjunctival pallor. Normocephalic, atraumatic. No pharyngeal erythema. No thyromegaly. CARDIOVASCULAR: S1 and S2 present. No murmurs, rubs, or gallops. PULMONARY: Minimal bibasilar crackles, mild decreased air entry into bilateral lung pollard no significant wheezing was appreciated ABDOMEN: Soft, nontender, nondistended, normoactive bowel sounds. No palpable organomegaly. MUSCULOSKELETAL: No joint swelling or deformity. EXTREMITIES: No cyanosis, clubbing, or pedal edema. NEUROLOGICAL: Gross neurological examination did not reveal any focal deficits. SKIN: No rashes. Vital Signs Temp 96.5 F L 07/31/19 08:00 Pulse 60 07/31/19 11:19 Resp 20 07/31/19 08:00 BP 152/67 07/31/19 08:00 Pulse Ox 93 L 07/31/19 10:05 Intake & Output 07/30/19 07/31/19 07/31/19 18:59 06:59 18:59 Intake Total 240 240 Balance 240 240 Weight 47 kg 45.994 kg Intake: Oral 240 240 Other: Voiding Method Toilet # Voids 3 1 1 # Bowel Movements 1 1 Time taken more than 35 minutes which includes more than 50%. Counseling and coordination of care. Patient Condition at Discharge: Fair Plan - Discharge Summary Discharge Rx Participant: No New Discharge Prescriptions: New Furosemide [Lasix] 20 mg PO BID@0900,1600 #60 tab predniSONE See Taper PO DIRECTED #26 tab Continue Systane Balance 2 drops BOTH EYES DAILY PRN PRN Reason: Dry Eye(S) Ipratropium [place] [Atrovent Hfa] 2 puff INHALATION RT-QID PRN PRN Reason: Shortness Of Breath Albuterol Sulfate [Proair Hfa] 2 puff INHALATION RT-QID PRN PRN Reason: Shortness Of Breath Albuterol Nebulized [Ventolin Nebulized] 2.5 mg INHALATION RT-TID PRN PRN Reason: Shortness Of Breath Zolpidem [Ambien] 10 mg PO HS PRN PRN Reason: Insomnia Vitamin B Complex 1 cap PO DAILY Montelukast [Singulair] 10 mg PO HS Famotidine [Pepcid] 20 mg PO BID Gabapentin [Neurontin] 200 mg PO BID #12 cap Apixaban [Eliquis] 2.5 mg PO BID Metoprolol Tartrate [Lopressor] 12.5 mg PO BID #60 dose Discontinued Furosemide [Lasix] 20 mg PO DAILY Amiodarone [Cordarone] 200 mg PO DAILY #60 tab Discharge Medication List Albuterol Nebulized [Ventolin Nebulized] 2.5 mg INHALATION RT-TID PRN 03/11/17 [History] Albuterol Sulfate [Proair Hfa] 2 puff INHALATION RT-QID PRN 03/11/17 [History] Famotidine [Pepcid] 20 mg PO BID 03/11/17 [History] Ipratropium [place] [Atrovent Hfa] 2 puff INHALATION RT-QID PRN 03/11/17 [History] Montelukast [Singulair] 10 mg PO HS 03/11/17 [History] Systane Balance 2 drops BOTH EYES DAILY PRN 03/11/17 [History] Vitamin B Complex 1 cap PO DAILY 03/11/17 [History] Zolpidem [Ambien] 10 mg PO HS PRN 03/11/17 [History] Gabapentin [Neurontin] 200 mg PO BID #12 cap 01/22/19 [Rx] Apixaban [Eliquis] 2.5 mg PO BID 02/25/19 [History] Metoprolol Tartrate [Lopressor] 12.5 mg PO BID #60 dose 03/04/19 [Rx] Furosemide [Lasix] 20 mg PO BID@0900,1600 #60 tab 07/31/19 [Rx] predniSONE See Taper PO DIRECTED #26 tab 07/31/19 [Rx] Follow up Appointment(s)/Referral(s): Cyrus Schaefer MD [STAFF PHYSICIAN] - 08/17/19 4:15 pm (August 16 at 4:15 pm) [facility], [NON-STAFF] - 1-2 Days [facility] [NON-STAFF] - 1 Week Angel Natarajan DO [Primary Care Provider] - 1-2 days (please call the office on Saturday to schedule follow up appt,) Patient Instructions/Handouts: Furosemide (By mouth), Prednisone (By mouth), A- fib (Atrial Fibrillation) (DC), COPD (Chronic Obstructive Pulmonary Disease) (DC), Shortness of Breath (DC) Discharge Disposition: HOME WITH HOME HEALTH SERVICES
== END 2019-07-31 16:20 | disposition home health service (06) | DRG 280 ==
LOC: EC 11:09 → 1SOBS 15:34 → OBSVTOIN 07-30 10:37
PROVIDERS: ADMIT Internal Medicine; ATTEND Internal Medicine
DX: I11.0 Hypertensive heart disease with heart failure (principal); I21.A1 Myocardial infarction type 2; J96.01 Acute respiratory failure with hypoxia; J44.1 Chronic obstructive pulmonary disease with (acute) exacerbation; J84.9 Interstitial pulmonary disease, unspecified; N17.9 Acute kidney failure, unspecified; I50.33 Acute on chronic diastolic (congestive) heart failure; I27.20 Pulmonary hypertension, unspecified; E86.0 Dehydration; I48.0 Paroxysmal atrial fibrillation; Z20.828 Contact with and (suspected) exposure to other viral communicable diseases; M19.90 Unspecified osteoarthritis, unspecified site; I73.00 Raynaud's syndrome without gangrene; I08.1 Rheumatic disorders of both mitral and tricuspid valves; G89.29 Other chronic pain; M54.9 Dorsalgia, unspecified; E78.5 Hyperlipidemia, unspecified; T46.2X5A Adverse effect of other antidysrhythmic drugs, initial encounter; Z79.01 Long term (current) use of anticoagulants; Z79.899 Other long term (current) drug therapy; Z86.79 Personal history of other diseases of the circulatory system; Z85.828 Personal history of other malignant neoplasm of skin; Z87.891 Personal history of nicotine dependence; Z90.89 Acquired absence of other organs; Z98.890 Other specified postprocedural states; Z88.1 Allergy status to other antibiotic agents; Z91.048 Other nonmedicinal substance allergy status; Z82.49 Family history of ischemic heart disease and other diseases of the circulatory system
CPT/HCPCS: 36415; 71045; 71046; 71250; 80048; 80053; 81003; 83735; 83880; 84484; 85025; 85379; 85610; 85730; 93005; 93306; 94640; 94760; 99285

== ENCOUNTER → 2019-11-27 | Outpatient (CLI) | payer MEDICARE ==
--- NOTE | 2019-11-27 14:19 | US ---
EXAMINATION TYPE: US venous doppler duplex UE RT DATE OF EXAM: 11/27/2019 COMPARISON: NONE CLINICAL HISTORY: R60.9 Edema, M79.601 Pain in R arm,I89.0 Lymphedema. Rt arm swelling x 3 days; On b lood thinners (Eliquis) SIDE PERFORMED: Right Right Arm: Positive for superficial thrombus in Cephalic upper arm and forearm Grayscale, color doppler, spectral doppler imaging performed of the deep veins of the right upper ext remity. There is normal flow, compressibility and vascular waveforms in the deep right upper extremi ty venous structures. IMPRESSION: Confirmation of superficial acute venous thrombus involving the right cephalic vein. No a cute DVT in the right upper extremity.
== END | disposition home or self-care (01) ==
LOC: RADUSWWP 11:36
PROVIDERS: ATTEND Family Medicine
DX: I82.611 Acute embolism and thrombosis of superficial veins of right upper extremity (principal); I89.0 Lymphedema, not elsewhere classified; M79.601 Pain in right arm

== ENCOUNTER → 2019-12-22 | Outpatient (CLI) | payer MEDICARE ==
--- NOTE | 2019-12-22 14:56 | US ---
EXAMINATION TYPE: US chest DATE OF EXAM: 12/22/2019 COMPARISON: Radiograph 12/18/2019 CLINICAL HISTORY: 89-year-old female J91.8 Pleural Effusion. Right pleural effusion TECHNIQUE: Targeted ultrasound of the posterior lower right hemithorax FINDINGS: EXAM MEASUREMENTS: Right Pleural Effusion pocket size: 12.8 cm Right skin surface to fluid distance: 3.6 cm Right side marked for possible thoracentesis outside the dept. Pulmonologists are able to review the images in the patient?s EMR. IMPRESSIONS: Moderate to large right pleural effusion with marking performed.
== END | disposition home or self-care (01) ==
LOC: RADUSWWP 14:06
PROVIDERS: ATTEND Internal Medicine
DX: J90 Pleural effusion, not elsewhere classified (principal)
CPT/HCPCS: 76604

== ENCOUNTER → 2019-12-24 | Outpatient (CLI) | payer MEDICARE ==
--- NOTE | 2019-12-24 21:36 | US ---
EXAMINATION TYPE: US venous doppler duplex UE RT DATE OF EXAM: 12/24/2019 COMPARISON: Venous Doppler ultrasound right upper extremity 11/27/2019, CLINICAL HISTORY: R22.31 Swelling Right Upper Limb. SIDE PERFORMED: Right FINDINGS: Grayscale, color doppler, spectral doppler imaging performed of the deep veins of the uppe r extremities. There are no filling defects. Normal flow, compressibility and vascular waveforms are demonstrated. IMPRESSION: NEGATIVE FOR VENOUS THROMBOSIS, RIGHT UPPER EXTREMITY.
== END | disposition home or self-care (01) ==
LOC: RADUSWWP 15:57
PROVIDERS: ATTEND Internal Medicine Hematology & Oncology
DX: I82.721 Chronic embolism and thrombosis of deep veins of right upper extremity (principal)

== ENCOUNTER 2019-12-25 11:08 | Day surgery (SDC) | payer MEDICARE ==
[~2019-12-25 11:08] MED LIST: SODIUM CHLORIDE 0.9% 500 ML 500 ML in EMPTY BAG 1 BAG IV PRN
[2019-12-25 11:33] VITALS: TEMP 97.9
[2019-12-25 12:21] VITALS: RESP 20
[2019-12-25 12:24] VITALS: BP 141/85; PULSE 68
--- NOTE | 2019-12-25 12:33 | XR ---
EXAMINATION TYPE: XR chest 1V portable DATE OF EXAM: 12/25/2019 COMPARISON: 02/07/2020 INDICATION: Post right thoracentesis TECHNIQUE: Single frontal view of the chest is obtained. FINDINGS: The heart size is enlarged. The pulmonary vasculature is normal. Small right pleural effusion is present. Small left pleural effusion is present. No pneumothorax is e vident. There is bilateral apical thickening with some calcification at the apex. IMPRESSION: 1. No pneumothorax is post thoracentesis. 2. Small bilateral pleural effusions.
[2019-12-25 18:26] LABS: Appearance,BF Hazy; Color,BF Yellow; Nucleated Cells, Body Fluid 920 /uL
[2019-12-25 18:27] LABS: RBC, Body Fluid 1975 /uL
[2019-12-25 18:28] LABS: Mononuclear WBC,Body Fluid 80 %; Polynuclear WBC,Body Fluid 20 %; Total Cells Counted,Body Fluid 100
--- NOTE | 2019-12-25 18:34 | OP ---
OPERATIVE REPORT OPERATIVE REPORT: Right-sided thoracentesis. PREOPERATIVE DIAGNOSIS: Right pleural effusion. POSTOPERATIVE DIAGNOSIS: Right pleural effusion. ANESTHESIA USED: Lidocaine 1%, 2 mL. PROCEDURE DESCRIPTION: The patient was placed in a sitting-upright position. The area of the pleural effusion was earlier localized by ultrasound guidance, and it correlated to the area around the eighth intercostal space and tip of the scapula. The patient was placed in a sitting- upright position. The area below the right scapula was prepared in a sterile fashion. Drapes were applied. At the site of the marking, the area was locally anesthetized with lidocaine. Then a 26-gauge needle was inserted into the pleural space until the fluid was localized with the needle. Then a small tiny incision was made, and a standard thoracentesis catheter and needle were used. Needle was inserted at the same site, advanced into the pleural space, and as soon as the fluid was obtained the catheter was advanced out of the needle into the pleural space, and the needle was pulled out of the pleural space. Freely flowing fluid was removed; roughly 1350 mL of fluid was drained from the right pleural space. The fluid was slightly serosanguineous. Procedure was well tolerated. There was no evidence of any immediate complication. Fluid was sent for different diagnostic studies. MMODL / IJN: [id number] /
[2019-12-26 00:27] LABS: Total Protein, Body Fluid 3000 mg/dL
[2019-12-26 00:41] LABS: Glucose, BF Source Pleural Fluid; Glucose, Body Fluid 74 mg/dL; LDH, Body Fluid Source Pleural Fluid
== END 2019-12-25 12:30 | disposition home or self-care (01) ==
LOC: PROCWHC3 11:08
PROVIDERS: ATTEND Internal Medicine
DX: J90 Pleural effusion, not elsewhere classified (principal); J44.9 Chronic obstructive pulmonary disease, unspecified; I10 Essential (primary) hypertension; J96.11 Chronic respiratory failure with hypoxia; I73.00 Raynaud's syndrome without gangrene; J84.9 Interstitial pulmonary disease, unspecified; Z91.048 Other nonmedicinal substance allergy status; Z88.1 Allergy status to other antibiotic agents; Z79.899 Other long term (current) drug therapy; Z79.01 Long term (current) use of anticoagulants; Z79.52 Long term (current) use of systemic steroids; Z86.79 Personal history of other diseases of the circulatory system; Z87.891 Personal history of nicotine dependence; Z98.890 Other specified postprocedural states; Z82.49 Family history of ischemic heart disease and other diseases of the circulatory system; Z80.9 Family history of malignant neoplasm, unspecified
CPT/HCPCS: 32554; 71045; 82945; 83615; 84157; 87070; 87075; 87102; 87116; 87205; 87206; 88108; 88305; 89050

== ENCOUNTER 2020-01-06 11:47 | Inpatient (IN) | payer MEDICARE ==
[2020-01-06] MEDS ORDERED: ALBUTEROL NEBULIZED 2.5 MG/3 ML INHALATION STA (12:32)
[2020-01-06] MEDS ORDERED: IPRATROPIUM 0.5 MG/2.5 ML NEBU INHALATION STA (12:32)
[2020-01-06] MEDS ORDERED: methylPREDNISolone SOD SUCCI 125 MG/2 ML VIAL IV STA (12:32)
[2020-01-06 13:08] LABS: Basophils # (A) 0.1 k/uL (0-0.2); Basophils % (A) 1 %; Eosinophils # (A) 0.2 k/uL (0-0.7); Eosinophils % (A) 1 %; HCT 42.4 % (34.0-46.0); HGB 13.5 gm/dL (11.4-16.0); Lymphocytes # (A) 0.4 k/uL (1.0-4.8); Lymphocytes % (A) 3 %; MCH 28.9 pg (25.0-35.0); MCV 90.6 fL (80.0-100.0); Mean Platelet Volume 7.3; Monocytes # (A) 0.5 k/uL (0-1.0); Monocytes % (A) 4 %; Neutrophils % (A) 91 %; Platelet Count 532 k/uL (150-450); RBC 4.68 m/uL (3.80-5.40); RDW 15.6 % (11.5-15.5); WBC 14.2 k/uL (3.8-10.6)
--- NOTE | 2020-01-06 13:11 | ED ---
General Adult HPI - General Chief complaint: Shortness of Breath Stated complaint: fluid on lungs/SOB Time Seen by Provider: 01/06/20 12:55 Source: patient, RN notes reviewed, old records reviewed Mode of arrival: ambulatory Limitations: no limitations - History of Present Illness Initial comments: this is an 89-year-old female with past mental history significant for COPD exacerbation. Patient also states occasionally his fluid drained off of her loly ng. Patient states the last couple of days. Breathing is become more difficult. Patient states she does have a nebulizer at home but didn't use it today. Patient states she has a little bit of cough but no sputum production. Patient denies any fever chills per patient denies any chest pain or p alpitations. Patient denies any abdominal pain patient denies nausea vomiting diarrhea. Patient denies any exposure to COVID. - Related Data Home Medications Medication Instructions Recorded Confirmed Albuterol Nebulized [Ventolin 2.5 mg INHALATION RT-TID PRN 03/11/17 01/06/20 Nebulized] Albuterol Sulfate [Proair Hfa] 2 puff INHALATION RT-QID PRN 03/11/17 01/06/20 Famotidine [Pepcid] 20 mg PO BID 03/11/17 01/06/20 Ipratropium Milam [Atrovent Hfa] 2 puff INHALATION RT-QID PRN 03/11/17 01/06/20 Montelukast [Singulair] 10 mg PO HS 03/11/17 01/06/20 Vitamin B Complex 1 cap PO DAILY 03/11/17 01/06/20 Zolpidem [Ambien] 10 mg PO HS PRN 03/11/17 01/06/20 Apixaban [Eliquis] 2.5 mg PO BID 02/25/19 01/06/20 Furosemide [Lasix] 20 mg PO BID 01/06/20 01/06/20 Promethaz-Cod 6.25-10 mg/5 ml 5 ml PO Q6H PRN 01/06/20 01/06/20 [Phenergan with Codeine] Spironolactone [Aldactone] 25 mg PO DAILY 01/06/20 01/06/20 predniSONE 5 mg PO DAILY 01/06/20 01/06/20 Previous Rx's Medication Instructions Recorded Gabapentin [Neurontin] 200 mg PO BID #12 cap 01/22/19 Metoprolol Tartrate [Lopressor] 25 mg PO BID #60 tab 01/10/20 Allergies Allergy/AdvReac Type Severity Reaction Status Date / Time adhesive tape AdvReac TEARS SKIN Verified 01/06/20 16:33 OFF ciprofloxacin [From Cipro] AdvReac Rapid Verified 01/06/20 16:33 Heart Rate Review of Systems ROS Statement: Those systems with pertinent positive or pertinent negative responses have been documented in the HPI. ROS Other: All systems not noted in ROS Statement are negative. Past Medical History Past Medical History: Asthma, Cancer, COPD, Hypertension Additional Past Medical History / Comment(s): back problems, arrythemia hx of wearing heart monitor, skin CA with removal. 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 Patient is nontoxic and well- hydrated and is in no acute distress. ENT: Neck is soft and supple. No significant lymphadenopathy is noted. Oropharynx is clear. Moist mucous membranes. Neck has full range of motion without eliciting any pain. EYES: The sclera were anicteric and conjunctiva were pink and moist. Extraocular movements were intact and pupils were equal round and reactive to light. Eyelids were unremarkable. PULMONARY: patient has diminished breath sounds more so on the right than the left patient also is very wheezing. CARDIOVASCULAR: There is a regular rate and rhythm without any murmurs gallops or rubs. ABDOMEN: Soft and nontender with normal bowel sounds. SKIN: Skin is clear with no lesions or rashes and otherwise unremarkable. NEUROLOGIC: Patient is alert and oriented x3. Cranial nerves II through XII are grossly intact. Motor and sensory are also intact. Normal speech, volume and content. Symmetrical smile. MUSCULOSKELETAL: Normal extremities with adequate strength and full range of motion. No lower extremity swelling or edema. No calf tenderness. LYMPHATICS: No significant lymphadenopathy is noted PSYCHIATRIC: Normal psychiatric evaluation. Limitations: no limitations Course Vital Signs 01/06/20 01/06/20 01/06/20 11:54 13:21 13:43 Temperature 97.8 F Pulse Rate 77 76 80 Respiratory 18 Rate Blood Pressure 101/54 O2 Sat by Pulse 88 L Oximetry 01/06/20 01/06/20 01/06/20 14:31 19:15 19:26 Temperature 98.5 F Pulse Rate 110 H 72 Respiratory 20 18 18 Rate Blood Pressure 129/84 O2 Sat by Pulse 96 Oximetry 01/06/20 01/06/20 01/07/20 19:39 21:13 01:34 Temperature 97.6 F Pulse Rate 73 81 71 Respiratory 18 18 18 Rate Blood Pressure 133/62 117/68 O2 Sat by Pulse 94 L 96 Oximetry Medical Decision Making - Medical Decision Making EKG shows sinus tachycardia with occasional PAC at 104 bpm RI interval 220 QRS is 74 QT interval 332 QTC is 436 per patient's EKG shows no ST segment elevation or depression. Chest x-ray shows an increase in basilar opacity in the right lung base this could reflect loculated effusion or underlying infiltrate. Patient was started on antibiotics in the emergency department I spoke with Dr. Sexton he agreed to admit the patient admitted the patient wrote admitting orders. - Lab Data Result diagrams: 01/07/20 07:48 01/10/20 07:12 Lab Results 01/06/20 01/06/20 01/06/20 Range/Units 12:47 12:47 12:47 WBC 14.2 H (3.8-10.6) k/uL RBC 4.68 (3.80-5.40) m/uL Hgb 13.5 (11.4-16.0) gm/dL Hct 42.4 (34.0-46.0) % MCV 90.6 (80.0-100.0) fL MCH 28.9 (25.0-35.0) pg MCHC 32.0 (31.0-37.0) g/dL RDW 15.6 H (11.5-15.5) % Plt Count 532 H (150-450) k/uL MPV 7.3 Neutrophils % 91 % Lymphocytes % 3 % Monocytes % 4 % Eosinophils % 1 % Basophils % 1 % Neutrophils # 13.0 H (1.3-7.7) k/uL Lymphocytes # 0.4 L (1.0-4.8) k/uL Monocytes # 0.5 (0-1.0) k/uL Eosinophils # 0.2 (0-0.7) k/uL Basophils # 0.1 (0-0.2) k/uL PT 10.6 (9.0-12.0) sec INR 1.0 (<1.2) APTT 25.2 (22.0-30.0) sec Sodium 137 (137-145) mmol/L Potassium 4.4 (3.5-5.1) mmol/L Chloride 103 (98-107) mmol/L Carbon Dioxide 26 (22-30) mmol/L Anion Gap 8 mmol/L BUN 34 H (7-17) mg/dL Creatinine 1.23 H (0.52-1.04) mg/dL Est GFR (CKD-EPI)AfAm 46 (>60 ml/min/1.73 sqM) Est GFR (CKD-EPI)NonAf 40 (>60 ml/min/1.73 sqM) Glucose 95 (74-99) mg/dL Plasma Lactic Acid Chris (0.7-2.0) mmol/L Calcium 8.8 (8.4-10.2) mg/dL Magnesium 1.9 (1.6-2.3) mg/dL Total Bilirubin 0.6 (0.2-1.3) mg/dL AST 33 (14-36) U/L ALT 19 (4-34) U/L Alkaline Phosphatase 96 (38-126) U/L Troponin I (0.000-0.034) ng/mL Total Protein 6.6 (6.3-8.2) g/dL Albumin 3.0 L (3.5-5.0) g/dL Coronavirus (PCR) (Not Detectd) 01/06/20 01/06/20 01/06/20 Range/Units 12:47 12:47 13:58 WBC (3.8-10.6) k/uL RBC (3.80-5.40) m/uL Hgb (11.4-16.0) gm/dL Hct (34.0-46.0) % MCV (80.0-100.0) fL MCH (25.0-35.0) pg MCHC (31.0-37.0) g/dL RDW (11.5-15.5) % Plt Count (150-450) k/uL MPV Neutrophils % % Lymphocytes % % Monocytes % % Eosinophils % % Basophils % % Neutrophils # (1.3-7.7) k/uL Lymphocytes # (1.0-4.8) k/uL Monocytes # (0-1.0) k/uL Eosinophils # (0-0.7) k/uL Basophils # (0-0.2) k/uL PT (9.0-12.0) sec INR (<1.2) APTT (22.0-30.0) sec Sodium (137-145) mmol/L Potassium (3.5-5.1) mmol/L Chloride (98-107) mmol/L Carbon Dioxide (22-30) mmol/L Anion Gap mmol/L BUN (7-17) mg/dL Creatinine (0.52-1.04) mg/dL Est GFR (CKD-EPI)AfAm (>60 ml/min/1.73 sqM) Est GFR (CKD-EPI)NonAf (>60 ml/min/1.73 sqM) Glucose (74-99) mg/dL Plasma Lactic Acid Chris 1.9 (0.7-2.0) mmol/L Calcium (8.4-10.2) mg/dL Magnesium (1.6-2.3) mg/dL Total Bilirubin (0.2-1.3) mg/dL AST (14-36) U/L ALT (4-34) U/L Alkaline Phosphatase (38-126) U/L Troponin I 0.035 H* (0.000-0.034) ng/mL Total Protein (6.3-8.2) g/dL Albumin (3.5-5.0) g/dL Coronavirus (PCR) Not Detected (Not Detectd) Disposition Clinical Impression: Pleural effusion, Acute exacerbation of chronic obstructive pulmonary disease, Pneumonia Disposition: ADMITTED IP TO THIS [facility] Time of Disposition: 14:32
--- NOTE | 2020-01-06 13:21 | XR ---
EXAMINATION TYPE: XR chest 2V DATE OF EXAM: 01/06/2020 COMPARISON: 12/25/2019 HISTORY: Shortness of breath TECHNIQUE: Frontal and lateral views of the chest are obtained. FINDINGS: Scattered senescent parenchymal changes noted. Hyperinflation compatible with COPD. Increasing basilar opacity particularly at the right lung base which could reflect loculated effusion or underlying infiltrate. Correlate clinically and progress studies are recommended. Heart size is stable. Mediastinal structures are stable and grossly unremarkable. No evidence for hilar prominence. Degenerative changes dorsal spine. IMPRESSION: 1. Increasing basilar opacity particularly at the right lung base which could reflect loculated effus ion or underlying infiltrate. Correlate clinically and progress studies are recommended.
[2020-01-06 13:22] LABS: Calcium 8.8 mg/dL (8.4-10.2); Magnesium 1.9 mg/dL (1.6-2.3); Potassium 4.4 mmol/L (3.5-5.1); Total Bilirubin 0.6 mg/dL (0.2-1.3); Total Protein 6.6 g/dL (6.3-8.2)
[2020-01-06 13:28] LABS: Partial Thromboplastin Time 25.2 sec (22.0-30.0); Prothrombin Time 10.6 sec (9.0-12.0)
[2020-01-06] MEDS ORDERED: cefTRIAXone IN SWFI 1,000 MG/10 ML SYRINGE IVP STA (13:28)
[2020-01-06] MEDS ORDERED: AZITHROMYCIN 500 MG in SODIUM CHLORIDE 0.9% 250 ML IVPB STA (14:33)
[2020-01-06] MEDS ORDERED: PNEUMONIA PROTOCOL UTILIZED 1 EACH MISC PO PRN (14:33)
[2020-01-06] MEDS ORDERED: ALBUTEROL NEBULIZED 2.5 MG/3 ML INHALATION PRN (17:10)
[2020-01-06] MEDS ORDERED: NON FORMULARY DRUG (Ipratropium Bromide [Atrovent Hfa] 12.9 GM Hfa.Aer.Ad) INHALATION PRN (17:10)
[2020-01-06] MEDS ORDERED: ALBUTEROL HFA INHALER INHALATION PRN (17:10)
[2020-01-06] MEDS ORDERED: NON FORMULARY DRUG (Promethaz-Cod 6.25-10 Mg/5 Ml 5 ML Ml) PO PRN (17:10)
--- NOTE | 2020-01-06 17:22 | P.HPIM ---
History of Present Illness 89-year-old female came in with comments of shortness of breath or exertional has been going on for about a week or so progressively getting worse. Patient had a recent thoracentesis about a week ago. The pleural fluid did not show any malignancy. Patient does have history of COPD does use 2 L of oxygen at home he did patient denied any fever chills, denied any nausea vomiting diarrhea. Patient is not septic at this time there is no evidence of pneumonia at this time although patient was started on antibiotic because of pleural effusions . Patient denied any significant cough. Chest x-ray showed bilateral pleural effusions significant on the right side moderate to large pleural effusion on the right side significantly worse compared to couple days ago. Review of Systems REVIEW OF SYSTEMS: CONSTITUTIONAL: No fever, no malaise, no fatigue. HEENT: No recent visual problems or hearing problems. Denied any sore throat. CARDIOVASCULAR: No chest pain, orthopnea, PND, no palpitations, no syncope. PULMONARY: As mentioned in HPI GASTROINTESTINAL: No diarrhea, no nausea, no vomiting, no abdominal pain. NEUROLOGICAL: No headaches, no weakness, no numbness. HEMATOLOGICAL: Denies any bleeding or petechiae. GENITOURINARY: Denies any burning micturition, frequency, or urgency. MUSCULOSKELETAL/RHEUMATOLOGICAL: Denies any joint pain, swelling, or any muscle pain. ENDOCRINE: Denies any polyuria or polydipsia. The rest of the 14-point review of systems is negative. Past Medical History Past Medical History: Asthma, Cancer, COPD, Hypertension Additional Past Medical History / Comment(s): back problems, arrythemia hx of wearing heart monitor, skin CA with removal. 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 History of Any Multi-Drug Resistant Organisms: None Reported Past Surgical History: Ablation, Tonsillectomy Additional Past Surgical History / Comment(s): aflutter - ablation Past Anesthesia/Blood Transfusion Reactions: No Reported Reaction Past Psychological History: No Psychological Hx Reported Smoking Status: Former smoker - Past Family History Son(s) Family Medical History: Myocardial Infarction ([place]) Medications and Allergies Home Medications Medication Instructions Recorded Confirmed Type Albuterol Nebulized [Ventolin 2.5 mg INHALATION RT-TID PRN 03/11/17 01/06/20 History Nebulized] Albuterol Sulfate [Proair Hfa] 2 puff INHALATION RT-QID PRN 03/11/17 01/06/20 History Famotidine [Pepcid] 20 mg PO BID 03/11/17 01/06/20 History Ipratropium Reynolds [Atrovent Hfa] 2 puff INHALATION RT-QID PRN 03/11/17 01/06/20 History Montelukast [Singulair] 10 mg PO HS 03/11/17 01/06/20 History Vitamin B Complex 1 cap PO DAILY 03/11/17 01/06/20 History Zolpidem [Ambien] 10 mg PO HS PRN 03/11/17 01/06/20 History Gabapentin [Neurontin] 200 mg PO BID #12 cap 01/22/19 01/06/20 Rx Apixaban [Eliquis] 2.5 mg PO BID 02/25/19 01/06/20 History Furosemide [Lasix] 20 mg PO BID 01/06/20 01/06/20 History Losartan Potassium [Cozaar] 25 mg PO DAILY 01/06/20 01/06/20 History Metoprolol Tartrate [Lopressor] 12.5 mg PO BID 01/06/20 01/06/20 History Promethaz-Cod 6.25-10 mg/5 ml 5 ml PO Q6H PRN 01/06/20 01/06/20 History [Phenergan with Codeine] Spironolactone [Aldactone] 25 mg PO DAILY 01/06/20 01/06/20 History predniSONE 5 mg PO DAILY 01/06/20 01/06/20 History Allergies Allergy/AdvReac Type Severity Reaction Status Date / Time adhesive tape AdvReac TEARS SKIN Verified 01/06/20 16:33 OFF ciprofloxacin [From Cipro] AdvReac Rapid Verified 01/06/20 16:33 Heart Rate Physical Exam Vitals: Vital Signs Temp Pulse Resp BP Pulse Ox 01/06/20 14:31 20 01/06/20 13:43 80 01/06/20 13:21 76 01/06/20 11:54 97.8 F 77 18 101/54 88 L Intake and Output 01/06/20 01/06/20 01/06/20 06:59 14:59 22:59 Other: Weight 49.895 kg PHYSICAL EXAMINATION: GENERAL: The patient is alert and oriented x3, not in any acute distress. Thin built elderly fragile female HEENT: Pupils are round and equally reacting to light. EOMI. No scleral icterus. No conjunctival pallor. Normocephalic, atraumatic. No pharyngeal erythema. No thyromegaly. CARDIOVASCULAR: S1 and S2 present. No murmurs, rubs, or gallops. PULMONARY: Chest is clear to auscultation, no wheezing or crackles. ABDOMEN: Soft, nontender, nondistended, normoactive bowel sounds. No palpable organomegaly. MUSCULOSKELETAL: No joint swelling or deformity. EXTREMITIES: No cyanosis, clubbing, or pedal edema. She and has mild lymphedema of the right that. NEUROLOGICAL: Gross neurological examination did not reveal any focal deficits. SKIN: No rashes. Results CBC & Chem 7: 01/06/20 12:47 01/06/20 12:47 Labs: Abnormal Lab Results - Last 24 Hours (Table) 01/06/20 01/06/20 01/06/20 Range/Units 12:47 12:47 12:47 WBC 14.2 H (3.8-10.6) k/uL RDW 15.6 H (11.5-15.5) % Plt Count 532 H (150-450) k/uL Neutrophils # 13.0 H (1.3-7.7) k/uL Lymphocytes # 0.4 L (1.0-4.8) k/uL BUN 34 H (7-17) mg/dL Creatinine 1.23 H (0.52-1.04) mg/dL Troponin I 0.035 H* (0.000-0.034) ng/mL Albumin 3.0 L (3.5-5.0) g/dL Assessment and Plan Plan: Acute on chronic hypoxic respiratory failure: Secondary to right-sided pleural effusion pulmonology was consulted. Patient may need therapeutic paracentesis. Patient had similar pleural effusion about a week ago which didn't show any cancer cells although patient does have history of pleural thickening in the past. Patient is presently on 4 L of oxygen. covid 19 is negative -Leukocytosis: Reactive no evidence of infection consisting that etiology is not clear on her pleural effusion on good and continue the antibiotics. -Chronic kidney disease stage III patient baseline creatinine is is around 1.2. Patient present creatinine is around that -Mildly elevated troponin secondary to chronic kidney disease -Chronic hypercapnic respiratory failure this will resolve onset at home. -Congestive heart failure chronic diastolic dysfunction with positive mild acute exacerbation patient will be started on IV Lasix. -DVT prophylaxis with Lovenox
[2020-01-06] MEDS ORDERED: methylPREDNISolone SOD SUCCI 125 MG/2 ML VIAL IV SCH (18:00)
[2020-01-06] MEDS ORDERED: guaiFENesin-Coden 100-10MG/5ML 10 ML CUP PO PRN (20:09)
[2020-01-06] MEDS: GABAPENTIN 100 MG CAP PO SCH (21:41)
[2020-01-06] MEDS: FAMOTIDINE 20 MG TAB PO SCH (21:41)
[2020-01-06] MEDS: ZOLPIDEM 10 MG TAB PO PRN (21:41)
[2020-01-06] MEDS: HEPARIN SODIUM,PORCINE 5,000 UNIT/ML 1 ML VIAL SQ SCH (21:41)
[2020-01-06] MEDS: METOPROLOL TARTRATE 12.5 MG TAB PO SCH (21:41)
--- NOTE | 2020-01-07 07:17 | XR ---
EXAMINATION TYPE: XR chest 2V DATE OF EXAM: 01/07/2020 COMPARISON: Prior chest x-ray 01/06/2020 HISTORY: Pneumonia TECHNIQUE: Frontal and lateral views of the chest are obtained. FINDINGS: Oval density in the right midlung may represent pseudotumor. There is blunting the costoph renic angles. Interstitium is increased. Apical pleural thickening is noted, there is associated calc ification. Aorta is dense. Heart is obscured but may be enlarged. IMPRESSION: Correlate for congestive heart failure with pleural effusions.
[2020-01-07] MEDS ORDERED: FUROSEMIDE 10 MG/ML 4 ML VIAL IV STA (08:33)
[2020-01-07] MEDS: IPRATROPIUM-ALBUTEROL 3 ML NEB INHALATION PRN ×3 (08:42→19:26)
[2020-01-07] MEDS: HEPARIN SODIUM,PORCINE 5,000 UNIT/ML 1 ML VIAL SQ SCH ×2 (08:50→20:33)
[2020-01-07] MEDS: predniSONE 5 MG TAB PO SCH (08:50)
[2020-01-07] MEDS: FAMOTIDINE 20 MG TAB PO SCH (08:50)
[2020-01-07] MEDS: GABAPENTIN 100 MG CAP PO SCH ×2 (08:50→20:33)
[2020-01-07] MEDS: METOPROLOL TARTRATE 12.5 MG TAB PO SCH (08:50)
[2020-01-07 09:39] LABS: Calcium 8.4 mg/dL (8.4-10.2); Potassium 4.5 mmol/L (3.5-5.1)
[2020-01-07 10:36] LABS: HCT 38.4 % (34.0-46.0); HGB 12.3 gm/dL (11.4-16.0); Hypochromasia Slight; MCH 28.7 pg (25.0-35.0); MCV 89.6 fL (80.0-100.0); Mean Platelet Volume 9.9; Platelet Count 335 k/uL (150-450); RBC 4.28 m/uL (3.80-5.40); RDW 15.8 % (11.5-15.5); WBC 13.7 k/uL (3.8-10.6)
[2020-01-07] MEDS ORDERED: RX INFO: IV CONTRAST WAS GIVEN 1 EACH MISC MISCELLANE PRN (11:39)
--- NOTE | 2020-01-07 14:44 | CT ---
EXAMINATION TYPE: CT chest w con DATE OF EXAM: 01/07/2020 COMPARISON: 07/30/2019 HISTORY: Pneumonia VS Rt Pleural Effusion CT DLP: 208.1 mGycm, Automated exposure control for dose reduction was used. CONTRAST: Performed injected with 80 mL of Isovue 300. TECHNIQUE: Axial images were obtained at 5 mm thick sections. Reconstructed images are reviewed on [employer] computer in the coronal plane. FINDINGS: Portion of the thyroid visualized is normal. Some right apical thickening is present. Bilateral pleural effusions are present. These may be relate d to right. Emphysematous changes are within the lung pollard. Compressive atelectasis at bilateral lung bases is present. Emphysematous changes are present, less w ell visualized than comparison. No enlarged mediastinal or hilar adenopathy is evident. The ascending aorta diameter at the level o f the main pulmonary artery is 2.6 cm. The main pulmonary artery diameter at the bifurcation is 2.[address] sections are obtained through the upper abdomen. Abdomen is essentially unremarkable. IMPRESSIONS: 1. Bilateral pleural effusions. On the right this appears loculated. 2. Compressive atelectasis adjacent right basilar pleural effusions.
--- NOTE | 2020-01-07 15:42 | P.PN ---
Subjective 89-year-old female came in with comments of shortness of breath or exertional has been going on for about a week or so progressively getting worse. Patient had a recent thoracentesis about a week ago. The pleural fluid did not show any malignancy. Patient does have history of COPD does use 2 L of oxygen at home he did patient denied any fever chills, denied any nausea vomiting diarrhea. Patient is not septic at this time there is no evidence of pneumonia at this time although patient was started on antibiotic because of pleural effusions . Patient denied any significant cough. Chest x-ray showed bilateral pleural effusions significant on the right side moderate to large pleural effusion on the right side significantly worse compared to couple days ago. 01/07/[address] of the chest which showed bilateral pleural effusions and a right-sided pleural effusion is loculated. Patient will be continued on IV Lasix. Patient respiratory status improved and much better today compared to yesterday. Constitutional: Denied any fatigue denied any fever. Cardio vascular: denied any chest pain, palpitations Gastrointestinal denied any nausea vomiting Pulmonary: As mentioned in HPI Neurologic denied any new focal deficits All inpatient medications were reviewed and appropriate changes in these medications as dictated in the interval history and assessment and plan. Objective - Vital Signs Vital signs: Vital Signs Temp 98.7 F 01/07/20 15:05 Pulse 79 01/07/20 15:05 Resp 18 01/07/20 15:05 BP 126/58 01/07/20 15:05 Pulse Ox 98 01/07/20 15:05 Intake & Output 01/06/20 01/07/20 01/07/20 18:59 06:59 18:59 Intake Total 490 Output Total 700 Balance -210 Weight 49.895 kg 48 kg 48 kg Intake: IV 70 Invasive Line 1 10 Invasive Line 2 10 cefTRIAXone 2 gm In 50 Sodium Chloride 0.9% 50 ml @ 100 mls/hr IVPB Q24HR [facility] Rx#:[id number] Oral 420 Output: Urine 700 Other: # Voids 1 - Exam PHYSICAL EXAMINATION: GENERAL: The patient is alert and oriented x3, not in any acute distress. Thin built elderly fragile female HEENT: Pupils are round and equally reacting to light. EOMI. No scleral icterus. No conjunctival pallor. Normocephalic, atraumatic. No pharyngeal erythema. No thyromegaly. CARDIOVASCULAR: S1 and S2 present. No murmurs, rubs, or gallops. PULMONARY: Chest is clear to auscultation, no wheezing or crackles. ABDOMEN: Soft, nontender, nondistended, normoactive bowel sounds. No palpable organomegaly. MUSCULOSKELETAL: No joint swelling or deformity. EXTREMITIES: No cyanosis, clubbing, or pedal edema. She and has mild lymphedema of the right that. NEUROLOGICAL: Gross neurological examination did not reveal any focal deficits. SKIN: No rashes. - Labs CBC & Chem 7: 01/07/20 07:48 01/07/20 07:48 Labs: Abnormal Lab Results - Last 24 Hours (Table) 01/07/20 01/07/20 Range/Units 07:48 07:48 WBC 13.7 H (3.8-10.6) k/uL RDW 15.8 H (11.5-15.5) % BUN 34 H (7-17) mg/dL Creatinine 1.18 H (0.52-1.04) mg/dL Glucose 156 H (74-99) mg/dL Assessment and Plan Plan: Acute on chronic hypoxic respiratory failure: Secondary to right-sided pleural effusion pulmonology was consulted. Patient may need therapeutic paracentesis. Patient had similar pleural effusion about a week ago which didn't show any cancer cells although patient does have history of pleural thickening in the past. Patient is presently on 4 L of oxygen. covid 19 is negative. Patient has bilateral pleural effusions and a computed tomography scan right-sided p leural effusion is loculated. Patient will continued on Lasix -Leukocytosis: Reactive no evidence of infection consisting that etiology is not clear on her pleural effusion on good and continue the antibiotics. -Chronic kidney disease stage III patient baseline creatinine is is around 1.2. Patient present creatinine is around that -Mildly elevated troponin secondary to chronic kidney disease -Chronic hypercapnic respiratory failure this will resolve onset at home. -Congestive heart failure chronic diastolic dysfunction with mild acute exacerbation patient will be started on IV Lasix. -DVT prophylaxis with Lovenox
--- NOTE | 2020-01-07 16:38 | P.CNPUL ---
History of Present Illness Consult date: 01/07/20 Reason for consult: dyspnea, COPD, pleural effusion History of present illness: 88-year-old female patient, known history of COPD and chronic fibrosis of the lungs predominantly lung bases along with history of traction bronchiectasis. The patient has been having difficulties with breathing and shortness of breath and she was hospitalized for the same. She is on oxygen at 2 L per minute nasal cannula. She is an ex-smoker. She was also having difficulties with bilateral pleural effusion. The patient underwent a drainage of the right lung on 12/25/2019 by my partner and the fluid was a transudate based on a fluid LDH and protein that were quite low. The fluid cytology was also negative for malignancy. A total of 1.3 L of fluid was aspirated from the right lung. Subsequently, the patient comes into the hospital because of worsening shortness of breath. The chest x-ray repeated shows a large opacification of the right lung base probably consistent with a loculated pleural effusion. Based on that, a CAT scan of the chest was ordered and the CT showed bilateral pleural effusion right more than left. The pleural fluid on the right appeared to be loculated. There was compressive atelectasis in the right basilar segments. There was diffuse emphysematous changes bilaterally as seen earlier. There is also evidence of right apical scarring. The patient is was a causative 13.7. The patient is a renal function which is stable with a creatinine of 1.1 and a BUN of 34. The patient's troponin was at 0.035, lactic acid level was at 1.9, coronavirus quit 19 screening was negative. Her previous echocardiogram from 07/30/2019 showed a preserved LV function with an EF of around 55-60%. The valvular functions were essentially within normal limits. There was moderate degree of tricuspid regurgitation with a pulmonary artery pressure estimated to be 48. The patient was also experiencing some swelling in the right upper extremity. A previous Dopplers that was done on 12/24/2019 came back negative for any DVT in the patient's CAT scan of the chest did not show any mediastinal mass. The patient is currently on IV Lasix. Review of Systems Constitutional: Denies chills, Denies fever Eyes: denies blurred vision, denies pain Ears, nose, mouth and throat: Denies headache, Denies sore throat Cardiovascular: Denies chest pain, the patient endorses shortness of breath and exertional dyspnea with progressive worsening of shortness of breath Respiratory: Reports cough, Reports dyspnea, Reports home oxygen Gastrointestinal: Denies abdominal pain, Denies diarrhea, Denies nausea, Denies vomiting Genitourinary: Denies dysuria, Denies hematuria Musculoskeletal: Denies myalgias Integumentary: Denies pruritus, Denies rash Neurological: Denies numbness, Denies weakness Psychiatric: Denies anxiety, Denies depression Endocrine: Denies fatigue, Denies weight change Past Medical History Past Medical History: Cancer, COPD, Hypertension Additional Past Medical History / Comment(s): COPD, pulmonary fibrosis, hypertension, history of skin cancer, history of chronic atrial fibrillation post-ablation, Hypertension, Chronic back pain History of Any Multi-Drug Resistant Organisms: None Reported Past Surgical History: Ablation, Tonsillectomy Additional Past Surgical History / Comment(s): aflutter - ablation Past Anesthesia/Blood Transfusion Reactions: No Reported Reaction Past Psychological History: No Psychological Hx Reported Smoking Status: Former smoker Past Alcohol Use History: None Reported, Rare Past Drug Use History: None Reported - Past Family History Son(s) Family Medical History: Myocardial Infarction ([place]) Medications and Allergies Home Medications Medication Instructions Recorded Confirmed Type Albuterol Nebulized [Ventolin 2.5 mg INHALATION RT-TID PRN 03/11/17 01/06/20 History Nebulized] Albuterol Sulfate [Proair Hfa] 2 puff INHALATION RT-QID PRN 03/11/17 01/06/20 History Famotidine [Pepcid] 20 mg PO BID 03/11/17 01/06/20 History Ipratropium [place] [Atrovent Hfa] 2 puff INHALATION RT-QID PRN 03/11/17 01/06/20 History Montelukast [Singulair] 10 mg PO HS 03/11/17 01/06/20 History Vitamin B Complex 1 cap PO DAILY 03/11/17 01/06/20 History Zolpidem [Ambien] 10 mg PO HS PRN 03/11/17 01/06/20 History Gabapentin [Neurontin] 200 mg PO BID #12 cap 01/22/19 01/06/20 Rx Apixaban [Eliquis] 2.5 mg PO BID 02/25/19 01/06/20 History Furosemide [Lasix] 20 mg PO BID 01/06/20 01/06/20 History Losartan Potassium [Cozaar] 25 mg PO DAILY 01/06/20 01/06/20 History Metoprolol Tartrate [Lopressor] 12.5 mg PO BID 01/06/20 01/06/20 History Promethaz-Cod 6.25-10 mg/5 ml 5 ml PO Q6H PRN 01/06/20 01/06/20 History [Phenergan with Codeine] Spironolactone [Aldactone] 25 mg PO DAILY 01/06/20 01/06/20 History predniSONE 5 mg PO DAILY 01/06/20 01/06/20 History Allergies Allergy/AdvReac Type Severity Reaction Status Date / Time adhesive tape AdvReac TEARS SKIN Verified 01/06/20 16:33 OFF ciprofloxacin [From Cipro] AdvReac Rapid Verified 01/06/20 16:33 Heart Rate Physical Exam Vitals: Vital Signs Temp Pulse Pulse Resp BP BP Pulse Ox 01/07/20 15:46 18 01/07/20 15:05 98.7 F 79 18 126/58 98 01/07/20 14:58 76 01/07/20 14:47 76 01/07/20 12:20 20 01/07/20 12:18 97.6 F 77 20 130/74 93 L 01/07/20 09:13 150 H 01/07/20 08:55 72 01/07/20 08:43 76 01/07/20 08:35 98.6 F 100 20 134/64 92 L 01/07/20 04:00 97.8 F 78 16 144/67 99 01/07/20 02:00 89 19 141/90 100 01/07/20 01:34 97.6 F 71 18 117/68 96 01/06/20 21:13 81 18 133/62 94 L 01/06/20 19:39 73 18 01/06/20 19:26 72 18 01/06/20 19:15 98.5 F 110 H 18 129/84 96 Intake and Output 01/07/20 01/07/20 01/07/20 06:59 14:59 22:59 Intake Total 480 10 Output Total 700 Balance -220 10 Intake: IV 60 10 Invasive Line 1 10 Invasive Line 2 10 cefTRIAXone 2 gm In 50 Sodium Chloride 0.9% 50 ml @ 100 mls/hr IVPB Q24HR [facility] Rx#:[id number] Oral 420 Output: Urine 700 Other: Voiding Method Bedside Commode # Voids 1 Weight 48 kg 48 kg GENERAL EXAM: Alert, active, comfortable in no apparent distress. HEAD: Normocephalic/atraumatic. EYES: Normal reaction of pupils, equal size. Conjunctiva pink, sclera white. NOSE: Clear with pink turbinates. THROAT: No erythema or exudates. NECK: No masses, no JVD, no thyroid enlargement, no adenopathy. CHEST: No chest wall deformity. Symmetrical expansion. there is diminished breath on the lung bases bilaterally. There is also dullness to percussion in the right. LUNGS: Equal air entry with coarse breath sounds bilaterally CVS: Regular rate and rhythm, normal S1 and S2, no gallops, no murmurs, no rubs ABDOMEN: Soft, nontender. No hepatosplenomegaly, normal bowel sounds, no gua rding or rigidity. EXTREMITIES: No clubbing, no edema, no cyanosis, 2+ pulses and upper and lower extremities. MUSCULOSKELETAL: Muscle strength and tone normal. SPINE: No scoliosis or deformity SKIN: No rashes CENTRAL NERVOUS SYSTEM: Alert and oriented -3. No focal deficits, tone is normal in all 4 extremities. PSYCHIATRIC: Alert and oriented -3. Appropriate affect. Intact judgment and insight. Results - Laboratory Findings CBC and BMP: 01/07/20 07:48 01/07/20 07:48 PT/INR, D-dimer PT 10.6 sec (9.0-12.0) 01/06/20 12:47 INR 1.0 (<1.2) 01/06/20 12:47 Abnormal lab findings: Abnormal Labs 01/06/20 01/06/20 01/06/20 12:47 12:47 12:47 WBC 14.2 H RDW 15.6 H Plt Count 532 H Neutrophils # 13.0 H Lymphocytes # 0.4 L BUN 34 H Creatinine 1.23 H Glucose Troponin I 0.035 H* Albumin 3.0 L 01/07/20 01/07/20 07:48 07:48 WBC 13.7 H RDW 15.8 H Plt Count Neutrophils # Lymphocytes # BUN 34 H Creatinine 1.18 H Glucose 156 H Troponin I Albumin - Diagnostic Findings Chest x-ray: image reviewed CT scan - chest: image reviewed Assessment and Plan Plan: 1 shortness of breath, multifactorial 2 bilateral pleural effusion right more than left along with some loculation noted on the right based on the most recent CAT scan of the chest. Note that the patient underwent a recent thoracentesis and the fluid was transudate based on a low LDH and protein in the fluid cytology was negative for malignancy. It is possible that this fluid is still related to a component of CHF based on the transplant nature of this fluid. Patient is currently on IV Lasix 3 compressive atelectatic changes in lung bases right more than left 4 COPD with diffuse emphysematous changes bilaterally, oxygen dependent and patient is also prednisone dependent taken from the grams of prednisone on a chronic basis. 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
[2020-01-07] MEDS: METOPROLOL TARTRATE 25 MG TAB PO SCH (20:33)
[2020-01-07] MEDS: FUROSEMIDE 10 MG/ML 4 ML VIAL IV SCH (20:34)
[2020-01-07] MEDS: ZOLPIDEM 10 MG TAB PO PRN (23:38)
[2020-01-08] MEDS: IPRATROPIUM-ALBUTEROL 3 ML NEB INHALATION PRN ×4 (07:27→20:59)
[2020-01-08] MEDS: GABAPENTIN 100 MG CAP PO SCH ×2 (08:05→20:53)
[2020-01-08] MEDS: predniSONE 5 MG TAB PO SCH (08:05)
[2020-01-08] MEDS: HEPARIN SODIUM,PORCINE 5,000 UNIT/ML 1 ML VIAL SQ SCH ×2 (08:05→20:54)
[2020-01-08] MEDS: METOPROLOL TARTRATE 25 MG TAB PO SCH ×2 (08:05→20:53)
[2020-01-08] MEDS: FAMOTIDINE 20 MG TAB PO SCH (08:05)
[2020-01-08] MEDS: FUROSEMIDE 10 MG/ML 4 ML VIAL IV SCH (08:05)
[2020-01-08 09:43] LABS: Calcium 8.4 mg/dL (8.4-10.2); Potassium 4.6 mmol/L (3.5-5.1)
[2020-01-08] MEDS ORDERED: LIDOCAINE 1% INJ 10MG/ML (20 ML MDV) ONE (11:01)
--- NOTE | 2020-01-08 13:04 | P.PN ---
Subjective 89-year-old female came in with comments of shortness of breath or exertional has been going on for about a week or so progressively getting worse. Patient had a recent thoracentesis about a week ago. The pleural fluid did not show any malignancy. Patient does have history of COPD does use 2 L of oxygen at home he did patient denied any fever chills, denied any nausea vomiting diarrhea. Patient is not septic at this time there is no evidence of pneumonia at this time although patient was started on antibiotic because of pleural effusions . Patient denied any significant cough. Chest x-ray showed bilateral pleural effusions significant on the right side moderate to large pleural effusion on the right side significantly worse compared to couple days ago. 01/07/[address] of the chest which showed bilateral pleural effusions and a right-sided pleural effusion is loculated. Patient will be continued on IV Lasix. Patient respiratory status improved and much better today compared to yesterday. 01/08/2020 Patient had thoracocentesis on the right side with removal of around the 700 mL and patient will undergo a left-sided thoracentesis tomorrow. Etiology for bilateral pleural effusions not clear probably congestive heart failure continue with the IV Lasix patient has mild worsening in the serum creatinine back off on the Lasix of breath. Constitutional: Denied any fatigue denied any fever. Cardio vascular: denied any chest pain, palpitations Gastrointestinal denied any nausea vomiting Pulmonary: As mentioned in HPI Neurologic denied any new focal deficits All inpatient medications were reviewed and appropriate changes in these medications as dictated in the interval history and assessment and plan. Objective - Vital Signs Vital signs: Vital Signs Temp 97.6 F 01/08/20 11:55 Pulse 90 01/08/20 12:39 Resp 18 01/08/20 11:55 BP 118/67 01/08/20 11:55 Pulse Ox 94 L 01/08/20 11:55 Intake & Output 01/07/20 01/08/20 01/08/20 18:59 06:59 18:59 Intake Total 987 230 Output Total 210 329 5547 Balance 287 950 -1120 Weight 48 kg 48.5 kg Intake: IV 70 Invasive Line 1 10 Invasive Line 2 10 cefTRIAXone 2 gm In 50 Sodium Chloride 0.9% 50 ml @ 100 mls/hr IVPB Q24HR [facility] Rx#:[id number] Oral 917 230 Output: Urine 700 950 600 Other 750 Other: Voiding Method Bedside Commode Bedside Commode Bedside Commode # Voids 1 - Exam PHYSICAL EXAMINATION: GENERAL: The patient is alert and oriented x3, not in any acute distress. Thin built elderly fragile female HEENT: Pupils are round and equally reacting to light. EOMI. No scleral icterus. No conjunctival pallor. Normocephalic, atraumatic. No pharyngeal erythema. No thyromegaly. CARDIOVASCULAR: S1 and S2 present. No murmurs, rubs, or gallops. PULMONARY: Chest is clear to auscultation, no wheezing or crackles. ABDOMEN: Soft, nontender, nondistended, normoactive bowel sounds. No palpable organomegaly. MUSCULOSKELETAL: No joint swelling or deformity. EXTREMITIES: No cyanosis, clubbing, or pedal edema. She and has mild lymphedema of the right that. NEUROLOGICAL: Gross neurological examination did not reveal any focal deficits. SKIN: No rashes. - Labs CBC & Chem 7: 01/07/20 07:48 01/08/20 08:08 Labs: Abnormal Lab Results - Last 24 Hours (Table) 01/08/20 Range/Units 08:08 BUN 42 H (7-17) mg/dL Creatinine 1.32 H (0.52-1.04) mg/dL Glucose 105 H (74-99) mg/dL Microbiology - Last 24 Hours (Table) 01/06/20 15:28 Blood Culture - Preliminary Blood No Growth after 24 hours Assessment and Plan Plan: Acute on chronic hypoxic respiratory failure: Pleural effusion patient is status post a paracentesis on the right side will undergo thoracocentesis on the left side probably congestive heart failure. Removed about 700 mL from the right side of the lung. A she remains in 4 L of oxygen covid 19 is negative. Patient has bilateral pleural effusions and a computed tomography scan right- sided pleural effusion is loculated. Patient will continued on Lasix - paroxysmal A. fib: Patient is in and out of A. fib increase the dose of metoprolol will can you to hold off on anticoagulation because of possible thoracocentesis tomorrow -Leukocytosis: Reactive no evidence of infection consisting that etiology is not clear on her pleural effusion on good and continue the antibiotics. -Chronic kidney disease stage III patient baseline creatinine is is around 1.2. Patient present creatinine is 1.4 record on the Lasix 20 IV twice a day -Mildly elevated troponin secondary to chronic kidney disease -Chronic hypercapnic respiratory failure this will resolve onset at home. -Congestive heart failure chronic diastolic dysfunction with mild acute e xacerbation patient will be started on IV Lasix. -DVT prophylaxis with Lovenox
--- NOTE | 2020-01-08 13:04 | XR ---
EXAMINATION TYPE: XR chest 1V portable DATE OF EXAM: 01/08/2020 COMPARISON: 01/07/2020 INDICATION: Status post thoracentesis right side TECHNIQUE: Single frontal view of the chest is obtained. FINDINGS: The heart size is moderately prominent. The pulmonary vasculature is normal. Small bilateral pleural effusions are present. The loculated collection within the right peripheral m idlung is diminished over the interval. No pneumothorax is evident. Apical calcification is noted. IMPRESSION: 1. No pneumothorax right-sided thoracentesis. 2. Diminished right pleural fluid. Left pleural effusion is stable. 3. Moderate cardiomegaly
--- NOTE | 2020-01-08 15:24 | P.PN ---
Subjective Progress Note Date: 01/08/20 Principal diagnosis: Dyspnea secondary to recurrent bilateral pleural effusions 88-year-old female patient, known history of COPD and chronic fibrosis of the lungs predominantly lung bases along with history of traction bronchiectasis. The patient has been having difficulties with breathing and shortness of breath and she was hospitalized for the same. She is on oxygen at 2 L per minute nasal cannula. She is an ex-smoker. She was also having difficulties with bilateral pleural effusion. The patient underwent a drainage of the right lung on 12/25/2019 by my partner and the fluid was a transudate based on a fluid LDH and protein that were quite low. The fluid cytology was also negative for malignancy. A total of 1.3 L of fluid was aspirated from the right lung. S ubsequently, the patient comes into the hospital because of worsening shortness of breath. The chest x-ray repeated shows a large opacification of the right lung base probably consistent with a loculated pleural effusion. Based on that, a CAT scan of the chest was ordered and the CT showed bilateral pleural effusion right more than left. The pleural fluid on the right appeared to be loculated. There was compressive atelectasis in the right basilar segments. There was diffuse emphysematous changes bilaterally as seen earlier. There is also evidence of right apical scarring. The patient is was a causative 13.7. The patient is a renal function which is stable with a creatinine of 1.1 and a BUN of 34. The patient's troponin was at 0.035, lactic acid level was at 1.9, coronavirus quit 19 screening was negative. Her previous echocardiogram from 07/30/2019 showed a preserved LV function with an EF of around 55-60%. The valvular functions were essentially within normal limits. There was moderate degree of tricuspid regurgitation with a pulmonary artery pressure estimated to be 48. The patient was also experiencing some swelling in the right upper extremity. A previous Dopplers that was done on 12/24/2019 came back negative for any DVT in the patient's CAT scan of the chest did not show any mediastinal mass. The patient is currently on IV Lasix. The patient is seen today 01/08/2020 in follow-up on the selective care unit. She is currently sitting up at the bedside. Awake and alert in no acute distress. Her breathing is about the same today as compared to yesterday. Maintaining O2 saturation in the mid 90s on 4 L/m per nasal cannula. Afebrile. Hemodynamically stable. Blood cultures reveal no growth. Sodium 137. Potassium 4.6. Creatinine 1.32. She did undergo a right-sided thoracentesis today by Dr. Koo. 750 mL was removed. This was blood-tinged fluid. Fluid analysis and cultures with cytology sent. Follow-up chest x-ray revealed no evidence of right-sided pneumothorax. Diminished right pleural effusion. Left pleural effusion stable. Moderate cardiomegaly. Objective - Vital Signs Vital signs: Vital Signs Temp 98.6 F 01/08/20 15:00 Pulse 93 01/08/20 15:00 Resp 18 01/08/20 15:00 BP 126/70 01/08/20 15:00 Pulse Ox 96 01/08/20 15:00 Intake & Output 01/07/20 01/08/20 01/08/20 18:59 06:59 18:59 Intake Total 987 240 Output Total 239 389 8663 Balance 287 -950 -1510 Weight 48 kg 48.5 kg Intake: IV 70 10 Invasive Line 1 10 Invasive Line 2 10 Invasive Line 3 10 cefTRIAXone 2 gm In 50 Sodium Chloride 0.9% 50 ml @ 100 mls/hr IVPB Q24HR [facility] Rx#:[id number] Oral 917 230 Output: Urine 751 185 7607 Other 750 Other: Voiding Method Bedside Commode Bedside Commode Bedside Commode # Voids 1 - Exam GENERAL EXAM: Alert, active, pleasant 89-year-old female patient, on 4 L/m per nasal cannula, fairly comfortable in no apparent distress. HEAD: Normocephalic/atraumatic. EYES: Normal reaction of pupils, equal size. Conjunctiva pink, sclera white. NOSE: Clear with pink turbinates. THROAT: No erythema or exudates. NECK: No masses, no JVD, no thyroid enlargement, no adenopathy. CHEST: No chest wall deformity. Symmetrical expansion. there is diminished breath on the lung bases bilaterally. There is also dullness to percussion in the right. LUNGS: Equal air entry with coarse breath sounds bilaterally CVS: Regular rate and rhythm, normal S1 and S2, no gallops, no murmurs, no rubs ABDOMEN: Soft, nontender. No hepatosplenomegaly, normal bowel sounds, no guarding or rigidity. EXTREMITIES: No clubbing, no edema, no cyanosis, 2+ pulses and upper and lower extremities. MUSCULOSKELETAL: Muscle strength and tone normal. SPINE: No scoliosis or deformity SKIN: No rashes CENTRAL NERVOUS SYSTEM: Alert and oriented -3. No focal deficits, tone is normal in all 4 extremities. PSYCHIATRIC: Alert and oriented -3. Appropriate affect. Intact judgment and insight. - Labs CBC & Chem 7: 01/07/20 07:48 01/08/20 08:08 Labs: Abnormal Lab Results - Last 24 Hours (Table) 01/08/20 Range/Units 08:08 BUN 42 H (7-17) mg/dL Creatinine 1.32 H (0.52-1.04) mg/dL Glucose 105 H (74-99) mg/dL Microbiology - Last 24 Hours (Table) 01/06/20 15:28 Blood Culture - Preliminary Blood No Growth after 24 hours Assessment and Plan Assessment: 1 acute hypoxemic respiratory failure with shortness of breath, multifactorial 2 bilateral pleural effusion right more than left along with some loculation noted on the right based on the most recent CAT scan of the chest. Note that the patient underwent a recent thoracentesis and the fluid was transudate based on a low LDH and protein in the fluid cytology was negative for malignancy. It is possible that this fluid is still related to a component of CHF based on the transplant nature of this fluid. Patient is currently on IV Lasix On 01/08/2020 the patient had undergone a repeat right-sided thoracentesis with 750 mL of blood-tinged fluid removed. Cultures, cytology pending 3 compressive atelectatic changes in lung bases right more than left 4 COPD with diffuse emphysematous changes bilaterally, oxygen dependent and patient is also prednisone dependent taken from the grams of prednisone on a chronic basis. 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 Koo He did perform a right-sided thoracentesis today with 750 MLS of bloody fluid returned Follow-up chest x-ray revealed improved aeration to the right lung, no pneumothorax Cultures and cytology pending Continue diuretics May consider left-sided thoracentesis in a.m. We'll continue to follow I, the cosigning physician, performed a history & physical examination of the patient. Lungs sounds basilar crackles. Maintaining good O2 saturations in the 90s on 4 L/m per nasal cannula. I discussed the assessment and plan of care with my nurse practitioner, Cherry Mark. I attest to the above note as dictated by her.
[2020-01-08 16:22] LABS: Appearance,BF Cloudy; Color,BF Orange; RBC, Body Fluid 34200 /uL
[2020-01-08 16:23] LABS: Nucleated Cells, Body Fluid 2000 /uL
[2020-01-08 16:32] LABS: Mononuclear WBC,Body Fluid 73 %; Polynuclear WBC,Body Fluid 27 %; Total Cells Counted,Body Fluid 100
[2020-01-08] MEDS: FUROSEMIDE 10 MG/ML 2 ML VIAL IV SCH (20:54)
[2020-01-08] MEDS: ZOLPIDEM 10 MG TAB PO PRN (20:54)
[2020-01-08 21:39] LABS: Glucose, BF Source Pleural Fluid; Glucose, Body Fluid 85 mg/dL; LDH, Body Fluid Source Pleural Fluid; Total Protein, Body Fluid 3300 mg/dL
[2020-01-09] MEDS: METOPROLOL TARTRATE 25 MG TAB PO SCH ×2 (08:30→20:19)
[2020-01-09] MEDS: predniSONE 5 MG TAB PO SCH (08:30)
[2020-01-09] MEDS: FAMOTIDINE 20 MG TAB PO SCH (08:30)
[2020-01-09] MEDS: GABAPENTIN 100 MG CAP PO SCH ×2 (08:30→20:18)
[2020-01-09] MEDS: FUROSEMIDE 10 MG/ML 2 ML VIAL IV SCH (08:30)
[2020-01-09] MEDS: HEPARIN SODIUM,PORCINE 5,000 UNIT/ML 1 ML VIAL SQ SCH (08:30)
[2020-01-09] MEDS: IPRATROPIUM-ALBUTEROL 3 ML NEB INHALATION PRN ×3 (09:00→20:05)
--- NOTE | 2020-01-09 09:17 | P.PN ---
Subjective 89-year-old female came in with comments of shortness of breath or exertional has been going on for about a week or so progressively getting worse. Patient had a recent thoracentesis about a week ago. The pleural fluid did not show any malignancy. Patient does have history of COPD does use 2 L of oxygen at home he did patient denied any fever chills, denied any nausea vomiting diarrhea. Patient is not septic at this time there is no evidence of pneumonia at this time although patient was started on antibiotic because of pleural effusions . Patient denied any significant cough. Chest x-ray showed bilateral pleural effusions significant on the right side moderate to large pleural effusion on the right side significantly worse compared to couple days ago. 01/07/[address] of the chest which showed bilateral pleural effusions and a right-sided pleural effusion is loculated. Patient will be continued on IV Lasix. Patient respiratory status improved and much better today compared to yesterday. 01/08/2020 Patient had thoracocentesis on the right side with removal of around the 700 mL and patient will undergo a left-sided thoracentesis tomorrow. Etiology for bilateral pleural effusions not clear probably congestive heart failure continue with the IV Lasix patient has mild worsening in the serum creatinine back off on the Lasix of breath. 01/09/2020 Pleural fluid appears to be exudative in nature. Patient is feeling better but her creatinine went up because of which are R discontinue the Lasix and patient will undergo thoracentesis on the left side today. Constitutional: Denied any fatigue denied any fever. Cardio vascular: denied any chest pain, palpitations Gastrointestinal denied any nausea vomiting Pulmonary: As mentioned in HPI Neurologic denied any new focal deficits All inpatient medications were reviewed and appropriate changes in these medications as dictated in the interval history and assessment and plan. Objective - Vital Signs Vital signs: Vital Signs Temp 97.8 F 01/09/20 03:53 Pulse 86 01/09/20 09:09 Resp 17 01/09/20 03:53 BP 109/70 01/09/20 03:53 Pulse Ox 97 01/09/20 03:53 Intake & Output 01/08/20 01/09/20 01/09/20 18:59 06:59 18:59 Intake Total 540 10 Output Total 2150 800 Balance -1610 -790 Weight 46 kg Intake: IV 10 10 Invasive Line 3 10 10 Oral 530 Output: Urine 1400 800 Other 750 Other: Voiding Method Bedside Commode Bedside Commode Bedside Commode # Voids 1 # Bowel Movements 2 - Exam PHYSICAL EXAMINATION: GENERAL: The patient is alert and oriented x3, not in any acute distress. Thin built elderly fragile female HEENT: Pupils are round and equally reacting to light. EOMI. No scleral icterus. No conjunctival pallor. Normocephalic, atraumatic. No pharyngeal erythema. No thyromegaly. CARDIOVASCULAR: S1 and S2 present. No murmurs, rubs, or gallops. PULMONARY: Chest is clear to auscultation, no wheezing or crackles. ABDOMEN: Soft, nontender, nondistended, normoactive bowel sounds. No palpable organomegaly. MUSCULOSKELETAL: No joint swelling or deformity. EXTREMITIES: No cyanosis, clubbing, or pedal edema. She and has mild lymphedema of the right that. NEUROLOGICAL: Gross neurological examination did not reveal any focal deficits. SKIN: No rashes. - Labs CBC & Chem 7: 01/07/20 07:48 01/08/20 08:08 Labs: Abnormal Lab Results - Last 24 Hours (Table) 01/08/20 Range/Units 08:08 BUN 42 H (7-17) mg/dL Creatinine 1.32 H (0.52-1.04) mg/dL Glucose 105 H (74-99) mg/dL Microbiology - Last 24 Hours (Table) 01/08/20 21:32 Sputum Culture - Preliminary Sputum 01/08/20 12:10 Acid Fast Bacilli Smear - Final Pleural Fluid Acid Fast Bacilli Culture - Preliminary 01/08/20 12:10 Gram Stain - Preliminary Pleural Fluid Body Fluid Culture - Preliminary 01/08/20 12:10 Fungal Culture - Preliminary Pleural Fluid 01/08/20 12:10 Anaerobic Culture - Preliminary Pleural Fluid 01/06/20 15:28 Blood Culture - Preliminary Blood No Growth after 48 hours Assessment and Plan Plan: Acute on chronic hypoxic respiratory failure: Pleural effusion patient is status post a paracentesis on the right side will undergo thoracocentesis on the left side probably congestive heart failure. Removed about 700 mL from the right side of the lung. A she remains in 4 L of oxygen covid 19 is negative. Patient has bilateral pleural effusions and a computed tomography scan right- sided pleural effusion is loculated. lasix will be discontinued - paroxysmal A. fib: Patient is in and out of A. fib increase the dose of metoprolol will can you to hold off on anticoagulation because of possible thoracocentesis today -Leukocytosis: Reactive no evidence of infection consisting that etiology is not clear on her pleural effusion on good and continue the antibiotics. -Chronic kidney disease stage III patient baseline creatinine is is around 1.2. Patient present creatinine is 1.4 record ahold of Lasix because of elevated creatinine -Mildly elevated troponin secondary to chronic kidney disease -Chronic hypercapnic respiratory failure this will resolve onset at home. -Congestive heart failure chronic diastolic dysfunction with mild acute exacerbation patient will be started on IV Lasix. -DVT prophylaxis with Lovenox
--- NOTE | 2020-01-09 15:03 | P.PN ---
Subjective Progress Note Date: 01/09/20 Principal diagnosis: Dyspnea secondary to recurrent bilateral pleural effusions 88-year-old female patient, known history of COPD and chronic fibrosis of the lungs predominantly lung bases along with history of traction bronchiectasis. The patient has been having difficulties with breathing and shortness of breath and she was hospitalized for the same. She is on oxygen at 2 L per minute nasal cannula. She is an ex-smoker. She was also having difficulties with bilateral pleural effusion. The patient underwent a drainage of the right lung on 12/25/2019 by my partner and the fluid was a transudate based on a fluid LDH and protein that were quite low. The fluid cytology was also negative for malignancy. A total of 1.3 L of fluid was aspirated from the right lung. S ubsequently, the patient comes into the hospital because of worsening shortness of breath. The chest x-ray repeated shows a large opacification of the right lung base probably consistent with a loculated pleural effusion. Based on that, a CAT scan of the chest was ordered and the CT showed bilateral pleural effusion right more than left. The pleural fluid on the right appeared to be loculated. There was compressive atelectasis in the right basilar segments. There was diffuse emphysematous changes bilaterally as seen earlier. There is also evidence of right apical scarring. The patient is was a causative 13.7. The patient is a renal function which is stable with a creatinine of 1.1 and a BUN of 34. The patient's troponin was at 0.035, lactic acid level was at 1.9, coronavirus quit 19 screening was negative. Her previous echocardiogram from 07/30/2019 showed a preserved LV function with an EF of around 55-60%. The valvular functions were essentially within normal limits. There was moderate degree of tricuspid regurgitation with a pulmonary artery pressure estimated to be 48. The patient was also experiencing some swelling in the right upper extremity. A previous Dopplers that was done on 12/24/2019 came back negative for any DVT in the patient's CAT scan of the chest did not show any mediastinal mass. The patient is currently on IV Lasix. The patient is seen today 01/08/2020 in follow-up on the selective care unit. She is currently sitting up at the bedside. Awake and alert in no acute distress. Her breathing is about the same today as compared to yesterday. Maintaining O2 saturation in the mid 90s on 4 L/m per nasal cannula. Afebrile. Hemodynamically stable. Blood cultures reveal no growth. Sodium 137. Potassium 4.6. Creatinine 1.32. She did undergo a right-sided thoracentesis today by Dr. Koo. 750 mL was removed. This was blood-tinged fluid. Fluid analysis and cultures with cytology sent. Follow-up chest x-ray revealed no evidence of right-sided pneumothorax. Diminished right pleural effusion. Left pleural effusion stable. Moderate cardiomegaly. Patient is seen today 01/09/2020 follow-up on the selective care unit. She is currently sitting up in bed. Awake and alert in no acute distress. Breathing a bit easier today compared to yesterday. Currently on 2 L/m per nasal cannula. She did undergo a right-sided thoracentesis with 750 mL of fluid removed yesterday. Fluid analysis reveals total protein 3.3. LDH 239. Suspect exudative despite numbers. Cultures are pending. Cytology pending. Objective - Vital Signs Vital signs: Vital Signs Temp 97.6 F 01/09/20 12:00 Pulse 95 01/09/20 12:00 Resp 16 01/09/20 12:15 BP 105/58 01/09/20 12:00 Pulse Ox 92 L 01/09/20 12:15 Intake & Output 01/08/20 01/09/20 01/09/20 18:59 06:59 18:59 Intake Total 540 10 770 Output Total 2150 800 350 Balance -1610 -790 420 Weight 46 kg Intake: IV 10 10 210 Invasive Line 3 10 10 KVO 160 cefTRIAXone 2 gm In 50 Sodium Chloride 0.9% 50 ml @ 100 mls/hr IVPB Q24HR [facility] Rx#:[id number] Oral 530 560 Output: Urine 1400 800 350 Other 750 Other: Voiding Method Bedside Commode Bedside Commode Bedside Commode # Voids 1 # Bowel Movements 2 - Exam GENERAL EXAM: Alert, active, pleasant 89-year-old female patient, on 2 L/m per nasal cannula, fairly comfortable in no apparent distress. HEAD: Normocephalic/atraumatic. EYES: Normal reaction of pupils, equal size. Conjunctiva pink, sclera white. NOSE: Clear with pink turbinates. THROAT: No erythema or exudates. NECK: No masses, no JVD, no thyroid enlargement, no adenopathy. CHEST: No chest wall deformity. LUNGS: Equal air entry with coarse breath sounds bilaterally. CVS: Regular rate and rhythm, normal S1 and S2, no gallops, no murmurs, no rubs ABDOMEN: Soft, nontender. No hepatosplenomegaly, normal bowel sounds, no guarding or rigidity. EXTREMITIES: No clubbing, no edema, no cyanosis, 2+ pulses and upper and lower extremities. MUSCULOSKELETAL: Muscle strength and tone normal. SPINE: No scoliosis or deformity SKIN: No rashes CENTRAL NERVOUS SYSTEM: Alert and oriented -3. No focal deficits, tone is normal in all 4 extremities. PSYCHIATRIC: Alert and oriented -3. Appropriate affect. Intact judgment and insight. - Labs CBC & Chem 7: 01/07/20 07:48 01/08/20 08:08 Labs: Microbiology - Last 24 Hours (Table) 01/08/20 12:10 Gram Stain - Preliminary Pleural Fluid Body Fluid Culture - Preliminary 01/08/20 09:31 Sputum Culture - Preliminary Sputum 01/08/20 12:10 Acid Fast Bacilli Smear - Final Pleural Fluid Acid Fast Bacilli Culture - Preliminary 01/08/20 12:10 Fungal Culture - Preliminary Pleural Fluid 01/08/20 12:10 Anaerobic Culture - Preliminary Pleural Fluid 01/06/20 15:28 Blood Culture - Preliminary Blood No Growth after 48 hours Assessment and Plan Assessment: 1 acute hypoxemic respiratory failure with shortness of breath, multifactorial 2 bilateral pleural effusion right more than left along with some loculation noted on the right based on the most recent CAT scan of the chest. Note that the patient underwent a recent thoracentesis and the fluid was transudate based on a low LDH and protein in the fluid cytology was negative for malignancy. It is possible that this fluid is still related to a component of CHF based on the transplant nature of this fluid. On 01/08/2020 the patient had undergone a repeat right-sided thoracentesis with 750 mL of blood-tinged fluid removed. Cultures, cytology pending 3 compressive atelectatic changes in lung bases right more than left 4 COPD with diffuse emphysematous changes bilaterally, oxygen dependent and patient is also prednisone dependent taken from the grams of prednisone on a chronic basis. 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 Koo She is improved and down to 2 L nasal cannula No plans for repeat thoracentesis on the left Resume Lorriis We'll continue to follow I, the cosigning physician, performed a history & physical examination of the patient. Lungs sounds basilar crackles. Maintaining good O2 saturations in the 90s on 2 L/m per nasal cannula. I discussed the assessment and plan of care with my nurse practitioner, Cherry Mark. I attest to the above note as dictated by her.
[2020-01-09 15:46] VITALS: RESP 18
[2020-01-09] MEDS: ZOLPIDEM 10 MG TAB PO PRN (20:18)
[2020-01-09] MEDS: APIXABAN 2.5 MG TABLET PO SCH (20:19)
[2020-01-10] MEDS: FAMOTIDINE 20 MG TAB PO SCH (07:52)
[2020-01-10] MEDS: predniSONE 5 MG TAB PO SCH (07:52)
[2020-01-10] MEDS: METOPROLOL TARTRATE 25 MG TAB PO SCH (07:52)
[2020-01-10] MEDS: APIXABAN 2.5 MG TABLET PO SCH (07:52)
[2020-01-10] MEDS: GABAPENTIN 100 MG CAP PO SCH (07:52)
[2020-01-10 08:22] LABS: Calcium 7.9 mg/dL (8.4-10.2); Potassium 4.2 mmol/L (3.5-5.1)
[2020-01-10] MEDS: IPRATROPIUM-ALBUTEROL 3 ML NEB INHALATION PRN (08:28)
[2020-01-10 08:51] VITALS: BP 118/58; PULSE 84; TEMP 98.8
--- NOTE | 2020-01-10 13:14 | P.DS ---
Providers Date of admission: 01/06/20 14:33 Attending physician: Suzan Sexton Consults: 01/06/20 14:33 Consult Physician Routine Consulting Provider: Maryan Sullivan Consult Reason/Comments: pleural effusion, pneumonia, COPD exacerbation Do you want consulting provider notified?: Yes Primary care physician: [facility] Course: 89-year-old female came in with comments of shortness of breath or exertional has been going on for about a week or so progressively getting worse. Patient had a recent thoracentesis about a week ago. The pleural fluid did not show any malignancy. Patient does have history of COPD does use 2 L of oxygen at home he did patient denied any fever chills, denied any nausea vomiting diarrhea. Patient is not septic at this time there is no evidence of pneumonia at this time although patient was started on antibiotic because of pleural effusions . Patient denied any significant cough. Chest x-ray showed bilateral pleural effusions significant on the right side moderate to large pleural effusion on the right side significantly worse compared to couple days ago. 01/07/[address] of the chest which showed bilateral pleural effusions and a rig ht-sided pleural effusion is loculated. Patient will be continued on IV Lasix. Patient respiratory status improved and much better today compared to yesterday. 01/08/2020 Patient had thoracocentesis on the right side with removal of around the 700 mL and patient will undergo a left-sided thoracentesis tomorrow. Etiology for bilateral pleural effusions not clear probably congestive heart failure continue with the IV Lasix patient has mild worsening in the serum creatinine back off on the Lasix of breath. 01/09/2020 Pleural fluid appears to be exudative in nature. Patient is feeling better but her creatinine went up because of which are R discontinue the Lasix and patient will undergo thoracentesis on the left side today. 01/10/2020 Patient was pretty status improved. No plan on thoracentesis in the left side. Patient will be discharged today will follow-up closely with PCP and pulmonary as an outpatient. Pleural fluid cytology will be followed as an outpatient by her learning and development assistant. PHYSICAL EXAMINATION: GENERAL: The patient is alert and oriented x3, not in any acute distress. Thin built elderly fragile female HEENT: Pupils are round and equally reacting to light. EOMI. No scleral icterus. No conjunctival pallor. Normocephalic, atraumatic. No pharyngeal erythema. No thyromegaly. CARDIOVASCULAR: S1 and S2 present. No murmurs, rubs, or gallops. PULMONARY: Chest is clear to auscultation, no wheezing or crackles. ABDOMEN: Soft, nontender, nondistended, normoactive bowel sounds. No palpable organomegaly. MUSCULOSKELETAL: No joint swelling or deformity. EXTREMITIES: No cyanosis, clubbing, or pedal edema. She and has mild lymphedema of the right that. NEUROLOGICAL: Gross neurological examination did not reveal any focal deficits. SKIN: No rashes. Assessment and Plan Plan: Acute on chronic hypoxic respiratory failure: Pleural effusion patient is status post a paracentesis on the right side Removed about 700 mL from the right side of the lung. A she remains in 4 L of oxygen covid 19 is negative. Patient has bilateral pleural effusions and a computed tomography scan right-sided pleural effusion is loculated. Patient has exudative pleural effusion, pleural fluid cytology will be followed as an outpatient patient doesn't have any pneumonia at this time - paroxysmal A. fib: Presently rate controlled in sinus rhythm -Leukocytosis: Reactive no evidence of infection consisting that etiology is not clear on her pleural effusion on good and continue the antibiotics. -Chronic kidney disease stage III patient baseline creatinine is is around 1.2. -Mildly elevated troponin secondary to chronic kidney disease -Chronic hypercapnic respiratory failure this will resolve onset at home. -Congestive heart failure chronic diastolic dysfunction with mild acute exacerbation admission presently euvolemic -DVT prophylaxis with Lovenox Plan - Discharge Summary Discharge Rx Participant: Yes New Discharge Prescriptions: New Metoprolol Tartrate [Lopressor] 25 mg PO BID #60 tab Continue Ipratropium [place] [Atrovent Hfa] 2 puff INHALATION RT-QID PRN PRN Reason: Shortness Of Breath Albuterol Sulfate [Proair Hfa] 2 puff INHALATION RT-QID PRN PRN Reason: Shortness Of Breath Albuterol Nebulized [Ventolin Nebulized] 2.5 mg INHALATION RT-TID PRN PRN Reason: Shortness Of Breath Zolpidem [Ambien] 10 mg PO HS PRN PRN Reason: Insomnia Vitamin B Complex 1 cap PO DAILY Montelukast [Singulair] 10 mg PO HS Famotidine [Pepcid] 20 mg PO BID Gabapentin [Neurontin] 200 mg PO BID #12 cap Apixaban [Eliquis] 2.5 mg PO BID Furosemide [Lasix] 20 mg PO BID Promethaz-Cod 6.25-10 mg/5 ml [Phenergan with Codeine] 5 ml PO Q6H PRN PRN Reason: Cough predniSONE 5 mg PO DAILY Spironolactone [Aldactone] 25 mg PO DAILY Discontinued Metoprolol Tartrate [Lopressor] 12.5 mg PO BID Losartan Potassium [Cozaar] 25 mg PO DAILY Discharge Medication List Albuterol Nebulized [Ventolin Nebulized] 2.5 mg INHALATION RT-TID PRN 03/11/17 [History] Albuterol Sulfate [Proair Hfa] 2 puff INHALATION RT-QID PRN 03/11/17 [History] Famotidine [Pepcid] 20 mg PO BID 03/11/17 [History] Ipratropium [place] [Atrovent Hfa] 2 puff INHALATION RT-QID PRN 03/11/17 [History] Montelukast [Singulair] 10 mg PO HS 03/11/17 [History] Vitamin B Complex 1 cap PO DAILY 03/11/17 [History] Zolpidem [Ambien] 10 mg PO HS PRN 03/11/17 [History] Gabapentin [Neurontin] 200 mg PO BID #12 cap 01/22/19 [Rx] Apixaban [Eliquis] 2.5 mg PO BID 02/25/19 [History] Furosemide [Lasix] 20 mg PO BID 01/06/20 [History] Promethaz-Cod 6.25-10 mg/5 ml [Phenergan with Codeine] 5 ml PO Q6H PRN 01/06/20 [History] Spironolactone [Aldactone] 25 mg PO DAILY 01/06/20 [History] predniSONE 5 mg PO DAILY 01/06/20 [History] Metoprolol Tartrate [Lopressor] 25 mg PO BID #60 tab 01/10/20 [Rx] Follow up Appointment(s)/Referral(s): Maryan Sullivan MD [STAFF PHYSICIAN] - 1 Week Angel Natarajan DO [Primary Care Provider] - 3 Days Ambulatory/Diagnostic Orders: Basic Metabolic Panel [LAB.AMB] Time Frame: 3 Days, Location: None Selected Patient Instructions/Handouts: Heart Failure (ER), COPD (Chronic Obstructive Pulmonary Disease) (ED), Community Acquired Pneumonia (ED) Discharge Disposition: HOME WITH HOME HEALTH SERVICES
[2020-01-10 13:42] VITALS: BMI 18.4
--- NOTE | 2020-01-10 14:43 | P.PN ---
Subjective Progress Note Date: 01/10/20 Principal diagnosis: Dyspnea secondary to recurrent bilateral pleural effusions 88-year-old female patient, known history of COPD and chronic fibrosis of the lungs predominantly lung bases along with history of traction bronchiectasis. The patient has been having difficulties with breathing and shortness of breath and she was hospitalized for the same. She is on oxygen at 2 L per minute nasal cannula. She is an ex-smoker. She was also having difficulties with bilateral pleural effusion. The patient underwent a drainage of the right lung on 12/25/2019 by my partner and the fluid was a transudate based on a fluid LDH and protein that were quite low. The fluid cytology was also negative for malignancy. A total of 1.3 L of fluid was aspirated from the right lung. S ubsequently, the patient comes into the hospital because of worsening shortness of breath. The chest x-ray repeated shows a large opacification of the right lung base probably consistent with a loculated pleural effusion. Based on that, a CAT scan of the chest was ordered and the CT showed bilateral pleural effusion right more than left. The pleural fluid on the right appeared to be loculated. There was compressive atelectasis in the right basilar segments. There was diffuse emphysematous changes bilaterally as seen earlier. There is also evidence of right apical scarring. The patient is was a causative 13.7. The patient is a renal function which is stable with a creatinine of 1.1 and a BUN of 34. The patient's troponin was at 0.035, lactic acid level was at 1.9, coronavirus quit 19 screening was negative. Her previous echocardiogram from 07/30/2019 showed a preserved LV function with an EF of around 55-60%. The valvular functions were essentially within normal limits. There was moderate degree of tricuspid regurgitation with a pulmonary artery pressure estimated to be 48. The patient was also experiencing some swelling in the right upper extremity. A previous Dopplers that was done on 12/24/2019 came back negative for any DVT in the patient's CAT scan of the chest did not show any mediastinal mass. The patient is currently on IV Lasix. The patient is seen today 01/08/2020 in follow-up on the selective care unit. She is currently sitting up at the bedside. Awake and alert in no acute distress. Her breathing is about the same today as compared to yesterday. Maintaining O2 saturation in the mid 90s on 4 L/m per nasal cannula. Afebrile. Hemodynamically stable. Blood cultures reveal no growth. Sodium 137. Potassium 4.6. Creatinine 1.32. She did undergo a right-sided thoracentesis today by Dr. Koo. 750 mL was removed. This was blood-tinged fluid. Fluid analysis and cultures with cytology sent. Follow-up chest x-ray revealed no evidence of right-sided pneumothorax. Diminished right pleural effusion. Left pleural effusion stable. Moderate cardiomegaly. Patient is seen today 01/09/2020 follow-up on the selective care unit. She is currently sitting up in bed. Awake and alert in no acute distress. Breathing a bit easier today compared to yesterday. Currently on 2 L/m per nasal cannula. She did undergo a right-sided thoracentesis with 750 mL of fluid removed yesterday. Fluid analysis reveals total protein 3.3. LDH 239. Suspect exudative despite numbers. Cultures are pending. Cytology pending. The patient is seen today 01/10/2020 and follow-up on the selective care unit. She is resting comfortably in bed. Awake and alert in no acute distress. She denies any shortness of breath, cough or congestion. Continue good O2 saturations in the 90s on 2 L/m per nasal cannula. She's afebrile. Hemodynamically stable. Pleural fluid cultures, blood, sputum cultures all reveal no growth. 135. Potassium 4.2. Creatinine 1.09. Objective - Vital Signs Vital signs: Vital Signs Temp 98.8 F 01/10/20 07:35 Pulse 80 01/10/20 08:39 Resp 18 01/10/20 07:35 BP 118/58 01/10/20 07:35 Pulse Ox 94 L 01/10/20 07:35 Intake & Output 01/09/20 01/10/20 01/10/20 18:59 06:59 18:59 Intake Total 1170 490 Output Total 1250 250 200 Balance -80 -250 290 Weight 45.7 kg 45.7 kg Intake: IV 370 10 Invasive Line 3 10 KVO 320 cefTRIAXone 2 gm In 50 Sodium Chloride 0.9% 50 ml @ 100 mls/hr IVPB Q24HR [facility]I Rx#:[id number] Oral 800 480 Output: Urine 1250 250 200 Other: Voiding Method Bedside Commode Toilet # Voids 1 1 - Exam GENERAL EXAM: Alert, active, pleasant 89-year-old female patient, on 2 L/m per nasal cannula, fairly comfortable in no apparent distress. HEAD: Normocephalic/atraumatic. EYES: Normal reaction of pupils, equal size. Conjunctiva pink, sclera white. NOSE: Clear with pink turbinates. THROAT: No erythema or exudates. NECK: No masses, no JVD, no thyroid enlargement, no adenopathy. CHEST: No chest wall deformity. LUNGS: Equal air entry with coarse breath sounds bilaterally. CVS: Regular rate and rhythm, normal S1 and S2, no gallops, no murmurs, no rubs ABDOMEN: Soft, nontender. No hepatosplenomegaly, normal bowel sounds, no guarding or rigidity. EXTREMITIES: No clubbing, no edema, no cyanosis, 2+ pulses and upper and lower extremities. MUSCULOSKELETAL: Muscle strength and tone normal. SPINE: No scoliosis or deformity SKIN: No rashes CENTRAL NERVOUS SYSTEM: Alert and oriented -3. No focal deficits, tone is normal in all 4 extremities. PSYCHIATRIC: Alert and oriented -3. Appropriate affect. Intact judgment and insight. - Labs CBC & Chem 7: 01/07/20 07:48 01/10/20 07:12 Labs: Abnormal Lab Results - Last 24 Hours (Table) 01/10/20 Range/Units 07:12 Sodium 135 L (137-145) mmol/L BUN 31 H (7-17) mg/dL Creatinine 1.09 H (0.52-1.04) mg/dL Calcium 7.9 L (8.4-10.2) mg/dL Microbiology - Last 24 Hours (Table) 01/08/20 12:10 Gram Stain - Preliminary Pleural Fluid Body Fluid Culture - Preliminary 01/09/20 09:20 Gram Stain - Final Sputum Sputum Culture - Final 01/08/20 09:31 Gram Stain - Preliminary Sputum Sputum Culture - Preliminary 01/06/20 15:28 Blood Culture - Preliminary Blood No Growth after 72 hours Assessment and Plan Assessment: 1 acute hypoxemic respiratory failure with shortness of breath, multifactorial 2 bilateral pleural effusion right more than left along with some loculation noted on the right based on the most recent CAT scan of the chest. Note that the patient underwent a recent thoracentesis and the fluid was transudate based on a low LDH and protein in the fluid cytology was negative for malignancy. It is possible that this fluid is still related to a component of CHF based on the transplant nature of this fluid. On 01/08/2020 the patient had undergone a repeat right-sided thoracentesis with 750 mL of blood-tinged fluid removed. Cultures, cytology pending 3 compressive atelectatic changes in lung bases right more than left 4 COPD with diffuse emphysematous changes bilaterally, oxygen dependent and patient is also prednisone dependent taken from the grams of prednisone on a chronic basis. 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 Koo She is stable for discharge from the pulmonary standpoint Follow up in the office in 1-2 weeks' time I, the cosigning physician, performed a history & physical examination of the patient. Lungs sounds basilar crackles. Maintaining good O2 saturations in the 90s on 2 L/m per nasal cannula. I discussed the assessment and plan of care with my nurse practitioner, Cherry Mark. I attest to the above note as dictated by her.
[2020-01-10] MEDS ORDERED: FUROSEMIDE 20 MG TAB PO SCH (16:00)
[2020-01-11] MEDS ORDERED: SPIRONOLACTONE 25 MG TAB PO SCH (09:00)
--- NOTE | 2020-01-22 07:53 | P.PCN ---
Date of Procedure: 01/08/20 Preoperative Diagnosis: right sided pleural effusion Postoperative Diagnosis: Right sided pleural effusion Procedure(s) Performed: Thoracentesis Anesthesia: local Surgeon: Maddie Koo Estimated Blood Loss (ml): 0 Pathology: other Condition: stable Disposition: floor Operative Findings: A time out was performed and the chest x-ray was reviewed, the appropriate side was confirmed and marked. My hands were washed immediately prior to the procedure. I wore a surgical cap, mask with protective eyewear, sterile gown and sterile gloves throughout the procedure. The patient was prepped and draped in a sterile manner using chlorhexidine scrub after the appropriate level was pe rcussed and confirmed by ultrasound. 1% lidocaine was used to anesthesize the skin, subcutaneous tissue, superior aspect of the rib periosteum and parietal pleura. A finder needle was then introduced over the superior aspect of the rib to locate the pleural fluid; 2colored fluid was aspirated at a depth of approximately 2 cm. A 10-blade scalpel was used to shruthi the skin at the insertion site. The [id number] needle was then introduced through the skin incision into the pleural space using negative aspiration pressure and the red colometric indicator to confirm appropriate positioning of the needle. The thoracentesis catheter was then threaded without difficulty. 750 ml of turbid colored fluid was removed without difficulty. The catheter was then removed. No immediate complications were noted during the procedure. A post-procedure chest x-ray is pending at the time of this note. The fluid will be sent for studies. Estimated blood loss is 0 cc
== END 2020-01-10 14:02 | disposition home health service (06) | DRG 291 ==
LOC: EC 11:47 → 3SCARD 14:33
PROVIDERS: ADMIT Internal Medicine; ATTEND Internal Medicine
PROC: 0W993ZZ Drainage of Right Pleural Cavity, Percutaneous Approach (ICD-10-PCS; principal; 2020-01-08)
DX: I13.0 Hypertensive heart and chronic kidney disease with heart failure and stage 1 through stage 4 chronic kidney disease, or unspecified chronic kidney disease (principal); I50.33 Acute on chronic diastolic (congestive) heart failure; J96.21 Acute and chronic respiratory failure with hypoxia; J96.22 Acute and chronic respiratory failure with hypercapnia; J98.11 Atelectasis; I48.92 Unspecified atrial flutter; J91.8 Pleural effusion in other conditions classified elsewhere; I27.29 Other secondary pulmonary hypertension; I48.0 Paroxysmal atrial fibrillation; J43.9 Emphysema, unspecified; J84.10 Pulmonary fibrosis, unspecified; Z79.01 Long term (current) use of anticoagulants; N18.30 Chronic kidney disease, stage 3 unspecified; Z99.81 Dependence on supplemental oxygen; Z20.828 Contact with and (suspected) exposure to other viral communicable diseases; I07.1 Rheumatic tricuspid insufficiency; G89.29 Other chronic pain; M54.9 Dorsalgia, unspecified; R79.89 Other specified abnormal findings of blood chemistry; D72.829 Elevated white blood cell count, unspecified; Z79.52 Long term (current) use of systemic steroids; Z79.899 Other long term (current) drug therapy; Z87.891 Personal history of nicotine dependence; Z85.828 Personal history of other malignant neoplasm of skin; Z88.1 Allergy status to other antibiotic agents; Z91.048 Other nonmedicinal substance allergy status; Z98.890 Other specified postprocedural states; Z90.49 Acquired absence of other specified parts of digestive tract
CPT/HCPCS: 36415; 71045; 71046; 71260; 80048; 80053; 82945; 83605; 83615; 83735; 83880; 84157; 84484; 85025; 85027; 85610; 85730; 87040; 87070; 87075; 87102; 87116; 87205; 87206; 87252; 87496; 87498; 87502; 87529; 87634; 87635; 87798; 88108; 88305; 89050; 93005; 94640; 96365; 96366; 96375; 99285

== ENCOUNTER 2020-01-17 16:02 | Inpatient (IN) | payer MEDICARE ==
[2020-01-17] MEDS ORDERED: SODIUM CHLORIDE 0.9% 500 ML 500 ML IV STA (16:09)
[2020-01-17] MEDS ORDERED: methylPREDNISolone SOD SUCCI 125 MG/2 ML VIAL IV STA (16:09)
[2020-01-17] MEDS ORDERED: SODIUM CHLORIDE 0.9% 1,000 ML IV STA (16:09)
[2020-01-17] MEDS ORDERED: IPRATROPIUM-ALBUTEROL 3 ML NEB INHALATION STA (16:09)
[2020-01-17 16:47] LABS: Basophils # (A) 0.2 k/uL (0-0.2); Basophils % (A) 1 %; Eosinophils # (A) 0.2 k/uL (0-0.7); Eosinophils % (A) 1 %; HCT 41.2 % (34.0-46.0); HGB 13.3 gm/dL (11.4-16.0); Lymphocytes # (A) 0.3 k/uL (1.0-4.8); Lymphocytes % (A) 2 %; MCH 28.2 pg (25.0-35.0); MCHC 32.2 g/dL (31.0-37.0); MCV 87.6 fL (80.0-100.0); Mean Platelet Volume 7.8; Monocytes # (A) 0.5 k/uL (0-1.0); Monocytes % (A) 3 %; Neutrophils # (A) 19.8 k/uL (1.3-7.7); Neutrophils % (A) 94 %; Platelet Count 439 k/uL (150-450); RBC 4.71 m/uL (3.80-5.40); RDW 15.8 % (11.5-15.5); WBC 21.1 k/uL (3.8-10.6)
--- NOTE | 2020-01-17 16:54 | ED ---
SOB HPI - General Chief Complaint: Shortness of Breath Stated Complaint: SHELLY Time Seen by Provider: 01/17/20 16:09 Source: family, RN notes reviewed, old records reviewed Mode of arrival: wheelchair Limitations: no limitations - History of Present Illness Initial Comments: This is an 89-year-old female DF for evaluation. Patient comes in for worsening shortness of breath other heart rate palpitations and weakness. Patient just hospital admission. Dela Cruz similar symptoms she did have fluid drainage from the right side of her chest. Patient increasing shortness of breath all tonight and was off her oxygen all night unknowingly. No fevers MD Complaint: shortness of breath, cough -: days(s) Severity: moderate Severity scale (1-10): 4 Consistency: constant Improves With: nothing Worsens With: exertion Known History Of: COPD, congestive heart failure Context: recent URI Associated Symptoms: denies other symptoms - Related Data Home Medications Medication Instructions Recorded Confirmed Albuterol Nebulized [Ventolin 2.5 mg INHALATION RT-TID PRN 03/11/17 01/17/20 Nebulized] Albuterol Sulfate [Proair Hfa] 2 puff INHALATION RT-QID PRN 03/11/17 01/17/20 Famotidine [Pepcid] 20 mg PO BID 03/11/17 01/17/20 Ipratropium [place] [Atrovent Hfa] 2 puff INHALATION RT-QID PRN 03/11/17 01/17/20 Montelukast [Singulair] 10 mg PO HS 03/11/17 01/17/20 Vitamin B Complex 1 cap PO DAILY 03/11/17 01/17/20 Zolpidem [Ambien] 10 mg PO HS PRN 03/11/17 01/17/20 Apixaban [Eliquis] 2.5 mg PO BID 02/25/19 01/17/20 Furosemide [Lasix] 40 mg PO DAILY 01/06/20 01/17/20 Promethaz-Cod 6.25-10 mg/5 ml 5 ml PO Q6H PRN 01/06/20 01/17/20 [Phenergan with Codeine] Spironolactone [Aldactone] 25 mg PO DAILY@1400 01/06/20 01/17/20 predniSONE 5 mg PO DAILY 01/06/20 01/17/20 Furosemide [Lasix] 20 mg PO DAILY@1400 01/17/20 01/17/20 Previous Rx's Medication Instructions Recorded Gabapentin [Neurontin] 200 mg PO BID #12 cap 01/22/19 Metoprolol Tartrate [Lopressor] 25 mg PO BID #60 tab 01/10/20 Allergies Allergy/AdvReac Type Severity Reaction Status Date / Time adhesive tape AdvReac TEARS SKIN Verified 01/17/20 16:53 OFF ciprofloxacin [From Cipro] AdvReac Rapid Verified 01/17/20 16:53 Heart Rate Review of Systems ROS Statement: Those systems with pertinent positive or pertinent negative responses have been documented in the HPI. ROS Other: All systems not noted in ROS Statement are negative. Past Medical History Past Medical History: Asthma, Cancer, COPD, Hypertension Additional Past Medical History / Comment(s): back problems, arrythemia hx of wearing heart monitor, skin CA with removal. 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 History of Any Multi-Drug Resistant Organisms: None Reported Past Surgical History: Ablation, Tonsillectomy Additional Past Surgical History / Comment(s): aflutter - ablation Past Anesthesia/Blood Transfusion Reactions: No Reported Reaction Past Psychological History: No Psychological Hx Reported Smoking Status: Former smoker Past Alcohol Use History: None Reported Past Drug Use History: None Reported - Past Family History Son(s) Family Medical History: Myocardial Infarction (ND) General Exam Limitations: no limitations General appearance: alert, in no apparent distress Head exam: Present: atraumatic, normocephalic, normal inspection Eye exam: Present: normal appearance, PERRL, EOMI. Absent: scleral icterus, conjunctival injection, periorbital swelling ENT exam: Present: normal exam, mucous membranes dry Neck exam: Present: normal inspection. Absent: tenderness, meningismus, lymphadenopathy Respiratory exam: Present: respiratory distress, wheezes, decreased breath sounds, prolonged expiratory. Absent: rales, rhonchi, stridor Cardiovascular Exam: Present: tachycardia, irregular rhythm, normal heart sounds. Absent: systolic murmur, diastolic murmur, rubs, gallop, clicks GI/Abdominal exam: Present: soft, normal bowel sounds. Absent: distended, tenderness, guarding, rebound, rigid Extremities exam: Present: normal inspection, full ROM, normal capillary refill. Absent: tenderness, pedal edema, joint swelling, calf tenderness Back exam: Present: normal inspection Neurological exam: Present: alert, oriented X3, CN II-XII intact Psychiatric exam: Present: normal affect, normal mood Skin exam: Present: warm, dry, intact, normal color. Absent: rash Course Vital Signs 01/17/20 01/17/20 01/17/20 16:02 16:29 16:42 Temperature 98.6 F Pulse Rate 73 87 92 Respiratory 24 Rate Blood Pressure 129/82 O2 Sat by Pulse 90 L Oximetry 01/17/20 17:10 Temperature Pulse Rate 98 Respiratory 26 H Rate Blood Pressure 134/66 O2 Sat by Pulse 96 Oximetry - Reevaluation(s) Reevaluation #1: 01/17/20 17:19 Medical record is reviewed Reevaluation #2: 01/17/20 17:19 Heart rate is improved breathing is improved here in the ER Reevaluation #3: 01/17/20 17:19 Patient informed results questions have been answered Medical Decision Making - Medical Decision Making 89 female to the ER for evaluation patient presents today for evaluation regarding shortness of breath and A. fib with RVR with likely underlying pneumonia. Patient be admitted on antibiotics rate control and cardiology to evaluate - Lab Data Result diagrams: 01/17/20 16:34 01/17/20 16:34 Lab Results 01/17/20 01/17/20 Range/Units 16:34 16:34 WBC 21.1 H (3.8-10.6) k/uL RBC 4.71 (3.80-5.40) m/uL Hgb 13.3 (11.4-16.0) gm/dL Hct 41.2 (34.0-46.0) % MCV 87.6 (80.0-100.0) fL MCH 28.2 (25.0-35.0) pg MCHC 32.2 (31.0-37.0) g/dL RDW 15.8 H (11.5-15.5) % Plt Count 439 (150-450) k/uL MPV 7.8 Neutrophils % 94 % Lymphocytes % 2 % Monocytes % 3 % Eosinophils % 1 % Basophils % 1 % Neutrophils # 19.8 H (1.3-7.7) k/uL Lymphocytes # 0.3 L (1.0-4.8) k/uL Monocytes # 0.5 (0-1.0) k/uL Eosinophils # 0.2 (0-0.7) k/uL Basophils # 0.2 (0-0.2) k/uL Sodium 132 L (137-145) mmol/L Potassium 5.2 H (3.5-5.1) mmol/L Chloride 97 L (98-107) mmol/L Carbon Dioxide 24 (22-30) mmol/L Anion Gap 11 mmol/L BUN 45 H (7-17) mg/dL Creatinine 1.49 H (0.52-1.04) mg/dL Est GFR (CKD-EPI)AfAm 36 (>60 ml/min/1.73 sqM) Est GFR (CKD-EPI)NonAf 32 (>60 ml/min/1.73 sqM) Glucose 120 H (74-99) mg/dL Calcium 8.4 (8.4-10.2) mg/dL Magnesium 2.0 (1.6-2.3) mg/dL Total Bilirubin 0.7 (0.2-1.3) mg/dL AST 44 H (14-36) U/L ALT 23 (4-34) U/L Alkaline Phosphatase 90 (38-126) U/L Lactate Dehydrogenase 899 H (313-618) U/L Creatine Kinase 36 (30-135) U/L C-Reactive Protein 85.7 H (<10.0) mg/L Total Protein 6.7 (6.3-8.2) g/dL Albumin 3.0 L (3.5-5.0) g/dL - EKG Data -: EKG Interpreted by Me (EKG shows rate 86 NM 112 QRS 70 QTc 423) - Radiology Data Radiology results: report reviewed (S x-ray shows likely infiltrate), image reviewed Disposition Clinical Impression: Shortness of breath, Congestive heart failure, Acute exacerbation of chronic obstructive pulmonary disease, Atrial fibrillation, Atrial flutter with rapid ventricular response, COPD (chronic obstructive pulmonary disease) Disposition: ADMITTED IP TO THIS HOSP Condition: Fair Is patient prescribed a controlled substance at d/c from ED?: No Referrals: Angel Natarajan DO [Primary Care Provider] - 1-2 days
--- NOTE | 2020-01-17 17:00 | XR ---
EXAMINATION TYPE: XR chest 1V portable DATE OF EXAM: 01/17/2020 COMPARISON: 01/08/2020 HISTORY: COPD TECHNIQUE: Single view FINDINGS: There is bilateral pleural effusions. There is airspace consolidation and pleural thickenin g in the right midlung. There is mild pulmonary interstitial edema. Heart is enlarged. IMPRESSION: There is evidence for congestive heart failure with pleural effusions and some infiltrate and loculated pleural fluid in the right minor fissure. Chest appears the same or slightly worse akosua n last exam.
[2020-01-17 17:08] LABS: C Reactive Protein 85.7 mg/L (<10.0); Calcium 8.4 mg/dL (8.4-10.2); Total Bilirubin 0.7 mg/dL (0.2-1.3); Total Protein 6.7 g/dL (6.3-8.2)
[2020-01-17 17:12] LABS: Potassium 5.2 mmol/L (3.5-5.1)
[2020-01-17] MEDS ORDERED: AZITHROMYCIN 500 MG in SODIUM CHLORIDE 0.9% 250 ML IVPB STA (17:14)
[2020-01-17] MEDS ORDERED: PNEUMONIA PROTOCOL UTILIZED 1 EACH MISC PO PRN (17:14)
[2020-01-17] MEDS ORDERED: PIPERACILLIN-TAZOBACTAM 3.375 GM in SODIUM CHLORIDE 0.9% 100 ML IVPB STA (17:14)
[2020-01-17] MEDS ORDERED: SODIUM CHLORIDE 0.9% 1,000 ML IV SCH (17:15)
[2020-01-17] MEDS ORDERED: DILTIAZEM DRIP BOLUS FROM BAG 1 MG SOLN IV ONE (17:16)
[2020-01-17 17:26] LABS: Partial Thromboplastin Time 26.3 sec (22.0-30.0); Prothrombin Time 10.6 sec (9.0-12.0)
[2020-01-17] MEDS ORDERED: DILTIAZEM 125 MG in SODIUM CHLORIDE 0.9% 100 ML IV SCH (17:45)
[2020-01-17] MEDS ORDERED: NON FORMULARY DRUG (Promethaz-Cod 6.25-10 Mg/5 Ml 5 ML Ml) PO PRN (19:53)
[2020-01-17] MEDS ORDERED: IPRATROPIUM-ALBUTEROL 3 ML NEB INHALATION PRN (19:53)
[2020-01-17] MEDS: IPRATROPIUM-ALBUTEROL 3 ML NEB INHALATION SCH (20:58)
[2020-01-17] MEDS: APIXABAN 2.5 MG TABLET PO SCH (23:30)
[2020-01-17] MEDS: FAMOTIDINE 20 MG TAB PO SCH (23:30)
[2020-01-17] MEDS: METOPROLOL TARTRATE 25 MG TAB PO SCH (23:30)
[2020-01-17] MEDS: GABAPENTIN 100 MG CAP PO SCH (23:37)
[2020-01-17] MEDS: MONTELUKAST 10 MG TAB PO SCH (23:37)
[2020-01-17] MEDS: FUROSEMIDE 10 MG/ML 4 ML VIAL IV SCH (23:38)
[2020-01-17 23:44] LABS: Glucose,Whole Blood 105 mg/dL (75-99)
[2020-01-17] MEDS: INSULIN ASPART (NovoLOG) 100 UNIT/ML VIAL SQ SCH (23:44)
[2020-01-18] MEDS: methylPREDNISolone SOD SUCCI 125 MG/2 ML VIAL IV SCH ×5 (00:32→23:35)
[2020-01-18] MEDS: PIPERACILLIN-TAZOBACTAM 3.375 GM in SODIUM CHLORIDE 0.9% 100 ML IVPB SCH ×3 (00:34→21:35)
--- NOTE | 2020-01-18 03:08 | HP ---
HISTORY AND PHYSICAL DATE OF SERVICE: 01/17/2020 CHIEF COMPLAINT: Shortness of breath. HISTORY OF PRESENT ILLNESS: This 89-year-old woman with a past medical history of multiple medical problems including asthma, COPD, history of hypertension, history of back problem, history of cardiac arrhythmia, history of cardiac ablation, tonsillectomy being followed by Dr. Angel Natarajan in the outpatient setting admitted with multiple occasions recently. The patient apparently bilateral pleural effusion, thoracocentesis done. Apparently, right-sided loculated pleural effusion was noted. The exact etiology of pleural effusion, unknown at this time. The fluid was found to be transudate, Dr. Koo thinks it is possibly related to CHF. Currently the patient is getting more shortness of the breath. The patient is complaining of weakness and the family brought the patient to [facility] and was admitted for further evaluation and treatment. Chest x-ray done which was reviewed personally by me showed evidence of CHF and as well as some infiltrate and loculated pleural effusion on the right side also. There is no history of fever or rigors. No history of headache, loss of consciousness, seizures. PAST MEDICAL HISTORY: History of asthma, COPD, history of hypertension, history of CHF, history of cardiac ablation, history of tonsillectomy. MEDICATIONS: Medications prior to admission, home medications are: 1. Lasix 20 mg p.o. daily. 2. Aldactone 25 mg daily. 3. Lasix 40 mg daily. 4. Prednisone 5 mg p.o. daily. 5. Ambien 10 mg. 6. Vitamin B1. 7. Phenergan. 8. Singulair. 9. Lopressor. 10.Atrovent. 11.Neurontin. 12.Pepcid. 13.Eliquis. 14.ProAir. 15.Ventolin. Doses are reviewed. ALLERGIES: ADHESIVE TAPES and CIPRO. FAMILY HISTORY: History of myocardial infarction in the family. SOCIAL HISTORY: Previous history of smoking. Occasional alcohol intake. REVIEW OF SYSTEMS: ENT: No diminished hearing or diminished vision. CARDIOVASCULAR SYSTEM: No angina, as mentioned earlier. RESPIRATORY SYSTEM: As mentioned earlier. GI: No nausea, vomiting. : No dysuria. NERVOUS SYSTEM: No numbness or weakness. ALLERGY/IMMUNOLOGY: No asthma or hayfever. MUSCULOSKELETAL: As mentioned earlier. HEMATOLOGY: No history of anemia. ENDOCRINE: No history of diabetes or hypothyroidism. CONSTITUTIONAL: As mentioned earlier. DERMATOLOGY: Negative. RHEUMATOLOGY: Negative. PSYCHIATRY: As mentioned earlier. PHYSICAL EXAMINATION: The patient is alert and oriented x3. The pulse is 121, blood pressure is 135/81, respiration 22, temperature normal, pulse ox 96% on 3 L. HEENT: Conjunctivae normal. Oral mucosa moist. NECK: No jugular venous distention. No carotid bruit. No lymph node enlargement. CARDIOVASCULAR: S1, S2 muffled. No S3, no S4. RESPIRATORY: Breath sounds diminished at the bases. Scattered rhonchi and crackles. ABDOMEN: Soft, nontender. LEGS: No edema, no swelling. NERVOUS SYSTEM: Higher function as mentioned. Moves all 4 limbs. No focal deficits. LYMPHATICS: No lymphadenopathy of the neck, axillae or groin. SKIN: No ulcer, rash or bleeding. JOINTS: No active deforming arthropathy. LABS: Labs are at this time show WBC 21.1, sodium 132, potassium 5.2. Creatinine is 1.49, the baseline is around 1.3. AST is 44. LDH is 899. Troponin 0.058. COVID-19 is negative. CRP is 85.7. ASSESSMENT: 1. Shortness of breath possibly multifactorial secondary to congestive heart failure acute exacerbation acute on chronic diastolic dysfunction, ejection fraction, 55% to 60%. 2. Possible chronic obstructive pulmonary disease, asthma acute exacerbation. 3. Possible acute purulent tracheobronchitis. 4. Atrial fibrillation with fast ventricular rate. 5. Elevated CRP. 6. COVID-19 negative. 7. Chronic kidney disease, stage 3. 8. Troponin 0.058, indeterminate. 9. Elevated LDH. 10.Hyperkalemia. 11.Hyponatremia. 12.Increased WBC. 13.History of hypertension. 14.History of degenerative joint disease, back problems. 15.History of skin cancer. 16.History of cardiac ablation for atrial flutter. 17.Remote history of nicotine dependence. 18.Moderate protein calorie malnutrition with body mass index of 19.5. 19.Gait dysfunction. 20.FULL CODE. RECOMMENDATIONS AND DISCUSSION: This 89-year-old woman presented with multiple complex medical issues, we will monitor the patient closely. Continue the current medications. Continues symptomatic treatment. Will initiate diuretics, monitor creatinine closely. Cardizem drip was initiated. Cardiology consultation. Will repeat the 2D echo. Otherwise, closely follow with Pulmonary and as well as Cardiology teams. Guarded prognosis because of multiple complex medical issues. We will also obtain PT, OT evaluation and assess the patient's gait dysfunction as well as the possibility for gait training also. The overall prognosis guarded because of multiple complex medical issues. Further recommendations to follow. A copy of dictation forwarded to Dr. Natarajan who is the primary physician. [email or web address] / IJN: [id number] /
[2020-01-18 06:54] LABS: Anisocytosis Slight; Basophils % (A) 0 %; Eosinophils % (A) 0 %; HCT 42.3 % (34.0-46.0); Hypochromasia Slight; Lymphocytes # (A) 0.3 k/uL (1.0-4.8); Lymphocytes % (A) 2 %; MCH 27.7 pg (25.0-35.0); MCHC 30.8 g/dL (31.0-37.0); MCV 89.9 fL (80.0-100.0); Mean Platelet Volume 7.6; Monocytes # (A) 0.2 k/uL (0-1.0); Monocytes % (A) 1 %; Neutrophils # (A) 16.3 k/uL (1.3-7.7); Neutrophils % (A) 96 %; Platelet Count 396 k/uL (150-450); RBC 4.71 m/uL (3.80-5.40)
[2020-01-18 06:58] LABS: Calcium 8.1 mg/dL (8.4-10.2); Potassium 4.6 mmol/L (3.5-5.1)
--- NOTE | 2020-01-18 07:47 | XR ---
EXAMINATION TYPE: XR chest 1V portable DATE OF EXAM: 01/18/2020 Comparison: 01/17/2020 Clinical History: 89-year-old female pneumonia Findings: Heart mildly enlarged. Hyperinflation. Diffuse interstitial density, bilateral small effusions, and r ight greater than left mid and lower lung airspace opacities. No significant change from prior exam. Impression: COPD with superimposed interstitial and multifocal airspace disease, right greater the left along wit h small effusions. Not significantly changed from prior.
[2020-01-18 08:06] LABS: Glucose,Whole Blood 138 mg/dL (75-99)
[2020-01-18] MEDS: IPRATROPIUM-ALBUTEROL 3 ML NEB INHALATION SCH ×4 (08:22→20:34)
[2020-01-18] MEDS ORDERED: NON FORMULARY DRUG (Vitamin B Complex [Vitamin B Complex] 1 EACH Capsule) PO SCH (09:00)
[2020-01-18] MEDS: INSULIN ASPART (NovoLOG) 100 UNIT/ML VIAL SQ SCH ×4 (09:16→21:36)
[2020-01-18] MEDS: FUROSEMIDE 10 MG/ML 4 ML VIAL IV SCH ×2 (09:46→21:36)
[2020-01-18] MEDS: METOPROLOL TARTRATE 25 MG TAB PO SCH ×2 (09:46→21:36)
[2020-01-18] MEDS: FAMOTIDINE 20 MG TAB PO SCH (09:46)
[2020-01-18] MEDS: GABAPENTIN 100 MG CAP PO SCH ×2 (10:08→21:36)
[2020-01-18] MEDS: APIXABAN 2.5 MG TABLET PO SCH ×2 (10:08→21:36)
--- NOTE | 2020-01-18 10:15 | CONS ---
CONSULTATION PULMONARY/CRITICAL CARE CONSULTATION: DATE OF SERVICE: 01/18/2020. REASON FOR CONSULTATION: Atrial fibrillation, RVR, pneumonia, and critical care management. This is an 89-year-old female who comes into the emergency room on the January 16, 1602 complaining of shortness of breath. She also had some palpitations and weakness. The patient apparently had a recent admission and required a thoracentesis for pleural effusion. Anyway, the patient is currently on O2 at 2 L. She wears 2 L at home. She is currently on 3 L here in the hospital. In addition, the patient is getting a Cardizem drip of 5 mg an hour. Her primary is Dr. Natarajan. She sees Dr. Guzman for her underlying COPD. She was COVID negative. Again, her primary issues were shortness of breath, cough, without phlegm production. There was no fever or chills. Currently, the patient is resting comfortably in ER room 1. . HOME MEDICATIONS: Include albuterol updrafts, albuterol inhaler, Pepcid, Atrovent inhaler, Singulair, vitamin D, Ambien, Eliquis, Lasix, promethazine with codeine, cough syrup, Aldactone, prednisone and Lasix. She is also on Neurontin and metoprolol. ALLERGIES: ADHESIVE TAPE and CIPROFLOXACIN. MEDICAL HISTORY: Asthma, cancer, COPD, hypertension. Other medical problems include chronic back pain, skin cancer, and apparently possible lung and spine cancer per daughter. SURGICAL HISTORY: Includes previous ablation for her irregular heartbeat and tonsillectomy. SOCIAL HISTORY: Positive for previous tobacco use. Does not smoke currently. No alcohol use or illicit drug use. FAMILY HISTORY: Positive for some with myocardial infarction. REVIEW OF SYSTEMS: CONSTITUTIONAL: Weakness. NEUROLOGIC: Negative. HEENT: Negative. CARDIOVASCULAR: Irregular heartbeat, palpitations. PULMONARY: Shortness of breath, nonproductive cough. GI: Negative. : Negative. RHEUMATOLOGIC: Negative. IMMUNOLOGIC: Negative. ENDOCRINOLOGIC: Negative. DERMATOLOGIC: Negative. Current vital signs are reviewed, temperature 98.2, heart rate 64 and irregular, respiratory rate 18, blood pressure 134/66 mean 88, 3 L saturation 99%. Appears in no acute distress. HEENT: Examination is grossly unremarkable. NECK: Supple, full range of motion. No adenopathy. Neck veins are flat. CARDIOVASCULAR: Examination reveals regular rhythm and rate. Heart rate mid 60s. S1, S2 normal. She is not in atrial fibrillation. LUNGS: Reveal mostly clear breath sounds. Breath sounds are diminished. A few scattered rhonchi. No wheezes or crackles. ABDOMEN: Soft, bowel sounds are heard. EXTREMITIES: Intact. No edema. SKIN: Without rash. NEUROLOGIC: Examination is brief but nonfocal. LABS: Reviewed. White count 17, hemoglobin 13, hematocrit 42.3, platelet count 396,000, sodium 135, potassium 4.6, chloride 100, CO2 is 23, anion gap is 12. BUN and creatinine were 39 and 1.47. Troponin was 0.058. N-terminal proBNP 2780. PCR testing for COVID- 19 was negative. LDH was 899. Microbiology is negative or pending. Chest x-ray shows evidence of congestive heart failure and small effusions. There is some loculated pleural effusion in the right minor fissure making that area a bit more dense. Current medications are reviewed. She is on Eliquis, Zithromax, Cardizem drip, Pepcid, Lasix, gabapentin, insulin, DuoNeb, Solu-Medrol, metoprolol, Singulair, Zosyn, promethazine with codeine cough syrup, and Aldactone. ASSESSMENT: 1. Shortness of breath, with hypoxemic respiratory failure, related to underlying atrial fibrillation with RVR, fluid overload state, bilateral effusions, and interstitial edema. 2. Possible underlying pneumonia primarily involving the right mid lung, right lower lobe. 3. History of chronic obstructive pulmonary disease from previous tobacco use. 4. History of skin cancer. 5. Hypertension by history. 6. Chronic back pain. 7. History of atrial fibrillation, status post ablation. 8. Vague history of possible lung and spine cancer. 9. General medical debility. 10.Recent admission to the hospital between January 05 and January 09 and at that time, right-sided pleural effusion, which was negative cytologically for malignancy. PLAN: Currently, the patient is on antibiotics, breathing treatments, and corticosteroids. She is also on a Cardizem drip. No additional recommendations are made. She appears to be relatively stable. Overall prognosis is guarded. Will continue to follow. MMODL / IJN: [id number] / [facility]
[2020-01-18 12:22] LABS: Glucose,Whole Blood 188 mg/dL (75-99)
[2020-01-18] MEDS ORDERED: DOCUSATE 100 MG CAP PO STA (13:04)
--- NOTE | 2020-01-18 14:36 | PN ---
PROGRESS NOTE DATE OF SERVICE: 01/18/2020 This is an 89-year-old woman who was admitted with shortness of breath, possibly multifactorial secondary to CHF acute exacerbation as well as COPD acute exacerbation, asthma acute exacerbation, also had possibly right-sided pneumonia as well as loculated pleural effusion also. The patient also had atrial fibrillation with rapid ventricular rate. Patient is being closely monitored at this time. The most recent chest x-ray which was reviewed personally by me showed significant lesions in the bilateral lower lobes and right more than the left. Dr. Cisneros and Cardiology are following the patient closely. PAST MEDICAL HISTORY: Reviewed. REVIEW OF SYSTEMS: CARDIOVASCULAR SYSTEM: No angina. RESPIRATION: As mentioned earlier. GI: As mentioned earlier. No dysuria. NERVOUS SYSTEM: As mentioned earlier. MEDICATIONS: Reviewed and include: 1. DuoNeb. 2. Eliquis. 3. Zithromax. 4. Symbicort. 5. Cardizem. 6. Pepcid. 7. Lasix. 8. Neurontin. 9. NovoLog. 10.Solu-Medrol. 11.Zosyn. PHYSICAL EXAMINATION: Patient is alert, oriented x3. Pulse 70, blood pressure 118/89, respiration 20, temperature 97.2, pulse ox 97% on 3 L. HEENT: Conjunctivae normal. NECK: No jugular venous distension. CARDIOVASCULAR: S1, S2, muffled. RESPIRATION: Breath sounds diminished at the bases, bilateral scattered rhonchi, no crackles. ABDOMEN: Soft, nontender. No mass palpable. LEGS: No edema, no swelling. NERVOUS SYSTEM: Higher functions as mentioned earlier, moves all four limbs, no focal motor deficits. LYMPHATICS: No lymph node enlargement in the neck or axillae. SKIN: No rash, bleeding or ulcers. JOINTS: No active arthropathy. LABS: WBC is 17. Sodium is 135 and creatinine is 1.47. Troponin noted. C-reactive protein is also noted, COVID-19 is negative. ASSESSMENT: 1. Shortness of breath, possibly multifactorial with congestive heart failure acute exacerbation with acute on chronic diastolic dysfunction, ejection fraction 50% to 60%, as well as chronic obstructive pulmonary disease acute exacerbation. 2. Possible bibasilar pneumonia, right more the left possibly gram-negative. 3. Right-sided localized pleural effusion. 4. Atrial fibrillation with fast ventricular rate, present on admission. 5. Elevated CRP. 6. COVID-19 negative. 7. Chronic kidney stage 3. 8. Troponin 0.05, indeterminate. 9. Elevated LDH. 10.Hyperkalemia. 11.Hyponatremia. 12.Increased WBC. 13.History of hypertension. 14.History of DJD, back problems. 15.History of skin cancer. 16.History of cardiac ablation, atrial flutter. 17.Remote history of nicotine dependence. 18.Moderate protein calorie malnutrition with body mass index 19.5. 19.Gait dysfunction. 20.FULL CODE. RECOMMENDATION: Recommend to continue current medications, symptomatic treatment. Otherwise at this time I recommend to continue the empiric antibiotics. Continue with bronchodilators, IV steroids, otherwise empiric diuretics. Closely follow with multiple consultants including Cardiology and as well as Pulmonology. Guarded prognosis because of multiple complex medical issues. I would also recommend fluid restriction about 1200 mL per 24 hours. Prognosis guarded. Further recommendations to follow. Discussed with the family yesterday. Thank you discussed family history. MMLALITHA / MICN: [id number] /
[2020-01-18] MEDS: SPIRONOLACTONE 25 MG TAB PO SCH (14:59)
[2020-01-18 17:02] LABS: Glucose,Whole Blood 105 mg/dL (75-99)
--- NOTE | 2020-01-18 17:34 | P.CRDCN ---
History of Present Illness Consult date: 01/18/20 History of present illness: This is a 89-year-old female with history of paroxysmal atrial fibrillation and also history of atrial flutter status post ablation, being followed by Dr. Schaefer in the office. Patient has multiple admissions to this hospital. She came again last night with complaints of increasing shortness of breath and some mild dry cough. Has had a history of right-sided pleural effusion and thoracocentesis in the past. There is history sized of that patient was in A. fib with RVR. However her EKG showed sinus rhythm and she doesn't seem to be in atrial fibrillation. She denied any chest pain. She appears to be relatively stable. Her proBNP is elevated but it's not significantly different than the previous value. Chest x-ray shows bilateral infiltrates, more so on the right side. Suggestive of possible pneumonia though troponin pulmonary edema cannot be excluded. Patient is currently being treated with antibiotics, steroids and IV diuretics and she appeared to be relatively stable. She is off Cardizem drip at this time. We'll continue current medical therapy. Review of Systems As per the chart Past Medical History Past Medical History: Asthma, Cancer, COPD, Hypertension Additional Past Medical History / Comment(s): back problems, arrythemia hx of wearing heart monitor, skin CA with removal. 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 History of Any Multi-Drug Resistant Organisms: None Reported Past Surgical History: Ablation, Tonsillectomy Additional Past Surgical History / Comment(s): aflutter - ablation Past Anesthesia/Blood Transfusion Reactions: No Reported Reaction Past Psychological History: No Psychological Hx Reported Smoking Status: Former smoker Past Alcohol Use History: None Reported Past Drug Use History: None Reported - Past Family History Son(s) Family Medical History: Myocardial Infarction ([place]) Medications and Allergies Home Medications Medication Instructions Recorded Confirmed Type Albuterol Nebulized [Ventolin 2.5 mg INHALATION RT-TID PRN 03/11/17 01/17/20 Hi story Nebulized] Albuterol Sulfate [Proair Hfa] 2 puff INHALATION RT-QID PRN 03/11/17 01/17/20 History Famotidine [Pepcid] 20 mg PO BID 03/11/17 01/17/20 History Ipratropium [place] [Atrovent Hfa] 2 puff INHALATION RT-QID PRN 03/11/17 01/17/20 History Montelukast [Singulair] 10 mg PO HS 03/11/17 01/17/20 History Vitamin B Complex 1 cap PO DAILY 03/11/17 01/17/20 History Zolpidem [Ambien] 10 mg PO HS PRN 03/11/17 01/17/20 History Gabapentin [Neurontin] 200 mg PO BID #12 cap 01/22/19 01/17/20 Rx Apixaban [Eliquis] 2.5 mg PO BID 02/25/19 01/17/20 History Furosemide [Lasix] 40 mg PO DAILY 01/06/20 01/17/20 History Promethaz-Cod 6.25-10 mg/5 ml 5 ml PO Q6H PRN 01/06/20 01/17/20 History [Phenergan with Codeine] Spironolactone [Aldactone] 25 mg PO DAILY@1400 01/06/20 01/17/20 History predniSONE 5 mg PO DAILY 01/06/20 01/17/20 History Metoprolol Tartrate [Lopressor] 25 mg PO BID #60 tab 01/10/20 01/17/20 Rx Furosemide [Lasix] 20 mg PO DAILY@1400 01/17/20 01/17/20 History Allergies Allergy/AdvReac Type Severity Reaction Status Date / Time adhesive tape AdvReac TEARS SKIN Verified 01/17/20 16:53 OFF ciprofloxacin [From Cipro] AdvReac Rapid Verified 01/17/20 16:53 Heart Rate Physical Exam Vitals: Vital Signs Temp Pulse Resp BP Pulse Ox 01/18/20 16:44 97.8 F 78 16 121/71 98 01/18/20 16:23 77 16 01/18/20 16:09 72 18 01/18/20 15:00 97.5 F L 69 21 135/64 97 01/18/20 11:30 97.6 F 70 20 118/59 97 01/18/20 10:55 73 01/18/20 10:45 75 01/18/20 08:37 64 01/18/20 08:23 60 01/18/20 07:29 98.2 F 70 26 H 134/66 99 01/18/20 04:41 97.6 F 69 18 106/57 98 01/18/20 02:00 18 97 01/18/20 01:00 18 01/18/20 00:00 97.6 F 68 16 125/70 98 01/17/20 23:22 73 16 01/17/20 23:18 85 20 113/52 98 01/17/20 21:53 93 22 114/56 95 01/17/20 21:08 73 01/17/20 20:58 80 01/17/20 19:17 84 22 132/58 95 01/17/20 18:04 80 26 H 136/72 95 01/17/20 17:40 121 H 22 135/81 96 GENERAL EXAM: Patient is alert and oriented and doesn't appear to be in any acute distress HEENT: Normocephalic. Normal reaction of pupils, equal size, normal range of extraocular motion. No erythema or exudates in the throat. NECK: No masses, no nuchal rigidity. CHEST: No chest wall deformity. LUNGS: Diminished breath sounds HEART: S1 and S2 normal ABDOMEN: No hepatosplenomegaly, normal bowel sounds, no guarding or rigidity. SKIN: No rashes CENTRAL NERVOUS SYSTEM: No focal deficits. EXTREMITIES: No cyanosis, clubbing or edema. Results 01/18/20 05:30 01/18/20 05:30 Cardiac Enzymes 01/17/20 01/18/20 Range/Units 16:34 14:59 Troponin I 0.058 H* 0.041 H* (0.000-0.034) ng/mL CBC 01/18/20 Range/Units 05:30 WBC 17.0 H (3.8-10.6) k/uL RBC 4.71 (3.80-5.40) m/uL Hgb 13.0 (11.4-16.0) gm/dL Hct 42.3 (34.0-46.0) % Plt Count 396 (150-450) k/uL Comprehensive Metabolic Panel 01/18/20 Range/Units 05:30 Sodium 135 L (137-145) mmol/L Potassium 4.6 (3.5-5.1) mmol/L Chloride 100 (98-107) mmol/L Carbon Dioxide 23 (22-30) mmol/L BUN 39 H (7-17) mg/dL Creatinine 1.47 H (0.52-1.04) mg/dL Glucose 132 H (74-99) mg/dL Calcium 8.1 L (8.4-10.2) mg/dL Current Medications Generic Name Dose Route Start Last Admin Trade Name Freq PRN Reason Stop Dose Admin Albuterol/Ipratropium 3 ml 01/17/20 20:00 01/18/20 16:09 Ipratropium-Albuterol 3 Ml Neb INHALATION 3 ml RT-QID MAIC Administration Albuterol/Ipratropium 3 ml 01/17/20 19:53 Ipratropium-Albuterol 3 Ml Neb INHALATION RT-QID PRN Shortness Of Breath Or Wheezing Apixaban 2.5 mg 01/17/20 21:00 01/18/20 10:08 Apixaban 2.5 Mg Tablet PO 2.5 mg BID MACI Administration Budesonide/Formoterol Fumarate 2 puff 01/18/20 20:00 Symbicort 160-4.5 Mcg Inhaler INHALATION RT-BID MACI Famotidine 20 mg 01/17/20 21:00 01/18/20 09:46 Famotidine 20 Mg Tab PO 20 mg DAILY MACI Administration Furosemide 40 mg 01/17/20 21:00 01/18/20 09:46 Furosemide 10 Mg/Ml 4 Ml Vial IV 40 mg Q12HR MACI Administration Gabapentin 200 mg 01/17/20 21:00 01/18/20 10:08 Gabapentin 100 Mg Cap PO 200 mg BID MACI Administration Azithromycin 500 mg/ Sodium 250 mls @ 250 mls/hr 01/18/20 18:00 Chloride IVPB 01/22/20 18:01 DAILY@1800 [facility] Diltiazem HCl 125 mg/ Sodium 125 mls @ 5 mls/hr 01/17/20 17:45 01/17/20 17:43 Chloride IV 5 mg/hr .Q24H MACI 5 mls/hr Administration 5 MG/HR Piperacillin Sod/Tazobactam 100 mls @ 25 mls/hr 01/18/20 21:00 Sod 3.375 gm/ Sodium Chloride IVPB Q12HR [facility] Insulin Aspart 0 unit 01/17/20 21:00 01/18/20 12:47 Insulin Aspart (Novolog) 100 Unit/Ml Vial SQ 2 unit ACHS MACI Administration Protocol Methylprednisolone Sodium Succinate 60 mg 01/18/20 00:00 01/18/20 12:10 Methylprednisolone Sod Succi 125 Mg/2 Ml Vial IV 60 mg Q6HR MACI Administration Metoprolol Tartrate 25 mg 01/17/20 21:00 01/18/20 09:46 Metoprolol Tartrate 25 Mg Tab PO 25 mg BID MACI Administration Miscellaneous Information 1 each 01/17/20 17:14 Pneumonia Protocol Utilized 1 Each Misc PO ONCE PRN Per Protocol Montelukast Sodium 10 mg 01/17/20 21:00 01/17/20 23:37 Montelukast 10 Mg Tab PO 10 mg HS MACI Administration Non-Formulary Medication 5 ml 01/17/20 19:53 Promethaz-Cod 6.25-10 Mg/5 Ml PO Q6H PRN Cough Spironolactone 25 mg 01/18/20 14:00 01/18/20 14:59 Spironolactone 25 Mg Tab PO 25 mg DAILY@1400 MACI Administration 01/18/20 05:30 01/18/20 05:30 EKG Interpretations (text) Sinus rhythm Assessment and Plan (1) Chronic diastolic CHF (congestive heart failure) Current Visit: Yes Status: Acute Code(s): I50.32 - CHRONIC DIASTOLIC (CONGESTIVE) HEART FAILURE SNOMED Code(s): 457627696 (2) Acute exacerbation of chronic obstructive pulmonary disease Current Visit: Yes Status: Acute Code(s): J44.1 - CHRONIC OBSTRUCTIVE PULMONARY DISEASE W (ACUTE) EXACERBATION SNOMED Code(s): 480682541 (3) Atrial fibrillation Current Visit: Yes Status: Acute Code(s): I48.91 - UNSPECIFIED ATRIAL FIBRILLATION SNOMED Code(s): 33301882 (4) Pneumonia Current Visit: Yes Status: Acute Code(s): J18.9 - PNEUMONIA, UNSPECIFIED ORGANISM SNOMED Code(s): 317131211 Plan: Continue current medical therapy. Pulmonary consult. Further treatment depending upon the clinical course. Echocardiogram in July showed preserved LV function
[2020-01-18] MEDS ORDERED: AZITHROMYCIN 500 MG in SODIUM CHLORIDE 0.9% 250 ML IVPB SCH (18:00)
[2020-01-18] MEDS: SYMBICORT 160-4.5 MCG INHALER INHALATION SCH (20:35)
[2020-01-18 21:24] LABS: Glucose,Whole Blood 136 mg/dL (75-99)
[2020-01-18] MEDS: MONTELUKAST 10 MG TAB PO SCH (21:36)
[2020-01-19 06:11] LABS: Glucose,Whole Blood 138 mg/dL (75-99)
[2020-01-19] MEDS: methylPREDNISolone SOD SUCCI 125 MG/2 ML VIAL IV SCH ×4 (06:14→23:01)
[2020-01-19] MEDS: INSULIN ASPART (NovoLOG) 100 UNIT/ML VIAL SQ SCH ×4 (06:14→20:52)
[2020-01-19 07:54] LABS: Basophils % (A) 0 %; Eosinophils % (A) 0 %; HCT 38.7 % (34.0-46.0); HGB 12.6 gm/dL (11.4-16.0); Lymphocytes # (A) 0.4 k/uL (1.0-4.8); Lymphocytes % (A) 1 %; MCH 28.7 pg (25.0-35.0); MCHC 32.4 g/dL (31.0-37.0); MCV 88.4 fL (80.0-100.0); Mean Platelet Volume 7.6; Monocytes # (A) 0.6 k/uL (0-1.0); Monocytes % (A) 2 %; Neutrophils # (A) 28.6 k/uL (1.3-7.7); Neutrophils % (A) 97 %; Platelet Count 403 k/uL (150-450); RBC 4.38 m/uL (3.80-5.40); RDW 15.7 % (11.5-15.5); WBC 29.6 k/uL (3.8-10.6)
[2020-01-19 08:07] LABS: Calcium 8.4 mg/dL (8.4-10.2); Potassium 3.4 mmol/L (3.5-5.1)
[2020-01-19] MEDS: SYMBICORT 160-4.5 MCG INHALER INHALATION SCH ×2 (08:35→21:30)
[2020-01-19] MEDS: METOPROLOL TARTRATE 25 MG TAB PO SCH ×2 (08:37→20:51)
[2020-01-19] MEDS: GABAPENTIN 100 MG CAP PO SCH ×2 (08:37→20:51)
[2020-01-19] MEDS: FAMOTIDINE 20 MG TAB PO SCH (08:37)
[2020-01-19] MEDS: APIXABAN 2.5 MG TABLET PO SCH ×2 (08:37→20:51)
[2020-01-19] MEDS: PIPERACILLIN-TAZOBACTAM 3.375 GM in SODIUM CHLORIDE 0.9% 100 ML IVPB SCH ×2 (08:37→20:53)
[2020-01-19] MEDS: FUROSEMIDE 10 MG/ML 4 ML VIAL IV SCH ×2 (08:37→20:52)
[2020-01-19] MEDS: IPRATROPIUM-ALBUTEROL 3 ML NEB INHALATION SCH ×4 (08:47→21:30)
--- NOTE | 2020-01-19 12:19 | XR ---
EXAMINATION TYPE: XR chest 2V DATE OF EXAM: 01/19/2020 COMPARISON: 01/18/2020 TECHNIQUE: PA and lateral views submitted. HISTORY: Shortness of breath FINDINGS: Persistent bilateral moderate-sized pleural effusions with biapical pleural thickening and diffuse in terstitial pattern with cardiomegaly. Bilateral lower lobe consolidation. No sizable pneumothorax. He art size stable. Hypertrophic and degenerative change of the spine. Hyperinflation suggests COPD. IMPRESSION: 1. Stable diffuse pleural-parenchymal changes correlate for CHF with pulmonary edema. Otherwise, cons ider diffuse pneumonia.
[2020-01-19] MEDS ORDERED: Potassium Replacement Protocol 1 EACH MISC MISCELLANE PRN ×2 (12:24→15:32)
--- NOTE | 2020-01-19 12:28 | P.PN ---
Subjective This is a pleasant 89-year-old female past medical history significant for paroxysmal atrial fibrillation, atrial flutter status post ablation, hypertension, chronic right-sided pleural effusion status post thoracentesis and COPD. She follows in the office with Dr. Schaefer. She is seen and examined sitting up in bed in no acute distress. She continues to complain of feeling short of breath with exertion and also associated palpitations. Telemetry tracings indicate she continues to be in atrial fibrillation. Blood pressure 126/58 heart rate 96 afebrile maintaining oxygen saturation on nasal cannula. Laboratory data reviewed, WBC 29.6, hemoglobin 12.6, platelets 403, sodium 138, potassium 3.4, creatinine 1.41. Currently maintained on Lasix IV 40 mg twice a day, metoprolol 25 mg twice a day, Eliquis 2.5 mg twice a day and Aldactone 25 mg daily. 24 hour urine output is only [address], doubt the accuracy. Her weight is down from 45 kg to 42 kg. GENERAL: Well-appearing, well-nourished and in no acute distress. NECK: Supple without JVD or thyromegaly. LUNGS: Breath sounds clear to auscultation bilaterally. Respiration equal and unlabored. No wheezes, rales or rhonchi. HEART: Irregular rate and rhythm without murmurs, rubs or gallops. S1 and S2 heard. EXTREMITIES: Normal range of motion, no edema. No clubbing or cyanosis. Peripheral pulses intact. ASSESSMENT Acute exacerbation of COPD Chronic diastolic heart failure Paroxysmal atrial fibrillation Pneumonia Leukocytosis Chronic kidney disease PLAN Repeat chest x-ray. Continue current medical regimen. Nurse Practitioner note has been reviewed, I agree with a documented findings and plan of care. Patient was seen and examined. Objective - Vital Signs Vital signs: Vital Signs Temp 97.5 F L 01/19/20 04:00 Pulse 96 01/19/20 08:55 Resp 16 01/19/20 04:00 BP 126/58 01/19/20 04:00 Pulse Ox 95 01/19/20 04:00 Intake & Output 01/18/20 01/19/20 01/19/20 18:59 06:59 18:59 Intake Total 370 100 Output Total 200 Balance 170 100 Weight 42 kg Intake: IV 250 Azithromycin 500 mg In 250 Sodium Chloride 0.9% 250 ml @ 250 mls/hr IVPB DAILY@1800 [facility] Rx#: [id number] Oral 120 100 Output: Urine 200 Other: Voiding Method Bedpan # Voids 1 2 0 - Labs CBC & Chem 7: 01/19/20 07:07 01/19/20 07:07 Labs: Abnormal Lab Results - Last 24 Hours (Table) 01/18/20 01/18/20 01/18/20 Range/Units 12:21 14:59 16:58 WBC (3.8-10.6) k/uL RDW (11.5-15.5) % Neutrophils # (1.3-7.7) k/uL Lymphocytes # (1.0-4.8) k/uL Potassium (3.5-5.1) mmol/L BUN (7-17) mg/dL Creatinine (0.52-1.04) mg/dL Glucose (74-99) mg/dL POC Glucose (mg/dL) 188 H 105 H (75-99) mg/dL Troponin I 0.041 H* (0.000-0.034) ng/mL 01/18/20 01/18/20 01/18/20 Range/Units 18:33 20:47 21:23 WBC (3.8-10.6) k/uL RDW (11.5-15.5) % Neutrophils # (1.3-7.7) k/uL Lymphocytes # (1.0-4.8) k/uL Potassium (3.5-5.1) mmol/L BUN (7-17) mg/dL Creatinine (0.52-1.04) mg/dL Glucose (74-99) mg/dL POC Glucose (mg/dL) 136 H (75-99) mg/dL Troponin I 0.044 H* 0.042 H* (0.000-0.034) ng/mL 01/19/20 01/19/20 01/19/20 Range/Units 06:09 07:07 07:07 WBC 29.6 H (3.8-10.6) k/uL RDW 15.7 H (11.5-15.5) % Neutrophils # 28.6 H (1.3-7.7) k/uL Lymphocytes # 0.4 L (1.0-4.8) k/uL Potassium 3.4 L (3.5-5.1) mmol/L BUN 40 H (7-17) mg/dL Creatinine 1.41 H (0.52-1.04) mg/dL Glucose 118 H (74-99) mg/dL POC Glucose (mg/dL) 138 H (75-99) mg/dL Troponin I (0.000-0.034) ng/mL
[2020-01-19] MEDS: SPIRONOLACTONE 25 MG TAB PO SCH (12:41)
[2020-01-19] MEDS: POTASSIUM CHLORIDE ER 20 MEQ TAB.ER PO SCH (12:41)
[2020-01-19 12:48] LABS: Glucose,Whole Blood 145 mg/dL (75-99)
[2020-01-19] MEDS ORDERED: Magnesium Replacement Protocol 1 EACH MISC MISCELLANE PRN (15:32)
[2020-01-19 15:36] LABS: Glucose,Whole Blood 107 mg/dL (75-99)
[2020-01-19 16:24] LABS: Glucose,Whole Blood 121 mg/dL (75-99)
[2020-01-19] MEDS: AZITHROMYCIN 500 MG TAB PO SCH (17:01)
--- NOTE | 2020-01-19 18:07 | PN ---
PROGRESS NOTE DATE OF SERVICE: 01/19/2020 This 89-year-old woman who was admitted with shortness of breath, multifactorial; CHF exacerbation, as well as versus pneumonia is being closely monitored. A repeat x-ray was done today which was personally reviewed by me and showed extensive lesions on the right side with diffuse pleural parenchymal changes including CHF and pulmonary edema. The patient also has pneumonia too. Patient also had possibly loculated pleural effusion as well. The creatinine is 1.41, which is rather stable over the past several days. The correct intake/output is not available. Past medical history reviewed. REVIEW OF SYSTEMS: CARDIOVASCULAR SYSTEM: No angina. RESPIRATION: As mentioned earlier. GI as mentioned earlier. no dysuria. NERVOUS SYSTEM: No numbness or weakness. CURRENT MEDICATIONS: Reviewed and include: DuoNeb, Eliquis, Zithromax, Symbicort, Neurontin. Solu-Medrol, Lopressor Singulair, Zosyn. PHYSICAL EXAMINATION: Patient is alert, oriented x3. Pulse 81, blood pressure 125/62, respiration 18, temperature 97.7, pulse ox 94% on 3 L. HEENT: Conjunctivae normal. NECK: No JVD. CARDIOVASCULAR: S1, S2 muffled. RESPIRATORY SYSTEM: Breath sounds diminished at the bases. A few scattered rhonchi and crackles. ABDOMEN: Soft, nontender. LEGS are no edema. No swelling. NERVOUS SYSTEM: No focal deficits. LABS: At this time shows WBC 29.6, hemoglobin 12.2, sodium 138, potassium 3.4. Creatinine is 1.41. ASSESSMENT: 1. Shortness of breath possibly multifactorial with congestive heart failure acute exacerbation with acute on chronic diastolic dysfunction, ejection fraction 50-55 percent, as well as chronic obstructive pulmonary disease acute exacerbation. 2. History of possible bibasilar pneumonia right more than the left possibly gram- negative on IV antibiotics. 3. Right-sided localized pleural effusion. 4. Atrial fibrillation with fast ventricular rate present on admission. 5. Elevated CRP. 6. Covid 19 negative. 7. Chronic kidney stage 3. 8. Troponin 0.05 indeterminate. 9. Elevated LDH. 10.Hyperkalemia. 11.Hyponatremia. 12.Increased WBC. 13.History of hypertension. 14.History of degenerative joint disease/back pain. 15.History of skin cancer. 16.History of cardiac ablation/atrial flutter. 17.Remote history of nicotine dependence. 18.Moderate protein calorie malnutrition with body mass index of 19.5. 19.Gait dysfunction. 20.FULL CODE. RECOMMENDATIONS AND DISCUSSION: I recommend to continue current medications, continue to monitor. Continue the bronchodilators. Continue with steroids, monitor blood sugars closely. Continue with diuretics. Creatinine is constant. Supplement potassium. Guarded prognosis because of multiple complex medical issues. Further recommendations to follow. Closely follow with multiple consultants. VIOLA / IJN: [id number] /
[2020-01-19 20:46] LABS: Glucose,Whole Blood 239 mg/dL (75-99)
[2020-01-19] MEDS: MONTELUKAST 10 MG TAB PO SCH (20:51)
[2020-01-20 06:17] LABS: Glucose,Whole Blood 143 mg/dL (75-99)
[2020-01-20] MEDS: methylPREDNISolone SOD SUCCI 125 MG/2 ML VIAL IV SCH ×3 (06:59→17:26)
[2020-01-20] MEDS: INSULIN ASPART (NovoLOG) 100 UNIT/ML VIAL SQ SCH ×4 (07:00→21:57)
[2020-01-20] MEDS: FAMOTIDINE 20 MG TAB PO SCH (08:42)
[2020-01-20] MEDS: GABAPENTIN 100 MG CAP PO SCH ×2 (08:42→20:13)
[2020-01-20] MEDS: APIXABAN 2.5 MG TABLET PO SCH ×2 (08:42→20:13)
[2020-01-20] MEDS: METOPROLOL TARTRATE 25 MG TAB PO SCH ×2 (08:43→20:13)
[2020-01-20] MEDS: FUROSEMIDE 10 MG/ML 4 ML VIAL IV SCH (08:43)
[2020-01-20] MEDS: PIPERACILLIN-TAZOBACTAM 3.375 GM in SODIUM CHLORIDE 0.9% 100 ML IVPB SCH ×2 (08:43→20:14)
[2020-01-20] MEDS: SYMBICORT 160-4.5 MCG INHALER INHALATION SCH ×2 (08:49→20:47)
[2020-01-20] MEDS: IPRATROPIUM-ALBUTEROL 3 ML NEB INHALATION SCH ×4 (08:50→20:48)
[2020-01-20 09:11] LABS: Calcium 8.5 mg/dL (8.4-10.2); Magnesium 2.1 mg/dL (1.6-2.3); Potassium 3.5 mmol/L (3.5-5.1)
[2020-01-20 09:16] LABS: Anisocytosis Slight; Basophils % (A) 0 %; Eosinophils % (A) 0 %; HCT 38.6 % (34.0-46.0); HGB 12.2 gm/dL (11.4-16.0); Lymphocytes # (A) 0.3 k/uL (1.0-4.8); Lymphocytes % (A) 1 %; MCH 28.1 pg (25.0-35.0); MCHC 31.6 g/dL (31.0-37.0); Mean Platelet Volume 7.5; Monocytes # (A) 0.6 k/uL (0-1.0); Monocytes % (A) 2 %; Neutrophils # (A) 28.2 k/uL (1.3-7.7); Neutrophils % (A) 97 %; Platelet Count 378 k/uL (150-450); RBC 4.34 m/uL (3.80-5.40); RDW 16.1 % (11.5-15.5); WBC 29.2 k/uL (3.8-10.6)
--- NOTE | 2020-01-20 11:22 | ECHOF ---
Referral Reason:chf please repeat for comparision MEASUREMENTS -------- HEIGHT: 0.0 cm WEIGHT: 0.0 kg BP: RVIDd: 2.3 cm (< 3.3) IVSd: 0.9 cm (0.6 - 1.1) LVIDd: 3.0 cm (3.9 - 5.3) LVPWd: 0.9 cm (0.6 - 1.1) IVSs: 1.1 cm LVIDs: 2.2 cm LVPWs: 1.1 cm Ao Diam: 3.4 cm (2.0 - 3.7) MV EXCURSION: 12.530 mm (> 18.000) MV EF SLOPE: 64 mm/s (70 - 150) EPSS: 0.3 cm RAP: 5.00 mmHg RVSP: 51.96 mmHg FINDINGS -------- This was a technically adequate study. LV size, wall thickness and systolic function are normal, with an EF greater than 55%. The left erasmo tricular size is normal. The right ventricle is normal in size. The left atrial size is normal. The right atrial size is normal. The aortic valve was not well visualized. There is mild aortic regurgitation. The mitral valve is normal. Mild mitral regurgitation is present. Mild tricuspid regurgitation present. There is moderate pulmonary hypertension. The right ventric ular systolic pressure, as measured by Doppler, is 51.96mmHg. The pulmonic valve was not well visualized. The aortic root size is normal. Echo free space represents a pericardial fat pad. CONCLUSIONS -------- 1. LV size, wall thickness and systolic function are normal, with an EF greater than 55%. 2. The left atrial size is normal. 3. There is mild aortic regurgitation. 4. Mild mitral regurgitation is present. 5. Mild tricuspid regurgitation present. 6. There is moderate pulmonary hypertension. 7. The pulmonic valve was not well visualized. 8. Echo free space represents a pericardial fat pad. EHS MANAGER: Martine Morales RDCS
--- NOTE | 2020-01-20 11:28 | P.PN ---
Subjective This is a pleasant 89-year-old female past medical history significant for paroxysmal atrial fibrillation, atrial flutter status post ablation, hypertension, chronic right-sided pleural effusion status post thoracentesis and COPD. She follows in the office with Dr. Schaefer. Pt is seen and examined sitting up in bed in no acute distress. She feels as though her breathing is improving slowly, but not back to baseline just yet. She is also having diarrhea. She has not been up out of bed yet this morning. She denies chest pain, dizziness or palpitations. Blood pressure 130/60 heart rate 72. She continues to be in afib with controlled rates. Laboratory data reviewed, WBC 29.2, hemoglobin 12.2, platelets 378, sodium 138, potassium 3.5, creatinine 1.51 and magnesium 2.1. Currently maintained on Eliquis 2.5 mg twice a day, Lasix 40 mg IV twice a day, metoprolol 25 mg twice a day and Aldactone 25 mg daily. Weight is down 5 kg since admission. Chest x-ray repeated yesterday reveals stable diffuse pleural parenchymal changes with pulmonary edema versus pneumonia. GENERAL: Well-appearing, well-nourished and in no acute distress. NECK: Supple without JVD or thyromegaly. LUNGS: Breath sounds clear to auscultation bilaterally. Respiration equal and unlabored. No wheezes, rales or rhonchi. HEART: Irregular rate and rhythm without murmurs, rubs or gallops. S1 and S2 heard. EXTREMITIES: Normal range of motion, no edema. No clubbing or cyanosis. Peripheral pulses intact. ASSESSMENT Acute exacerbation of COPD Pneumonia suspected Chronic diastolic heart failure Paroxysmal atrial fibrillation Pneumonia Leukocytosis Chronic kidney disease PLAN Continue current medical regimen. Check pro-calcitonin. Document accurate intake and output along with daily weights. Follow renal function in the morning. Nurse Practitioner note has been reviewed, I agree with a documented findings and plan of care. Patient was seen and examined. Objective - Vital Signs Vital signs: Vital Signs Temp 97.5 F L 01/20/20 08:00 Pulse 72 01/20/20 09:01 Resp 16 01/20/20 08:00 BP 130/60 01/20/20 08:00 Pulse Ox 96 01/20/20 08:00 Intake & Output 01/19/20 01/20/20 01/20/20 18:59 06:59 18:59 Intake Total 645 Balance 645 Weight 42 kg 40.5 kg Intake: IV 10 Invasive Line 2 10 Oral 635 Other: Voiding Method Bedpan # Voids 1 1 # Bowel Movements 1 - Labs CBC & Chem 7: 01/20/20 08:14 01/20/20 08:14 Labs: Abnormal Lab Results - Last 24 Hours (Table) 01/19/20 01/19/20 01/19/20 Range/Units 12:45 15:35 16:23 WBC (3.8-10.6) k/uL RDW (11.5-15.5) % Neutrophils # (1.3-7.7) k/uL Lymphocytes # (1.0-4.8) k/uL BUN (7-17) mg/dL Creatinine (0.52-1.04) mg/dL Glucose (74-99) mg/dL POC Glucose (mg/dL) 145 H 107 H 121 H (75-99) mg/dL 01/19/20 01/20/20 01/20/20 Range/Units 20:44 06:15 08:14 WBC 29.2 H (3.8-10.6) k/uL RDW 16.1 H (11.5-15.5) % Neutrophils # 28.2 H (1.3-7.7) k/uL Lymphocytes # 0.3 L (1.0-4.8) k/uL BUN (7-17) mg/dL Creatinine (0.52-1.04) mg/dL Glucose (74-99) mg/dL POC Glucose (mg/dL) 239 H 143 H (75-99) mg/dL 01/20/20 Range/Units 08:14 WBC (3.8-10.6) k/uL RDW (11.5-15.5) % Neutrophils # (1.3-7.7) k/uL Lymphocytes # (1.0-4.8) k/uL BUN 53 H (7-17) mg/dL Creatinine 1.51 H (0.52-1.04) mg/dL Glucose 137 H (74-99) mg/dL POC Glucose (mg/dL) (75-99) mg/dL
[2020-01-20 12:05] LABS: Glucose,Whole Blood 152 mg/dL (75-99)
--- NOTE | 2020-01-20 14:46 | P.PN ---
Subjective Progress Note Date: 01/20/20 Principal diagnosis: A. fib with RVR, pneumonia, 79-year-old white female patient of Dr. Angel Natarajan who was admitted to the hospital on 01/17/2020 for shortness of breath, and patient was in A. fib with RVR, fluid overload state, and she had bilateral pleural effusions, and interstitial edema, possible underlying pneumonia in the right midlung and right lower lobe could not be entirely excluded, patient was treated with antibiotics, breathing treatments and corticosteroids, she's been diuresed, she is feeling better, breathing easier, she is currently on 3 L of oxygen, she sounds better, no wheezing, hardly any crackles, her heart rate is controlled, Cardizem drip has been discontinued, she is on antibiotics form of Zosyn and azithromycin, denies any chest pain, denies any hemoptysis. She tested negative for COVID 19. She has had no fever or chills, is maintaining negative fluid balance. she is on bronchodilators, and IV steroids. She is breathing comfortably, but staff reports that the patient has made statements that she thinks she is going to today although she is not complaining of anything specifically and vital signs have been stable. Objective - Vital Signs Vital signs: Vital Signs Temp 97.5 F L 01/20/20 08:00 Pulse 72 01/20/20 11:57 Resp 18 01/20/20 11:28 BP 111/62 01/20/20 11:28 Pulse Ox 96 01/20/20 08:00 Intake & Output 01/19/20 01/20/20 01/20/20 18:59 06:59 18:59 Intake Total 645 Balance 645 Weight 42 kg 40.5 kg Intake: IV 10 Invasive Line 2 10 Oral 635 Other: Voiding Method Bedpan # Voids 1 1 # Bowel Movements 1 - Exam GENERAL EXAM: Alert, very pleasant, 89-year-old white female, 3 L oxygen pulse ox 96% comfortable in no apparent distress. HEAD: Normocephalic/atraumatic. EYES: Normal reaction of pupils, equal size. Conjunctiva pink, sclera white. NOSE: Clear with pink turbinates. THROAT: No erythema or exudates. NECK: No masses, no JVD, no thyroid enlargement, no adenopathy. CHEST: No chest wall deformity. Symmetrical expansion. LUNGS: Equal air entry with basilar crackles, but no wheeze, rhonchi or dullness. CVS: Regular rate and rhythm, normal S1 and S2, no gallops, no murmurs, no rubs ABDOMEN: Soft, nontender. No hepatosplenomegaly, normal bowel sounds, no guarding or rigidity. EXTREMITIES: No clubbing, no edema, no cyanosis, 2+ pulses and upper and lower extremities. MUSCULOSKELETAL: Muscle strength and tone normal. SPINE: No scoliosis or deformity SKIN: No rashes CENTRAL NERVOUS SYSTEM: Alert and oriented -3. No focal deficits, tone is normal in all 4 extremities. PSYCHIATRIC: Alert and oriented -3. Appropriate affect. Intact judgment and insight. - Labs CBC & Chem 7: 01/20/20 08:14 01/20/20 08:14 Labs: Abnormal Lab Results - Last 24 Hours (Table) 01/19/20 01/19/20 01/19/20 Range/Units 15:35 16:23 20:44 WBC (3.8-10.6) k/uL RDW (11.5-15.5) % Neutrophils # (1.3-7.7) k/uL Lymphocytes # (1.0-4.8) k/uL BUN (7-17) mg/dL Creatinine (0.52-1.04) mg/dL Glucose (74-99) mg/dL POC Glucose (mg/dL) 107 H 121 H 239 H (75-99) mg/dL 01/20/20 01/20/20 01/20/20 Range/Units 06:15 08:14 08:14 WBC 29.2 H (3.8-10.6) k/uL RDW 16.1 H (11.5-15.5) % Neutrophils # 28.2 H (1.3-7.7) k/uL Lymphocytes # 0.3 L (1.0-4.8) k/uL BUN 53 H (7-17) mg/dL Creatinine 1.51 H (0.52-1.04) mg/dL Glucose 137 H (74-99) mg/dL POC Glucose (mg/dL) 143 H (75-99) mg/dL 01/20/20 Range/Units 12:04 WBC (3.8-10.6) k/uL RDW (11.5-15.5) % Neutrophils # (1.3-7.7) k/uL Lymphocytes # (1.0-4.8) k/uL BUN (7-17) mg/dL Creatinine (0.52-1.04) mg/dL Glucose (74-99) mg/dL POC Glucose (mg/dL) 152 H (75-99) mg/dL Assessment and Plan Plan: Assessment: #1. Acute hypoxic respiratory failure related to acute exacerbation of congestive heart failure with preserved LV function, COPD exacerbation, and possibility of bibasilar pneumonia right greater than left is not entirely excluded. COVID 19 was ruled out #2. Right-sided localized pleural effusion with history of previous thoracentesis, with transudative fluid, with negative cultures, and negative c ytology #3. Chronic atrial fibrillation, and patient was in A. fib RVR on presentation, heart rate is better controlled currently #4. Chronic kidney disease stage III #5. Mild troponin leak, indeterminate #6. Hypokalemia, #7. Hyponatremia likely hypervolemic related to acute fluid overload and exacerbation of chronic CHF #8. Hypertension #9. Degenerative joint disease #10. History of skin cancer #11. History of cardiac ablation/atrial flutter #12. Remote history of nicotine dependence #13. Gait dysfunction Plan: Continue current medical treatment, continue diuretics, continue antibiotics, but vital signs have been stable, no worsening dyspnea, less chest x-ray was don e on 01/19/2020, and reviewed, showing stable diffuse changes of CHF with pulmonary edema. Oxygenation is stable, currently on 3 L, we are told by the nursing staff that the patient and the family are considering going home with palliative care/hospice. For now continue supportive treatment I performed a history & physical examination of the patient and discussed their management with my nurse practitioner, Isabel Henson. I reviewed the nurse practitioner's note and agree with the documented findings and plan of care. Lung sounds are positive for fine rales at the bases. The findings and the impression was discussed with the patient. I attest to the documentation by the nurse practitioner. Time with Patient: Less than 30
[2020-01-20] MEDS: SPIRONOLACTONE 25 MG TAB PO SCH (15:47)
--- NOTE | 2020-01-20 16:18 | CDI ---
Documentation Clarification Form Date: 01/20/2020 04:00:29 PM From: Cleo Galo RN, CCDS Admit Date: 01/17/2020 05:15:00 PM Patient Name: Nellie Siu Visit Number: [id number] Discharge Date: ATTENTION: The Clinical Documentation Specialists (CDI) and [facility] Coding Staff appreciate your assistance in clarifying documentation. Please respond to the clarification below the line at the bottom and electronically sign. The CDI & [facility] Coding staff will review the response and follow-up if needed. Please note: Queries are made part of the Legal Health Record. If you have any questions, please contact the author of this message via ITS. Dr. Brittany Marrufo Asthma acute exacerbation is documented in the H/P and subsequent progress note on 01/17. Please render your opinion on the severity of the acute asthma you are treating. History/risk factors: Asthma, Pneumonia, Atrial fibrillation, Congestive heart failure, Hypertension Clinical Indicators: 89-year-old female present to ED on 01/16 with complaints of worsening shortness of breath, heart palpitations and weakness. Respiratory exam in ED; respiratory distress, wheezes, decreased breath sounds, prolonged expiratory. 01/16 Vital signs: 129/82 73 24 98.6 90 % 01/16 CXR: likely infiltrate (per ED image review) Treatment: Duoneb 0.5 mg-3mg/3 ml tiffanie Inhalation QID, PRN Zithromax 500 mg PO BID Symbicort 160-4.5 Mcg inhaler BID Lasix 40 mg IV daily Solu-Medrol 60 mg IV Q6 HRS In your professional opinion, can you please further specify severity of acute asthma exacerbation. Severity Mild intermittent Mild persistent Moderate persistent Severe persistent Other, please specify ____ Unable to determine (Last Revision: May 2017) Mild persistent MTDD
[2020-01-20 16:28] LABS: Glucose,Whole Blood 136 mg/dL (75-99)
--- NOTE | 2020-01-20 16:33 | PN ---
PROGRESS NOTE DATE OF SERVICE: 01/20/2020 INTERVAL HISTORY: This is an 89-year-old woman who was admitted with shortness of breath, possibly multifactorial with CHF, acute exacerbation, also had possible bibasilar pneumonia, right more than the left. Patient is on IV antibiotics also. The patient also had right pleural effusion. Multiple consultants including Pulmonary and Cardiology following the patient closely. Patient on bronchodilators and diuretics. The patient is currently on 3 L oxygenation and the patient closely monitored. PAST MEDICAL HISTORY: Reviewed. REVIEW OF SYSTEMS: CARDIOVASCULAR: As mentioned earlier. RESPIRATORY: As mentioned earlier. GI: As mentioned earlier. : As mentioned earlier. NERVOUS SYSTEM: No numbness or weakness. CURRENT MEDICATIONS: Reviewed include DuoNeb q.i.d. and p.r.n., Eliquis, Zithromax, Symbicort, Pepcid, Lasix, Neurontin, NovoLog, Solu-Medrol, Singulair, Aldactone, Zosyn. PHYSICAL EXAMINATION: GENERAL: Patient is alert and oriented times three. VITAL SIGNS: Pulse 81, blood pressure 111/62, respirations 18, temperature normal, pulse ox 97% on 3 liters. HEENT: Conjunctivae normal. NECK: No jugular venous distention. RESPIRATORY: Breath sounds diminished at the bases. A few scattered rhonchi and crackles. HEART: S1 and S2, muffled. ABDOMEN: Soft, no tenderness. EXTREMITIES: No edema, no swelling. NERVOUS: No focal deficits. LABS: WBC 29.2 and creatinine is 1.51. COVID-19 is negative. ASSESSMENT: 1. Shortness of breath possibly multifactorial with congestive heart failure acute exacerbation as well as acute on chronic diastolic dysfunction ejection fraction 50- 55 percent, as well as chronic obstructive pulmonary disease acute exacerbation. 2. Bibasilar pneumonia possibly gram-negative right more than the left, on IV antibiotics. 3. Right-sided loculated pleural effusion. 4. Atrial fibrillation with fast ventricular rate, present on admission. 5. Elevated CRP. 6. COVID-19 negative and ruled out. 7. Chronic kidney disease stage 3. 8. Troponin 0.05 indeterminate. 9. Elevated LDH. 10.Hypokalemia. 11.Hyponatremia. 12.Increased WBC. 13.History of hypertension. 14.History of degenerative joint disease with back pain. 15.History of skin cancer. 16.History of cardiac ablation, atrial flutter. 17.Remote history of nicotine dependence. 18.Moderate protein calorie malnutrition with body mass index of 19.5. 19.Gait dysfunction. 20.FULL CODE. RECOMMENDATIONS AND DISCUSSION: In this 89-year-old woman who presents with multiple complex medical issues, we will monitor the patient closely. Continue the current management and continue symptomatic treatment. Otherwise, at this time I recommend continue with bronchodilators. Continue with empiric antibiotics, steroids. Continue with diuretics. I would cut down the dose of diuretics to 40 mg IV daily and continue to monitor. Guarded prognosis because of multiple complex medical issues. Further recommendations to follow. MMODL / IJN: [id number] /
[2020-01-20] MEDS: AZITHROMYCIN 500 MG TAB PO SCH (17:26)
[2020-01-20] MEDS: MONTELUKAST 10 MG TAB PO SCH (20:13)
[2020-01-20 21:03] LABS: Glucose,Whole Blood 131 mg/dL (75-99)
[2020-01-21] MEDS: methylPREDNISolone SOD SUCCI 125 MG/2 ML VIAL IV SCH ×3 (00:01→12:25)
[2020-01-21 06:00] LABS: Glucose,Whole Blood 157 mg/dL (75-99)
[2020-01-21] MEDS: INSULIN ASPART (NovoLOG) 100 UNIT/ML VIAL SQ SCH ×3 (06:21→17:06)
[2020-01-21] MEDS: IPRATROPIUM-ALBUTEROL 3 ML NEB INHALATION SCH ×2 (07:50→11:05)
[2020-01-21] MEDS: SYMBICORT 160-4.5 MCG INHALER INHALATION SCH (07:50)
[2020-01-21] MEDS: PIPERACILLIN-TAZOBACTAM 3.375 GM in SODIUM CHLORIDE 0.9% 100 ML IVPB SCH (08:41)
[2020-01-21] MEDS: METOPROLOL TARTRATE 25 MG TAB PO SCH (08:41)
[2020-01-21] MEDS: FAMOTIDINE 20 MG TAB PO SCH (08:41)
[2020-01-21] MEDS: GABAPENTIN 100 MG CAP PO SCH (08:41)
[2020-01-21] MEDS: APIXABAN 2.5 MG TABLET PO SCH (08:42)
[2020-01-21] MEDS ORDERED: FUROSEMIDE 10 MG/ML 4 ML VIAL IV SCH (09:00)
[2020-01-21 11:35] LABS: Glucose,Whole Blood 157 mg/dL (75-99)
--- NOTE | 2020-01-21 11:50 | P.PCN ---
Date of Procedure: 01/08/20 Preoperative Diagnosis: right sided pleural effusion Postoperative Diagnosis: Right sided pleural effusion Procedure(s) Performed: Thoracentesis Anesthesia: local Surgeon: Maddie Koo Estimated Blood Loss (ml): 0 Pathology: other Condition: stable Disposition: floor Operative Findings: A time out was performed and the chest x-ray was reviewed, the appropriate side was confirmed and marked. My hands were washed immediately prior to the procedure. I wore a surgical cap, mask with protective eyewear, sterile gown and sterile gloves throughout the procedure. The patient was prepped and draped in a sterile manner using chlorhexidine scrub after the appropriate level was pe rcussed and confirmed by ultrasound. 1% lidocaine was used to anesthesize the skin, subcutaneous tissue, superior aspect of the rib periosteum and parietal pleura. A finder needle was then introduced over the superior aspect of the rib to locate the pleural fluid; 2colored fluid was aspirated at a depth of approximately 2 cm. A 10-blade scalpel was used to shruthi the skin at the insertion site. The [id number] needle was then introduced through the skin incision into the pleural space using negative aspiration pressure and the red colometric indicator to confirm appropriate positioning of the needle. The thoracentesis catheter was then threaded without difficulty. 750 ml of turbid colored fluid was removed without difficulty. The catheter was then removed. No immediate complications were noted during the procedure. A post-procedure chest x-ray is pending at the time of this note. The fluid will be sent for studies. Estimated blood loss is 0 cc
[2020-01-21 12:19] VITALS: BP 150/67; PULSE 71; RESP 24; TEMP 97.4
--- NOTE | 2020-01-21 13:34 | P.PN ---
Subjective This is a pleasant 89-year-old female past medical history significant for paroxysmal atrial fibrillation, atrial flutter status post ablation, hypertension, chronic right-sided pleural effusion status post thoracentesis and COPD. She follows in the office with Dr. Schaefer. Pt is seen and examined sitting up in bed in no acute distress. She feels as though her breathing is improving slowly, but not back to baseline just yet. She is also having diarrhea. She has not been up out of bed yet this morning. She denies chest pain, dizziness or palpitations. Blood pressure 130/60 heart rate 72. She continues to be in afib with controlled rates. Laboratory data reviewed, WBC 29.2, hemoglobin 12.2, platelets 378, sodium 138, potassium 3.5, creatinine 1.51 and magnesium 2.1. Currently maintained on Eliquis 2.5 mg twice a day, Lasix 40 mg IV twice a day, metoprolol 25 mg twice a day and Aldactone 25 mg daily. Weight is down 5 kg since admission. Chest x-ray repeated yesterday reveals stable diffuse pleural parenchymal changes with pulmonary edema versus pneumonia. 01/21/2020 Pt continues to feel short of breath. No chest pain, dizziness or palpitations. Diarrhea improved but no completely subsided. Blood pressure 150/67 heart rate 71 afebrile and maintaining oxygen saturation on nasal cannula. She underwent a right thoracentesis with 750 cc of fluid aspirated. Lasix decreased per primary care team to daily dosing. Weight is down 8 kg since admission. GENERAL: Well-appearing, well-nourished and in no acute distress. NECK: Supple without JVD or thyromegaly. LUNGS: Breath sounds clear to auscultation bilaterally. Respiration equal and unlabored. No wheezes, rales or rhonchi. HEART: Irregular rate and rhythm without murmurs, rubs or gallops. S1 and S2 heard. EXTREMITIES: Normal range of motion, no edema. No clubbing or cyanosis. Peripheral pulses intact. ASSESSMENT Acute exacerbation of COPD Pneumonia suspected Chronic diastolic heart failure Paroxysmal atrial fibrillation Pneumonia Leukocytosis Chronic kidney disease PLAN Continue current medical regimen. Document accurate intake and output along with daily weights. Follow renal function in the morning. Nurse Practitioner note has been reviewed, I agree with a documented findings and plan of care. Patient was seen and examined. Objective - Vital Signs Vital signs: Vital Signs Temp 97.4 F L 12/03/20 12:00 Pulse 71 01/21/20 12:00 Resp 24 01/21/20 12:00 BP 150/67 01/21/20 12:00 Pulse Ox 95 01/21/20 12:00 Intake & Output 01/20/20 01/21/20 01/21/20 18:59 06:59 18:59 Intake Total 480 1020 Output Total 500 Balance 480 520 Weight 37.5 kg Intake: Oral 480 1020 Output: Urine 500 Other: Voiding Method Bedpan # Voids 7 1 4 # Bowel Movements 2 - Labs CBC & Chem 7: 01/20/20 08:14 01/20/20 08:14 Labs: Abnormal Lab Results - Last 24 Hours (Table) 01/20/20 01/20/20 01/20/20 Range/Units 08:14 16:26 21:01 POC Glucose (mg/dL) 136 H 131 H (75-99) mg/dL Procalcitonin 0.35 H (0.02-0.09) ng/mL 01/21/20 01/21/20 Range/Units 05:59 11:33 POC Glucose (mg/dL) 157 H 157 H (75-99) mg/dL Procalcitonin (0.02-0.09) ng/mL
--- NOTE | 2020-01-21 14:09 | P.PN ---
Subjective Progress Note Date: 01/21/20 Principal diagnosis: A. fib with RVR, pneumonia, 79-year-old white female patient of Dr. Angel Natarajan who was admitted to the hospital on 01/17/2020 for shortness of breath, and patient was in A. fib with RVR, fluid overload state, and she had bilateral pleural effusions, and interstitial edema, possible underlying pneumonia in the right midlung and right lower lobe could not be entirely excluded, patient was treated with antibiotics, breathing treatments and corticosteroids, she's been diuresed, she is feeling better, breathing easier, she is currently on 3 L of oxygen, she sounds better, no wheezing, hardly any crackles, her heart rate is controlled, Cardizem drip has been discontinued, she is on antibiotics form of Zosyn and azithromycin, denies any chest pain, denies any hemoptysis. She tested negative for COVID 19. She has had no fever or chills, is maintaining negative fluid balance. she is on bronchodilators, and IV steroids. She is breathing comfortably, but staff reports that the patient has made statements that she thinks she is going to today although she is not complaining of anything specifically and vital signs have been stable. On 01/21/2020 patient seen in follow-up on elective care unit, she is resting comfortably in bed, she is currently on 2 L of oxygen her pulse ox between 97- 100%, hemodynamically she is stable, she is afebrile. Complains of chest pain, she remains on diuretics, she's had no fever or chills, she is in negative fluid balance. She is breathing comfortably although at times she'll have anxiety issues, and some increased shortness of breath, seems comfortable right now. Her last chest x-ray was done on 01/19/2020 showing stable diffuse changes of CHF Objective - Vital Signs Vital signs: Vital Signs Temp 97.4 F L 01/21/20 12:00 Pulse 71 01/21/20 12:00 Resp 24 01/21/20 12:00 BP 150/67 01/21/20 12:00 Pulse Ox 95 01/21/20 12:00 Intake & Output 01/20/20 01/21/20 01/21/20 18:59 06:59 18:59 Intake Total 480 1020 Output Total 600 Balance 480 420 Weight 37.5 kg Intake: Oral 480 1020 Output: Urine 600 Other: Voiding Method Bedpan # Voids 7 1 4 # Bowel Movements 2 - Exam GENERAL EXAM: Alert, very pleasant, 89-year-old white female, 3 L oxygen pulse ox 96% comfortable in no apparent distress. HEAD: Normocephalic/atraumatic. EYES: Normal reaction of pupils, equal size. Conjunctiva pink, sclera white. NOSE: Clear with pink turbinates. THROAT: No erythema or exudates. NECK: No masses, no JVD, no thyroid enlargement, no adenopathy. CHEST: No chest wall deformity. Symmetrical expansion. LUNGS: Equal air entry with basilar crackles, but no wheeze, rhonchi or dullness. CVS: Regular rate and rhythm, normal S1 and S2, no gallops, no murmurs, no rubs ABDOMEN: Soft, nontender. No hepatosplenomegaly, normal bowel sounds, no guarding or rigidity. EXTREMITIES: No clubbing, no edema, no cyanosis, 2+ pulses and upper and lower extremities. MUSCULOSKELETAL: Muscle strength and tone normal. SPINE: No scoliosis or deformity SKIN: No rashes CENTRAL NERVOUS SYSTEM: Alert and oriented -3. No focal deficits, tone is normal in all 4 extremities. PSYCHIATRIC: Alert and oriented -3. Appropriate affect. Intact judgment and insight. - Labs CBC & Chem 7: 01/20/20 08:14 01/20/20 08:14 Labs: Abnormal Lab Results - Last 24 Hours (Table) 01/20/20 01/20/20 01/20/20 Range/Units 08:14 16:26 21:01 POC Glucose (mg/dL) 136 H 131 H (75-99) mg/dL Procalcitonin 0.35 H (0.02-0.09) ng/mL 01/21/20 01/21/20 Range/Units 05:59 11:33 POC Glucose (mg/dL) 157 H 157 H (75-99) mg/dL Procalcitonin (0.02-0.09) ng/mL Assessment and Plan Plan: Assessment: #1. Acute hypoxic respiratory failure related to acute exacerbation of congestive heart failure with preserved LV function, COPD exacerbation, and possibility of bibasilar pneumonia right greater than left is not entirely excluded. COVID 19 was ruled out #2. Right-sided localized pleural effusion with history of previous thoracentesis, with transudative fluid, with negative cultures, and negative cytology #3. Chronic atrial fibrillation, and patient was in A. fib RVR on presentation, heart rate is better controlled currently #4. Chronic kidney disease stage III #5. Mild troponin leak, indeterminate #6. Hypokalemia, #7. Hyponatremia likely hypervolemic related to acute fluid overload and exacer bation of chronic CHF #8. Hypertension #9. Degenerative joint disease #10. History of skin cancer #11. History of cardiac ablation/atrial flutter #12. Remote history of nicotine dependence #13. Gait dysfunction Plan: Patient is doing well, maintaining negative fluid balance, she's been afebrile, no worsening dyspnea, IV Lasix has been cut back, continue bronchodilators, will cut back to IV steroids. Continue same antibiotics, she has had stable vital signs, she could be considered for discharge home from pulmonary perspective with outpatient follow-up with Dr. Guzman in the office in 7-10 days. I performed a history & physical examination of the patient and discussed their management with my nurse practitioner, Isabel Henson. I reviewed the nurse practitioner's note and agree with the documented findings and plan of care. Lung sounds are positive for fine rales at the bases. The findings and the impression was discussed with the patient. I attest to the documentation by the nurse practitioner. Time with Patient: Less than 30
[2020-01-21 14:29] VITALS: BMI 16.1
[2020-01-21 16:54] LABS: Glucose,Whole Blood 151 mg/dL (75-99)
[2020-01-21] MEDS: SPIRONOLACTONE 25 MG TAB PO SCH (17:06)
[2020-01-21] MEDS ORDERED: methylPREDNISolone SOD SUCCI 40 MG/ML 1 ML VIAL IV SCH (18:00)
--- NOTE | 2020-01-22 04:04 | DS ---
DISCHARGE SUMMARY DATE OF SERVICE: 01/21/2020 FINAL DIAGNOSES: 1. Shortness of breath possibly multifactorial with congestive heart failure acute exacerbation with acute on chronic diastolic dysfunction, ejection fraction 50% to 55% as well as chronic obstructive pulmonary disease acute exacerbation. 2. Bibasilar pneumonia possibly gram-negative right more the left on IV antibiotics. 3. Right-sided loculated pleural effusion. 4. Atrial fibrillation with fast ventricular rate, present on admission. 5. Elevated CRP. 6. COVID-19 negative and ruled out. 7. Chronic kidney disease stage 3. 8. Troponin 0.05 indeterminate. 9. Elevated LDH. 10.Hypokalemia. 11.Hyponatremia. 12.Increased WBC. 13.Hypertension. 14.History of degenerative joint disease. 15.History of skin cancer. 16.History of cardiac ablation for atrial flutter. 17.Remote history of nicotine dependence. 18.Moderate protein-calorie malnutrition of 19.5 body mass index. 19.Gait dysfunction. 20.NO CODE, NO CPR, NO VENT. DISCHARGE DISPOSITION: The patient will be discharged in stable condition with guarded prognosis. Total time 35 minutes. HISTORY OF PRESENT ILLNESS: This 89-year-old woman with a past medical history of multiple medical problems admitted with shortness of breath and the patient also had multiple other medical issues including COPD, CHF and as well as pleural effusion, possible pneumonia, treated symptomatically in conjunction with Pulmonary and Cardiology. Dr. Cisneros saw the patient and recommend outpatient palliative care. On exam, vital signs are stable. CARDIOVASCULAR: S1, S2 muffled. ABDOMEN: Soft. NERVOUS SYSTEM: No focal deficits. The patient is being discharged in stable and guarded prognosis. DISCHARGE ADVICE AND MEDICATIONS: 1. Diet is cardiac. 2. Activity limited until followup. 3. Follow up with Dr. Natarajan 2-3 days. 4. Follow up with Cardiology as recommended. 5. Follow with Dr. Cisneros as recommended. Medications are: 1. Aldactone 25 mg p.o. daily. 2. Ambien 10 mg at bedtime p.r.n. 3. Atrovent p.r.n. 4. Eliquis 2.5 mg b.i.d. 5. Lasix 40 mg daily and 20 mg at bedtime. 6. Pepcid 20 mg b.i.d. 7. Promethazine p.r.n. 8. Prednisone taper 40 mg daily for 3 days, 30 for 3 days 10 for 3 days and then 5 daily. 9. Albuterol p.r.n. 10.Singulair 10 mg at bedtime. 11.Vitamin B complex 1 p.o. daily. 12.Augmentin 875 mg 1 p.o. b.i.d. for 5 days. 13.DuoNeb q.i.d. and p.r.n. 14.Lopressor 25 mg p.o. 15.Neurontin 200 mg p.o. b.i.d. Once again, the patient will be discharged in a stable condition with guarded prognosis. MMODL / IJN: [id number] / MTDTorin
== END 2020-01-21 17:38 | disposition home health service (06) | DRG 291 ==
LOC: EC 16:02 → 3SCARD 17:15
PROVIDERS: ADMIT Hospitalist; ATTEND Hospitalist
DX: I13.0 Hypertensive heart and chronic kidney disease with heart failure and stage 1 through stage 4 chronic kidney disease, or unspecified chronic kidney disease (principal); I50.33 Acute on chronic diastolic (congestive) heart failure; J15.6 Pneumonia due to other Gram-negative bacteria; J96.01 Acute respiratory failure with hypoxia; J44.1 Chronic obstructive pulmonary disease with (acute) exacerbation; Z68.1 Body mass index [BMI] 19.9 or less, adult; E87.1 Hypo-osmolality and hyponatremia; E44.0 Moderate protein-calorie malnutrition; Z20.828 Contact with and (suspected) exposure to other viral communicable diseases; N18.30 Chronic kidney disease, stage 3 unspecified; M19.90 Unspecified osteoarthritis, unspecified site; I48.0 Paroxysmal atrial fibrillation; Z66 Do not resuscitate; G89.29 Other chronic pain; F41.9 Anxiety disorder, unspecified; E87.6 Hypokalemia; E87.5 Hyperkalemia; J45.20 Mild intermittent asthma, uncomplicated; R26.9 Unspecified abnormalities of gait and mobility; Z79.01 Long term (current) use of anticoagulants; Z79.899 Other long term (current) drug therapy; Z82.49 Family history of ischemic heart disease and other diseases of the circulatory system; Z85.828 Personal history of other malignant neoplasm of skin; Z87.891 Personal history of nicotine dependence; Z88.1 Allergy status to other antibiotic agents; Z91.09 Other allergy status, other than to drugs and biological substances; Z90.49 Acquired absence of other specified parts of digestive tract; Z98.890 Other specified postprocedural states
CPT/HCPCS: 36415; 71045; 71046; 80048; 80053; 82550; 83615; 83735; 83880; 84145; 84484; 85025; 85379; 85610; 85730; 86140; 87635; 93005; 93306; 94640; 96365; 96366; 96368; 99285